=== PATIENT | female | born 1945 | race Caucasian/White ===

== ENCOUNTER 2017-07-09 14:31 | Outpatient (RCR) | payer MEDICARE, SELFPAY ==
[2017-07-09 16:34] LABS: International Normalized Ratio 2.9; Prothrombin Time (Protime)PT. 30.3 SECONDS (11.7-14.9)
== END 2017-07-09 15:00 | disposition home or self-care (01) ==
LOC: MTLAB 14:31
PROVIDERS: Family Provider Family Medicine; PCP Family Medicine; Visit Provider Internal Medicine Cardiovascular Disease
DX: I48.1 Persistent atrial fibrillation (principal); Z79.01 Long term (current) use of anticoagulants
CPT/HCPCS: 36415; 85610

== ENCOUNTER 2017-09-21 13:42 | Outpatient (RCR) | payer MEDICARE, SELFPAY ==
[2017-09-21 15:04] LABS: International Normalized Ratio 2.5; Prothrombin Time (Protime)PT. 26.9 SECONDS (11.7-14.9)
== END 2017-09-21 14:00 | disposition home or self-care (01) ==
LOC: MTLAB 13:42
PROVIDERS: Physician Assistant Medical; Family Provider Family Medicine; PCP Family Medicine; Visit Provider Internal Medicine Cardiovascular Disease
DX: I48.0 Paroxysmal atrial fibrillation (principal); Z79.01 Long term (current) use of anticoagulants; I50.9 Heart failure, unspecified; I48.91 Unspecified atrial fibrillation
CPT/HCPCS: 36415; 85610

== ENCOUNTER 2017-11-14 07:03 | Outpatient (RCR) | payer MEDICARE, SELFPAY ==
[2017-11-14 10:39] LABS: International Normalized Ratio 2.5; Prothrombin Time (Protime)PT. 26.9 SECONDS (11.7-14.9)
== END 2017-11-14 09:00 ==
LOC: MTLAB 07:03
PROVIDERS: Family Provider Family Medicine; PCP Family Medicine; Visit Provider Internal Medicine Cardiovascular Disease
DX: I48.91 Unspecified atrial fibrillation (principal); Z79.01 Long term (current) use of anticoagulants
CPT/HCPCS: 36415; 85610

== ENCOUNTER 2017-12-11 12:49 | Outpatient (RCR) | payer MEDICARE, SELFPAY ==
[2017-12-11 13:58] LABS: International Normalized Ratio 1.8; Prothrombin Time (Protime)PT. 20.8 SECONDS (11.7-14.9)
== END 2017-12-11 14:00 | disposition home or self-care (01) ==
LOC: MTLAB 12:49
PROVIDERS: Family Provider Family Medicine; PCP Family Medicine; Visit Provider Internal Medicine Cardiovascular Disease
DX: I48.91 Unspecified atrial fibrillation (principal); Z79.01 Long term (current) use of anticoagulants
CPT/HCPCS: 36415; 85610

== ENCOUNTER → 2018-01-08 09:49 | Outpatient (CLI) | payer MEDICARE, SELFPAY ==
[2018-01-08 12:14] LABS: Absolute Lymphocyte Count 1.81 X10^3/ul (0.83-4.51); Absolute Neutrophil Count 4.2 X10^3/uL (2.0-7.7); Basophil# 0.02 X10^3/uL; Basophil% 0.3 % (0-1); Eosinophil# 0.11 X10^3/uL; Eosinophils% 1.6 % (0-5); Hematocrit 44.6 % (37-47); Hemoglobin 14.5 g/dl (12.0-15.0); Lymphocyte # 1.81 X10^3/ul (4.0); Lymphocyte % 26.5 % (19-41); Mean Corp Hgb Conc 32.5 g/gl (32-36); Mean Corpuscular Hgb 28.4 pg (27.0-32.0); Mean Corpuscular Volume 87.3 fL (81-99); Mean Platelet Vol. 10.4 fl (6.2-12.0); Monocyte# 0.67 X10^3/uL; Monocyte% 9.8 % (0-10); Neutrophil # 4.21 X10^3/uL (2.7-7.7); Neutrophil % 61.7 % (47-70); Platelet Count 214 K/mm3 (150-450); RBC Distribution Width CV 14.9 % (11.6-14.6); RBC Distribution Width SD 47.8 fl (35.1-43.9); Red Blood Count 5.11 M/mm3 (4.2-5.4); White Blood Count 6.8 K/mm3 (4.4-11.0)
[2018-01-08 12:15] LABS: International Normalized Ratio 2.1; Prothrombin Time (Protime)PT. 23.3 SECONDS (11.7-14.9)
[2018-01-08 12:24] LABS: POSITIVE COUNT NO; POSITIVE DIFFERENTIAL NO; POSITIVE MORPHOLOGY NO
[2018-01-08 12:56] LABS: Anion Gap 10 (5-15); BUN 18 mg/dL (7-18); BUN/Creat Ratio 23.9 RATIO (10-20); Calcium,Total 8.6 mg/dL (8.5-10.1); Chloride 106 mmol/L (98-107); Cholesterol 288 mg/dL (200); Creatinine, Serum 0.75 mg/dL (0.55-1.02); EST Glomerular Filtration Rate 80 mL/min (>60); Est Glom Filt Rate - Afr Amer 97 mL/min (>60); Glucose 90 mg/dL (74-106); High Density Lipoprotein 50 mg/dL; Potassium 4.4 mmol/L (3.5-5.1); Sodium Level 141 mmol/L (136-145); Thyroid Stim Hormone (TSH) 2.82 uIU/mL (0.358-3.74); Triglycerides 115 mg/dL; Very Low Density Lipoprotein 23 mg/dL (5-40)
== END ==
PROVIDERS: Internal Medicine Cardiovascular Disease; Family Provider Family Medicine; PCP Family Medicine; Visit Provider Nurse Practitioner Adult Health
DX: I48.91 Unspecified atrial fibrillation (principal); D64.9 Anemia, unspecified; E78.00 Pure hypercholesterolemia, unspecified; Z13.1 Encounter for screening for diabetes mellitus; Z13.220 Encounter for screening for lipoid disorders; Z13.29 Encounter for screening for other suspected endocrine disorder; Z79.01 Long term (current) use of anticoagulants
CPT/HCPCS: 36415; 80048; 80061; 84443; 85025; 85610

== ENCOUNTER → 2018-01-31 07:49 | Outpatient (CLI) | payer MEDICARE, SELFPAY ==
--- NOTE | 2018-01-31 07:51 | BI_ITS ---
MAMMOGRAPHY - BILATERAL SCREENING REASON FOR EXAM: Female, 72 years old. Routine annual screening examination. PERTINENT HISTORY: NO FAM HX NO SX RT MOLE MARKED AT IMF TECHNIQUE: Digital bilateral breast milla (3D mammographic acquisition) in the CC and MLO projections. 2-D mediolateral oblique (MLO) and craniocaudad (CC) views of both breasts were obtained. CAD: Full Field Digital Mammography with Computer Added Detection was performed. COMPARISON: Aug 22 2013 8:22am FINDINGS: Breast Composition: There are scattered areas of fibroglandular density. There are no dominant masses or suspicious calcifications. No other significant abnormalities are identified. BI/SCREENING MAMM (CAD), BILAT IMPRESSION: Stable bilateral screening mammogram. Yearly follow-up mammogram recommended. (A) ASSESSMENT CATEGORY: BIRADS Category 2: Benign. A letter regarding these results will be sent to the patient by the facility within 30 days. Approximately 10% of breast cancers are not detected by mammography. A normal mammogram should not delay biopsy of a clinically suspicious abnormality. [id number] Electronically Signed: Tyesha Merida MD at 15:55 EDT Tel , Service support ,
== END ==
PROVIDERS: Family Provider Family Medicine; PCP Family Medicine; Referring Provider Nurse Practitioner Adult Health; Visit Provider Nurse Practitioner Adult Health
DX: Z12.31 Encounter for screening mammogram for malignant neoplasm of breast (principal)
CPT/HCPCS: 77063; 77067

== ENCOUNTER 2018-02-19 11:19 | Emergency (ER) | payer MEDICARE, SELFPAY ==
[2018-02-19 11:19] VITALS: BP 128/75; PULSE 70; RESP 18; TEMP 36.6; O2SAT 99; BMI 30.8
[2018-02-19] MEDS: Ketorolac 30 MG/ML Syringe IM (12:02)
--- NOTE | 2018-02-19 12:08 | RAD_ITS ---
STUDY: X-RAY - LUMBAR SPINE REASON FOR EXAM: Female, 72 years old. Right sided lower back pain. No known injury. TECHNIQUE: 3 view(s) of the lumbar spine were obtained. COMPARISON: None FINDINGS: There is generalized osteopenia. Normal lumbar lordosis. There is no substantial scoliosis. There is a normal alignment of the vertebrae. There are multiple concavities of the vertebral body endplates compatible with osteoporosis. There is an anterior wedge compression deformity of T12, age undetermined. There is intervertebral disc space narrowing with osteophyte formation most marked at L1-2 and L2-3. There is diffuse facet sclerosis. There is atherosclerotic calcification of the abdominal aorta without a demonstrated aneurysm. RAD/Lumbar Spine 2 or 3 Views IMPRESSION: Osteopenia with lumbar spondylosis as described. Findings compatible with osteoporosis. Anterior wedge compression deformity of T12, age undetermined. Electronically Signed: Perry Suggs MD at 12:31 EDT , Service support ,
--- NOTE | 2018-02-19 13:40 | ED.DCSUM_ITS ---
- ER Visit Summary Date of Service: 02/19/18 Chief Complaint: Back pain History of Present Illness: The patient is a 72 F presenting for evaluation secondary to back pain. Patient reports that over the course of the last week and 1/2-2 weeks she has been dealing with back pain. Patient reports that this may have started after she was riding on a bumpy lawnmower or after she lifted a dog. She reports that the pain is continuous and in her lower back. There is no radiation to legs. Is worse with movement and worse with going from a seated to a standing position but once she is up and walking around seems to feel okay. She denies any numbness or weakness or bowel or bladder incontinence. She den ies any presence of fevers night sweats or unintended weight loss. She denies any recent surgeries injections or history of IV drug abuse. Physical Examination: Vitals: Within normal limits General: Well-nourished well-developed no acute distress Head: Normocephalic atraumatic ENT: Moist mucous membranes Neck: Supple no JVD Cardiovascular: Heart regular rate and rhythm no murmurs Respiratory: Respirations nondistressed, lung sounds clear to auscultation bilaterally Abdominal: Soft, nontender, nondistended, normal bowel sounds, no evidence of abdominal masses or pulsatile mass Back: Normal to inspection, tenderness to palpation in the upper lumbar and lower thoracic in the midline, straight leg raise negative bilaterally Extremities: Nontender, nonedematous, 2+ radial and PT pulses bilaterally symmetric Skin: Normal color no rash Neuro: 5/5 strength hip flexion, knee flexion, knee extension, dorsiflexion, plantarflexion, EHL. Sensation intact over all dermatomes of the lower extremities bilaterally, 2+ patellar and Achilles reflexes bilaterally symmetric, negative clonus bilaterally Test Results: X-rays show evidence of a anterior wedge compression fracture of T12 of unknown chronicity Emergency Department Course and Treatment: Patient presented for evaluation secondary to back pain. Pain was initially treated in the emergency department with a dose of Toradol. Patient had some minimal improvement. Patient does show evidence of a compression fracture. Patient will be given a referral to Dr. grande, she will be sent home with a short course of tramadol, all questions were answered and patient was discharged. Disposition: Discharge Impression: 1. T12 compression fracture This note was generated with Revert dictation software. It may contain incorrect words, spelling, and punctuation that were not noted in review of the chart pr ior to signing ED Disposition - Plan for ED Patient: Disposition: Home or Assisted Living Chief Complaint: Back Diagnosis: Compression fracture Instructions: Back Fracture (Compression Fracture) Prescriptions: traMADol [Ultram] 50 mg PO Q4H PRN PRN 3 Days #18 tab PRN Reason: Pain Referrals: Keven West MD [STAFF PHYSICIAN] -
[2018-02-19 13:54] VITALS: PULSE 65; RESP 14; O2SAT 98
--- NOTE | 2018-02-19 13:57 | ED.RN ---
pt given d/c instructions. pt stated she had no addition question after instruction. grandson and daughter present at time of instruction. pt was able to sit at bedside with no assistance. she refused a wheel chair. instructed that she could take tylenol of breakthrough pain at home. jose de la torre rn [id number]
== END 2018-02-19 13:57 | disposition home or self-care (01) ==
PROVIDERS: Emergency Provider Emergency Medicine; Family Provider Family Medicine; PCP Family Medicine
DX: M48.54XA Collapsed vertebra, not elsewhere classified, thoracic region, initial encounter for fracture (principal); Z79.01 Long term (current) use of anticoagulants; Z79.82 Long term (current) use of aspirin; Z79.899 Other long term (current) drug therapy
CPT/HCPCS: 72100; 96372; 99282

== ENCOUNTER 2018-03-13 07:06 | Outpatient (RCR) | payer MEDICARE, SELFPAY ==
[2018-03-13 10:11] LABS: International Normalized Ratio 2.3; Prothrombin Time (Protime)PT. 25.8 SECONDS (11.7-14.9)
== END 2018-03-13 08:00 | disposition home or self-care (01) ==
LOC: MTLAB 07:06
PROVIDERS: Family Provider Family Medicine; PCP Family Medicine; Visit Provider Internal Medicine Cardiovascular Disease
DX: I48.91 Unspecified atrial fibrillation (principal); Z79.01 Long term (current) use of anticoagulants
CPT/HCPCS: 36415; 85610

== ENCOUNTER 2018-04-17 07:52 | Outpatient (RCR) | payer MEDICARE, SELFPAY ==
[2018-04-17 10:38] LABS: International Normalized Ratio 2.9; Prothrombin Time (Protime)PT. 30.4 SECONDS (11.7-14.9)
--- OUTSIDE RECORDS SUMMARY | 2018-07-19 08:16 | XMS RPT_ITS ---
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 disease) Hypertension Mother Cancer Father Heart disease Sister CAD (coronary artery disease) Son Hyperlipidemia Social History Smoking Status: Never smoker alcohol intake: current alcohol intake frequency: holidays/special occasions only substance use type: does not use caffeine: Yes Type: coffee Number of servings: 1 what type of physical activity do you participate in: none ROS Const Const: Negative for weakness, fatigue, fever(s) or headache(s) Eyes Eyes: Negative for blind spots, loss of peripheral vision or transient loss of vision ENT ENT: Negative for headache(s), dizziness, tinnitus or Nosebleed/epistaxis Cardio Chest Pain: No Palpitations: No Edema: None Muscle aches with walking: None Resp Respiratory: Negative for SOB with activity, SOB at rest, SOB orthopnea\SOB lying down or Cough GI GI: Negative nausea, vomiting, heartburn or vomiting blood/hematemesis : Negative for hematuria Musc Musc: Negative for muscle aches/ myalgia Neuro Neuro: Negative for weakness, headache(s), dizziness, near syncope, syncope, lightheadedness or orthostatic symptoms Prakash Hematologic/Lymphatic: Negative for easy bleeding Endo Endo: Negative for fatigue Cardiology Exam Const Appearance: cooperative, no acute distress and well developed Orientation: alert, awake and oriented x3 Head Head: normocephalic and atraumatic Mouth: moist mucous membranes Eyes General: appearance normal, both eyes and all related structures Conjunctivae: conjunctivae normal Pupils: PERRL EOM: EOM intact bilaterally Neck Neck: normal visual inspection, no lymphadenopathy and no JVD Carotids: Negative bruit Neck Mass: Negative Neck mass Chest Chest inspection: normal inspection of the chest and symmetric chest movement Auscultation: Bilateral: Clear to Auscultation Cardio Palpation: normal PMI Rate: regular rate Rhythm: irregularly irregular Heart sounds: S1 normal and S2 normal; negative rub, gallop or murmur GI GI: normal to inspection, soft, no hepatosplenomegaly and bowel sounds present; negative tender Neuro General: alert, awake, oriented x3, CN's II-XI intact bilaterally and moves all extremities Extremities Pulses: Normal: Right Posterior Tibial Pulse, Left Posterior Tibial Pulse, Right Radial Pulse, Left Radial Pulse Lower Extremity Edema: None: Bilateral Psych Psychological: normal affect Supplemental Info Echocardiogram in 2014 demonstrates an ejection fraction of 53%. Mild mitral and tricuspid insufficiency. Assessment AND Plan 1. Persistent atrial fibrillation I48.1 Plan - OTILIO Mosqueda Patient has not had any symptomatic recurrence. She will continue to be on a rate limiting medication in addition to her anticoagulant with a therapeutic INR goal of 2-3. She is overdue to have her INR checked. She is aware of the importance of this. 2. Dilated cardiomyopathy I42.0 Plan - OTILIO Mosqueda Patient does not have any symptoms of congestive heart failure. She will continue with current medications. We will continue to monitor by history, exam and echocardiograms as deemed appropriate. 3. Pure hypercholesterolemia E78.00; E78.0 Plan - OTILIO Mosqueda Patient is due to have her lipids checked. She will do this in the near future. Plan Detail Other Orders Orders: Additional Comments - OTILIO Mosqueda The above patient was discussed with Dr. Bryan, he agrees with plan of care. Thank you for allowing us to participate in patient's plan of care, if you have any questions please do not hesitate to call. This note was generated using a voice recognition system and there may be incorrect words, spelling or punctuation errors that were not noted when reviewing the office note prior to saving. 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) Coding Level of Care Code Off vis,est,level 3 Diagnoses Persistent atrial fibrillation I48.1 Atrial fibrillation type: persistent Dilated cardiomyopathy I42.0 Pure hypercholesterolemia E78.00; E78.0 Hyperlipidemia type: pure hypercholesterolemia Coding Level of Care Code Off vis,est,level 3 Diagnoses Persistent atrial fibrillation I48.1 Atrial fibrillation type: persistent Dilated cardiomyopathy I42.0 Pure hypercholesterolemia E78.00; E78.0 Hyperlipidemia type: pure hypercholesterolemia 09/21/17 1339 <Electronically signed by Evie Sandoval PA> Date Evie YAÑEZ 10/10/17 0821<Electronically signed by Adrián Bryan MD> Cosigner Signature: Date (if applicable) Adrián Bryan MD CC: Cristofer Yadav MD PROTHROMBIN TIME W/INR Collected: 09/21/2017 Status: F Source: [place] 1:46 PM REPOSITORY Order Comment: Comments: Standing Comments: Standing TYPE CODE TESTS RESULT OUT OF RANGE REFERENCE UNITS LAB L300.4150 11.7-14.9 SECONDS High PROTIME 26.9 LAB L300.4200 Normal INR 2.5 Performed By: #### L300.3900 #### [facility] [address] [place], [address] PROTHROMBIN TIME W/INR Collected: 07/09/2017 Status: F Source: KEENA 2:38 PM REPOSITORY TYPE CODE TESTS RESULT OUT OF RANGE REFERENCE UNITS LAB L300.4150 11.7-14.9 SECONDS High PROTIME 30.3 LAB L300.4200 Normal INR 2.9 Performed By: #### L300.3900 #### [facility] [address] [place], [address] ALLERGIES ALLERGIES DATE TYPE / CODE NAME / CODE REACTION SEVERITY SOURCE 02/19/2018 Drug clarithromycin/F Unknown Unknown [place] Allergy/[id number]( [id number](RXNORM [facility] SNOMED CT) ) Hospital Repository 02/19/2018 Drug levofloxacin/F00 Unknown Unknown [place] Allergy/582534179( 8817223(RXNORM) [facility] SNOMED CT) Hospital Repository 02/19/2018 Drug risedronate Unknown Unknown [place] Allergy/964024906( sodium/[id number] [facility] SNOMED CT) 1(RXNORM) Hospital Repository 02/19/2018 Drug rofecoxib/S53782 Unknown Unknown [place] [facility]822284094( [facility] 02/19/2018 Miscellaneous crab Food Allergy Unknown [place] [facility] ENCOUNTERS ENCOUNTERS ADMIT/DISCHARGE ACCOUNT ADMITTING ENCOUNTER LOCATION SOURCE NUMBER CLASS 05/09/2018 [id number] Ambulatory [place] 0 [facility] ing:LAB Repository 04/17/2018 [id number] Ambulatory [place] 8 [facility] ing:OPBD Repository 04/17/2018/ [id number] Ambulatory [place] 8 2 [facility] ing:LAB Repository 03/13/2018/ [id number] Ambulatory [place] 8 7 [facility] ing:MTLAB Repository 02/19/2018/ [id number] Emergency [place] 8 8 [facility] ing:ED Repository 01/31/2018 [id number] Ambulatory [place] 4 [facility] ing:OPBI Repository 01/08/2018 [id number] Ambulatory [place] 1 [facility] ing:MFPLAB Repository 12/11/2017/ [id number] Ambulatory [place] 8 5 [facility] ing:MTLAB Repository 11/14/2017/ [id number] Ambulatory [place] 8 2 [facility] ing:MTLAB Repository 09/21/2017/ [id number] Ambulatory [place] 8 5 [facility] ing:MTLAB Repository 09/21/2017/ [id number] Ambulatory BMS[facility]:B [place] 8 8 [facility] Repository 09/17/2017 [id number] Ambulatory BMS [place] 1 [facility] Repository 09/06/2017 [id number] Ambulatory B[facility]Building:B [place] 6 [facility] Repository 08/15/2017 [id number] Ambulatory B[facility]Building:B [place] 2 [facility] Repository 07/09/2017/ [id number] Ambulatory [place] 8 6 [facility] PAYERS PAYERS ENCOUNTER GUARANTOR PAYER SUBSCRIBER SOURCE 05/09/2018 AMANDA E Primary AMANDA E [place] [id number] OM[place] Insurance:HUMANA PARSONSDOB[place] PPOPolicy [id number] Hospital [address]Itf: (330) Number: Repository [phone] () [id number] Date:[id number] [address]CR: 05/09/2018 Secondary NOT GIVENUNK [place] Insurance:SELF PAY [facility] Number: Effective Repository Date:2018-04-29 04/17/2018 AMANDA E Primary AMANDA E [place] [id number] OM[place] Insurance:HUMANA PARSONSDOB: [place] PPOPolicy [id number] Hospital [address]Rog: (330) Number: Repository [phone] () [id number] Date:[id number] [address]HM: 04/17/2018 Secondary NOT GIVENUNK [place] Insurance:SELF PAY [facility] Number: Effective Repository Date:2018-04-11 04/17/2018 AMANDA E Primary AMANDA E [place] [id number] OM[place] Insurance:HUMANA PARSONSDOB: [place] PPOP[place]icy [id number] Hospital [address]Igk: (330) Number: Repository [phone] () [id number] Date:2015-28-05CC [address] [address]QG: 04/17/2018 Secondary NOT GIVENUNK [place] Insurance:SELF PAY [facility] Number: Effective Repository Date:2018-04-02 03/13/2018 AMANDA E Primary AMANDA E [place] [id number] [place] Insurance:HUMANA PARSONSDOB: [facility] [place] [facility] [id number] Hospital [address]Vqr: [phone]) Number: Repository [phone] () [id number] Date:3134-53-06GY [address] [address]XU: 03/13/2018 Secondary NOT GIVENUNK [place] Insurance:SELF PAY [facility] Number: Effective Repository Date:2018-01-02 02/19/2018 AMANDA E Primary AMANDA E [place] [id number] OM[place] Insurance:HUMANA PARSONSDOB: [facility] [place] PPOPolicy [id number] Hospital [address]Wfi: (330) Number: Repository [phone] () [id number] Date:3910-41-70KS [address] [address]GK: 02/19/2018 Secondary NOT GIVENUNK [place] Insurance:SELF PAY [facility] Number: Effective Repository Date:2018-02-19 01/31/2018 AMANDA E Primary AMANDA E [place] [id number] [place] Insurance:HUMANA PARSONSDOB: Community [facility], [place] PPOPolicy [id number] Hospital [address]Vzl: (330) Number: Repository [phone] () [id number] Date:6189-13-90QJ [address] [address]RN: 01/31/2018 Secondary NOT GIVENUNK [place] Insurance:SELF PAY [facility] Number: Effective Repository Date:2018-01-10 01/08/2018 AMANDA E Primary AMANDA E [place] [id number] OM[place] Insurance:HUMANA PARSONSDOB: [place] PPOP[place]icy [id number] Hospital [address]Rio: (330) Number: Repository [phone] () [id number] Date:2737-17-60[place] [address]WP: 01/08/2018 Secondary NOT GIVENUNK [place] Insurance:SELF PAY [facility] Number: Effective Repository Date:2018-01-08 12/11/2017 AMANDA E Primary AMANDA E [place] [id number] [place] Insurance:HUMANA PARSONSDOB: [place] PPOP[place]icy [id number] Hospital [address]Xvt: (330) Number: Repository [phone] () [id number] Date:1454-89-50VX[address]4601WP: 12/11/2017 Secondary NOT GIVENUNK [place] Insurance:SELF PAY [facility] Number: Effective Repository Date:2017-11-30 11/14/2017 AMANDA E Primary AMANDA E [place] [id number] OM[place] Insurance:HUMANA PARSONSDOB: [place] PPOP[place] [id number] Hospital [address]Rxs: (330) Number: Repository [phone] () [id number] Date:2809-41-70SB[address] [address]IW: 11/14/2017 Secondary NOT GIVENUNK [place] Insurance:SELF PAY [facility] Number: Effective Repository Date:2017-09-28 09/21/2017 AMANDA E Primary AMANDA E [place] [id number] [place] Insurance:HUMANA PARSONSDOB: [place] PPOP[place] [id number] Hospital [address]Gma: (330) Number: Repository [phone] () [id number] Date:7783-80-51KB [address] [place] [address]WJ: 09/21/2017 Secondary NOT GIVENUNK [place] Insurance:SELF PAY [facility] Number: Effective Repository Date:2017-07-30 09/21/2017 AMANDA E Primary AMANDA E [place] [id number] [place] Insurance:HUMANA PARSONSDOB: [place] PPOP[place]icy [id number] Hospital [address]Kdk: (330) Number: Repository [phone] () [id number] Date:5410-62-76JJ [address] [address]WU: 09/21/2017 Secondary NOT GIVENUNK [place] Insurance:SELF PAY [facility] Number: Effective Repository Date:2017-09-21 09/17/2017 Amanda E Primary Amanda E [place] [id number] [place] Insurance:HUMANA ParsonsDOB: [place] PPOP[place]icy [id number] Hospital [address]Jde: (330) Number: Repository [phone] () [id number] Date:9008-87-31BA [address] [address]QE: 09/17/2017 Secondary NOT GIVENUNK [place] Insurance:SELF PAY [facility] Number: Effective Repository Date:2017-09-17 09/06/2017 Amanda E Primary Amanda E [place] [id number] [place] Insurance:HUMANA ParsonsDOB: [place] PPOPolicy [id number] Hospital [address]Jmn: (330) Number: Repository [phone] () [id number] Date:3685-63-75AD [address] [address]MN: 09/06/2017 Secondary NOT GIVENUNK [place] Insurance:SELF PAY [facility] Number: Effective Repository Date:2017-09-06 08/15/2017 Amanda E Primary Amanda E [place] [id number] [place] Insurance:HUMANA ParsonsDOB: [place] PPOP[place] [id number] Hospital [address]Whk: (330) Number: Repository [phone] () [id number] Date:2121-94-52TA [address] [address]WU: 08/15/2017 Secondary NOT GIVENUNK [place] Insurance:SELF PAY [facility] Number: Effective Repository Date:2017-08-15 07/09/2017 Amanda E Primary Amanda E [place] [id number] [place] Insurance:HUMANA [place]onsDOB: [place] PPOPolicy [id number] Hospital [address]Dfy: (330) Number: Repository [phone] () [id number] Date:6377-28-71ZJ [address] [address]RB: 07/09/2017 Secondary NOT GIVENUNK [place] Insurance:SELF PAY [facility] Number: Effective Repository Date:2017-04-30
== END 2018-04-17 08:52 | disposition home or self-care (01) ==
LOC: LAB 07:52
PROVIDERS: Family Provider Family Medicine; PCP Family Medicine; Referring Provider Internal Medicine Cardiovascular Disease; Visit Provider Internal Medicine Cardiovascular Disease
DX: I48.91 Unspecified atrial fibrillation (principal); Z79.01 Long term (current) use of anticoagulants
CPT/HCPCS: 36415; 85610

== ENCOUNTER → 2018-04-17 08:16 | Outpatient (CLI) | payer MEDICARE, SELFPAY ==
--- NOTE | 2018-04-17 08:24 | BD_ITS ---
STUDY: DUAL ENERGY X-RAY ABSORPTIOMETRY / DXA REASON FOR EXAM: Female, 72 years old. The patient is postmenopausal. Loss of height. TECHNIQUE: Bone Mineral Density (BMD) measurements of lumbar spine and bilateral hips were obtained. COMPARISON: Comparison is made with prior study dated June 27, 2006. FINDINGS: Lumbar Spine (L1-L4): g/cm2 (0.818) / T-score (-3.2) / Z-score (-1.5) Findings are suggestive of osteoporosis with a high fracture risk. Increased thoracic kyphosis. Loss of height of mid dorsal vertebrae. Left Femur Total: g/cm2 (0.749) / T-score (-2.1) / Z-score (-0.5) Left Femoral Neck: g/cm2 (0.722) / T-score (-2.3) / Z-score (-0.5) Right Femur Total: g/cm2 (0.762) / T-score (-2.0) / Z-score (-0.4) Right Femoral Neck: g/cm2 (0.775) / T-score (-1.9) / Z-score (-0.1) The T-Scores on the most recent prior examination were: Lumbar Spine (L1-L4): There has been worsening of bone density since the previous examination. Left Femur Total: which represents a worsening of 18%. BD/Dexa Bone Density Study IMPRESSION: The patient is considered osteoporotic as outlined below according to World [employer] Organization (WHO) criteria with a high fracture risk. There has been worsening of bone density since the previous examination. Reference Information: The T-score is the number of standard deviations above or below the standard which is normal for young adults at their peak bone mineral density. The World Health Organization (WHO) interprets the T-scores as follows: Above -1 Normal bone density Between -1 and -2.5 Osteopenia Equal to / or below -2.5 Osteoporosis As a practical clinical guideline, osteopenia may be graded as follows: Mild -1 through -1.5 Moderate -1.6 through -2.0 Severe -2.1 through -2.4 The Z-score is the number of standard deviations above or below age-matched controls. A Z-score of less than -1.5 would be considered abnormal. References: 1. NIH Osteoporosis and Related Bone Diseases http://www.osteo.org 2. International Society for Clinical Densitometry http://www.iscd.org 3. National Osteoporosis Foundation http://www.nof.org Electronically Signed: Yosef Woodruff MD at 10:31 EST Tel [phone], Service support ,
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
== END ==
PROVIDERS: Family Provider Family Medicine; PCP Family Medicine; Visit Provider Family Medicine
DX: M81.0 Age-related osteoporosis without current pathological fracture (principal); I48.91 Unspecified atrial fibrillation; Z79.01 Long term (current) use of anticoagulants
CPT/HCPCS: 36415; 77080; 85610

== ENCOUNTER 2018-05-09 10:26 | Outpatient (RCR) | payer MEDICARE, SELFPAY ==
[2018-05-09 12:10] LABS: International Normalized Ratio 2.6; Prothrombin Time (Protime)PT. 27.8 SECONDS (11.7-14.9)
== END 2018-05-09 11:00 | disposition home or self-care (01) ==
LOC: LAB 10:26
PROVIDERS: Family Provider Family Medicine; PCP Family Medicine; Referring Provider Internal Medicine Cardiovascular Disease; Visit Provider Internal Medicine Cardiovascular Disease
DX: I48.91 Unspecified atrial fibrillation (principal); Z79.01 Long term (current) use of anticoagulants
CPT/HCPCS: 36415; 85610

== ENCOUNTER → 2018-07-17 07:42 | Outpatient (CLI) | payer MEDICARE, SELFPAY ==
[2018-06-21 11:25] VITALS: BMI 34.3
--- NOTE | 2018-07-17 07:44 | ECHOD_ITS ---
Version 2 Reason For Study: AFIB/FLUTTER Procedure This was a 2D Doppler, Color Flow transthoracic echocardiogram. Exam performed in department. Left Ventricle Normal LV size. Left ventricular systolic function is normal. The estimated ejection fraction is 55 %. Unable to assess diastolic dysfunction due to arrhythmia. No regional wall motion abnormalities noted. Right Ventricle Normal RV size. Normal systolic function. Atria The left atrium is moderately enlarged. The right atrium is mildly enlarged. Mitral Valve Bileaflet diffuse mitral valve thickening. Mild (1+) eccentric mitral valve insufficiency. Tricuspid Valve Normal tricuspid valve. Mild (1+) tricuspid valve insufficiency. Pulmonary artery systolic pressure is 27 mmHg. Aortic Valve Trisinus/trileaflet aortic valve. Mild focal aortic valve calcification. Mild (1+) eccentric aortic valve insufficiency. Pulmonic Valve Normal pulmonic valve. Great Vessels Normal aortic root. The pulmonary artery is normal size. Normal inferior vena cava. Pericardium/Pleural No pericardial effusion. MMode/2D Measurements & Calculations LVIDd: 4.9 cm IVSd: 0.92 cm Ao root diam: 3.1 cm LVIDs: 3.2 cm LVPWd: 0.94 cm RVDd: 3.5 cm FS: 35.2 % LAV(MOD-bp): 88.9 ml LA A4 area: 27.1 cm2 LA dimension(2D): 4.1 cm LAV(MOD-bp) Indexed: 49.2 ml/m2 LAV(MOD-sp2): 96.2 ml LAV(MOD-sp4): 83.6 ml RA A4 area: 22.2 cm2 Doppler Measurements & Calculations MV E max obdulio: 137.4 cm/sec Ao V2 max: 142.8 cm/sec AI max obdulio: 330.4 cm/sec Ao max P.2 mmHg AI max P.7 mmHg AI dec slope: 152.4 cm/sec2 AI P1/2t: 635.0 msec LV V1 max: 94.7 cm/sec PA V2 max: 81.1 cm/sec PI dec slope: 102.4 cm/sec2 LV V1 max P.6 mmHg TR max obdulio: 237.7 cm/sec TR max P.7 mmHg Interpretation Summary Normal LV size. Left ventricular systolic function is normal. The estimated ejection fraction is 55 %. Unable to assess diastolic dysfunction due to arrhythmia. Mild (1+) tricuspid valve insufficiency. Mild (1+) eccentric mitral valve insufficiency. Bileaflet diffuse mitral valve thickening. Ordering Physician: Adrián Bryan Referring Physician: Cristofer Yadav Performed By: Ama Luong, RDCS, RVT
== END ==
PROVIDERS: Family Provider Family Medicine; PCP Family Medicine; Referring Provider Internal Medicine Cardiovascular Disease; Visit Provider Internal Medicine Cardiovascular Disease
DX: I42.8 Other cardiomyopathies (principal); I48.91 Unspecified atrial fibrillation; I48.92 Unspecified atrial flutter
CPT/HCPCS: 93306

== ENCOUNTER 2018-08-15 07:03 | Outpatient (RCR) | payer MEDICARE, SELFPAY ==
[2018-06-21 11:25] VITALS: BMI 34.3
[2018-08-15 10:55] LABS: International Normalized Ratio 2.6; Prothrombin Time (Protime)PT. 27.9 SECONDS (11.7-14.9)
== END 2018-08-27 16:00 | disposition home or self-care (01) ==
LOC: LAB 07:03
PROVIDERS: Family Provider Family Medicine; PCP Family Medicine; Referring Provider Internal Medicine Cardiovascular Disease; Visit Provider Internal Medicine Cardiovascular Disease
DX: I48.91 Unspecified atrial fibrillation (principal); Z79.01 Long term (current) use of anticoagulants
CPT/HCPCS: 36415; 85610

== ENCOUNTER 2018-10-10 10:04 | Outpatient (RCR) | payer MEDICARE, SELFPAY ==
[2018-06-21 11:25] VITALS: BMI 34.3
[2018-10-10 10:41] LABS: International Normalized Ratio 2.7; Prothrombin Time (Protime)PT. 28.6 SECONDS (11.7-14.9)
== END 2018-10-27 12:00 | disposition home or self-care (01) ==
LOC: LAB 10:04
PROVIDERS: Family Provider Family Medicine; PCP Family Medicine; Referring Provider Internal Medicine Cardiovascular Disease; Visit Provider Internal Medicine Cardiovascular Disease
DX: I48.91 Unspecified atrial fibrillation (principal); Z79.01 Long term (current) use of anticoagulants
CPT/HCPCS: 36415; 85610

== ENCOUNTER 2018-12-12 10:01 | Outpatient (RCR) | payer MEDICARE, SELFPAY ==
[2018-06-21 11:25] VITALS: BMI 34.3
[2018-12-12 09:15] VITALS: BMI 28.9
[2018-12-12 11:49] LABS: International Normalized Ratio 2.6; Prothrombin Time (Protime)PT. 27.6 SECONDS (11.7-14.9)
== END 2018-12-12 11:00 | disposition home or self-care (01) ==
LOC: LAB 10:01
PROVIDERS: Physician Assistant Medical; Family Provider Family Medicine; PCP Family Medicine; Referring Provider Internal Medicine Cardiovascular Disease; Visit Provider Internal Medicine Cardiovascular Disease
DX: I48.91 Unspecified atrial fibrillation (principal); I43 Cardiomyopathy in diseases classified elsewhere; Z79.01 Long term (current) use of anticoagulants
CPT/HCPCS: 36415; 85610

== ENCOUNTER 2019-01-13 14:35 | Outpatient (RCR) | payer MEDICARE, SELFPAY ==
[2019-01-13 17:45] LABS: International Normalized Ratio 2.3; Prothrombin Time (Protime)PT. 25.4 SECONDS (11.7-14.9)
== END 2019-01-13 16:00 | disposition home or self-care (01) ==
LOC: LAB 14:35
PROVIDERS: Family Provider Family Medicine; PCP Family Medicine; Referring Provider Internal Medicine Cardiovascular Disease; Visit Provider Internal Medicine Cardiovascular Disease
DX: Z79.01 Long term (current) use of anticoagulants (principal); I43 Cardiomyopathy in diseases classified elsewhere
CPT/HCPCS: 36415; 85610

== ENCOUNTER → 2019-02-03 07:00 | Outpatient (CLI) | payer MEDICARE, SELFPAY ==
--- NOTE | 2019-02-03 07:02 | BI_ITS ---
MAMMOGRAPHY - BILATERAL SCREENING 3-D TOMOSYNTHESIS REASON FOR EXAM: Female, 73 years old. Screening PERTINENT HISTORY: No significant family history. BILATERAL DIGITAL MAMMOGRAM WITH TOMOSYNTHESIS: Mediolateraloblique and craniocaudal views demonstrate a dominant parenchymal mass lesions seen within the left breast adjacent to the posterior lateral chest wall and superior lateral quadrant left breast. This is seen only on MLO projection and cannot be seen on the craniocaudal view. For this reason, an exaggerated craniocaudal view of the left breast and, possibly cleavage views and a targeted left breast ultrasound of the superolateral aspect the left breast are recommended for additional evaluation. No cluster of microcalcifications or architectural distortion is seen. No evidence of skin thickening is identified. There has been a significant change since 01/31/2018 . Breast Density: The breast tissue is almost entirely fatty. CAD was used to assist in final assessment. IMPRESSION: A dominant, 1 cm masslike lesion is seen in the posterior aspect of the left breast probably in the superior lateral aspect of the left breast. Additional imaging including an extended craniocaudal view and cleavage view and a targeted left breast ultrasound are recommended for further evaluation. FINAL ASSESSMENT: FINAL ASSESSMENT: BI-RAD CATEGORY 0 INCOMPLETE: (NEEDS ADDITIONAL IMAGINING EVALUATION) Approximately 10% of breast cancers are not detected by mammography. A normal mammogram should not delay biopsy of a clinically suspicious abnormality. Electronically Signed: Gil Dia, at 13:21 EDT Tel , Service support , BI/SCREEN MAMM (CAD) W/GRISELDA ALFREDO
== END ==
PROVIDERS: Family Provider Family Medicine; PCP Family Medicine; Referring Provider Nurse Practitioner Adult Health; Visit Provider Nurse Practitioner Adult Health
DX: Z12.31 Encounter for screening mammogram for malignant neoplasm of breast (principal)
CPT/HCPCS: 77063; 77067

== ENCOUNTER → 2019-02-05 09:51 | Outpatient (CLI) | payer MEDICARE, SELFPAY ==
--- NOTE | 2019-02-05 09:54 | US_ITS ---
STUDY: ULTRASOUND BREAST - LEFT REASON FOR EXAM: Female, 73 years old. TECHNIQUE: Axial and longitudinal images of the LEFT breast were performed with a high resolution ultrasound transducer. COMPARISON: Recent mammogram obtained Attention to this 19 FINDINGS: LEFT Breast: There is mass lesion in the left axillary tail of the left breast which is taller than it is wide and relatively hypoechoic. This mass measures 1.1 cm in maximal AP dimension by 0.6 cm in maximal width. There is no posterior wall enhancement or shadowing. This lesion corresponds to the abnormality noted on the recent mammogram is most consistent with breast cancer. An ultrasound directed biopsy is strongly recommended for further evaluation. Posterior Enhancement: US/Breast Limited Unilateral IMPRESSION: A hypoechoic 1.1 x 0.6 cm mass lesion is noted in the left occipital lobe which represents carcinoma to prove otherwise. An ultrasound directed biopsy is recommended for additional evaluation. ASSESSMENT CATEGORY: BIRADS Category 4: Suspicious - Biopsy Should Be Considered. A letter regarding these results will be sent to the patient by the facility within 30 days. Electronically Signed: Gil South, at 14:09 EDT Tel , Service support ,
== END ==
PROVIDERS: Family Provider Family Medicine; PCP Family Medicine; Referring Provider Nurse Practitioner Adult Health; Visit Provider Nurse Practitioner Adult Health
DX: N63.32 Unspecified lump in axillary tail of the left breast (principal)
CPT/HCPCS: 76642

== ENCOUNTER → 2019-02-19 13:33 | Outpatient (CLI) | payer MEDICARE, SELFPAY ==
--- NOTE | 2019-02-19 | IMM_PTH ---
PATIENT: ASHELY CANTU LOC: [facility] U#:[id number] AGE/SX: 79/F ROOM: RE02/19/[address]: Dr. Graham Montano MD : 1945 BED: DIS: SPEC #: [id number] RECD: 02/20/19 10:39 STATUS: JEANETH REQ #: [id number] PATRICE: 02/19/19 00:[address]: Graham Montano DEPT: IMMUNOHISTOCHEMISTRY RECD BY: Leah Pool ENTERED: 02/20/19 10:40 SP TYPE: IMMUNO OTHR DR: Dr. Cristofer Yadav MD Tissues: Left breast, NOS Procedures: CALPONIN-1 (add) CK5-6 (add) CK8 (add) E-CAD (add) HER2 EMILY (add) KI-67 (add) P53 (add) ME (add) P40 (add) ER (initial) PHYSICIAN & INSTITUTION [place] [id number] SPECIMEN INFORMATION: Tissue Source: Left breast tissue Clinical Info: Left breast mass Specimen Number: [id number] CPT code: 57080, 43106 x6, 91280 x3 METHODOLOGY: Deparaffinized sections of prefer/formalin-fixed tissue or PAP/DQ stained slides are incubated with monoclonal/polyclonal antibodies/oligonucleotide probes. Localization is made via biotin free immunoperoxidase method. Appropriate controls are performed and reacted as expected. Results on target cell population are indicated in the following table: RESULTS: ANTIBODY / CLONE RESULT E-Cad (ECH-6) positive CK8 ([id number]) positive Calponin-1 (MD711J) negative CK5-6 (D5 & 1684) positive, focal P40 (BC28) negative (high background) P53 (DO-7) positive, focal Ki-67 (30-9) positive, moderate MORPHOMETRIC ANALYSIS ER (clone 6F11) 0% ME (clone 16/1E2) 0% Her-2Neu (clone CB11) 1+ The prognostic test for HER2 is performed on formalin-fixed paraffin embedded tissue. A 3+ (positive) staining pattern is defined as intense, homogeneous, complete, circumferential membranous staining in >10% of contiguous tumor cells. A similar weak (2+) staining pattern is interpreted as equivocal. YANCY follow-up testing is recommended for all equivocal cases. Positivity/negativity for ER/ME is reported if > or < 1% of the tumor cells are immuno- reactive, respectively. The ASCO/CAP criteria is used for scoring. Reference: Journal of Clinical Oncology, 2013; 31:7986-2062 & 2010; 16:1205-1197. Duration of fixation: 9.5 Hrs; Sample Adequate: Yes. These assays have not been validated on decalcified tissues. Results should be interpreted with caution given the likelihood of false negativity on decalcified specimens. These tests were developed and their performance characteristics determined by [facility]. They may not have been cleared or approved by the U.S. Food and Drug Administration. The FDA has determined that such clearance or approval is not necessary. The above immunohistochemical/dualISH markers are ordered and reviewed by the Pathologist. INTERPRETATION: Left breast, core biopsy: Invasive ductal carcinoma, nuclear grade 2-3. Negative for estrogen receptors (unfavorable prognostic indicator). Negative for progesterone receptors (unfavorable prognostic indicator). Negative for overexpression of MSA0ots. SJ:prasanth 02/20/19
--- NOTE | 2019-02-19 10:15 | BRBX_PTH ---
PATIENT: ASHELY CANTU LOC: [facility] U#:[id number] AGE/SX: 79/F ROOM: RE02/19/[address]: Dr. Graham Montano MD : 1945 BED: DIS: SPEC #: [id number] RECD: 02/19/19 11:32 STATUS: JEANETH ERIN #: [id number] PATRICE: 02/19/19 10:[address]: Graham Montano DEPT: SURGICAL PATHOLOGY RECD BY: Danie Mai ENTERED: 02/19/19 13:42 SP TYPE: BREAST BX OTHR DR: Dr. Cristofer Yadav MD Tissues: Left breast, NOS Procedures: Surgery Specimen Level IV HEADER OPERATION: Left breast core biopsy PRE-OP DIAGNOSIS: Left breast mass TISSUE SUBMITTED: Left breast tissue ISCHEMIC TIME: 1 minute FIXATION TIME: 9.5 hours MICROSCOPIC DIAGNOSIS Left breast mass, core biopsy: Invasive ductal carcinoma, nuclear grade 2-3 (0.6 cm in greatest length). See comment. MAI:prasanth 02/20/19 COMMENT Immunohistochemistry ([id number]) supports the above diagnosis. ER/TX/Rgt4afa studies are being performed on sections of tumor and the results from this study will be reported separately ([id number]). Preliminary results of the lesion that it is invasive carcinoma is reported to Dr. Montano's nurse on 02/20/19 at 9:20 a.m. MICROSCOPIC DESCRIPTION Slides are reviewed. GROSS DESCRIPTION Received in fixative is one container labeled with the patient's name and designated left breast. The specimen consists of multiple elongated fragments of barfield-yellow fibroadipose tissue that in aggregate measure 1.5 x 0.3 x 0.1 cm. The entire specimen is submitted in one cassette. / MAI:prasanth 02/19/19 TC:0 CPT: 15385
[2019-02-19 10:32] VITALS: BMI 28.9
== END ==
PROVIDERS: Family Provider Family Medicine; PCP Family Medicine; Visit Provider Surgery
DX: N63.20 Unspecified lump in the left breast, unspecified quadrant (principal)
CPT/HCPCS: 88305; 88341; 88342

== ENCOUNTER 2019-03-13 09:22 | Day surgery (SDC) | payer MEDICARE, SELFPAY ==
[2019-02-19 10:32] VITALS: BMI 28.9
--- NOTE | 2019-03-07 10:25 | RAD_ITS ---
STUDY: X-RAY CHEST REASON FOR EXAM: Female, 73 years old. Preoperative evaluation. Patient has breast cancer. TECHNIQUE: PA and lateral views of the chest. COMPARISON: Comparison is made with prior examination dated April 18, 2016. FINDINGS: Mild increased markings at the lung bases suggestive of mild scarring. There is no demonstrated pleural abnormality. There is mild cardiac enlargement. Normal mediastinum and martha. Normal visualized pulmonary arteries. There is atherosclerotic calcification of the aortic arch with tortuosity. There is demineralization of the osseous structures. Increased kyphosis. 50% loss of height of a mid dorsal vertebrae. Normal visualized ribs, clavicles, and shoulders. Moderate sized hiatal hernia. RAD/Chest PA and Lateral IMPRESSION: Mild cardiomegaly. Mild scarring at the lung bases. Hiatal hernia. Electronically Signed: Yosef Woodruff, at 12:50 EST , Service support ,
--- NOTE | 2019-03-07 10:26 | EKG12_ITS ---
Test Reason : PRE OP Blood Pressure : / mmHG Vent. Rate : 086 BPM Atrial Rate : 241 BPM P-R Int : 000 ms QRS Dur : 098 ms QT Int : 350 ms P-R-T Axes : 000 -51 080 degrees QTc Int : 418 ms Atrial fibrillation Left axis deviation Abnormal ECG Confirmed by DAVEY BARKER, CLAUDIA ([id number]), editor magazine SRINIVAS BARR ([id number]) on 03/11/2019 2:44:06 PM Referred By: Graham Montano Confirmed By:CLAUDIA MARISCAL MD
[2019-03-07 10:56] LABS: Hematocrit 45.9 % (37-47); Hemoglobin 14.4 g/dL (12.0-15.0); Mean Corp Hgb Conc 31.4 g/dL (32-36); Mean Corpuscular Volume 89.3 fL (81-99); Mean Platelet Vol. 10.7 fl (6.2-12.0); Platelet Count 223 K/mm3 (150-450); RBC Distribution Width CV 14.6 % (11.6-14.6); RBC Distribution Width SD 47.8 fl (35.1-43.9); Red Blood Count 5.14 M/mm3 (4.2-5.4); White Blood Count 8.3 K/mm3 (4.4-11.0)
[2019-03-07 11:22] LABS: ALB/GLOB Ratio 0.8 RATIO (0.9-2.4); AST(SGOT) 25 U/L (15-37); Alanine Aminotransfer ALT/SGPT 24 U/L (13-56); Albumin, Serum 3.4 g/dL (3.2-5.0); Alkaline Phosphatase 97 U/L (45-117); Anion Gap 6 (5-15); BUN 23 mg/dL (7-18); Calcium,Total 8.5 mg/dL (8.5-10.1); Chloride 106 mmol/L (98-107); Creatinine, Serum 0.92 mg/dL (0.55-1.02); EST Glomerular Filtration Rate 64 mL/min (>60); Est Glom Filt Rate - Afr Amer 77 mL/min (>60); Globulin 4.1 g/dL (2.2-4.2); Glucose 130 mg/dL (74-106); Potassium 4.1 mmol/L (3.5-5.1); Protein, Total 7.5 g/dL (6.4-8.2); Sodium Level 141 mmol/L (136-145)
--- NOTE | 2019-03-13 | AXNB_PTH ---
[id number] LOC: [facility] [place] U#:[id number] AGE/SX: 73/F ROOM: RE03/13/[address]: Dr. Graham Montano MD : 1945 BED: DIS: 03/13/2019 SPEC #: [id number] RECD: 03/13/19 13:09 STATUS: JEANETH RE #: [id number] PATRICE: 03/13/19 00:[address]: Graham Montano DEPT: SURGICAL PATHOLOGY RECD BY: Laeh Pool ENTERED: 03/13/19 14:01 SP TYPE: AX NODE BX OTHR DR: Dr. Cristofer Yadav MD Tissues: A - Axillary lymph node, NOS B - Axillary lymph node, NOS C - Left breast, NOS D - Axillary lymph node, NOS Procedures: Frozen Section (charge) Surgery Specimen Level IV Surgery Specimen Level V HEADER OPERATION: Ultrasound-guided wire localization, left breast lumpectomy PRE-OP DIAGNOSIS: Malignant neoplasm of upper outer quadrant of left breast C50.412; ER negative TISSUE SUBMITTED: A - [place] lymph node, left breast, sent for FS 1303, B - Additional sentinel lymph nodes, left breast FS at 1330, C - Left breast lumpectomy, wire - anterior, short suture - superior, long suture - lateral, FS at 1143, D - Additional sentinel lymph node #2, left breast, FS at 1355 FROZEN SECTION DIAGNOSIS A. [place] lymph node, left breast: No lymph node tissue identified. B. Additional sentinel lymph node, left breast: One lymph node, negative for metastatic carcinoma. D. Additional sentinel lymph node #2, left breast: One lymph node, negative for metastatic carcinoma. SJ:prasanth 03/13/19 MICROSCOPIC DIAGNOSIS A. Left axillary sentinel lymph node #1, biopsy: Fibrofatty tissue. No lymph node present. B. Additional left axillary sentinel lymph node, biopsy: One out of one lymph node, negative for carcinoma. C. Left breast, lumpectomy: Invasive ductal carcinoma. Ductal carcinoma in situ. See cancer checklist below. D. Additional sentinel lymph node #2, left breast: One out of one lymph node, negative for carcinoma. AM:prasanth 03/17/19 COMMENT C. INVASIVE BREAST CANCER SUMMARY: Specimen: Partial breast Procedure: Excision with wire guidance Specimen integrity: Single intact specimen. Specimen size: 6 x 5 x 2.5 cm Specimen laterality: Left breast Tumor size: 1.2 x 1 x 0.7 cm Tumor focality: Single focus of invasive carcinoma Macroscopic and Microscopic extent of tumor: Skin: Not present Nipple: Not present Skeletal muscle: Not present Histologic type of invasive carcinoma: Invasive ductal carcinoma Histologic Grade ([place] grade): Glandular/tubular differentiation score: 3 Nuclear pleomorphism score: 3 Mitotic count score: 2 Overall grade: Grade 3 (total score of 8) Margins: Uninvolved by invasive carcinoma. Closest (anterior) margin 0.5 cm Lymph-Vascular invasion: Not identified Dermal lymph-vascular invasion: Not applicable Ductal carcinoma in situ (DCIS): present Estimated size (extent) of DCIS: 2 x 1 x 1 mm Number of blocks with DCIS: 2 Number of blocks examined: 8 Architectural patterns: Solid Nuclear grade: grade 2/3 Necrosis: Not present Lobular carcinoma in situ (LCIS): Not present Lymph nodes: Number of sentinel lymph nodes examined: 2 Total number of lymph nodes examined (sentinel and nonsentinel): 2 No evidence of macrometastases, micrometastases or isolated tumor cells. See specimens A, B & D Microcalcifications: Present in non-neoplastic tissue Treatment effect: Unknown Additional pathologic findings: Focal intraductal hyperplasia without atypia and mild fibrocystic change. Ancillary studies: Previously performed on same tumor ([id number] / [id number]). ER: 0% MN: 0% Her2 malinda: 1+ (negative) PATHOLOGIC STAGE: pT1c N0 Mx The above summary is in compliance with [employer] Path[employer] (CAP) Cancer Protocols Checklist and [place] Joint Committee on Cancer (AJCC), Staging Manual, 8th Ed. Case has been reviewed in consultation with Dr. Hare who concurs with the above diagnosis. IDC:[email or web address] MICROSCOPIC DESCRIPTION Slides are reviewed. GROSS DESCRIPTION A - Received fresh for frozen section diagnosis labeled with the patient's name is a specimen designated sentinel lymph node, left breast. The specimen consists of a piece of adipose tissue measuring 4.5 x 3 x 1.5 cm. No lymph node tissue is identified. This information is conveyed to the surgeon intraoperatively. The entire specimen is submitted in three cassettes. The specimen will be processed after additional fixation. / : 03/13/19 B - Received fresh for frozen section diagnosis labeled with the patient's name is a specimen designated additional sentinel lymph node, left breast. The specimen consists of a piece of adipose tissue measuring 4 x 4 x 1 cm. One lymph node is identified. The entire specimen is submitted as follows: 1??frozen section, one lymph node, 2-4 - rest of the specimen. / : 03/14/19 C - Received fresh for intraoperative consultation labeled with the patient's name is a specimen designated left breast lumpectomy. The specimen consists of a piece of fibroadipose tissue with needle localization measuring 6 x 5 x 2.5 cm. The specimen is oriented as follows: wire - anterior, short suture - superior, long suture - lateral. The specimen is inked as follows: anterior - yellow, posterior - black, superior - blue, inferior - green, medial - red and lateral - orange. Serial section reveals a barfield nodule measuring 1.2 x 1 x 0.7 cm. This nodule is 0.5 cm away from the closest anterior margin. This information is conveyed to the surgeon intraoperatively. Sections of the rest of the specimen reveal tanyellow adipose cut surfaces mixed with barfield-white fibrous areas. The rest of the specimen sections also reveal a metallic clip. [employer] sections are submitted in eight cassettes as follows: 1??perpendicular medial and lateral margins, 2 - perpendicular superior, inferior and anterior and posterior margins, 3 & 4 - the entire tumor with closest anterior margin, 5-8 - [employer] sections adjacent to and away from the tumor. / : 03/14/19 D - Received fresh for frozen section diagnosis labeled with the patient's name is a specimen designated additional sentinel lymph node #2, left breast. The specimen consists of a piece of adipose tissue containing one nodule measuring 1.5 x 1 x 0.5 cm. The lymph node tissue is submitted entirely for frozen section diagnosis. / MAI:prasanth 03/13/19 TC:0 CPT: 31619, 64764 x2, 12656 x2, 80181 x3
--- NOTE | 2019-03-13 | IMM_PTH ---
PATIENT: ASHELY CANTU [place] [facility] [place][id number] AGE/SX: 73/F ROOM: RE03/13/[address]: Dr. Graham Montano MD : 1945 BED: DIS: 03/13/2019 SPEC #: [id number] RECD: 03/17/19 12:15 STATUS: SOURabia REQ #: [id number] PATRICE: 03/13/19 00:[address]: Graham Montano DEPT: IMMUNOHISTOCHEMISTRY RECD BY: Leah Pool ENTERED: 03/17/19 12:17 SP TYPE: IMMUNO OTHR DR: Dr. Cristofer Yadav MD Tissues: B - Axillary lymph node, NOS D - Axillary lymph node, NOS Procedures: Calponin-1(initial) CALPONIN-1 (add) CK7 (add) Pankeratin (initial) P40 (add) PHYSICIAN & INSTITUTION [place] [id number] SPECIMEN INFORMATION: Tissue Source: B - Additional sentinel lymph node, C - Left breast lumpectomy, D - Additional sentinel lymph node #2 Clinical Info: Malignant neoplasm UOQ left breast Specimen Number: [id number] B1, C4, C5 & D CPT code: 96237 x3, 77280 x5 METHODOLOGY: Deparaffinized sections of prefer/formalin-fixed tissue or PAP/DQ stained slides are incubated with monoclonal/polyclonal antibodies/oligonucleotide probes. Localization is made via biotin free immunoperoxidase method. Appropriate controls are performed and reacted as expected. Results on target cell population are indicated in the following table: RESULTS: ANTIBODY / CLONE RESULT Block B1 AE1-3 (AE1/AE3/PCK26) negative CK7 (OV-TL12/30) negative Block D AE1-3 (AE1/AE3/PCK26) negative CK7 (OV-TL12/30) negative Block C4 Calponin-1 (LF566K) positive P40 (BC28) positive Block C5 Calponin-1 (LV945M) positive P40 (BC28) positive These tests were developed and their performance characteristics determined by [facility]. They may not have been cleared or approved by the U.S. Food and Drug Administration. The FDA has determined that such clearance or approval is not necessary. The above immunohistochemical/dualISH markers are ordered and reviewed by the Pathologist. INTERPRETATION: B. Additional sentinel lymph node, left breast, biopsy: One out of one lymph node negative for carcinoma. C. Left breast, lumpectomy: Invasive ductal carcinoma. Focal ductal carcinoma in situ. D. Additional sentinel lymph node #2, left breast, biopsy: One out of one lymph node negative for carcinoma. AM:prasanth 03/17/19
[2019-03-13 09:46] LABS: Prothrombin Time Fingerstick 17.6 SEC (11.9-14.4)
[2019-03-13 09:53] VITALS: BP 117/81; PULSE 92; RESP 14; TEMP 37.3; O2SAT 96; BMI 31.3
--- NOTE | 2019-03-13 10:00 | NM_ITS ---
PROCEDURE: NUCLEAR MEDICINE Injection Darrow Node - LEFT breast(s). REASON FOR EXAM: Female, 73 years old. Left breast cancer. TECHNIQUE: Darrow node localization using radionuclide methods of the LEFT breast(s) was performed following subcutaneous administration of 1.1 mCi of of sulfur colloid Tc-99m. FINDINGS: 1.1 mCi of technetium labeled sulfur colloid was injected in 4 equal parts in the left lower outer quadrant of the left breast. NM/Lymph Node Injection Only IMPRESSION: Subcutaneous injection of 1.1 mCi of technetium labeled sulfur colloid for sentinel node imaging. Electronically Signed: Yosef Woodruff, at 11:15 EST , Service support ,
[2019-03-13] MEDS: Lactated Ringers 1,000 ML 100 ML IV (11:08)
--- NOTE | 2019-03-13 11:48 | HP.PCM_ITS ---
Problem List (1) Breast cancer in female Status: Acute Qualifiers: Breast location: upper outer quadrant of breast Estrogen receptor status: negative Laterality: left Qualified Code(s): C50.412 - Malignant neoplasm of upper-outer quadrant of left female breast; Z17.1 - Estrogen receptor negative status [ER-] History and Physical Date of Admission: 03/13/19 Intake Intake Visit Reasons: breast path Chief Complaint: left breast biopsy Sec Reporting Consultant Required: No Is patient in pain?: No Allergies amoxicillin [From Augmentin] Allergy (Intermediate, Verified 02/21/19 15:59) lip swelling clavulanic acid [From Augmentin] Allergy (Intermediate, Verified 02/21/19 15:59) lip swelling clarithromycin [From Biaxin] Allergy (Verified 02/21/19 15:59) Unknown levofloxacin [From Levaquin] Allergy (Verified 02/21/19 15:59) Unknown risedronate sodium [From Actonel] Allergy (Verified 02/21/19 15:59) Unknown rofecoxib [From Vioxx] Allergy (Verified 02/21/19 15:59) Unknown Okqguvq-Pru-Zwp Reductase Inhibitor Adverse Reaction (Verified 02/21/19 15:59) myalgia crab Allergy (Uncoded 02/21/19 15:59) Food Allergy Medications Omeprazole [Prilosec] 20 mg PO DAILY 02/25/13 [History Confirmed 02/21/19] Multivitamin [Multiple Vitamins] 1 tab PO DAILY 03/01/17 [History Confirmed 02/21/19] Sertraline HCl [Zoloft] 50 mg PO DAILY 03/01/17 [History Confirmed 02/21/19] Warfarin [Coumadin] 2 tab PO MOWE 03/01/17 [History Confirmed 02/21/19] calcium carbonate 500 mg calcium (1,250 mg) chewable tablet 500 mg PO DAILY tab 06/21/18 [History Confirmed 02/21/19] carvedilol 25 mg tablet 25 mg PO BID #180 tab 09/09/18 [Rx Confirmed 02/21/19] warfarin 4 mg tablet 4 mg PO .COMPLEX #180 tab 11/26/18 [Rx Confirmed 02/21/19] diltiazem ER 120 mg capsule,extended release 12 hr 120 mg PO DAILY #90 cap 12/12/18 [Rx Confirmed 02/21/19] Subjective Details: 73-year-old female returns today to discuss her ultrasound-guided needle core biopsy outer mid left breast that I performed for her on February 19, 2019. Final pathology is consistent with invasive ductal carcinoma. Nuclear grade 2- 3. Estrogen receptor 0%. Progesterone receptor 0%. HER-2/malinda 1+. Intake Vital Signs 02/17/19 Body Mass Index (BMI) 28.9 02/17/19 Height 5 ft 2 in 02/17/19 Weight: 172 lb 6 oz 02/17/19 Body Mass Index (BMI) 31.5 02/17/19 Blood Pressure 132/73 H 02/17/19 Blood Pressure Location Rt brachial 02/17/19 Blood Pressure Position Sitting 02/17/19 Respiratory Rate 20 H 02/17/19 Pulse Rate 81 02/17/19 Pulse Ox 99 Intake Visit Reasons: L Breast Birads 4 Chief Complaint: abn mammo left breast Sec Reporting Consultant Required: No Is patient in pain?: No Allergies amoxicillin [From Augmentin] Allergy (Intermediate, Verified 02/17/19 13:49) lip swelling clavulanic acid [From Augmentin] Allergy (Intermediate, Verified 02/17/19 13:49) lip swelling clarithromycin [From Biaxin] Allergy (Verified 12/12/18 09:15) Unknown levofloxacin [From Levaquin] Allergy (Verified 12/12/18 09:15) Unknown risedronate sodium [From Actonel] Allergy (Verified 12/12/18 09:15) Unknown rofecoxib [From Vioxx] Allergy (Verified 12/12/18 09:15) Unknown Ebrmvsn-Lai-Tjn Reductase Inhibitor Adverse Reaction (Verified 12/12/18 09:15) myalgia crab Allergy (Uncoded 06/21/18 11:25) Food Allergy Medications Omeprazole [Prilosec] 20 mg PO DAILY 02/25/13 [History Confirmed 02/17/19] Multivitamin [Multiple Vitamins] 1 tab PO DAILY 03/01/17 [History Confirmed 02/17/19] Sertraline HCl [Zoloft] 50 mg PO DAILY 03/01/17 [History Confirmed 02/17/19] Warfarin [Coumadin] 2 tab PO MOWE 03/01/17 [History Confirmed 02/17/19] calcium carbonate 500 mg calcium (1,250 mg) chewable tablet 500 mg PO DAILY tab 06/21/18 [History Confirmed 02/17/19] carvedilol 25 mg tablet 25 mg PO BID #180 tab 09/09/18 [Rx Confirmed 02/17/19] warfarin 4 mg tablet 4 mg PO .COMPLEX #180 tab 11/26/18 [Rx Confirmed 02/17/19] diltiazem ER 120 mg capsule,extended release 12 hr 120 mg PO DAILY #90 cap 12/12/18 [Rx Confirmed 02/17/19] Is last menstrual period known: No Post menopausal: Yes Patient : No PFSH Medical History (Updated 02/17/19 @ 14:13 by Graham Montano MD) Abnormal mammogram of left breast (Acute) Cardiomyopathy in diseases classified elsewhere (Resolved) Chronic atrial fibrillation (Chronic) Hyperlipidemia (Chronic) Abnormal mammogram of left breast (Acute ~01/2019) GERD (gastroesophageal reflux disease) (Acute) Gastric ulcer (Acute) Chronic back pain (Chronic) Dilated cardiomyopathy (Inactive) Palpitations (Inactive) Surgical History (Updated 02/17/19 @ 13:47 by Marysol Medina) History of colonoscopy (Acute ~01/2018) History of exploratory laparotomy (Resolved) Family History Brother CAD (coronary artery disease) Brother CAD (coronary artery disease) Hypertension Mother Cancer Father Heart disease Sister CAD (coronary artery disease) Son Hyperlipidemia Social History (Updated 02/17/19 @ 14:17 by Graham Montano MD) Smoking Status: Never smoker alcohol intake: current alcohol intake frequency: holidays/special occasions only substance use type: does not use caffeine: Yes Type: coffee Number of servings: 1 what type of physical activity do you participate in: none HPI HPI HPI: ASHELY CANTU, is a 73 F who presents to the office today for surgical consultation regarding an abnormal left mammogram and ultrasound. The patient is referred by her primary care physician Dr. Cristofer Yadav and Lindy George CNP and a written compromise surgical consult and recommendations will be returned to him 73-year-old female. A0. First child was born when she was 19. She does not recall when menarche was. Menopause was between age 45 and 50. She has not any previous breast biopsies. Family history is negative for breast cancer. She has not been on any estrogen replacement therapy. She does have atrial fibrillation. Cardioversion per Dr. Adrián Bryan has been tried twice according the patient without success. The patient is on chronic warfarin therapy. She has not had any change in self breast exam. On February 03, 2019 at the [facility] she had screening mammography. A dominant 1 cm masslike lesion on the posterior aspect of the left breast upper outer area BI-RADS Category 0. On February 05, 2019 ultrasound was obtained demonstrating a 1.1 x 0.6 cm mass left axillary tail taller than wider. Category 4 suspicious. ded Screening [facility] Imaging Services [address] [place] [address] SCREEN MAMM (CAD) W/GRISELDA BILAT MR#: [id number] Name: ASHELY CANTU [facility] #:[id number] : 1945F 73 From: Gil Dia DO PCP:Cristofer Yadav MD Status:[facility] CLI Study:SCREEN MAMM (CAD) W/GRISELDA BILAT Date of Exam:02/03/19 Exam#[id number] Ordering Dr: Lindy George ADDENDUM by Yosef Woodruff MD on 02/17/19 at 1127 ADDENDUM This is an addendum report for BIRADS category. BIRADS Category 0. Electronically Signed: Yosef Woodruff, at 11:27 EDT , Service support , 02/17/19 1127 Date cc: CARMEN George; Cristofer Yadav MD ~* Signed ADDENDUM by Gil Dia DO on 02/05/19 at 0890 ADDENDUM An extended craniocaudal view was performed of the left breast showing a 1.3 cm masslike lesion in the lateral aspect of the left breast. This mass lesion is in the superior lateral quadrant of the left breast and was seen on both the MLO view and the extended craniocaudal view but could not be seen on the craniocaudal projection. This mass lesion is highly suspicious for breast cancer, and additional imaging including a targeted left breast ultrasound and possibly a ultrasound directed left breast biopsy are recommended for further evaluation. IMPRESSION: A 1.3 cm masslike lesion is seen in the superior lateral aspect of the left breast most consistent with carcinoma. A follow-up targeted left breast ultrasound and possibly a ultrasound directed left breast biopsy, are recommended for further evaluation. FINAL ASSESSMENT: BI-RAD CATEGORY IV (SUSPICIOUS ABNORMALITY - BIOPSY RECOMMENDED). Electronically Signed: Gil Dia, at 8:52 EDT Tel , Service support , 02/05/19 0852 Date cc: CARMEN George; Cristofer Yadav MD ~* Signed ADDENDUM by Yosef Woodruff MD on 02/17/19 at 1127 BI/SCREEN MAMM (CAD) W/GRISELDA BILAT 02/17/19 1134 Date cc: CARMEN George; Cristofer Yadav MD ~* Signed ADDENDUM by Gil Dia DO on 02/05/19 at 0852 BI/SCREEN MAMM (CAD) W/GRISELDA BILAT 02/05/19 0859 Date cc: CARMEN George; Cristofer Yadav MD ~* Signed MAMMOGRAPHY - BILATERAL SCREENING 3-D TOMOSYNTHESIS REASON FOR EXAM: Female, 73 years old. Screening PERTINENT HISTORY: No significant family history. BILATERAL DIGITAL MAMMOGRAM WITH TOMOSYNTHESIS: Mediolateraloblique and craniocaudal views demonstrate a dominant parenchymal mass lesions seen within the left breast adjacent to the posterior lateral chest wall and superior lateral quadrant left breast. This is seen only on MLO projection and cannot be seen on the craniocaudal view. For this reason, an exaggerated craniocaudal view of the left breast and, possibly cleavage views and a targeted left breast ultrasound of the superolateral aspect the left breast are recommended for additional evaluation. No cluster of microcalcifications or architectural distortion is seen. No evidence of skin thickening is identified. There has been a significant change since 01/31/2018 . Breast Density: The breast tissue is almost entirely fatty. CAD was used to assist in final assessment. IMPRESSION: A dominant, 1 cm masslike lesion is seen in the posterior aspect of the left breast probably in the superior lateral aspect of the left breast. Additional imaging including an extended craniocaudal view and cleavage view and a targeted left breast ultrasound are recommended for further evaluation. FINAL ASSESSMENT: FINAL ASSESSMENT: BI-RAD CATEGORY 0 INCOMPLETE: (NEEDS ADDITIONAL IMAGINING EVALUATION) Approximately 10% of breast cancers are not detected by mammography. A normal mammogram should not delay biopsy of a clinically suspicious abnormality. Electronically Signed: Gil Dia, at 13:21 EDT Tel , Service support , BI/SCREEN MAMM (CAD) W/GRISELDA BILAT CC: CARMEN George; Cristofer Yadav MD ~ Library Customer Service Clerk: Signed [facility] Imaging Services [address] [place] [address] Breast Limited Unilateral MR#: [id number] Name: ASHELY CANTU ERe #:[id number] : 1946F [id number] From: Gil Dia DO PCP:Cristofer Yadav MD Status:REG CLI Study:Breast Limited Unilateral Date of Exam:02/05/19 Exam#[id number] Ordering Dr: Lindy George STUDY: ULTRASOUND BREAST - LEFT REASON FOR EXAM: Female, 73 years old. TECHNIQUE: Axial and longitudinal images of the LEFT breast were performed with a high resolution ultrasound transducer. COMPARISON: Recent mammogram obtained Attention to this 19 FINDINGS: LEFT Breast: There is mass lesion in the left axillary tail of the left breast which is taller than it is wide and relatively hypoechoic. This mass measures 1.1 cm in maximal AP dimension by 0.6 cm in maximal width. There is no posterior wall enhancement or shadowing. This lesion corresponds to the abnormality noted on the recent mammogram is most consistent with breast cancer. An ultrasound directed biopsy is strongly recommended for further evaluation. Posterior Enhancement: US/Breast Limited Unilateral IMPRESSION: A hypoechoic 1.1 x 0.6 cm mass lesion is noted in the left occipital lobe which represents carcinoma to prove otherwise. An ultrasound directed biopsy is recommended for additional evaluation. ASSESSMENT CATEGORY: BIRADS Category 4: Suspicious - Biopsy Should Be Considered. A letter regarding these results will be sent to the patient by the facility within 30 days. Electronically Signed: Gil Dia, at 14:09 EDT Tel , Service support , CC: CARMEN George; Cristofer Yadav MD ~ [facility] Cardiovascular Services [facility] [place] [address] Echo Complete 07/17/18 0853 MR#: [id number] Name:ASHELY CANTU Mary #:[id number] : 1945 72From:Adrián Bryan MD Attending Dr: Randi BARKER,[place]: REG CLI Ordering Dr: Adrián Bryan MDDate: 07/17/18 [facility]: Version 2 Reason For Study: AFIB/FLUTTER Procedure This was a 2D Doppler, Color Flow transthoracic echocardiogram. Exam performed in department. Left Ventricle Normal LV size. Left ventricular systolic function is normal. The estimated ejection fraction is 55 %. Unable to assess diastolic dysfunction due to arrhythmia. No regional wall motion abnormalities noted. Right Ventricle Normal RV size. Normal systolic function. Atria The left atrium is moderately enlarged. The right atrium is mildly enlarged. Mitral Valve Bileaflet diffuse mitral valve thickening. Mild (1+) eccentric mitral valve insufficiency. Tricuspid Valve Normal tricuspid valve. Mild (1+) tricuspid valve insufficiency. Pulmonary artery systolic pressure is 27 mmHg. Aortic Valve Trisinus/trileaflet aortic valve. Mild focal aortic valve calcification. Mild (1+) eccentric aortic valve insufficiency. Pulmonic Valve Normal pulmonic valve. Great Vessels Normal aortic root. The pulmonary artery is normal size. Normal inferior vena cava. Pericardium/Pleural No pericardial effusion. MMode/2D Measurements & Calculations LVIDd: 4.9 cm IVSd: 0.92 cm Ao root diam: 3.1 cm LVIDs: 3.2 cm LVPWd: 0.94 cm RVDd: 3.5 cm FS: 35.2 % LAV(MOD-bp): 88.9 ml LA A4 area: 27.1 cm2 LA dimension(2D): 4.1 cm LAV(MOD-bp) Indexed: 49.2 ml/m2 LAV(MOD-sp2): 96.2 ml LAV(MOD-sp4): 83.6 ml _ RA A4 area: 22.2 cm2 Doppler Measurements & Calculations MV E max obdulio: 137.4 cm/sec Ao V2 max: 142.8 cm/sec AI max obdulio: 330.4 cm/sec Ao max P.2 mmHg AI max P.7 mmHg AI dec slope: 152.4 cm/sec2 AI P1/2t: 635.0 msec _ LV V1 max: 94.7 cm/sec PA V2 max: 81.1 cm/sec PI dec slope: 102.4 cm/sec2 LV V1 max P.6 mmHg _ TR max obdulio: 237.7 cm/sec TR max P.7 mmHg Interpretation Summary Normal LV size. Left ventricular systolic function is normal. The estimated ejection fraction is 55 %. Unable to assess diastolic dysfunction due to arrhythmia. Mild (1+) tricuspid valve insufficiency. Mild (1+) eccentric mitral valve insufficiency. Bileaflet diffuse mitral valve thickening. Ordering Physician: Adrián Bryan Referring Physician: Cristofer Yadav Performed By: Ama Luong RDCS, RVT 07/17/18 170 Date Adrián Bryan MD CC: Adrián Bryan MD; Cristofer Yadav MD ~ Date Dictated:07/17/18 0853 Date Transcribed: 07/17/181703 Library Customer Service Clerk: Signed Library Customer Service Clerk: HPI HPI HPI: ASHELY CANTU, is a 73 F who presents to the office today for ROS General General: Yes fatigue; no weight change, appetite, colon cancer, breast cancer or weakness HEENT HEENT: No difficulty swallowing, eye injury, eye surgery, swollen glands or hoarseness Endo Endocrine: No thyroid disease, diabetes mellitus, thyroid cancer, Hair loss, heat intolerance or cold intolerance Breast Breast: Yes abnormal mammogram and abnormal US; no left breast lump, right breast lump, nipple discharge, breast pain or breast enlargement Cardio Cardiovascular: Yes atrial fibrillation; no murmur, pacemaker, heart disease, high blood pressure, heart attack, heart stent, palpitations, shortness of breat with exertion or chest pain Resp Respiratory: No shortness of breath, No sleep apnea, Yes cough, No COPD, No asthma, No emphysema, No wheezing Gastro Gastrointestinal: No abdominal pain, No nausea or vomiting, No diarrhea, No constipation, No blood in stool, Yes acid reflux, No hemorrhoids, Yes ulcers, No gallbladder problem, No black,tarry stools Prakash Hematologic: Yes blood thinners, No blood disorders, No bleeding, No anemia, No blood clots Neuro Neurologic: No weakness Exam Const General: cooperative, comfortable, no acute distress Nutritional Appearance: average body habitus Orientation: alert, awake, oriented x3 HENMT Head: normal to inspection Eyes General: appearance normal, both eyes and all related structures Chest Breast Palpation: No nipple discharge Other: Marked thoracic kyphosis Right breast: No focal mass. No nipple discharge. No axillary or clavicular adenopathy Left breast: No focal mass. No nipple discharge. No axillary or clavicular adenopathy. I am not able to detect a left axillary mass Resp Other: Clear on the right, slight scattered rales on the left Cardio Heart Sounds: no murmurs Other: Irregular with ectopic beats GI Palpation: soft, no hepatosplenomegaly Auscultation: normal bowel sounds Neuro Cognition: normal cognition Extrem Other: 2+ nonpitting bilateral lower extremity swelling Psych Affect: normal affect Assessment & Plan Problems 1. Abnormal mammogram of left breast R92.8 Plan Abnormal mammogram and ultrasound left breast upper outer quadrant axillary tail highly suspicious for malignancy. The patient is on chronic Coumadin therapy. I recommended the patient ultrasound-guided needle core biopsy of this area. She is aware of the technique, benefits, risks and alternatives. We will try to expedite her biopsy. We will have her hold her Coumadin today tomorrow and Sunday and perform the biopsy on Sunday. I would otherwise anticipate that she likely would be a candidate for breast conservation surgery if appropriate. I would want to obtain a chest x-ray preoperatively. I very much appreciate the kind opportunity of assisting with her surgical care CC: Dr. Cristofer Yadav and Dr. Adrián Bryan and Lindy George, [facility] Graham Montano M.D., F.A.C.S. Coding Level of Care Code 88641 Diagnoses Abnormal mammogram of left breast R92.8 02/17/19 1417<Electronically signed by Graham Montano MD> Date Graham Montano MD Cosigner Signature:Date (if applicable) CC: CARMEN George; Adrián Bryan MD; Cristofer Yadav MD ~ Objective Details: Outer mid left breast puncture site is very clean dry with essentially no ecchymosis. Assessment & Plan Problems 1. Breast cancer in female C50.919 Plan 73-year-old female with invasive ductal carcinoma outer mid left breast. I believe that she would be a good candidate for breast conservation surgery. We have provided verbal descriptive information as well as written descriptive information regarding this procedure. The notes that they witnessed a TV program suggesting the possibility of radiation treatment with scattered to the heart and people with heart disease. We will have the patient seen in consultation by Dr.Steve Collins pre-procedure to address these concerns. The patient is on chronic Coumadin for atrial fibrillation. We will have her hold that medication 4 days preprocedure. I am anticipating an ultrasound-guided wire localization intraoperatively outer mid left breast with left breast lumpectomy and left axillary nuclear tracer and blue dye sentinel lymph node biopsy with conversion to axillary lymph node dissection if indicated. She is aware of the technique, benefits, risks, alternatives. She is aware that additional consultation with medical oncology and radiation oncology will then be pursued. She is aware that I will be out of town at a national meeting and we will schedule her as soon as possible upon my return. I very much appreciate the kind opportunity of assisting with her surgical care. CC: Dr. Cristofer Yadav and Dr. Harsh Montano M.D., F.A.C.S. Orders Referrals: Oncology C50.919 Coding Level of Care Code Off vis,est,level 3 Diagnoses Breast cancer in female C50.919 Time Spent (min) 30 02/21/19 4884 <Electronically signed by Graham ayala MD> Date _ Graham Montano MD I have re-examined the patient. There are no clinical changes since date of exam.
--- NOTE | 2019-03-13 12:00 | BI_ITS ---
SURGICAL BREAST SPECIMEN RADIOGRAPH CLINICAL: Document presence of mass in biopsy specimen. FINDINGS: Specimen shows presence of mass. Electronically Signed: Yosef Woodruff, at 14:23 EST , Service support , BI/Breast Biopsy Specimen
[2019-03-13] MEDS: Isosulfan Blue 1% 5 ML Vial (12:23)
[2019-03-13] MEDS: Bupivacaine Mpf 0.5% 30 ML VIAL (14:10)
--- NOTE | 2019-03-13 14:13 | PCM.DC.BS ---
Discharge Diet: No Restrictions Discharge Activity: May Not Drive - for 2-3 days or while taking narcotic pain meds. May shower in (days): 1 Lifting Restrictions: 10 pounds for 1 week. Call your doctor if your incision/area has: Continuous Slow Oozing, Sudden Increased Bleeding Call your doctor if you observe: Fever of 101 or Higher Suture Line Care: Avoid Pulling/Pushing, Avoid Pinching/Bending Remove Dressing in (days):: 1 - Remove bulky dressing tomorrow. May leave any opsite dressing for 3-4 days[address] Keep dressing in place until your follow-up appointment. Additional Dressing/Incision Instructions:: Remove bulky dressing tomorrow. May leave any opsite dressing for 3-4 days. Keep dressing in place until your follow-up appointment. Allergies/Adverse Reactions: Allergies amoxicillin [From Augmentin] Allergy (Intermediate, Verified 03/13/19 09:52) lip swelling clavulanic acid [From Augmentin] Allergy (Intermediate, Verified 03/13/19 09:52) lip swelling clarithromycin [From Biaxin] Allergy (Verified 03/13/19 09:52) Unknown levofloxacin [From Levaquin] Allergy (Verified 03/13/19 09:52) Unknown risedronate sodium [From Actonel] Allergy (Verified 03/13/19 09:52) Unknown rofecoxib [From Vioxx] Allergy (Verified 03/13/19 09:52) Unknown Hhomaab-Bss-Yav Reductase Inhibitor Adverse Reaction (Verified 03/13/19 09:52) myalgia crab Allergy (Uncoded 03/13/19 09:52) Food Allergy Medications to take at Discharge Omeprazole [Prilosec] 20 mg PO DAILY 02/25/13 Multivitamin [Multiple Vitamins] 1 tab PO DAILY 03/01/17 Sertraline HCl [Zoloft] 50 mg PO DAILY 03/01/17 Warfarin [Coumadin] 2 tab PO MOTUWE 03/01/17 calcium carbonate 500 mg calcium (1,250 mg) chewable tablet 500 mg PO DAILY tab 06/21/18 warfarin 4 mg tablet 4 mg PO .COMPLEX #180 tab 11/26/18 diltiazem ER 120 mg capsule,extended release 12 hr 120 mg PO DAILY #90 cap 12/12/18 Carvedilol [Coreg (Beta Suzanne)] 25 mg PO BID 03/06/19 Hydrocodone Bitart/Apap 5-325 [Stanton 5MG-325MG] 1 tab PO Q6H PRN PRN 2 Days #6 tab 03/13/19 The following prescriptions were given: Hydrocodone Bitart/Apap 5-325 [Stanton 5MG-325MG] 1 tab PO Q6H PRN PRN 2 Days #6 tab PRN Reason: Pain Transmission Status: Received by [id number] Primary Care Physician: Cristofer Yadav MD [Primary Care Provider] - Please Follow Up With: Graham Montano MD When: Appt one week please. [phone]
--- NOTE | 2019-03-13 14:14 | PCM.OPRPT ---
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 73-year-old female was taken the operating placed on the table underwent general anesthesia. The left upper extremity was placed at right angles of the table secured with soft roll and an arm beaulieu. Then left breast was prepped with alcohol. 2 cc of isosulfan blue dye was injected retroareolar area massage for 3 minutes. The patient earlier in the day had received nuclear tracer injected per radiology protocol. The left breast and axilla were sterilely prepped and draped. Ultrasound was used to identify the primary lesion outer mid left breast. Under ultrasound guidance a Kopan's needle was advanced to depth and then the wire was displaced. Subsequently a slightly oblique transverse incision was made in the left axilla. Sharp and blunt dissection was instituted down through the subtenons tissue. Small lymphatic tracking was identified. It was technically challenging as it did not appear to track to any specific lymph node. 2 small packets of fibrofatty tissue were submitted to pathology with no lymph nodes identified. Utilizing the direction of the tracking and the neoprobe a lymph node was identified. It was dissected free hemoclips were used for hemostasis were indicated as was electrocautery. The lymph node was hot. There was no evidence of residual significant disease although I could palpate an additional lymph node. Because of its proximity to the first lymph node I did dissect that one free and submitted that also as a second sentinel node. Gauze was placed in the left axilla while attention was drawn to the outer mid left breast. A curvilinear incision was created sharp dissection carried down in the substance tissue circumferential dissection was performed with electrocautery hemostasis was obtained with the same. The specimen was removed the wire exited anteriorly a short suture was placed superiorly long suture laterally. 4 small hemoclips were placed at the margins of the tumor resection. That area noted to be intact the axilla was inspected noted to be hemostatic. To further assure because of the axillary dissection I did use powdered fibular at both the lumpectomy site in the axillary site. Hemostasis was felt to be intact. The wounds were closed with a deep layer of interrupted 3-0 Vicryl and then a running septic or 4-0 Monocryl subdermal stitch. The jose manuel-incisional area is anesthetized with 30 cc of 0.5% Marcaine. Steri-Strips Telfa OpSite bulky dry dressing and tape dressing were applied. Sponge and instrument and needle counts were reported to the surgeon to be correct. Blood loss was minimal. She tolerated the procedure well was taken to the recovery area in satisfactory condition without apparent complication. Specimen mammograms obtained demonstrating the specimen to be in good position with previous marking clip. Pathology confirmed clear surgical margins. There was a total of 2 sentinel lymph nodes submitted both negative for metastatic disease on frozen section. Specimens lumpectomy site and sentinel lymph nodes x2. Drains none. Blood loss minimal. Graham Montano M.D., F.A.C.S. Type of Anesthesia:: General, Local Anesthesiologist: Fahad Macedo
[2019-03-13 14:34] VITALS: BP 103/63; BP 117/81; PULSE 90; RESP 16; TEMP 36.6; O2SAT 92
[2019-03-13 14:45] VITALS: BP 117/81; BP 98/74; PULSE 67; RESP 16; O2SAT 93
[2019-03-13 15:00] VITALS: BP 102/73; BP 117/81; PULSE 66; RESP 16; O2SAT 94
[2019-03-13 15:15] VITALS: BP 106/66; BP 117/81; PULSE 66; RESP 16; TEMP 36.3; O2SAT 95
[2019-03-13 16:18] VITALS: BP 117/81; BP 94/60; PULSE 16; RESP 92; TEMP 36.3; O2SAT 79
== END 2019-03-13 16:22 | disposition home or self-care (01) ==
LOC: SDC 09:22 → AC 09:24
PROVIDERS: Family Provider Family Medicine; PCP Family Medicine; Referring Provider Surgery; Visit Provider Surgery
PROC: (CPT 19301; principal; 2019-03-13 11:45)
DX: C50.412 Malignant neoplasm of upper-outer quadrant of left female breast (principal); Z17.1 Estrogen receptor negative status [ER-]; I48.20 Chronic atrial fibrillation, unspecified; I10 Essential (primary) hypertension; E78.00 Pure hypercholesterolemia, unspecified; K21.9 Gastro-esophageal reflux disease without esophagitis; F32.9 Major depressive disorder, single episode, unspecified; Z78.0 Asymptomatic menopausal state; Z79.01 Long term (current) use of anticoagulants; Z79.899 Other long term (current) drug therapy; Z88.0 Allergy status to penicillin; Z88.1 Allergy status to other antibiotic agents; Z88.8 Allergy status to other drugs, medicaments and biological substances
CPT/HCPCS: 19301; 38525; 36415; 36416; 38792; 71046; 76098; 80053; 85027; 85610; 88305; 88307; 88331; 88341; 88342; 93005; A9541; J7120; A4216; J2405; Q9968

== ENCOUNTER 2019-04-02 09:51 | Day surgery (SDC) | payer MEDICARE, SELFPAY ==
[2019-03-24 13:55] VITALS: BMI 30.9
[2019-03-26 10:57] VITALS: BMI 30.9
--- NOTE | 2019-03-26 11:17 | HP_ITS ---
ADDENDUM by Kalyani Blue PA-C on 03/26/19 at 1118 Addendum entered and electronically signed by Kalyani Blue PA-C 03/26/19 11:18: Intake Chief Complaint: recheck left breast / discuss right port Allergies amoxicillin [From Augmentin] Allergy (Intermediate, Verified 03/25/19 15:34) lip swelling clavulanic acid [From Augmentin] Allergy (Intermediate, Verified 03/25/19 15:34) lip swelling clarithromycin [From Biaxin] Allergy (Verified 03/25/19 15:34) Unknown levofloxacin [From Levaquin] Allergy (Verified 03/25/19 15:34) Unknown risedronate sodium [From Actonel] Allergy (Verified 03/25/19 15:34) Unknown rofecoxib [From Vioxx] Allergy (Verified 03/25/19 15:34) Unknown Vnbpedv-Myw-Lfc Reductase Inhibitor Adverse Reaction (Verified 03/25/19 15:34) myalgia crab Allergy (Uncoded 03/24/19 13:54) Food Allergy Medications Omeprazole [Prilosec] 20 mg PO DAILY 02/25/13 [History Confirmed 03/25/19] Multivitamin [Multiple Vitamins] 1 tab PO DAILY 03/01/17 [History Confirmed 03/25/19] Sertraline HCl [Zoloft] 50 mg PO DAILY 03/01/17 [History Confirmed 03/25/19] Warfarin [Coumadin] 2 tab PO MOTUWE 03/01/17 [History Confirmed 03/25/19] calcium carbonate 500 mg calcium (1,250 mg) chewable tablet 500 mg PO DAILY tab 06/21/18 [History Confirmed 03/25/19] warfarin 4 mg tablet 4 mg PO .COMPLEX #180 tab 11/26/18 [Rx Confirmed 03/25/19] diltiazem ER 120 mg capsule,extended release 12 hr 120 mg PO DAILY #90 cap 12/12/18 [Rx Confirmed 03/25/19] Carvedilol [Coreg (Beta Suzanne)] 25 mg PO BID 03/06/19 [History Confirmed 03/25/19] Assessment & Plan Problems 1. Malignant neoplasm of upper-outer quadrant of left breast in female, estrogen receptor negative C50.412 Plan - ЕКАТЕРИНА Quiñones Dr. will plan to perform a right possible left sided port-a-cath placement under MAC. Procedure details, risks and benefits have been explained to the patient. Patient has had the opportunity to ask and have questions answered. Patient verbally understands and agrees with the plan. Patient to hold her Coumadin 4 days prior to the procedure. 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 Is patient in pain?: No Allergies amoxicillin [From Augmentin] Allergy (Intermediate, Verified 03/25/19 15:34) lip swelling clavulanic acid [From Augmentin] Allergy (Intermediate, Verified 03/25/19 15:34) lip swelling clarithromycin [From Biaxin] Allergy (Verified 03/25/19 15:34) Unknown levofloxacin [From Levaquin] Allergy (Verified 03/25/19 15:34) Unknown risedronate sodium [From Actonel] Allergy (Verified 03/25/19 15:34) Unknown rofecoxib [From Vioxx] Allergy (Verified 03/25/19 15:34) Unknown Vqtymtn-Dng-Fow Reductase Inhibitor Adverse Reaction (Verified 03/25/19 15:34) myalgia crab Allergy (Uncoded 03/24/19 13:54) Food Allergy Medications Omeprazole [Prilosec] 20 mg PO DAILY 02/25/13 [History Confirmed 03/25/19] Multivitamin [Multiple Vitamins] 1 tab PO DAILY 03/01/17 [History Confirmed 03/25/19] Sertraline HCl [Zoloft] 50 mg PO DAILY 03/01/17 [History Confirmed 03/25/19] Warfarin [Coumadin] 2 tab PO MOTUWE 03/01/17 [History Confirmed 03/25/19] calcium carbonate 500 mg calcium (1,250 mg) chewable tablet 500 mg PO DAILY tab 06/21/18 [History Confirmed 03/25/19] warfarin 4 mg tablet 4 mg PO .COMPLEX #180 tab 11/26/18 [Rx Confirmed 03/25/19] diltiazem ER 120 mg capsule,extended release 12 hr 120 mg PO DAILY #90 cap 12/12/18 [Rx Confirmed 03/25/19] Carvedilol [Coreg (Beta Suzanne)] 25 mg PO BID 03/06/19 [History Confirmed 03/25/19] Is last menstrual period known: No Post menopausal: Yes Patient : No PFSH Medical History Breast cancer in female (Acute) Abnormal mammogram of left breast (Acute) Cardiomyopathy in diseases classified elsewhere (Resolved) Chronic atrial fibrillation (Chronic) Hyperlipidemia (Chronic) Abnormal mammogram of left breast (Acute ~01/2019) GERD (gastroesophageal reflux disease) (Acute) Gastric ulcer (Acute) Chronic back pain (Chronic) Dilated cardiomyopathy (Inactive) Palpitations (Inactive) Surgical History History of colonoscopy (Acute ~01/2018) History of left breast biopsy (Acute ~01/2019) Status post left breast lumpectomy (Acute) History of exploratory laparotomy (Resolved) Family History Brother CAD (coronary artery disease) Brother CAD (coronary artery disease) Hypertension Mother Cancer Father Heart disease Sister CAD (coronary artery disease) Son Hyperlipidemia Social History (Updated 03/26/19 @ 11:17 by Kalyani Blue PA-C) Smoking Status: Never smoker alcohol intake: current alcohol intake frequency: holidays/special occasions only substance use type: does not use caffeine: Yes Type: coffee Number of servings: 1 what type of physical activity do you participate in: none HPI HPI HPI: ASHELY CANTU is a 73 F who presents to the office today for HPI HPI Surgical H&P: Yes HPI: ASHELY CANTU is a 73 F who presents to the office today for follow-up of lumpectomy site and port placement. Dr. Montano performed a left breast lumpectomy with left axillary sentinel lymph node biopsy. 2 sentinel lymph nodes are negative. The primary tumor measures 1.2 x 1 x 0.7 cm invasive ductal carcinoma. Glandular tubular differentiation 3. Grade 3. Margins uninvolved with the anterior margin 0.5 cm. Lymphovascular invasion not identified. 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 Estrogen receptor 0%. Progesterone receptor 0%. HER- 2/malinda 1+ negative. pT1c N0 Mx. Anatomic stage IA; Prognostic IB. She denies pain or discomfort at the incision sites. She notes excellent range of motion. Patient presents today for consultation for a port placement. Patient is scheduled to start chemotherapy on 04/07. Patient denies previous port placement, fractured clavicle or central line placement. Patient denies previous complications with anesthesia. ROS General General: Yes fatigue; no weight change, appetite, colon cancer, breast cancer or weakness HEENT HEENT: No difficulty swallowing, eye injury, eye surgery, swollen glands or hoarseness Endo Endocrine: No thyroid disease, diabetes mellitus, thyroid cancer, Hair loss, heat intolerance or cold intolerance Breast Breast: Yes abnormal mammogram and abnormal US; no left breast lump, right breast lump, nipple discharge, breast pain or breast enlargement Cardio Cardiovascular: Yes atrial fibrillation; no murmur, pacemaker, heart disease, high blood pressure, heart attack, heart stent, palpitations, shortness of breat with exertion or chest pain Resp Respiratory: No shortness of breath, No sleep apnea, Yes cough, No COPD, No asthma, No emphysema, No wheezing Gastro Gastrointestinal: No abdominal pain, No nausea or vomiting, No diarrhea, No constipation, No blood in stool, Yes acid reflux, No hemorrhoids, Yes ulcers, No gallbladder problem, No black,tarry stools Prakash Hematologic: Yes blood thinners, No blood disorders, No bleeding, No anemia, No blood clots Neuro Neurologic: No weakness Exam Const General: cooperative, healthy appearing, comfortable, no acute distress [facility] Head: normal to inspection Eyes General: appearance normal, both eyes and all related structures Neck Neck: normal visual inspection Neck mass: No Chest Breast Palpation: No nipple discharge Other: Left breast- incisions c/d/i. She has two areas where sutures were spitting. These were trimmed. No erythema or infection noted. Resp Effort & Inspection: normal respiratory effort Auscultation: clear to auscultation bilaterally Cardio Rate: regular rate Rhythm: regular rhythm Heart Sounds: no murmurs GI Inspection: normal to inspection Palpation: soft Auscultation: normal bowel sounds Skin General: no rashes or lesions noted Neuro General: no focal motor deficits, CN's II-XI intact bilaterally Extrem General: normal to inspection Psych Appearance: grossly normal Affect: normal affect Assessment & Plan Problems 1. Malignant neoplasm of upper-outer quadrant of left breast in female, estrogen receptor negative C50.[address] Montano will plan to perform a right possible left sided port-a-cath placement under MAC. Procedure details, risks and benefits have been explained to the patient. Patient has had the opportunity to ask and have questions answered. Patient verbally understands and agrees with the plan. Coding Level of Care Code Off vis,est,level 3 Diagnoses Malignant neoplasm of upper-outer quadrant of left breast in female, estrogen receptor negative C50.412 ??Breast location: upper outer quadrant of breast ??Estrogen receptor status: negative ??Laterality: left Comment Modifier if separate procedure still in global period? 03/26/19 1117 <Electronically signed by Kalyani guidry PA-C> Date _ Kalyani Blue PA-C
[2019-04-02 10:17] VITALS: BP 105/64; PULSE 96; RESP 15; TEMP 36.4; O2SAT 97; BMI 31.8
[2019-04-02] MEDS: Lactated Ringers 1,000 ML 100 ML IV (10:26)
--- NOTE | 2019-04-02 12:08 | HP.PCM_ITS ---
Problem List (1) Breast cancer in female Status: Acute Qualifiers: Breast location: upper outer quadrant of breast Estrogen receptor status: negative Laterality: left Qualified Code(s): C50.412 - Malignant neoplasm of upper-outer quadrant of left female breast; Z17.1 - Estrogen receptor negative status [ER-] History and Physical Date of Admission: 04/02/19 [facility] Medical Records Department [address] [place] [address] History and Physical 03/26/19 1117 MR#: [id number] Acct: [id number] Name: ASHELY CANTU Rep #:[id number] : 1945 73 From: Kalyani Blue PA-C PCP: Leif BARKER,Cristofer Status:PRE [facility] Location: [facility] ADDENDUM by Kalyani Blue PA-C on 03/26/19 at 1118 Addendum entered and electronically signed by Kalyani Blue PA-C 03/26/19 11:18: Intake Chief Complaint: recheck left breast / discuss right port Allergies amoxicillin [From Augmentin] Allergy (Intermediate, Verified 03/25/19 15:34) lip swelling clavulanic acid [From Augmentin] Allergy (Intermediate, Verified 03/25/19 15:34) lip swelling clarithromycin [From Biaxin] Allergy (Verified 03/25/19 15:34) Unknown levofloxacin [From Levaquin] Allergy (Verified 03/25/19 15:34) Unknown risedronate sodium [From Actonel] Allergy (Verified 03/25/19 15:34) Unknown rofecoxib [From Vioxx] Allergy (Verified 03/25/19 15:34) Unknown Vlhnubx-Jau-Pgk Reductase Inhibitor Adverse Reaction (Verified 03/25/19 15:34) myalgia crab Allergy (Uncoded 03/24/19 13:54) Food Allergy Medications Omeprazole [Prilosec] 20 mg PO DAILY 02/25/13 [History Confirmed 03/25/19] Multivitamin [Multiple Vitamins] 1 tab PO DAILY 03/01/17 [History Confirmed 03/25/19] Sertraline HCl [Zoloft] 50 mg PO DAILY 03/01/17 [History Confirmed 03/25/19] Warfarin [Coumadin] 2 tab PO MOTUWE 03/01/17 [History Confirmed 03/25/19] calcium carbonate 500 mg calcium (1,250 mg) chewable tablet 500 mg PO DAILY tab 06/21/18 [History Confirmed 03/25/19] warfarin 4 mg tablet 4 mg PO .COMPLEX #180 tab 11/26/18 [Rx Confirmed 03/25/19] diltiazem ER 120 mg capsule,extended release 12 hr 120 mg PO DAILY #90 cap 12/12/18 [Rx Confirmed 03/25/19] Carvedilol [Coreg (Beta Suzanne)] 25 mg PO BID 03/06/19 [History Confirmed 03/25/19] Assessment & Plan Problems 1. Malignant neoplasm of upper-outer quadrant of left breast in female, estrogen receptor negative C50.412 Plan - ЕКАТЕРИНА Quiñones Dr. will plan to perform a right possible left sided port-a-cath placement under MAC. Procedure details, risks and benefits have been explained to the patient. Patient has had the opportunity to ask and have questions answered. Patient verbally understands and agrees with the plan. Patient to hold her Coumadin 4 days prior to the procedure. 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 Is patient in pain?: No Allergies amoxicillin [From Augmentin] Allergy (Intermediate, Verified 03/25/19 15:34) lip swelling clavulanic acid [From Augmentin] Allergy (Intermediate, Verified 03/25/19 15:34) lip swelling clarithromycin [From Biaxin] Allergy (Verified 03/25/19 15:34) Unknown levofloxacin [From Levaquin] Allergy (Verified 03/25/19 15:34) Unknown risedronate sodium [From Actonel] Allergy (Verified 03/25/19 15:34) Unknown rofecoxib [From Vioxx] Allergy (Verified 03/25/19 15:34) Unknown Ulmvlec-Bdn-Cgx Reductase Inhibitor Adverse Reaction (Verified 03/25/19 15:34) myalgia crab Allergy (Uncoded 03/24/19 13:54) Food Allergy Medications Omeprazole [Prilosec] 20 mg PO DAILY 02/25/13 [History Confirmed 03/25/19] Multivitamin [Multiple Vitamins] 1 tab PO DAILY 03/01/17 [History Confirmed 03/25/19] Sertraline HCl [Zoloft] 50 mg PO DAILY 03/01/17 [History Confirmed 03/25/19] Warfarin [Coumadin] 2 tab PO MOTUWE 03/01/17 [History Confirmed 03/25/19] calcium carbonate 500 mg calcium (1,250 mg) chewable tablet 500 mg PO DAILY tab 06/21/18 [History Confirmed 03/25/19] warfarin 4 mg tablet 4 mg PO .COMPLEX #180 tab 11/26/18 [Rx Confirmed 03/25/19] diltiazem ER 120 mg capsule,extended release 12 hr 120 mg PO DAILY #90 cap 12/12/18 [Rx Confirmed 03/25/19] Carvedilol [Coreg (Beta Suzanne)] 25 mg PO BID 03/06/19 [History Confirmed 03/25/19] Is last menstrual period known: No Post menopausal: Yes Patient : No PFSH Medical History Breast cancer in female (Acute) Abnormal mammogram of left breast (Acute) Cardiomyopathy in diseases classified elsewhere (Resolved) Chronic atrial fibrillation (Chronic) Hyperlipidemia (Chronic) Abnormal mammogram of left breast (Acute ~01/2019) GERD (gastroesophageal reflux disease) (Acute) Gastric ulcer (Acute) Chronic back pain (Chronic) Dilated cardiomyopathy (Inactive) Palpitations (Inactive) Surgical History History of colonoscopy (Acute ~01/2018) History of left breast biopsy (Acute ~01/2019) Status post left breast lumpectomy (Acute) History of exploratory laparotomy (Resolved) Family History Brother CAD (coronary artery disease) Brother CAD (coronary artery disease) Hypertension Mother Cancer Father Heart disease Sister CAD (coronary artery disease) Son Hyperlipidemia Social History (Updated 03/26/19 @ 11:17 by Kalyani Blue PA-C) Smoking Status: Never smoker alcohol intake: current alcohol intake frequency: holidays/special occasions only substance use type: does not use caffeine: Yes Type: coffee Number of servings: 1 what type of physical activity do you participate in: none HPI HPI HPI: ASHELY CANTU, is a 73 F who presents to the office today for HPI HPI Surgical H&P: Yes HPI: ASHELY CANTU, is a 73 F who presents to the office today for follow-up of lumpectomy site and port placement. Dr. Montano performed a left breast lumpectomy with left axillary sentinel lymph node biopsy. 2 sentinel lymph nodes are negative. The primary tumor measures 1.2 x 1 x 0.7 cm invasive ductal carc inoma. Glandular tubular differentiation 3. Grade 3. Margins uninvolved with the anterior margin 0.5 cm. Lymphovascular invasion not identified. 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 Estrogen receptor 0%. Progesterone receptor 0%. HER-2/malinda 1+ negative. pT1c N0 Mx. Anatomic stage IA; Prognostic IB. She denies pain or discomfort at the incision sites. She notes excellent range of motion. Patient presents today for consultation for a port placement. Patient is scheduled to start chemotherapy on 04/07. Patient denies previous port placement, fractured clavicle or central line placement. Patient denies previous complications with anesthesia. ROS General General: Yes fatigue; no weight change, appetite, colon cancer, breast cancer or weakness HEENT HEENT: No difficulty swallowing, eye injury, eye surgery, swollen glands or hoarseness Endo Endocrine: No thyroid disease, diabetes mellitus, thyroid cancer, Hair loss, heat intolerance or cold intolerance Breast Breast: Yes abnormal mammogram and abnormal US; no left breast lump, right breast lump, nipple discharge, breast pain or breast enlargement Cardio Cardiovascular: Yes atrial fibrillation; no murmur, pacemaker, heart disease, high blood pressure, heart attack, heart stent, palpitations, shortness of breat with exertion or chest pain Resp Respiratory: No shortness of breath, No sleep apnea, Yes cough, No COPD, No asthma, No emphysema, No wheezing Gastro Gastrointestinal: No abdominal pain, No nausea or vomiting, No diarrhea, No constipation, No blood in stool, Yes acid reflux, No hemorrhoids, Yes ulcers, No gallbladder problem, No black,tarry stools Prakash Hematologic: Yes blood thinners, No blood disorders, No bleeding, No anemia, No blood clots Neuro Neurologic: No weakness Exam Const General: cooperative, healthy appearing, comfortable, no acute distress HENMT Head: normal to inspection Eyes General: appearance normal, both eyes and all related structures Neck Neck: normal visual inspection Neck mass: No Chest Breast Palpation: No nipple discharge Other: Left breast- incisions c/d/i. She has two areas where sutures were spitting. These were trimmed. No erythema or infection noted. Resp Effort & Inspection: normal respiratory effort Auscultation: clear to auscultation bilaterally Cardio Rate: regular rate Rhythm: regular rhythm Heart Sounds: no murmurs GI Inspection: normal to inspection Palpation: soft Auscultation: normal bowel sounds Skin General: no rashes or lesions noted Neuro General: no focal motor deficits, CN's II-XI intact bilaterally Extrem General: normal to inspection Psych Appearance: grossly normal Affect: normal affect Assessment & Plan Problems 1. Malignant neoplasm of upper-outer quadrant of left breast in female, estrogen receptor negative C50.[address] Montano will plan to perform a right possible left sided port-a-cath placement under MAC. Procedure details, risks and benefits have been explained to the patient. Patient has had the opportunity to ask and have questions answered. Patient verbally understands and agrees with the plan. Coding Level of Care Code Off vis,est,level 3 Diagnoses Malignant neoplasm of upper-outer quadrant of left breast in female, estrogen receptor negative C50.412 ??Breast location: upper outer quadrant of breast ??Estrogen receptor status: negative ??Laterality: left Comment Modifier if separate procedure still in global period? 03/26/19 1117 <Electronically signed by Kalyani guidry PA-C> Date _ Kalyani Blue PA-C 03/26/19 1557 <Electronically signed by Kalyani guidry PA-C> Date: Time: __ Kalyani Blue PA-C CC: Kalyani Blue PA-C; Cristofer Yadav MD ~ Date Dictated: 03/26/19 111 Date Transcribed: 03/26/19 1228 Automobile Body Customizer: NR Signed I have re-examined the patient. There are no clinical changes since date of exam.
--- NOTE | 2019-04-02 12:11 | DCINST_ITS ---
Discharge Diet: No Restrictions - Pain medication may cause nausea. You should typically eat light foods as you take your pain medication. Discharge Activity: Return to Normal Activity, May Shower - Leave the bandage on for 2-3 days. When you remove the bandage, leave the steri-strips intact until they fall off. Additional Activity Instructions:: May not drive, work with heavy equipment, or sign legal documents for [address] if you are no longer taking narcotic pain medications. You may drive when you are no longer taking pain medications. Additional Dressing/Incision Instructions:: Leave the bandage on for 2-3 days. When you remove the bandage, leave the steri-strips intact until they fall off. Allergies/Adverse Reactions: Allergies amoxicillin [From Augmentin] Allergy (Intermediate, Verified 04/02/19 10:15) lip swelling clavulanic acid [From Augmentin] Allergy (Intermediate, Verified 04/02/19 10:15) lip swelling clarithromycin [From Biaxin] Allergy (Verified 04/02/19 10:15) Unknown levofloxacin [From Levaquin] Allergy (Verified 04/02/19 10:15) Unknown risedronate sodium [From Actonel] Allergy (Verified 04/02/19 10:15) Unknown rofecoxib [From Vioxx] Allergy (Verified 04/02/19 10:15) Unknown Ykxjune-Slz-Cyp Reductase Inhibitor Adverse Reaction (Verified 04/02/19 10:15) myalgia crab Allergy (Uncoded 04/02/19 10:15) Food Allergy Medications to take at Discharge Omeprazole [Prilosec] 20 mg PO DAILY 02/25/13 Multivitamin [Multiple Vitamins] 1 tab PO DAILY 03/01/17 Sertraline HCl [Zoloft] 50 mg PO DAILY 03/01/17 Warfarin [Coumadin] 2 tab PO MOTUWE 03/01/17 calcium carbonate 500 mg calcium (1,250 mg) chewable tablet 500 mg PO DAILY tab 06/21/18 warfarin 4 mg tablet 4 mg PO .COMPLEX #180 tab 11/26/18 diltiazem ER 120 mg capsule,extended release 12 hr 120 mg PO DAILY #90 cap 11/28 09/15 Carvedilol [Coreg (Beta Suzanne)] 25 mg PO BID 03/06/19 Orders to be completed after discharge: Basic Metabolic Profile (BMP) Time Frame: 04/02/19, Facility: [facility], Location: Laboratory CBC-Complete Blood Cnt No Diff Time Frame: 04/02/19, Facility: [facility], Location: Laboratory Primary Care Physician: Cristofer Yadav MD [Primary Care Provider] - Test Results: Test results from this visit will be discussed in further detail at your follow- up appointment, if applicable. Please Follow Up With: Graham Montano MD - [phone] When: Please contact the office for any concerns
[2019-04-02] MEDS: Bupivacaine Mpf 0.5% 30 ML VIAL (13:14)
--- NOTE | 2019-04-02 13:29 | PCM.OPRPT ---
Problem List (1) Breast cancer in female Status: Acute Qualifiers: Breast location: upper outer quadrant of breast Estrogen receptor status: negative Laterality: left Qualified Code(s): C50.412 - Malignant neoplasm of upper-outer quadrant of left female breast; Z17.1 - Estrogen receptor negative status [ER-] Report of Operation Date of Procedure: 04/02/19 Pre-Operative Diagnosis: Left upper outer quadrant breast cancer Post-Operative Diagnosis: Same Surgery/Procedure Performed:: Right internal jugular 6 [place] PowerPort placement Description of Surgical Findings:: Timeout and informed consent was obtained. 73-year-old female was taken to the operating room placed on the table Ancef 2 g given intravenously the right neck and chest were sterilely prepped and draped under ultrasound guidance 1% lidocaine mixed 50-50 with 0.5% Marcaine was used as local anesthetic. A total of 20 cc was used. Local was instilled then under ultrasound guidance micropuncture needle inserted in the right internal jugular vein followed by Seldinger wire advancement. Local was instilled down upon the chest wall midclavicular line second intercostal space transverse incision was created electrocautery to be used to make a subcutaneous pocket. Tubing was tunneled from the chest to the neck. Micropuncture sheath dilator placed over the wire that a 035 J-wire was placed then the sheath dilator was inserted fluoroscopy demonstrated good position dilator wire removed the catheter was made to the sheath the sheath was split the cath was positioned at the SVC atrial junction it was amputated at length connected the port secured with port attachment device. The probe was placed in the pocket secured there with 2-0 silk. Subdermal tissues approximated up to 3-0 Vicryl. Steri-Strips Telfa OpSite dressings applied. The port was accessed and aspirated easily was flushed with saline and 2 cc of heparinized saline. Sponge and instrument and needle counts reported the surgeon be correct. Blood loss minimal. Specimens none. Drains none. Blood loss minimal. Graham Montano M.D., F.A.C.S. Type of Anesthesia:: Local MAC Anesthesiologist: Jorge Delgado
[2019-04-02 13:30] VITALS: BP 105/64; BP 99/54; PULSE 88; RESP 16; TEMP 36.6; O2SAT 97
[2019-04-02 13:35] VITALS: BP 102/61; BP 105/64; PULSE 80; RESP 16; O2SAT 97
--- NOTE | 2019-04-02 13:37 | RAD_ITS ---
STUDY: X-RAY CHEST REASON FOR EXAM: Female, 73 years old. Vascular port placement. TECHNIQUE: Single AP portable view of the chest. COMPARISON: Comparison is made with prior examination dated March 07, 2019. FINDINGS: A right-sided Port-A-Cath has been placed. The tip is at the junction of the superior vena cava and right atrium. Surgical clips are seen in the left axillary region. Mild degree of vascular congestion. Stable blunting of the left costophrenic angle. There is mild cardiac enlargement. Normal mediastinum and martha. Normal visualized pulmonary arteries. There is atherosclerotic calcification of the aortic arch with tortuosity. There are degenerative changes of the visualized thoracic spine. Normal visualized ribs, clavicles, and shoulders. Hiatal hernia. RAD/CXR for Line Placement IMPRESSION: The tip of the right aayush catheter is at the junction of the superior vena cava and right atrium. Mild degree of vascular congestion. Electronically Signed: Yosef Woodruff, at 14:00 EST , Service support ,
[2019-04-02 13:40] VITALS: BP 104/60; BP 105/64; PULSE 78; RESP 16; O2SAT 98
[2019-04-02 13:45] VITALS: BP 104/63; BP 105/64; PULSE 88; RESP 16; TEMP 36.3; O2SAT 99
[2019-04-02 14:42] VITALS: BP 105/64; BP 106/70; PULSE 70; RESP 18; TEMP 36.7; O2SAT 93
[2019-04-02 16:07] LABS: Prothrombin Time Fingerstick 16.2 SEC (11.9-14.4)
== END 2019-04-02 14:54 | disposition home or self-care (01) ==
LOC: SDC 09:54 → AC 10:20
PROVIDERS: Family Provider Family Medicine; PCP Family Medicine; Referring Provider Surgery; Visit Provider Surgery
PROC: (CPT 36561; principal; 2019-04-02 11:45)
DX: Z45.2 Encounter for adjustment and management of vascular access device (principal); C50.412 Malignant neoplasm of upper-outer quadrant of left female breast; Z17.1 Estrogen receptor negative status [ER-]; I48.20 Chronic atrial fibrillation, unspecified; I10 Essential (primary) hypertension; E78.5 Hyperlipidemia, unspecified; K21.9 Gastro-esophageal reflux disease without esophagitis; M54.9 Dorsalgia, unspecified; G89.29 Other chronic pain; F32.9 Major depressive disorder, single episode, unspecified; Z78.0 Asymptomatic menopausal state; Z79.01 Long term (current) use of anticoagulants; Z79.899 Other long term (current) drug therapy; Z88.8 Allergy status to other drugs, medicaments and biological substances; Z88.1 Allergy status to other antibiotic agents; Z88.0 Allergy status to penicillin; Z87.11 Personal history of peptic ulcer disease
CPT/HCPCS: 00532; 36561; 76937; 36416; 71045; 77001; 85610; J7120

== ENCOUNTER 2019-07-18 13:41 | Outpatient (RCR) | payer MEDICARE, SELFPAY ==
[2019-06-23 10:24] VITALS: BMI 31.2
[2019-06-30 08:37] VITALS: BMI 29.2
[2019-07-01 12:27] LABS: Prothrombin Time (Protime)PT. 39.3 SECONDS (11.7-14.9)
[2019-07-08 12:21] LABS: Prothrombin Time (Protime)PT. 40.7 SECONDS (11.7-14.9)
[2019-07-08 12:39] LABS: International Normalized Ratio 4.2
[2019-07-11 15:38] LABS: International Normalized Ratio 2.1; Prothrombin Time (Protime)PT. 23.2 SECONDS (11.7-14.9)
[2019-07-18 16:56] LABS: International Normalized Ratio 3.4; Prothrombin Time (Protime)PT. 34.2 SECONDS (11.7-14.9)
== END 2019-07-18 18:00 | disposition home or self-care (01) ==
LOC: MTLAB 13:41
PROVIDERS: Physician Assistant Medical; Family Provider Family Medicine; PCP Family Medicine; Referring Provider Internal Medicine Cardiovascular Disease; Visit Provider Internal Medicine Cardiovascular Disease
DX: Z79.01 Long term (current) use of anticoagulants (principal); I43 Cardiomyopathy in diseases classified elsewhere
CPT/HCPCS: 36415; 77387; 77412; 85610

== ENCOUNTER 2019-08-19 11:47 | Outpatient (RCR) | payer MEDICARE, SELFPAY ==
[2019-06-30 08:37] VITALS: BMI 29.2
[2019-07-23 13:30] VITALS: BMI 28.7
[2019-07-31 15:12] LABS: International Normalized Ratio 3.4; Prothrombin Time (Protime)PT. 34.9 SECONDS (11.7-14.9)
[2019-08-19 14:50] LABS: International Normalized Ratio 2.2; Prothrombin Time (Protime)PT. 24.3 SECONDS (11.7-14.9)
== END 2019-08-28 18:00 | disposition home or self-care (01) ==
LOC: MTLAB 11:47
PROVIDERS: Family Provider Family Medicine; PCP Family Medicine; Referring Provider Internal Medicine Cardiovascular Disease; Visit Provider Internal Medicine Cardiovascular Disease
DX: Z51.0 Encounter for antineoplastic radiation therapy (principal); C50.412 Malignant neoplasm of upper-outer quadrant of left female breast; Z79.01 Long term (current) use of anticoagulants; I43 Cardiomyopathy in diseases classified elsewhere
CPT/HCPCS: 36415; 77336; 77412; 77417; 85610

== ENCOUNTER 2019-09-19 10:16 | Outpatient (RCR) | payer MEDICARE, SELFPAY ==
[2019-06-30 08:37] VITALS: BMI 29.2
[2019-07-23 13:30] VITALS: BMI 28.7
[2019-09-19 12:35] LABS: International Normalized Ratio 2.2; Prothrombin Time (Protime)PT. 24.1 SECONDS (11.7-14.9)
== END 2019-09-19 18:00 | disposition home or self-care (01) ==
LOC: MTLAB 10:16
PROVIDERS: Family Provider Family Medicine; PCP Family Medicine; Referring Provider Internal Medicine Cardiovascular Disease; Visit Provider Internal Medicine Cardiovascular Disease
DX: Z79.01 Long term (current) use of anticoagulants (principal); I43 Cardiomyopathy in diseases classified elsewhere
CPT/HCPCS: 36415; 85610

== ENCOUNTER → 2019-10-14 16:13 | Outpatient (CLI) | payer MEDICARE, SELFPAY ==
[2019-06-30 08:37] VITALS: BMI 29.2
[2019-07-23 13:30] VITALS: BMI 28.7
--- NOTE | 2019-10-14 16:24 | RAD_ITS ---
STUDY: X-RAY - LUMBAR SPINE REASON FOR EXAM: Female, 73 years old. Chronic back pain TECHNIQUE: 3 view(s) of the lumbar spine were obtained. COMPARISON: 02/19/2018 FINDINGS: There is a stable chronic compression deformity of the T12 vertebral body. There is no evidence of fracture or dislocation in the lumbar spine. The vertebral body heights are well-maintained. There are stable degenerative changes. RAD/Lumbar Spine 2 or 3 Views IMPRESSION: Stable chronic compression deformity of T12. No fracture or dislocation in the lumbar spine. Stable degenerative change. Electronically Signed: Wolfgang Hidalgo, at 17:02 EDT Tel , Service support ,
== END ==
PROVIDERS: PCP Family Medicine; Referring Provider Anesthesiology Pain Medicine; Visit Provider Anesthesiology Pain Medicine
DX: M54.9 Dorsalgia, unspecified (principal)
CPT/HCPCS: 72100

== ENCOUNTER 2019-11-07 10:09 | Emergency (ER) | payer MEDICARE, SELFPAY ==
[2019-06-30 08:37] VITALS: BMI 29.2
[2019-07-23 13:30] VITALS: BMI 28.7
[2019-11-07 10:13] VITALS: BP 137/86; PULSE 77; RESP 22; TEMP 36.4; O2SAT 99; BMI 26.5
--- NOTE | 2019-11-07 11:14 | ED.VIS.GEN ---
History of Present Illness Chief Complaint: Back Narrative: Patient is a 73-year-old female with a past medical history of atrial fibrillation on Coumadin who presents to the emergency department for right-sided lower back pain. This is a acute on chronic exacerbation for her. She denies any trauma or falls to make this worse. She did follow-up with her pain management doctor this past week. She did get some injections 4 days ago. This did not give her any relief. She was also prescribed tramadol which has not been helping. She rates the pain as severe. It does not go down her legs. She denies any saddle anesthesia. No loss of bowel/bladder control. No fevers or chills. She does have a history of compression fracture of T12. This was managed medically without any surgery. No abdominal pain associated with this. No chest pain or shortness of breath. Any movements make the pain worse. Past Medical History - Allergies and Home Meds Allergies/Adverse Reactions: Allergies rofecoxib [From Vioxx] Allergy (Severe, Verified 11/07/19 10:18) Nausea/Vom/Diarrhea amoxicillin [From Augmentin] Allergy (Intermediate, Verified 11/07/19 10:18) lip swelling clavulanic acid [From Augmentin] Allergy (Intermediate, Verified 11/07/19 10:18) lip swelling clarithromycin [From Biaxin] Adverse Reaction (Severe, Verified 11/07/19 10:18) Nausea/Vom/Diarrhea levofloxacin [From Levaquin] Adverse Reaction (Severe, Verified 11/07/19 10:18) Nausea/Vom/Diarrhea risedronate sodium [From Actonel] Adverse Reaction (Severe, Verified 11/07/19 10:18) Nausea/Vom/Diarrhea Zcggjmg-Kmh-Oki Reductase Inhibitor Adverse Reaction (Severe, Verified 11/07/19 10:18) myalgia crab Adverse Reaction (Severe, Uncoded 11/07/19 10:18) Food Allergy rash Primary Care Physician: [facility] [Outside] - As soon as possible Cristofer Yadav MD [Primary Care Provider] - 2 Days Prior records reviewed: Yes - Atrial fibrillation, breast cancer in remission, hyperlipidemia Smoking Status: Never smoker Drugs: None Review of Systems All systems negative except as indicated General: Denies: Chills, Fever, Sweats Eyes: Denies: Visual changes - bilaterally, Diplopia ENT: Denies: Rhinorrhea, Sore throat Cardiovascular: Denies: Chest pain, Palpitations Respiratory: Denies: Dyspnea, Cough, Dyspnea on exertion Gastrointestinal: Denies: Abdominal pain, Nausea, Vomiting, Diarrhea, Melena, Hematochezia Genitourinary: Denies: Dysuria, Hematuria, Frequency Musculoskeletal: Reports: Back pain. Denies: Extremity Pain Skin: Denies: Rash, Wounds Neurological: Denies: Headache, Weakness, Numbness Physical Exam Vital Signs/Narrative: Vital Signs Temp Pulse Resp BP Pulse Ox 11/07/19 10:13 97.5 F L 77 22 H 137/86 H 99 Inital Vital Signs reviewed: Yes General: Well nourished, Well developed, Acute Distress - Patient hanging onto bed rails. Seems to be in pain. Head: Normocephalic, Atraumatic Eyes: Perrl, EOMI ENT: Moist mucous membranes, No rhinorrhea Neck: Supple, Nontender Cardiovascular: Regular rate, Regular rhythm, No murmurs Respiratory: No distress, CTA bilaterally, Chest nontender Abdomen: Soft, Nontender, Nondistended, Normal bowel sounds Back: - - Normal back inspection. No midline tenderness or step-off sign. Mild tenderness to the right-sided paraspinal musculature. Extremities: Nontender, No edema, - - 5 out of 5 muscle strength in lower extremities. Neurovascularly intact. Good of straight leg test bilaterally. Skin: Normal color, No rash Neurological: Alert, Oriented x3, Cranial nerves II-XII grossly intact, Normal Strength, Normal Sensation Psychological: Normal affect, Normal Mood Diagnostic/Tx/Re-eval - Medical Decision Making Patient presents to the emerge department for acute on chronic exacerbation of her lower back pain. She does appear to be in severe pain on physical exam. Will give an IM dose of morphine. She states that she has not checked her INR in over a month and she is on Coumadin for atrial fibrillation. We will check this now. Patient's INR is elevated at 3.9. Did do CT scan of the abdomen pelvis to evaluate for any retroperitoneal hematoma. This did not show any evidence of hematoma. There was a small incidental finding of a nodule in the right lower lung. Also a hiatal hernia. CT scans of the thoracic and lumbar spine showed degenerative disc changes with disc bulging. There was foraminal narrowing. Previously known about T12 fracture was again appreciated. Patient was refusing to get out of bed due to pain. At that time I did try to bring into the hospital for further evaluation and management. Hospitalist came down to evaluate her but she is refusing any rehab services and outpatient. She changed her mind and did not want to come into the hospital at this time. She was able to get up with the assist of nursing. After she was up she was able to ambulate without too much difficulty. Did make a referral for [facility] for follow-up with a neurosurgeon. She otherwise is to follow-up with her PCP. She is not to take her Coumadin given the evaded INR until she talks to her PCP in the morning. We will write a prescription for [place] in the meantime. She understands and is agreeable this plan. Will discharge home in stable condition. ED Disposition - Plan for ED Patient: Disposition: Home or Assisted Living Diagnosis: Back pain, Degenerative disc disease, Disc herniation Instructions: Back Fracture (Compression Fracture), ED DDD Degenerative Disk Disease, ED Disk Intervertebral Herniated Prescriptions: Hydrocodone/Acetaminophen [[place]port 5-325 Tablet] 1 ea PO Q6H PRN PRN 3 Days #10 tab PRN Reason: Pain Or Fever Transmission Status: Received by [id number] Referrals: [facility] [Outside] - As soon as possible Cristofer Yadav MD [Primary Care Provider] - 2 Days
[2019-11-07] MEDS: Morphine 4 MG/ML Syringe IM (11:22)
[2019-11-07 11:24] VITALS: BP 127/80; PULSE 80; RESP 18; O2SAT 98
[2019-11-07 11:45] LABS: Basophil# 0.03 X10^3/uL; Basophil% 0.3 % (0-1); Eosinophil# 0.04 X10^3/uL; Eosinophils% 0.4 % (0-5); Hemoglobin 13.8 g/dL (12.0-15.0); Lymphocyte % 17.3 % (19-41); Mean Corp Hgb Conc 32.1 g/dL (32-36); Mean Corpuscular Hgb 26.8 pg (27.0-32.0); Mean Corpuscular Volume 83.5 fL (81-99); Mean Platelet Vol. 10.2 fl (6.2-12.0); Monocyte# 1.04 X10^3/uL; Monocyte% 10.6 % (0-10); NRBC Flagged by Analyzer 0 % (0-5); Neutrophil # 6.98 X10^3/uL (2.7-7.7); Neutrophil % 70.8 % (47-70); POSITIVE COUNT YES; Platelet Count 186 K/mm3 (150-450); RBC Distribution Width CV 17.5 % (11.6-14.6); RBC Distribution Width SD 52.4 fl (35.1-43.9); Red Blood Count 5.15 M/mm3 (4.2-5.4); White Blood Count 9.9 K/mm3 (4.4-11.0)
[2019-11-07 12:10] LABS: Prothrombin Time (Protime)PT. 37.7 SECONDS (11.7-14.9)
--- NOTE | 2019-11-07 12:10 | CT_ITS ---
STUDY: CT THORACIC SPINE WITHOUT CONTRAST REASON FOR EXAM: Female, 73 years old. EVAL FOR RETROPERITONEAL HEMATOMA/ON COUMADIN/E LEV INR. Hx of t-12 compression fx/rt side abd pain RADIATION DOSAGE (If Supplied By Facility): CTDIvol = ( 19.04 ) mGy, DLP = ( 591.04 ) mGycm TECHNIQUE: The patient was scanned in a multi detector CT scanner. High resolution imaging was performed. Images were obtained from T1 to T12 vertebral level. Sagittal and coronal images were reconstructed. Individualized dose optimization techniques were used for this CT. COMPARISON: None. FINDINGS: Atherosclerotic calcification of the aortic arch and descending thoracic aorta. Coronary artery calcification. A right-sided portacatheter is seen. Moderate sized hiatal hernia. There is an increased kyphosis of the thoracic spine. There is no substantial scoliosis. Demineralization of the thoracic vertebrae. Compression fracture of the T12 vertebrae with a 10% loss of height. There is also evidence of loss of height of the L1 vertebrae. There is multilevel degenerative disc disease with loss of the disc space heights. No evidence of paraspinal hematoma. CT/Spine Thoracic without Contras IMPRESSION: Increased kyphotic deformity and demineralization of the thoracic vertebrae with loss of height of the T12 and L1 vertebrae. No evidence of paraspinal hematoma. Electronically Signed: Yosef Woodruff, at 13:51 EDT , Service support ,
--- NOTE | 2019-11-07 12:10 | CT_ITS ---
STUDY: CT ABDOMEN AND PELVIS WITH CONTRAST REASON FOR EXAM: Female, 73 years old. EVAL FOR RETROPERITONEAL HEMATOMA/ON COUMADIN/ELEV INR. Hx of t-12 compression fx/rt side abd pain RADIATION DOSAGE (If Supplied By Facility): CTDIvol = ( 19.84 ) mGy, DLP = ( 1005.42 ) mGycm TECHNIQUE: Transaxial images were obtained from the dome of the diaphragm to the symphysis pubis without oral contrast. IV 100mL Isovue-300 was administered. Sagittal and coronal images were reconstructed. Individualized dose optimization techniques were used for this CT. COMPARISON: None. FINDINGS: Small nodular densities are seen at the right lung base. Increased linear markings at the lung bases suggestive of scarring. Coronary artery calcification. Normal liver. Mildly distended gallbladder lumen. Normal spleen. Normal pancreas. Normal bilateral adrenal glands. Normal right kidney. Normal left kidney. There is a moderate hiatal hernia. Normal small intestine. There are multiple colonic diverticula consistent with diverticulosis. Moderate amount of fecal material is seen in the colon. The appendix is visualized and appears normal. There is diffuse atherosclerotic calcification of the abdominal aorta, without a demonstrated aneurysm. Normal inferior vena cava. Normal retroperitoneum. No evidence of retroperitoneal hematoma. Normal urinary bladder. Normal abdominal wall. Loss of height of the T11 and T12 vertebral bodies. Minimal loss of height of the superior endplate of the L4 vertebral body. CT/Abdomen/Pelvis WITH Contrast IMPRESSION: No evidence of retroperitoneal hematoma. Loss of height of the T11, T12 and superior endplate of the L4 vertebrae. Moderate-sized hiatal hernia. Small nodules in the right lower lobe. Electronically Signed: Yosef Woodruff, at 13:55 EDT , Service support ,
--- NOTE | 2019-11-07 12:10 | CT_ITS ---
STUDY: CT LUMBAR SPINE WITHOUT CONTRAST REASON FOR EXAM: Female, 73 years old. EVAL FOR RETROPERITONEAL HEMATOMA/ON COUMADIN/ELEV INR. Hx of t-12 compression fx/rt side abd pain RADIATION DOSAGE (If Supplied By Facility): CTDIvol = ( 23.33 ) mGy, DLP = ( 701.27 ) mGycm TECHNIQUE: The patient was scanned in a multi detector CT scanner. High resolution transaxial imaging was performed. Images were obtained from T12 to S1 vertebral level. Sagittal and coronal images were reconstructed. Individualized dose optimization techniques were used for this CT. COMPARISON: None FINDINGS: Normal lumbar lordosis. There is no substantial scoliosis. The mineralization of the lumbar vertebrae. Approximately 50% loss of height of the T12 vertebrae. L1-2: Normal endplates. Normal disc height and morphology. Normal bilateral facet joints. Normal central canal and bilateral lateral recesses. Normal bilateral intervertebral neural foramina. L2-3: Mild degree of anterior spondylosis and disc space narrowing. Mild degree of diffuse posterior disc bulge. Mild bilateral neural foraminal stenosis. L3-4: Normal endplates. Normal disc height and morphology. Normal bilateral facet joints. Normal central canal and bilateral lateral recesses. Normal bilateral intervertebral neural foramina. L4-5: Schmorl''s node of the superior endplate of the L4 vertebrae on the left side. Facet joint hypertrophy. Mild degree of diffuse posterior disc bulge. Mild to moderate degree of bilateral neural foraminal stenosis. L5-S1: Diffuse mild degree of disc bulge with a mild degree of bilateral neural foraminal stenosis. Calcification of the abdominal aorta. CT/Spine Lumbar without Contrast IMPRESSION: Multilevel degenerative changes, as described above. Loss of height of the superior endplate of the T12 vertebrae. Electronically Signed: Yosef Woodruff, at 13:58 EDT , Service support ,
[2019-11-07 12:11] LABS: Anion Gap 9 (5-15); BUN 18 mg/dL (7-18); BUN/Creat Ratio 26.9 RATIO (10-20); Calcium,Total 9.1 mg/dL (8.5-10.1); Chloride 108 mmol/L (98-107); Creatinine, Serum 0.67 mg/dL (0.55-1.02); EST Glomerular Filtration Rate 92 mL/min (>60); Est Glom Filt Rate - Afr Amer 111 mL/min (>60); Estimated Creatinine Clearance 43.27 ml/min; Glucose 83 mg/dL (74-106); Potassium 3.6 mmol/L (3.5-5.1); Sodium Level 140 mmol/L (136-145)
[2019-11-07 12:59] LABS: International Normalized Ratio 3.9
[2019-11-07 13:05] LABS: Differential Indicated SCAN CRITERIA MET
[2019-11-07] MEDS: Morphine 4 MG/ML Syringe IV (13:07)
[2019-11-07 13:08] VITALS: BP 120/98; PULSE 78; RESP 18; O2SAT 96
[2019-11-07 13:13] LABS: Platelet Estimate ADEQUATE (ADEQ)
[2019-11-07] MEDS: HYDROmorphone 0.5 MG/0.5 ML SYRINGE IV (14:34)
[2019-11-07 14:40] VITALS: BP 107/69; PULSE 80; RESP 18; TEMP 36.7; O2SAT 98
[2019-11-07 16:38] VITALS: BP 107/69; PULSE 80; RESP 18; O2SAT 98
[2019-11-07] MEDS: Ondansetron ODT 4 MG Tablet PO (16:59)
== END 2019-11-07 16:59 | disposition home or self-care (01) ==
LOC: ED 11:44 → MS3 16:17
PROVIDERS: Emergency Provider Emergency Medicine; PCP Family Medicine
DX: M51.35 Other intervertebral disc degeneration, thoracolumbar region (principal); M48.061 Spinal stenosis, lumbar region without neurogenic claudication; G89.29 Other chronic pain; I48.91 Unspecified atrial fibrillation; Z79.01 Long term (current) use of anticoagulants; Z79.899 Other long term (current) drug therapy
CPT/HCPCS: 36415; 72128; 72131; 74177; 80048; 85025; 85610; 96372; 96374; 96376; 99285; Q9967; A4216

== ENCOUNTER 2019-11-11 12:35 | Outpatient (RCR) | payer MEDICARE, SELFPAY ==
[2019-06-30 08:37] VITALS: BMI 29.2
[2019-07-23 13:30] VITALS: BMI 28.7
[2019-11-11 13:14] LABS: International Normalized Ratio 1.4; Prothrombin Time (Protime)PT. 16.3 SECONDS (11.7-14.9)
== END 2019-11-11 18:00 | disposition home or self-care (01) ==
LOC: LAB 12:35
PROVIDERS: Family Provider Family Medicine; PCP Family Medicine; Referring Provider Internal Medicine Cardiovascular Disease; Visit Provider Internal Medicine Cardiovascular Disease
DX: Z79.01 Long term (current) use of anticoagulants (principal); I43 Cardiomyopathy in diseases classified elsewhere
CPT/HCPCS: 36415; 85610

== ENCOUNTER → 2019-11-14 13:59 | Outpatient (CLI) | payer MEDICARE, SELFPAY ==
[2019-06-30 08:37] VITALS: BMI 29.2
[2019-11-07 10:13] VITALS: BMI 26.5
[2019-11-14 15:08] LABS: EST Glomerular Filtration Rate 58 mL/min (>60); Est Glom Filt Rate - Afr Amer 70 mL/min (>60)
== END ==
PROVIDERS: PCP Family Medicine; Referring Provider Orthopaedic Surgery Orthopaedic Surgery of the Spine; Visit Provider Orthopaedic Surgery Orthopaedic Surgery of the Spine
DX: M48.061 Spinal stenosis, lumbar region without neurogenic claudication (principal)
CPT/HCPCS: 36415; 82565

== ENCOUNTER → 2019-11-28 11:34 | Outpatient (CLI) | payer MEDICARE, SELFPAY ==
[2019-06-30 08:37] VITALS: BMI 29.2
[2019-11-07 10:13] VITALS: BMI 26.5
--- NOTE | 2019-11-28 11:41 | MRI_ITS ---
STUDY: MRI THORACIC SPINE WITH AND WITHOUT CONTRAST REASON FOR EXAM: Female, 74 years old. STENOSIS, COMPRESSION FX, TECHNIQUE: DOTAREM 13CC IV/PORT was administered for the contrast portion of the examination. COMPARISON: November 07 2019 FINDINGS: Examination is mildly technically limited. Post contrast T1 axial images are not fat suppressed limiting detection of contrast enhancement. Sagittal images are fat suppressed and up with diagnostic. Diagnostic information is available. There is exaggeration of thoracic kyphosis. Marrow is diffusely abnormal with fatty infiltration, possibly postchemotherapy/post radiation change. There are multiple compression fractures. There is a chronic T8 compression fracture with mild anterior wedging deformity. There is a subacute T9 fracture with mixed heterogeneous marrow and a partially visible fracture cleft. There is a subacute linear cleft fracture of the inferior endplate of T10 with minimal abnormal marrow. There is a subacute fracture of T11 with minimal abnormal marrow. There is a chronic T12 fracture with normal marrow. There is a new L1 compression fracture with diffuse marrow replacement, refer to lumbar spine report. T9, T10 and T11 vertebral enhance postcontrast and moderately intense and heterogeneous fashion. There are chronic T8 and T12 fractures do not enhance and are in the healing phase. There is questionable extraosseous enhancing soft tissue in the prevertebral soft tissue space extending from T8 to L1. However, this cannot be reliably evaluated due to limitations of axial images. Spinal canal is patent at all levels. Spinal cord is normal. There is no epidural neoplastic disease. MRI/Spine Thoracic W/WO Contrast IMPRESSION: 1. Subacute T9, T10 and T11 fractures with abnormal marrow, possibly metastatic. Recommend short-term follow-up for further evaluation. 2. Questionable prevertebral neoplastic soft tissue. 3. Patent canal, clear epidural space. Electronically Signed: Ankur Flynn, at 14:08 EDT Tel , Service support ,
--- NOTE | 2019-11-28 11:42 | MRI_ITS ---
STUDY: MRI LUMBAR SPINE WITH AND WITHOUT CONTRAST REASON FOR EXAM: Female, 74 years old. MID LOWER BACK PAIN, H/O BREAST CA, TX NOW, NO INJURY TECHNIQUE: Standardized fat and water weighted pulse sequences were obtained in the sagittal and axial planes. 13 cc Dotarem IV/PORT was administered for the contrast portion of the examination. COMPARISON: November [address] FINDINGS: There is an acute compression fracture of L1 which was not present 3 weeks ago. There is approximately 50% loss of height ventrally and 25% loss of height dorsally without dorsal cortical retropulsion or canal compression. L1 marrow is diffusely replaced and enhancing representing most probably metastatic lesion replacement, less likely marrow reaction. There is an internal horizontal cleft representing fracture. There is no extraosseous soft tissue mass component. There is chronic T12 compression fracture with approximately 25-50% loss of height. There are early subacute compression fractures of T10 and T11 with approximately 25% loss of height. Lumbar spine is aligned. There is exaggeration of thoracolumbar kyphosis due to multilevel anterior wedging deformities of the fractured compressed vertebral bodies. Paraspinous soft tissues are intact. SI joints are normal. Conus medullaris terminates at L1 with normal cauda equina. Thecal sac is widely patent. Epidural space is clear without neoplastic invasion. MRI/Spine Lumbar W/WO Contrast IMPRESSION: 1. Acute L1 compression fracture, new since 3 weeks ago, probably pathologic due to metastasis. Recommend short-term follow-up imaging with CT and MR for improved diagnostic accuracy evaluation. 2. Early subacute T10 and T11 and chronic T12 compression fractures. 3. Patent thecal sac, no neural compression. 4. No epidural neoplastic disease. Electronically Signed: Ankur Flynn, at 13:54 EDT Tel , Service support ,
[2019-11-28] MEDS: 0.9% Saline Lock 10 ML Syringe IV (13:25)
== END ==
PROVIDERS: PCP Family Medicine; Referring Provider Orthopaedic Surgery Orthopaedic Surgery of the Spine; Visit Provider Orthopaedic Surgery Orthopaedic Surgery of the Spine
DX: M48.061 Spinal stenosis, lumbar region without neurogenic claudication (principal); M43.9 Deforming dorsopathy, unspecified
CPT/HCPCS: 72157; 72158; A9575; A4216

== ENCOUNTER → 2019-12-15 | Outpatient (CLI) | payer MEDICARE, SELFPAY ==
[2019-06-30 08:37] VITALS: BMI 29.2
[2019-12-10 14:48] VITALS: BMI 25.6
--- NOTE | 2019-12-15 08:43 | NM_ITS ---
CLINICAL: 74-year-old female with reported history of carcinoma of the breast. WHOLE BODY 99m Tc MDP RADIONUCLIDE BONE SCINTIGRAPHY COMPARISON: MRI of the thoracic and lumbar spine reports 11/28/2019 FINDINGS: Following the intravenous administration of 26.0 mCi of 99m Tc MDP, whole body bone images reveal: 1. Intense diffuse increased radiopharmaceutical concentration is defined in the ninth-12th thoracic and first lumbar vertebra. 2. Focal increased tracer concentration is observed in the acromioclavicular and sternoclavicular compartments of both shoulders, glenohumeral compartment of the right shoulder, the right knee, fourth-fifth lumbar vertebra. 3. The remaining skeletal structures are scintigraphically unremarkable with normal-appearing renal images and urinary bladder activity identified. NM/Bone Scan Whole Body IMPRESSION: 1. The increase in radiopharmaceutical concentration observed in the lower thoracic and first lumbar vertebra is most consistent with trauma-compression apparent pathologic fracture with complicating metastasis. 2. Degenerative arthritis is otherwise expressed in the bilateral shoulders, right knee, fourth and fifth lumbar vertebra. Electronically Signed: Carlos Alberto Wills DO at 22:38 EDT Tel , Service support ,
[2019-12-16 09:32] LABS: CA 27.29 6.4 U/mL (0.0-38.6)
== END | disposition home or self-care (01) ==
PROVIDERS: PCP Family Medicine; Referring Provider Nurse Practitioner Family; Visit Provider Nurse Practitioner Family
DX: C50.919 Malignant neoplasm of unspecified site of unspecified female breast (principal); M84.40XA Pathological fracture, unspecified site, initial encounter for fracture; Z85.3 Personal history of malignant neoplasm of breast
CPT/HCPCS: 36415; 78306; 86300

== ENCOUNTER → 2019-12-17 14:43 | Outpatient (CLI) | payer MEDICARE, SELFPAY ==
[2019-06-30 08:37] VITALS: BMI 29.2
[2019-12-10 14:48] VITALS: BMI 25.6
--- NOTE | 2019-12-17 14:46 | CT_ITS ---
STUDY: CT CHEST WITH CONTRAST REASON FOR EXAM: Female, 74 years old. LUNG NODULE, HISTORY OF BREAST CANCER/CHEMO/RADIATION AND LUMPECTOMY RADIATION DOSAGE (If Supplied By Facility): CTDIvol = ( 14.38 ) mGy, DLP = ( 280.95 ) mGycm TECHNIQUE: Transaxial imaging was performed following intravenous administration of IV 100mL Isovue-300. Multiplanar coronal and sagittal images were reformatted. Individualized dose optimization techniques were used for this CT. COMPARISON: Including CT thoracic spine November 07, 2019 FINDINGS: There is port on the right extending to the right atrium. There are bilateral nodular consolidation including the measuring 1.5 cm in the right upper lobe and 1.1 cm and the left upper lobe. There is interstitial accentuation of the lungs. There is no demonstrated pleural abnormality. There are calcifications of the coronary arteries. Normal mediastinum. Normal hilar regions. Normal enhanced pulmonary arteries. There is atherosclerotic calcification of the aortic arch with tortuosity and elongation of the aortic arch and descending thoracic aorta. There is postoperative change in the left axillary region. There is 6.0 cm mass and/or complex collection of the left breast. There is demineralization of the thoracic spine. There is an increased kyphosis of the thoracic spine. There are multiple compression fractures in the mid and lower thoracic spine including the regions of sclerosis. There is large hiatal hernia. There is hepatomegaly. CT/Chest WITH Contrast IMPRESSION: Stable bilateral pulmonary nodular masses and consolidation. Left breast mass and postoperative change. Hiatal hernia. Compression fractures of the spine. Electronically Signed: Luis He MD at 16:27 EDT , Service support ,
[2019-12-17] MEDS: 0.9% Saline Lock 10 ML Syringe IV (15:24)
== END ==
PROVIDERS: PCP Family Medicine; Referring Provider Nurse Practitioner Family; Visit Provider Nurse Practitioner Family
DX: R91.8 Other nonspecific abnormal finding of lung field (principal); Z85.3 Personal history of malignant neoplasm of breast
CPT/HCPCS: 71260; Q9967; A4216

== ENCOUNTER 2019-12-29 13:46 | Outpatient (RCR) | payer MEDICARE, SELFPAY ==
[2019-06-30 08:37] VITALS: BMI 29.2
[2019-12-08 15:47] LABS: Absolute Lymphocyte Count 1.33 X10^3/uL (0.83-4.51); Absolute Neutrophil Count 6.1 X10^3/uL (2.0-7.7); Basophil# 0.04 X10^3/uL; Basophil% 0.5 % (0-1); Eosinophil# 0.11 X10^3/uL; Eosinophils% 1.3 % (0-5); Hematocrit 45.4 % (37-47); Hemoglobin 14.1 g/dL (12.0-15.0); Lymphocyte # 1.33 X10^3/ul (4.0); Mean Corp Hgb Conc 31.1 g/dL (32-36); Mean Corpuscular Hgb 27.3 pg (27.0-32.0); Mean Corpuscular Volume 87.8 fL (81-99); Mean Platelet Vol. 10.1 fl (6.2-12.0); Monocyte# 0.76 X10^3/uL; Monocyte% 9.1 % (0-10); NRBC Flagged by Analyzer 0 % (0-5); Neutrophil # 6.05 X10^3/uL (2.7-7.7); Neutrophil % 72.7 % (47-70); Platelet Count 272 K/mm3 (150-450); RBC Distribution Width CV 16.6 % (11.6-14.6); RBC Distribution Width SD 53.8 fl (35.1-43.9); Red Blood Count 5.17 M/mm3 (4.2-5.4); White Blood Count 8.3 K/mm3 (4.4-11.0)
[2019-12-08 16:06] LABS: International Normalized Ratio 3.1; Prothrombin Time (Protime)PT. 31.7 SECONDS (11.7-14.9)
[2019-12-08 16:15] LABS: ALB/GLOB Ratio 0.9 RATIO (0.9-2.4); AST(SGOT) 28 U/L (15-37); Alanine Aminotransfer ALT/SGPT 28 U/L (13-56); Albumin, Serum 3.3 g/dL (3.2-5.0); Alkaline Phosphatase 153 U/L (45-117); Anion Gap 5 (5-15); BUN 14 mg/dL (7-18); BUN/Creat Ratio 15.3 RATIO (10-20); Calcium,Total 9.2 mg/dL (8.5-10.1); Chloride 104 mmol/L (98-107); Creatinine, Serum 0.92 mg/dL (0.55-1.02); EST Glomerular Filtration Rate 64 mL/min (>60); Est Glom Filt Rate - Afr Amer 77 mL/min (>60); Globulin 3.7 g/dL (2.2-4.2); Glucose 130 mg/dL (74-106); Potassium 4.6 mmol/L (3.5-5.1); Sodium Level 140 mmol/L (136-145)
[2019-12-22 12:37] LABS: Prothrombin Time (Protime)PT. 36.4 SECONDS (11.7-14.9)
[2019-12-22 12:55] LABS: International Normalized Ratio 3.7
[2019-12-29 15:03] LABS: Prothrombin Time (Protime)PT. 41.2 SECONDS (11.7-14.9)
[2019-12-29 15:06] LABS: International Normalized Ratio 4.3
== END 2019-12-29 18:00 | disposition home or self-care (01) ==
LOC: LAB 13:46
PROVIDERS: Nurse Practitioner Family; Family Provider Family Medicine; PCP Family Medicine; Referring Provider Internal Medicine Cardiovascular Disease; Visit Provider Internal Medicine Cardiovascular Disease
DX: Z79.01 Long term (current) use of anticoagulants (principal); I43 Cardiomyopathy in diseases classified elsewhere
CPT/HCPCS: 36415; 80053; 85025; 85610

== ENCOUNTER 2020-01-12 11:04 | Outpatient (RCR) | payer MEDICARE, SELFPAY ==
[2019-06-30 08:37] VITALS: BMI 29.2
[2019-12-29 14:02] VITALS: BMI 24.8
[2020-01-06 13:46] LABS: Absolute Lymphocyte Count 1.59 X10^3/uL (0.83-4.51); Absolute Neutrophil Count 4.4 X10^3/uL (2.0-7.7); Basophil# 0.03 X10^3/uL; Basophil% 0.4 % (0-1); Eosinophil# 0.11 X10^3/uL; Eosinophils% 1.6 % (0-5); Hematocrit 43.7 % (37-47); Hemoglobin 14.2 g/dL (12.0-15.0); Lymphocyte # 1.59 X10^3/ul (4.0); Lymphocyte % 22.9 % (19-41); Mean Corp Hgb Conc 32.5 g/dL (32-36); Mean Corpuscular Hgb 28.2 pg (27.0-32.0); Mean Corpuscular Volume 86.7 fL (81-99); Mean Platelet Vol. 10.6 fl (6.2-12.0); Monocyte# 0.76 X10^3/uL; NRBC Flagged by Analyzer 0 % (0-5); Neutrophil # 4.42 X10^3/uL (2.7-7.7); Neutrophil % 63.8 % (47-70); Platelet Count 283 K/mm3 (150-450); RBC Distribution Width CV 16.2 % (11.6-14.6); RBC Distribution Width SD 51.3 fl (35.1-43.9); Red Blood Count 5.04 M/mm3 (4.2-5.4); White Blood Count 6.9 K/mm3 (4.4-11.0)
[2020-01-06 14:01] LABS: Prothrombin Time (Protime)PT. 36.9 SECONDS (11.7-14.9)
[2020-01-06 14:06] LABS: International Normalized Ratio 3.8
[2020-01-06 14:14] LABS: BUN 18 mg/dL (7-18); Creatinine, Serum 0.77 mg/dL (0.55-1.02); Glucose 99 mg/dL (74-106)
[2020-01-06 14:15] LABS: ALB/GLOB Ratio 0.9 RATIO (0.9-2.4); AST(SGOT) 27 U/L (15-37); Alanine Aminotransfer ALT/SGPT 26 U/L (13-56); Albumin, Serum 3.4 g/dL (3.2-5.0); Alkaline Phosphatase 129 U/L (45-117); Anion Gap 4 (5-15); BUN/Creat Ratio 23.3 RATIO (10-20); Calcium,Total 9.2 mg/dL (8.5-10.1); Chloride 105 mmol/L (98-107); EST Glomerular Filtration Rate 78 mL/min (>60); Est Glom Filt Rate - Afr Amer 94 mL/min (>60); Globulin 3.6 g/dL (2.2-4.2); LDH 159 U/L (84-246); Potassium 3.9 mmol/L (3.5-5.1); Sodium Level 140 mmol/L (136-145)
[2020-01-06 15:10] LABS: Amphetamine Urine VISTA NEGATIVE (<1000 ng/mL); Barbiturate Urine VISTA NEGATIVE (< 200 ng/mL); Benzodiazepine Urine VISTA NEGATIVE (< 200 ng/mL); Cocaine Urine VISTA NEGATIVE (< 300 ng/mL); Ecstacy Urine VISTA NEGATIVE (< 500 ng/mL); Methadone Urine VISTA NEGATIVE (< 300 ng/mL); PCP Urine VISTA NEGATIVE (< 25 ng/mL); THC Urine VISTA NEGATIVE (< 50 ng/mL); Vista UDS pH Range 6
[2020-01-12 12:44] LABS: International Normalized Ratio 2.3; Prothrombin Time (Protime)PT. 24.7 SECONDS (11.7-14.9)
== END 2020-01-12 18:00 | disposition home or self-care (01) ==
LOC: LAB 11:04
PROVIDERS: Anesthesiology Pain Medicine; Internal Medicine Medical Oncology; Family Provider Family Medicine; PCP Family Medicine; Referring Provider Internal Medicine Cardiovascular Disease; Visit Provider Internal Medicine Cardiovascular Disease
DX: I48.11 Longstanding persistent atrial fibrillation (principal); Z79.01 Long term (current) use of anticoagulants; F11.20 Opioid dependence, uncomplicated
CPT/HCPCS: 36415; 80053; 80307; 83615; 85025; 85610

== ENCOUNTER 2020-02-09 08:46 | Outpatient (RCR) | payer MEDICARE, SELFPAY ==
[2019-06-30 08:37] VITALS: BMI 29.2
[2020-01-12 11:36] VITALS: BMI 24.9
[2020-02-03 13:54] LABS: International Normalized Ratio 1.5; Prothrombin Time (Protime)PT. 17.3 SECONDS (11.7-14.9)
[2020-02-09 09:51] LABS: International Normalized Ratio 1.3
== END 2020-02-09 18:00 | disposition home or self-care (01) ==
LOC: LAB 08:46
PROVIDERS: Family Provider Family Medicine; PCP Family Medicine; Referring Provider Internal Medicine Cardiovascular Disease; Visit Provider Internal Medicine Cardiovascular Disease
DX: I48.11 Longstanding persistent atrial fibrillation (principal); Z79.01 Long term (current) use of anticoagulants
CPT/HCPCS: 36415; 85610

== ENCOUNTER 2020-02-13 12:52 | Day surgery (SDC) | payer MEDICARE, SELFPAY ==
[2019-06-30 08:37] VITALS: BMI 29.2
[2020-01-12 11:36] VITALS: BMI 24.9
[2020-02-13] VITALS (8 sets, daily range): BP systolic 91–131; BP diastolic 64–81; PULSE 61–108; RESP 14–18; TEMP 36.4–37.2; O2SAT 92–98; BMI 24.8
--- NOTE | 2020-02-13 | BON_PTH ---
PATIENT: ASHELY CANTU LOC: [facility] – [place] U#:[id number] AGE/SX: 74/F ROOM: RE02/13/[address]: Dr. Keven West MD : 1945 BED: DIS: 02/13/2020 SPEC #: [id number] RECD: 02/13/20 16:20 STATUS: JEANETH REQ #: [id number] PATRICE: 02/13/20 00:[address]: Keven West DEPT: SURGICAL PATHOLOGY RECD BY: Mitchell Belle ENTERED: 02/16/20 08:02 SP TYPE: Bone OTHR DR: MD Dr. Harsh Kiran DO Tissues: Vertebra, NOS Procedures: Surgery Specimen Level IV HEADER OPERATION: Kyphoplasty L1, bone marrow biopsy PRE-OP DIAGNOSIS: Compression fracture L1 TISSUE SUBMITTED: L1 vertebral body MICROSCOPIC DIAGNOSIS L1 vertebral body, kyphoplasty: Fragments of blood clots with hematopoietic marrow showing trilineage hematopoiesis. Negative for carcinoma or plasma cell dyscrasia. See comment. MAI:prasanth 02/18/20 COMMENT Immunohistochemistry ([id number]) supports the above diagnosis. Rare plasma cells are noted, polytypic in nature. Case has been reviewed in consultation with Dr. Lackey who concurs with the above diagnosis. IDC:AM MICROSCOPIC DESCRIPTION Slides are reviewed. GROSS DESCRIPTION Received in fixative is one container labeled with the patient's name and designated L1 vertebral body. The specimen consists of multiple fragments of blood clot that in aggregate measure 2.5 x 1.5 x 0.1 cm. No bony tissue is identified. The entire specimen is submitted in one cassette. / MAI:prasanth 02/16/20 TC:5 CPT: 53403
--- NOTE | 2020-02-13 | IMM_PTH ---
PATIENT: ASHELY CANTU LOC: [facility] – [place] U#:[id number] AGE/SX: 74/F ROOM: RE02/13/[address]: Dr. Keven West MD : 1945 BED: DIS: 02/13/2020 SPEC #: [id number] RECD: 02/17/20 13:43 STATUS: SOURabia REQ #: [id number] PATRICE: 02/13/20 00:[address]: Keven West DEPT: IMMUNOHISTOCHEMISTRY RECD BY: Leah Pool ENTERED: 02/17/20 13:44 SP TYPE: IMMUNO OTHR DR: Dr. Cristofer Yadav MD Tissues: Vertebra, NOS Procedures: CD138 (add) CK8 (add) KAPPA (add) LAMBDA (add) Pankeratin (initial) PHYSICIAN & INSTITUTION [place] [id number] SPECIMEN INFORMATION: Tissue Source: L1 vertebral body Clinical Info: Compression fracture L1 Specimen Number: [id number] CPT code: 79989, 49343 x4 METHODOLOGY: Deparaffinized sections of prefer/formalin-fixed tissue or PAP/DQ stained slides are incubated with monoclonal/polyclonal antibodies/oligonucleotide probes. Localization is made via biotin free immunoperoxidase method. Appropriate controls are performed and reacted as expected. Results on target cell population are indicated in the following table: RESULTS: ANTIBODY / CLONE RESULT AE1-3 (AE1/AE3/PCK26) negative CK8 ([id number]) negative CD138 (B-A38) positive, rare cells [place] (polyclonal) positive, rare cells Lambda (polyclonal) positive, rare cells These tests were developed and their performance characteristics determined by [facility]. They may not have been cleared or approved by the U.S. Food and Drug Administration. The FDA has determined that such clearance or approval is not necessary. The above immunohistochemical/dualISH markers are ordered and reviewed by the Pathologist. INTERPRETATION: L1 vertebral body, kyphoplasty: Negative for metastatic carcinoma and plasma cell dyscrasia. See comment. MAI:prasanth 02/18/20 Comment: Rare plasma cells are noted, polytypic in nature.
[2020-02-13] MEDS: Lactated Ringers 1,000 ML 100 ML IV (13:31)
[2020-02-13] MEDS: Vancomycin IV 1,000 MG/200 ML BAG 200 MG IV (13:33)
--- NOTE | 2020-02-13 15:25 | RAD_ITS ---
STUDY: X-RAY - LUMBAR SPINE REASON FOR EXAM: Female, 74 years old. KYPHOPLASTY OF L1 TECHNIQUE: 15 view(s) of the lumbar spine were obtained. COMPARISON: None FINDINGS: Bilateral periventricular kyphoplasty needles are noted. There is more medial position of the right needle.. There is diffuse demineralization with multi-level endplate spondylosis. There is multi-level degenerative disc disease with multi-level disc space narrowing. The bone cement is well placed within the vertebral body of L1. RAD/Lumbar Spine 2 or 3 Views IMPRESSION: Successful kyphoplasty at L1. Electronically Signed: Tyesha Merida, at 4:39 EDT Tel , Service support ,
[2020-02-13 15:36] LABS: Prothrombin Time Fingerstick 13.8 SEC (11.9-14.4)
[2020-02-13] MEDS: Bupivacaine Mpf 0.5% 30 ML VIAL (16:00)
== END 2020-02-13 18:05 | disposition home or self-care (01) ==
LOC: SDC 12:53 → AC 12:53
PROVIDERS: Anesthesiology; PCP Family Medicine; Referring Provider Anesthesiology Pain Medicine; Visit Provider Anesthesiology Pain Medicine
PROC: (CPT 22514; principal; 2020-02-13 15:05)
DX: M48.56XA Collapsed vertebra, not elsewhere classified, lumbar region, initial encounter for fracture (principal); G89.29 Other chronic pain; I48.91 Unspecified atrial fibrillation; I11.9 Hypertensive heart disease without heart failure; K21.9 Gastro-esophageal reflux disease without esophagitis; F32.9 Major depressive disorder, single episode, unspecified; Z79.891 Long term (current) use of opiate analgesic; Z79.01 Long term (current) use of anticoagulants; Z79.899 Other long term (current) drug therapy; Z20.828 Contact with and (suspected) exposure to other viral communicable diseases
CPT/HCPCS: 01922; 22514; 36416; 72100; 76000; 85610; 87635; 88305; 88311; 88341; 88342; C9803; J7120; J2405; U0003

== ENCOUNTER → 2020-02-25 11:21 | Outpatient (CLI) | payer MEDICARE, SELFPAY ==
[2019-06-30 08:37] VITALS: BMI 29.2
[2020-02-13 13:18] VITALS: BMI 24.8
--- NOTE | 2020-02-25 11:25 | RAD_ITS ---
HISTORY: [facility] up posterior chest wall on left side, patient states she has not been feeling well for 2 months ADDITIONAL HISTORY: None provided. COMPARISON: 03/07/2019 EXAMINATION/TECHNIQUE: XR Chest 2 Views Number of images including paperwork: 2 FINDINGS: LUNGS AND PLEURA: No dense consolidation. No sizable pleural effusion or pneumothorax. Bilateral lung nodules appear more prominent compared with previous. CARDIAC SILHOUETTE: Stable. MEDIASTINUM AND MONTY: Large hiatal hernia again seen. Aortic calcification and tortuosity. UPPER ABDOMEN: Unremarkable. SKELETON AND SOFT TISSUES: Mineralization appears decreased. Increasing compression deformities (most notable at approximately T10 T7 and T6). Increasing kyphosis of the thoracic spine. Radiopaque cement now noted within L1. Degenerative changes. OTHER DEVICES AND HARDWARE: Right chest port noted with tip near the cavoatrial junction.. RAD/Chest PA and Lateral IMPRESSION: 1. No definite acute cardiac pulmonary abnormality. 2. Apparent increase in bilateral lung nodules. 3. Additional findings above. at 2241 Reported and signed by: Lucy Lundy MD Electronically Signed: Lucy Lundy MD at 22:41 EDT Tel , Service support ,
[2020-02-25 15:21] LABS: Absolute Lymphocyte Count 1.87 X10^3/uL (0.83-4.51); Absolute Neutrophil Count 6.4 X10^3/uL (2.0-7.7); Basophil# 0.03 X10^3/uL; Basophil% 0.3 % (0-1); Eosinophil# 0.07 X10^3/uL; Eosinophils% 0.8 % (0-5); Hematocrit 45.7 % (37-47); Hemoglobin 14.9 g/dL (12.0-15.0); Lymphocyte # 1.87 X10^3/ul (4.0); Lymphocyte % 20.4 % (19-41); Mean Corp Hgb Conc 32.6 g/dL (32-36); Mean Corpuscular Hgb 29.6 pg (27.0-32.0); Mean Corpuscular Volume 90.7 fL (81-99); Mean Platelet Vol. 10.8 fl (6.2-12.0); Monocyte# 0.78 X10^3/uL; Monocyte% 8.5 % (0-10); NRBC Flagged by Analyzer 0 % (0-5); Neutrophil # 6.38 X10^3/uL (2.7-7.7); Neutrophil % 69.8 % (47-70); Platelet Count 273 K/mm3 (150-450); RBC Distribution Width CV 14.7 % (11.6-14.6); RBC Distribution Width SD 49.2 fl (35.1-43.9); Red Blood Count 5.04 M/mm3 (4.2-5.4); White Blood Count 9.2 K/mm3 (4.4-11.0)
[2020-02-25 15:39] LABS: International Normalized Ratio 1.3; Prothrombin Time (Protime)PT. 15.8 SECONDS (11.7-14.9)
[2020-02-25 15:47] LABS: AST(SGOT) 25 U/L (15-37); Alanine Aminotransfer ALT/SGPT 21 U/L (13-56); Albumin, Serum 3.8 g/dL (3.2-5.0); Alkaline Phosphatase 106 U/L (45-117); Anion Gap 8 (5-15); BUN 14 mg/dL (7-18); BUN/Creat Ratio 13.9 RATIO (10-20); Calcium,Total 9.2 mg/dL (8.5-10.1); Chloride 102 mmol/L (98-107); Creatinine, Serum 1.01 mg/dL (0.55-1.02); EST Glomerular Filtration Rate 57 mL/min (>60); Est Glom Filt Rate - Afr Amer 69 mL/min (>60); Globulin 3.9 g/dL (2.2-4.2); Glucose 104 mg/dL (74-106); Magnesium 1.9 mg/dL (1.6-2.6); Potassium 3.8 mmol/L (3.5-5.1); Protein, Total 7.7 g/dL (6.4-8.2); Sodium Level 138 mmol/L (136-145)
[2020-02-25 15:51] LABS: Procalcitonin < 0.01 ng/mL (0.00-0.09)
== END ==
PROVIDERS: PCP Family Medicine; Referring Provider Family Medicine; Visit Provider Family Medicine
DX: I48.91 Unspecified atrial fibrillation (principal); I42.8 Other cardiomyopathies; R09.89 Other specified symptoms and signs involving the circulatory and respiratory systems
CPT/HCPCS: 36415; 71046; 80053; 83735; 83880; 84145; 85025; 85610

== ENCOUNTER → 2020-03-08 08:58 | Outpatient (CLI) | payer MEDICARE, SELFPAY ==
[2019-06-30 08:37] VITALS: BMI 29.2
[2019-07-23 13:30] VITALS: BMI 28.7
[2020-02-13 13:18] VITALS: BMI 24.8
--- NOTE | 2020-03-08 09:00 | BI_ITS ---
MAMMOGRAPHY - BILATERAL DIAGNOSTIC REASON FOR EXAM: Female, 74 years old. Prior left lumpectomy with chemotherapy and radiation therapy. PERTINENT HISTORY: Personal history of breast cancer. TECHNIQUE: Digital bilateral breast milla (3D mammographic acquisition) in the CC and MLO projections. 2-D mediolateral oblique (MLO) and craniocaudad (CC) views of both breasts were obtained. CAD: Full Field Digital Mammography with Computer Added Detection was performed. COMPARISON: Comparison is made with prior study dated 02/03/2019 and 03/13/2019. FINDINGS: Breast Composition: There are scattered areas of fibroglandular density. Since prior study, the patient underwent a lumpectomy of the nodule in the deep upper lateral aspect of the left breast. There now is evidence of a 4.9 cm x 2.5 cm soft tissue density at the operative site. This may represent either a resolving hematoma or seroma. Correlation with ultrasound is recommended. No other significant abnormalities are identified. BI/DIAG MAMM W/CAD, BILAT IMPRESSION: 4.9 cm x 2.5 sinus soft tissue density in the axillary region of the left breast at the operative site. Correlation with ultrasound is recommended. ASSESSMENT CATEGORY: BIRADS Category 0: Incomplete. Need additional imaging evaluation. A letter regarding these results will be sent to the patient by the facility within 30 days. Approximately 10% of breast cancers are not detected by mammography. A normal mammogram should not delay biopsy of a clinically suspicious abnormality. Electronically Signed: Yosef Woodruff, at 10:24 EST , Service support ,
--- NOTE | 2020-03-08 09:49 | US_ITS ---
STUDY: ULTRASOUND BREAST - LEFT REASON FOR EXAM: Female, 74 years old. Abnormal screening mammogram. TECHNIQUE: Axial and longitudinal images of the LEFT breast were performed with a high resolution ultrasound transducer. # OF IMAGES: 25 COMPARISON: Comparison is made with prior mammogram done earlier today. FINDINGS: LEFT Breast: The mammographic abnormality corresponds to a 5.2 cm x 4.7 cm x 1.7 cm fluid collection. This most likely represents a postoperative seroma. US/Breast Limited Unilateral IMPRESSION: The mammographic abnormality corresponds to a 5.2 cm x 4.7 cm x 1.7 cm fluid collection. ASSESSMENT CATEGORY: BIRADS Category 2: Benign. A letter regarding these results will be sent to the patient by the facility within 30 days. Electronically Signed: Yosef Woodruff, at 12:16 EST , Service support ,
--- NOTE | 2020-03-08 12:44 | CT_ITS ---
STUDY: CT CHEST WITH CONTRAST REASON FOR EXAM: Female, 74 years old. LUNG NODULE F/U, HTN, HX-BREAST CA WITH LUMPECTOMY, RAD TX AND CHEMO RADIATION DOSAGE (If Supplied By Facility): CTDIvol = ( 10.09 ) mGy, DLP = ( 216.34 ) mGycm TECHNIQUE: Transaxial imaging was performed following intravenous administration of IV 100mL Isovue-300. Multiplanar coronal and sagittal images were reformatted. Individualized dose optimization techniques were used for this CT. COMPARISON: Comparison is made with prior study dated 12/17/2019. FINDINGS: A right-sided portacatheter is seen with the tip in the superior vena cava. Persistent 2.3 cm x 4.7 cm rounded fluid collection in the axillary region of the left breast. There is a 9.2 mm nodule in the left upper lobe abutting the left major fissure. New 4 mm noncalcified nodule in the peripheral lateral aspect of the right upper lobe as seen on axial image #32. 6.7 mm noncalcified nodule in the peripheral aspect of the superior segment of the left lower lobe as seen on axial image #42. 1 cm nodule in the posterior-lateral aspect of the left lower lobe as seen on axial image #58. These are new as compared to prior study. There is no demonstrated pleural abnormality. There are calcifications of the coronary arteries. Normal mediastinum. Normal hilar regions. Normal enhanced pulmonary arteries. Normal aorta arch and descending thoracic aorta. There are multi-level degenerative changes of the thoracic spine. Increased kyphosis. Osteopenia with multiple compression fractures. Prior vertebroplasty of the T12 vertebrae. Moderate sized hiatal hernia. CT/Chest WITH Contrast IMPRESSION: Increase in number of pulmonary nodules as described superimposed on chronic interstitial scarring. Electronically Signed: Yosef Woodruff, at 14:35 EST , Service support ,
[2020-03-08] MEDS: 0.9% Saline Lock 10 ML Syringe IV (14:20)
== END ==
PROVIDERS: PCP Family Medicine; Referring Provider Student in an Organized Health Care Education/Training Program; Visit Provider Student in an Organized Health Care Education/Training Program
DX: R92.8 Other abnormal and inconclusive findings on diagnostic imaging of breast (principal); R91.8 Other nonspecific abnormal finding of lung field; C50.912 Malignant neoplasm of unspecified site of left female breast
CPT/HCPCS: 71260; 76642; 77062; 77066; Q9967; A4216; G0279

== ENCOUNTER → 2020-03-08 13:00 | Outpatient (CLI) | payer MEDICARE, SELFPAY ==
[2019-06-30 08:37] VITALS: BMI 29.2
[2020-02-13 13:18] VITALS: BMI 24.8
== END ==
PROVIDERS: PCP Family Medicine; Visit Provider Internal Medicine Medical Oncology
DX: Z45.2 Encounter for adjustment and management of vascular access device (principal)

== ENCOUNTER → 2020-03-18 07:59 | Outpatient (CLI) | payer MEDICARE, SELFPAY ==
[2019-06-30 08:37] VITALS: BMI 29.2
[2020-03-10 15:15] VITALS: BMI 24.7
[2020-03-18] VITALS (9 sets, daily range): BP systolic 73–134; BP diastolic 27–73; PULSE 68–86; RESP 16–23; TEMP 36.8; O2SAT 97–100; BMI 24.7
--- NOTE | 2020-03-18 | IMM_PTH ---
PATIENT: ASHELY CANTU LOC: CT U#:[id number] AGE/SX: 79/F ROOM: RE03/18/[address]: Dr. Corky Hartman MD : 1945 BED: DIS: SPEC #: [id number] RECD: 03/22/20 08:50 STATUS: JEANETH REQ #: [id number] PATRICE: 03/18/20 00:[address]: Corky Hartman DEPT: IMMUNOHISTOCHEMISTRY RECD BY: Leah Pool ENTERED: 03/22/20 08:51 SP TYPE: IMMUNO OTHR DR: Dr. Cristofer Yadav MD Tissues: Left lower lobe of lung, NOS Procedures: Mammoglobin (initial) CK7 (add) CK8 (add) P53 (add) TTF1 (add) GATA3 (add) PHYSICIAN & INSTITUTION [place] [id number] SPECIMEN INFORMATION: Tissue Source: Left lower lung mass, CT-guided biopsy Clinical Info: Lung nodules Specimen Number: [id number] CPT code: 62521, 41296 x5 METHODOLOGY: Deparaffinized sections of prefer/formalin-fixed tissue or PAP/DQ stained slides are incubated with monoclonal/polyclonal antibodies/oligonucleotide probes. Localization is made via biotin free immunoperoxidase method. Appropriate controls are performed and reacted as expected. Results on target cell population are indicated in the following table: RESULTS: ANTIBODY / CLONE RESULT Mammaglobin (31A5) negative GATA3 (L50-823) negative TTF-1 (8G7G3/1) negative P53 (DO-7) negative CK7 (OV-TL12/30) positive, focal CK8 (79oihgY88) positive, focal These tests were developed and their performance characteristics determined by [facility]. They may not have been cleared or approved by the U.S. Food and Drug Administration. The FDA has determined that such clearance or approval is not necessary. The above immunohistochemical/dualISH markers are ordered and reviewed by the Pathologist. INTERPRETATION: Left lower lung mass, CT-guided biopsy: No evidence of malignancy. AM:prasanth 03/22/20
--- NOTE | 2020-03-18 | ASPIGT_PTH ---
PATIENT: ASHELY CANTU LOC: CT U#:[id number] AGE/SX: 79/F ROOM: RE03/18/[address]: Dr. Corky Hartman MD : 1945 BED: DIS: SPEC #: [id number] RECD: 03/18/20 10:09 STATUS: JEANETH REFrank #: [id number] PATRICE: 03/18/20 00:[address]: Corky Hartman DEPT: SURGICAL PATHOLOGY RECD BY: Neeta Bullock ENTERED: 03/18/20 10:11 SP TYPE: ASP RAD OTHR DR: Dr. Cristofer Yadav MD Tissues: Lung, NOS Procedures: FNA Specimen Adequacy Special Stain Group II Surgery Specimen Level IV Imprint (control) HEADER OPERATION: CT-guided left lung biopsy PRE-OP DIAGNOSIS: Lung nodules TISSUE SUBMITTED: Left lower lung mass 20-gauge core x4 MICROSCOPIC DIAGNOSIS Left lower lung, CT guided core biopsy: Degenerating proteinaceous debris and benign histiocytes with reactive change. Negative for acid fast bacilli and fungal organisms. No evidence of malignancy. COMMENT The specimen is evaluated at the time of biopsy by Dr. Lackey. Immediate Evaluation = Rare atypical epithelioid cells present. Immunohistochemistry ([id number]) supports the diagnosis. AFB and GMS stains with matched controls are negative for microorganisms. MICROSCOPIC DESCRIPTION Slides are reviewed. GROSS DESCRIPTION Received in fixative is one container labeled with the patient's name and designated left lung. The specimen consists of multiple minute fragments of light barfield soft tissue that in aggregate measure 1 x <0.1 x <0.1 cm. The specimen is totally submitted in one cassette. Two touch imprints are prepared at the time of core biopsy. / AM:prasanth 03/18/20 TC: CPT: 21019, 73178
--- NOTE | 2020-03-18 08:08 | CT_ITS ---
PROCEDURE: CT GUIDED CORE NEEDLE BIOPSY OF A left lower lobe LUNG LESION INDICATION: Female, 74 years old. LEFT LUNG BIOPSY PHYSICIAN: Dr. HUMBERTO BARKER CONSENT: Written informed consent was obtained having explained the risks, benefits and alternatives in detail with the patient who accepted the risks and agreed to proceed. Laboratory review and clinical assessment was performed. CONSCIOUS SEDATION PROTOCOL: The Drugs used were: 1 mg Versed, IV., and 25 mcg Fentanyl, IV. The sedation time was: 19 minutes. Conscious sedation was started 9:10 AM and 7 at 01/27/1980 The conscious sedation protocol was independently monitored. RADIATION DOSAGE (If Supplied By Facility): CT. DIvol = ( 13.5 ) mGy, DLP = ( 219.66 ) mGycm Individualized dose optimization techniques were used for this CT. TECHNIQUE: The patient was placed in the prone position. A noncontrast CT was performed to localize the lesion in the peripheral aspect of the left lower lobe . The skin surface was prepped and draped in a sterile fashion. 1% lidocaine was used for local anesthesia. Using CT guidance, a 20-gauge coaxial biopsy device was advanced to the periphery of the lesion. A total of 4 core specimens were obtained. The specimens were placed in a formalin solution. A post procedure CT demonstrated no adverse sequelae or pneumothorax. The patient tolerated the procedure well without adverse event. A BIOSENTRY tract sealing device was placed following the biopsy. A negative biopsy does not exclude malignancy. Further imaging or clinical followup based on patient condition and degree of clinical suspicion for malignancy. Suggest rebiopsy, if biopsy results do not match with clinical scenario. CT/Biopsy/Inj or Needle Placement IMPRESSION: 1. CT directed core needle biopsy of the peripheral left lower lobe nodular density using CT image guidance with image documentation as described. Pathology results are pending. 2. Conscious Sedation protocol utilized with independent monitoring. Electronically Signed: Yosef Woodruff, at 10:08 EST , Service support ,
[2020-03-18 08:13] LABS: Absolute Lymphocyte Count 1.67 X10^3/uL (0.83-4.51); Basophil# 0.02 X10^3/uL; Basophil% 0.2 % (0-1); Eosinophil# 0.01 X10^3/uL; Eosinophils% 0.1 % (0-5); Hematocrit 42.6 % (37-47); Hemoglobin 13.6 g/dL (12.0-15.0); Lymphocyte # 1.67 X10^3/ul (4.0); Lymphocyte % 15.6 % (19-41); Mean Corp Hgb Conc 31.9 g/dL (32-36); Mean Corpuscular Hgb 29.6 pg (27.0-32.0); Mean Corpuscular Volume 92.6 fL (81-99); Mean Platelet Vol. 9.7 fl (6.2-12.0); Monocyte# 0.95 X10^3/uL; Monocyte% 8.9 % (0-10); NRBC Flagged by Analyzer 0 % (0-5); Neutrophil % 74.6 % (47-70); Platelet Count 188 K/mm3 (150-450); RBC Distribution Width SD 50.9 fl (35.1-43.9); White Blood Count 10.7 K/mm3 (4.4-11.0)
[2020-03-18 08:25] LABS: Prothrombin Time (Protime)PT. 12.4 SECONDS (11.7-14.9)
[2020-03-18 08:26] LABS: Partial Thromboplast Time 26.3 Seconds (24.1-36.2)
[2020-03-18] MEDS: Midazolam 2 MG/2 ML Syringe IV (09:10)
[2020-03-18] MEDS: fentaNYL 100 MCG/2 ML Ampul IV (09:10)
--- NOTE | 2020-03-18 09:15 | RAD_ITS ---
STUDY: X-RAY CHEST REASON FOR EXAM: Female, 74 years old. IMMEDIATE POST LT LUNG BX. INSPR/EXPR VWS. R/O PNEUMOTHORAX TECHNIQUE: AP inspiration and expiration views. COMPARISON: Comparison is made with prior study dated 02/25/2020. FINDINGS: EKG electrodes are seen. A right-sided portacatheter is in the superior vena cava. Immediate post left lung biopsy radiograph. No evidence of pneumothorax. RAD/Chest Insp/Exp 2 View IMPRESSION: No evidence of pneumothorax on the immediate post left lung biopsy radiograph. Electronically Signed: Yosef Woodruff, at 12:59 EST , Service support ,
--- NOTE | 2020-03-18 11:15 | RAD_ITS ---
STUDY: X-RAY CHEST REASON FOR EXAM: Female, 74 years old. 2 hour post lung biopsy TECHNIQUE: AP inspiration and expiration views. COMPARISON: Comparison is made with prior study done earlier today. FINDINGS: Two-hour post left lung biopsy radiograph. No evidence of pneumothorax. RAD/Chest Insp/Exp 2 View IMPRESSION: No evidence of left-sided pneumothorax on the two-hour delayed post left lung biopsy radiograph. Electronically Signed: Yosef Woodruff, at 12:55 EST , Service support ,
== END ==
PROVIDERS: PCP Family Medicine; Referring Provider Internal Medicine Medical Oncology; Visit Provider Internal Medicine Medical Oncology
DX: Z01.818 Encounter for other preprocedural examination (principal); R91.8 Other nonspecific abnormal finding of lung field; C50.919 Malignant neoplasm of unspecified site of unspecified female breast
CPT/HCPCS: 32405; 36415; 71046; 77012; 85025; 85610; 85730; 88172; 88305; 88313; 88341; 88342; 99155; 99156; J7040; A4216; C2613

== ENCOUNTER 2020-03-29 14:59 | Outpatient (RCR) | payer MEDICARE, SELFPAY ==
[2019-06-30 08:37] VITALS: BMI 29.2
[2020-02-13 13:18] VITALS: BMI 24.8
[2020-03-18 08:28] VITALS: BMI 24.7
[2020-03-29 16:45] LABS: International Normalized Ratio 1.4; Prothrombin Time (Protime)PT. 16.4 SECONDS (11.7-14.9)
== END 2020-03-29 18:00 | disposition home or self-care (01) ==
LOC: LAB 14:59
PROVIDERS: Family Provider Family Medicine; PCP Family Medicine; Referring Provider Internal Medicine Cardiovascular Disease; Visit Provider Internal Medicine Cardiovascular Disease
DX: I48.11 Longstanding persistent atrial fibrillation (principal); Z79.01 Long term (current) use of anticoagulants
CPT/HCPCS: 36415; 85610

== ENCOUNTER 2020-04-22 10:12 | Outpatient (RCR) | payer MEDICARE, SELFPAY ==
[2019-06-30 08:37] VITALS: BMI 29.2
[2020-03-18 08:28] VITALS: BMI 24.7
[2020-04-14 16:38] LABS: International Normalized Ratio 1.5; Prothrombin Time (Protime)PT. 17.4 SECONDS (11.7-14.9)
[2020-04-22 11:18] LABS: International Normalized Ratio 1.7; Prothrombin Time (Protime)PT. 19.3 SECONDS (11.7-14.9)
== END 2020-04-22 18:00 | disposition home or self-care (01) ==
LOC: LAB 10:12
PROVIDERS: Family Provider Family Medicine; PCP Family Medicine; Referring Provider Internal Medicine Cardiovascular Disease; Visit Provider Internal Medicine Cardiovascular Disease
DX: I48.11 Longstanding persistent atrial fibrillation (principal); Z79.01 Long term (current) use of anticoagulants
CPT/HCPCS: 36415; 85610

== ENCOUNTER 2020-05-19 09:17 | Outpatient (RCR) | payer MEDICARE, SELFPAY ==
[2019-06-30 08:37] VITALS: BMI 29.2
[2020-03-18 08:28] VITALS: BMI 24.7
[2020-05-19 10:32] LABS: International Normalized Ratio 1.6; Prothrombin Time (Protime)PT. 18.2 SECONDS (11.7-14.9)
== END 2020-05-19 18:00 ==
LOC: LAB 09:17
PROVIDERS: Family Provider Family Medicine; PCP Family Medicine; Referring Provider Internal Medicine Cardiovascular Disease; Visit Provider Internal Medicine Cardiovascular Disease
DX: I48.11 Longstanding persistent atrial fibrillation (principal); Z79.01 Long term (current) use of anticoagulants
CPT/HCPCS: 36415; 85610

== ENCOUNTER 2020-06-09 13:19 | Outpatient (RCR) | payer MEDICARE, SELFPAY ==
[2019-06-30 08:37] VITALS: BMI 29.2
[2020-03-18 08:28] VITALS: BMI 24.7
[2020-06-09 14:05] LABS: International Normalized Ratio 1.7; Prothrombin Time (Protime)PT. 19.4 SECONDS (11.7-14.9)
== END 2020-06-09 18:00 | disposition home or self-care (01) ==
LOC: LAB 13:19
PROVIDERS: Family Provider Family Medicine; PCP Family Medicine; Referring Provider Internal Medicine Cardiovascular Disease; Visit Provider Internal Medicine Cardiovascular Disease
DX: I48.11 Longstanding persistent atrial fibrillation (principal); Z79.01 Long term (current) use of anticoagulants
CPT/HCPCS: 36415; 85610

== ENCOUNTER 2020-07-22 12:35 | Outpatient (RCR) | payer MEDICARE, SELFPAY ==
[2019-06-30 08:37] VITALS: BMI 29.2
[2020-03-18 08:28] VITALS: BMI 24.7
[2020-07-13 10:59] VITALS: BMI 24.4
[2020-07-15 15:13] VITALS: BMI 24.7
[2020-07-22 13:47] LABS: International Normalized Ratio 3.7; Prothrombin Time (Protime)PT. 35.7 SECONDS (11.7-14.9)
== END 2020-07-22 18:00 | disposition home or self-care (01) ==
LOC: LAB 12:35
PROVIDERS: Family Provider Family Medicine; PCP Family Medicine; Referring Provider Internal Medicine Cardiovascular Disease; Visit Provider Internal Medicine Cardiovascular Disease
DX: I48.11 Longstanding persistent atrial fibrillation (principal); Z79.01 Long term (current) use of anticoagulants
CPT/HCPCS: 36415; 85610

== ENCOUNTER → 2020-07-22 13:51 | Outpatient (CLI) | payer MEDICARE, SELFPAY ==
[2020-07-13 10:59] VITALS: BMI 24.4
[2020-07-15 15:13] VITALS: BMI 24.7
--- NOTE | 2020-07-22 13:52 | ECHOD_ITS ---
Reason For Study: ATRIAL FIB-FLUTTER Procedure This was a 2D Doppler, Color Flow transthoracic echocardiogram. Strain analysis was not performed due to cardiac arrhythmia. Exam performed in department. Left Ventricle Normal LV size. Left ventricular systolic function is normal. The estimated ejection fraction is 55 %. Unable to assess diastolic dysfunction due to arrhythmia. No regional wall motion abnormalities noted. Right Ventricle Normal RV size. Normal systolic function. Atria The left atrium is moderately enlarged. Normal right atrium. Mitral Valve Normal mitral valve. Tricuspid Valve Normal tricuspid valve. Mild (1+) tricuspid valve insufficiency. Pulmonary artery systolic pressure is 35 mmHg. Aortic Valve Trisinus/trileaflet aortic valve. Mild (1+) eccentric aortic valve insufficiency. Pulmonic Valve Normal pulmonic valve. Great Vessels Normal aortic root. The pulmonary artery is normal size. Normal inferior vena cava. Pericardium/Pleural No pericardial effusion. MMode/2D Measurements & Calculations LVIDd: 4.5 cm IVSd: 0.86 cm Ao root diam: 3.1 cm LVIDs: 3.2 cm LVPWd: 0.86 cm RVDd: 3.2 cm FS: 28.6 % LAV(MOD-bp): 80.5 ml LVAd ap4: 18.5 cm2 SV(MOD-sp4): 28.6 ml LAV(MOD-bp) Indexed: 50.7 ml/m2 EDV(MOD-sp4): 47.9 ml LAV(MOD-sp2): 75.4 ml EDV(sp4-el): 49.5 ml LAV(MOD-sp4): 82.5 ml LVAs ap4: 10.9 cm2 ESV(MOD-sp4): 19.3 ml ESV(sp4-el): 19.6 ml EF(MOD-sp4): 59.8 % EF(sp4-el): 60.3 % SV(sp4-el): 29.9 ml LA A4 area: 27.1 cm2 LA dimension(2D): 4.0 cm RA A4 area: 20.6 cm2 Doppler Measurements & Calculations MV E max obdulio: 135.4 cm/sec Ao V2 max: 151.3 cm/sec AI max obdulio: 352.7 cm/sec Ao max P.2 mmHg AI max P.8 mmHg AI dec slope: 176.1 cm/sec2 AI P1/2t: 586.6 msec LV V1 max: 76.3 cm/sec PA V2 max: 85.1 cm/sec TR max obdulio: 284.0 cm/sec LV V1 max P.3 mmHg TR max P.3 mmHg Interpretation Summary Normal LV size. Left ventricular systolic function is normal. The estimated ejection fraction is 55 %. The left atrium is moderately enlarged. Unable to assess diastolic dysfunction due to arrhythmia. Pulmonary artery systolic pressure is 35 mmHg. Mild (1+) eccentric aortic valve insufficiency. Ordering Physician: Adrián Bryan Referring Physician: LYNN CONTRERAS Performed By: Moira Bowie RDCS
== END ==
PROVIDERS: PCP Family Medicine; Referring Provider Internal Medicine Cardiovascular Disease; Visit Provider Internal Medicine Cardiovascular Disease
DX: I48.11 Longstanding persistent atrial fibrillation (principal); I48.92 Unspecified atrial flutter; Z79.01 Long term (current) use of anticoagulants
CPT/HCPCS: 36415; 85610; 93306

== ENCOUNTER 2020-08-13 08:16 | Outpatient (RCR) | payer MEDICARE, SELFPAY ==
[2020-07-13 10:59] VITALS: BMI 24.4
[2020-07-15 15:13] VITALS: BMI 24.7
[2020-08-13 10:19] LABS: International Normalized Ratio 2.5; Prothrombin Time (Protime)PT. 26.4 SECONDS (11.7-14.9)
== END 2020-08-13 18:00 | disposition home or self-care (01) ==
LOC: LAB 08:16
PROVIDERS: Family Provider Family Medicine; PCP Family Medicine; Referring Provider Internal Medicine Cardiovascular Disease; Visit Provider Internal Medicine Cardiovascular Disease
DX: I48.11 Longstanding persistent atrial fibrillation (principal); Z79.01 Long term (current) use of anticoagulants
CPT/HCPCS: 36415; 85610

== ENCOUNTER 2020-09-16 08:37 | Outpatient (RCR) | payer MEDICARE, SELFPAY ==
[2020-07-13 10:59] VITALS: BMI 24.4
[2020-07-15 15:13] VITALS: BMI 24.7
[2020-09-16 12:21] LABS: International Normalized Ratio 3.1
== END 2020-09-27 23:59 ==
LOC: BIMLAB 08:37
PROVIDERS: Family Provider Family Medicine; PCP Family Medicine; Referring Provider Internal Medicine Cardiovascular Disease; Visit Provider Internal Medicine Cardiovascular Disease
DX: I48.11 Longstanding persistent atrial fibrillation (principal); Z79.01 Long term (current) use of anticoagulants
CPT/HCPCS: 36415; 85610

== ENCOUNTER 2020-10-18 10:15 | Outpatient (RCR) | payer MEDICARE, SELFPAY ==
[2020-07-13 10:59] VITALS: BMI 24.4
[2020-09-22 11:54] VITALS: BMI 25.2
[2020-10-18 12:39] LABS: International Normalized Ratio 2.9; Prothrombin Time (Protime)PT. 29.5 SECONDS (11.7-14.9)
== END 2020-10-27 23:59 ==
LOC: BIMLAB 10:15
PROVIDERS: PCP Family Medicine; Visit Provider Internal Medicine Cardiovascular Disease
DX: Z79.01 Long term (current) use of anticoagulants (principal)
CPT/HCPCS: 36415; 85610

== ENCOUNTER 2021-01-06 13:51 | Outpatient (RCR) | payer MEDICARE, SELFPAY ==
[2020-07-13 10:59] VITALS: BMI 24.4
[2020-09-22 11:54] VITALS: BMI 25.2
[2021-01-06 14:32] LABS: International Normalized Ratio 3.2; Prothrombin Time (Protime)PT. 31.7 SECONDS (11.7-14.9)
== END 2021-01-06 18:00 | disposition home or self-care (01) ==
LOC: LAB 13:51
PROVIDERS: PCP Family Medicine; Referring Provider Internal Medicine Cardiovascular Disease; Visit Provider Internal Medicine Cardiovascular Disease
DX: I48.11 Longstanding persistent atrial fibrillation (principal); Z79.01 Long term (current) use of anticoagulants
CPT/HCPCS: 36415; 85610

== ENCOUNTER 2021-02-03 14:44 | Outpatient (RCR) | payer MEDICARE, SELFPAY ==
[2020-07-13 10:59] VITALS: BMI 24.4
[2021-01-27 22:01] VITALS: BMI 25.2
[2021-02-03 16:50] LABS: International Normalized Ratio 2.2; Prothrombin Time (Protime)PT. 23.6 SECONDS (11.7-14.9)
== END 2021-02-27 23:59 ==
LOC: BIMLAB 14:44
PROVIDERS: PCP Family Medicine; Referring Provider Internal Medicine Cardiovascular Disease; Visit Provider Internal Medicine Cardiovascular Disease
DX: I48.11 Longstanding persistent atrial fibrillation (principal); Z79.01 Long term (current) use of anticoagulants
CPT/HCPCS: 36415; 85610

== ENCOUNTER → 2021-03-14 14:10 | Outpatient (CLI) | payer MEDICARE, SELFPAY ==
[2020-07-13 10:59] VITALS: BMI 24.4
[2020-09-22 11:54] VITALS: BMI 25.2
--- NOTE | 2021-03-14 14:14 | CT_ITS ---
STUDY: CT CHEST WITHOUT CONTRAST REASON FOR EXAM: Female, 75 years old. LUNG NODULES RADIATION DOSAGE (If Supplied By Facility): CTDIvol = ( 7.31 ) mGy, DLP = ( 224.53 ) mGycm TECHNIQUE: Transaxial imaging was performed without the administration of intravenous contrast material. Multiplanar coronal and sagittal images were reformatted. Individualized dose optimization techniques were used for this CT. COMPARISON: March 08, 2020 CT scan chest FINDINGS: The patient is kyphotic. This causes an elongated appearance of the lungs on the transverse view. There is increased AP diameter of the chest. This is also seen on the prior study. There is persistent mass within the right upper lobe posteriorly measuring 2.0 x 1.2 x 1.7 cm. When compared to the prior study this same mass measured 1.2 x 1.6 x 1.7 cm. Within the superior aspect of the right lower lobe there is a stable nodule measuring 9.4 x 6.3 mm. Within the right middle lobe there are stable nodules suggestive possible inflammatory change with peribronchial thickening. There is a nodule just under the right minor fissure measuring 7.6 mm also stable when compared to prior study. There is minimal lower lobe atelectasis. There is no demonstrated pleural abnormality. Mild cardiac enlargement particularly the left atrium. Coronary calcifications. There is a right-sided portacatheter tip is in the atriocaval junction. There is a large hiatal hernia. At least half of the stomach is within the chest. This measures 11.2 x 7 cm. It is fluid distended on today''s study. On prior study was decompressed measuring 8.2 x 4.5 cm. Is visualized bilateral bronchiectasis calcification of the trachea and bronchial structures. Normal unenhanced pulmonary arteries. There is atherosclerotic calcification of the aortic arch with tortuosity and elongation of the aortic arch and descending thoracic aorta. There is severe kyphosis secondary to multilevel wedging loss of height of the vertebral bodies. There is been kyphoplasty at L1. There is at least 50% loss of height at the level of T12, T11, T9, T8 and T7. This is very similar to the prior study. There is bony osteopenia. There is no demonstrated abnormality of the visualized upper abdomen. CT/Chest without Contrast IMPRESSION: Slightly enlarged right upper lobe mass allowing for differences in technique. Now measuring 2.0 x 1.2 x 1.7 cm when it measured 1.2 x 1.6 x 1.7 cm on prior study. Stable right middle lobe probable post inflammatory nodules in the setting of bronchiectasis probable mucous plugging. Bronchiectasis kyphosis is increased AP diameter of the chest. Advanced kyphosis associated with multilevel loss of height of the thoracic vertebral bodies. Large hiatal hernia fluid distended. Recommend aspiration precautions. Port-A-Cath. Mild cardiomegaly coronary artery disease. Electronically Signed: Brenna Conrad MD at 4:24 EST Tel , Service support ,
== END ==
PROVIDERS: PCP Family Medicine; Referring Provider Internal Medicine Medical Oncology; Visit Provider Internal Medicine Medical Oncology
DX: R91.8 Other nonspecific abnormal finding of lung field (principal); Z85.3 Personal history of malignant neoplasm of breast
CPT/HCPCS: 71250

== ENCOUNTER → 2021-03-17 15:25 | Outpatient (CLI) | payer MEDICARE, SELFPAY ==
[2020-07-13 10:59] VITALS: BMI 24.4
[2020-09-22 11:54] VITALS: BMI 25.2
--- NOTE | 2021-03-17 15:28 | BI_ITS ---
MAMMOGRAPHY - BILATERAL SCREENING REASON FOR EXAM: Female, 75 years old. Routine annual screening examination. PERTINENT HISTORY: Personal history of breast cancer. Prior left lumpectomy with chemotherapy and radiation therapy. TECHNIQUE: Digital bilateral breast griselda (3D mammographic acquisition) in the CC and MLO projections. 2-D mediolateral oblique (MLO) and craniocaudad (CC) views of both breasts were obtained. CAD: Full Field Digital Mammography with Computer Added Detection was performed. COMPARISON: Comparison is made with prior study dated 03/08/2020 in the lumbar 2018. FINDINGS: Breast Composition: There are scattered areas of fibroglandular density. There are no dominant masses or suspicious calcifications. The patient is status post lumpectomy in the axillary region of the left breast. The previously seen soft tissue density at the operative site has resolved. No new mass lesion or clustered microcalcifications present. No other significant abnormalities are identified. BI/SCRN MAMM (CAD)W/GRISELDA BILAT IMPRESSION: Status post lumpectomy and axillary region of the left breast with resorption of the previously seen postoperative soft tissue density. Yearly follow-up mammogram recommended. (A) ASSESSMENT CATEGORY: BIRADS Category 2: Benign. A letter regarding these results will be sent to the patient by the facility within 30 days. Approximately 10% of breast cancers are not detected by mammography. A normal mammogram should not delay biopsy of a clinically suspicious abnormality. [id number] Electronically Signed: Yosef Woodruff MD at 8:23 EST , Service support ,
== END ==
PROVIDERS: PCP Family Medicine; Referring Provider Student in an Organized Health Care Education/Training Program; Visit Provider Family Medicine
DX: Z12.31 Encounter for screening mammogram for malignant neoplasm of breast (principal); Z85.3 Personal history of malignant neoplasm of breast
CPT/HCPCS: 77063; 77067

== ENCOUNTER → 2021-04-14 15:54 | Outpatient (CLI) | payer MEDICARE, SELFPAY ==
[2020-07-13 10:59] VITALS: BMI 24.4
--- NOTE | 2021-04-14 16:00 | BD_ITS ---
STUDY: DUAL ENERGY X-RAY ABSORPTIOMETRY / DXA REASON FOR EXAM: Female, 75 years old. [id number]. The patient is postmenopausal. TECHNIQUE: Bone Mineral Density (BMD) measurements of lumbar spine and bilateral hips were obtained. COMPARISON: Comparison is made with prior study dated 04/17/2018. FINDINGS: Lumbar Spine (L1-L4): g/cm2 (0.732) / T-score (-3.2) / Z-score (-0.6) Findings are suggestive of osteoporosis with a high fracture risk. Left Femur Total: g/cm2 (0.597) / T-score (-2.8) / Z-score (-1.0) Left Femoral Neck: g/cm2 (0.569) / T-score (-2.5) / Z-score (-0.4) Right Femur Total: g/cm2 (0.642) / T-score (-2.5) / Z-score (-0.7) Right Femoral Neck: g/cm2 (0.582) / T-score (-2.4) / Z-score (-0.3) The T-Scores on the most recent prior examination were: Lumbar Spine (L1-L4): There has been improvement of bone density since the previous examination. Left Femur Total: which represents a worsening of 13.6%. Right Femur Total: which represents a worsening of 8.6%. BD/Dexa Bone Density Study IMPRESSION: The patient is considered osteoporotic as outlined below according to World [employer] Organization (WHO) criteria with a high fracture risk. There has been worsening of bone density since the previous examination. Reference Information: The T-score is the number of standard deviations above or below the standard which is normal for young adults at their peak bone mineral density. The World Health Organization (WHO) interprets the T-scores as follows: Above -1 Normal bone density Between -1 and -2.5 Osteopenia Equal to / or below -2.5 Osteoporosis As a practical clinical guideline, osteopenia may be graded as follows: Mild -1 through -1.5 Moderate -1.6 through -2.0 Severe -2.1 through -2.4 The Z-score is the number of standard deviations above or below age-matched controls. A Z-score of less than -1.5 would be considered abnormal. References: 1. NIH Osteoporosis and Related Bone Diseases www osteo.org 2. International Society for Clinical Densitometry www iscd.org 3. National Osteoporosis Foundation www nof.org Electronically Signed: Yosef Woodruff MD at 8:16 EST , Service support ,
== END ==
PROVIDERS: PCP Family Medicine; Visit Provider Family Medicine
DX: N95.9 Unspecified menopausal and perimenopausal disorder (principal)
CPT/HCPCS: 77080

== ENCOUNTER 2021-06-21 16:51 | Outpatient (CLI) | payer MEDICARE, SELFPAY ==
[2020-07-13 10:59] VITALS: BMI 24.4
[2021-06-21 17:51] LABS: Absolute Neutrophil Count 4.5 X10^3/uL (2.0-7.7); Basophil# 0.05 X10^3/uL; Basophil% 0.6 % (0-1); Eosinophil# 0.36 X10^3/uL; Eosinophils% 4.4 % (0-5); Hematocrit 40.2 % (37-47); Hemoglobin 13.3 g/dL (12.0-15.0); Lymphocyte % 28.2 % (19-41); Mean Corp Hgb Conc 33.1 g/dL (32-36); Mean Corpuscular Hgb 28.6 pg (27.0-32.0); Mean Corpuscular Volume 86.5 fL (81-99); Mean Platelet Vol. 10.1 fl (6.2-12.0); Monocyte# 0.89 X10^3/uL; Monocyte% 10.9 % (0-10); NRBC Flagged by Analyzer 0 % (0-5); Neutrophil # 4.53 X10^3/uL (2.7-7.7); Neutrophil % 55.5 % (47-70); Platelet Count 211 K/mm3 (150-450); RBC Distribution Width CV 15.5 % (11.6-14.6); RBC Distribution Width SD 49.3 fl (35.1-43.9); Red Blood Count 4.65 M/mm3 (4.2-5.4); White Blood Count 8.2 K/mm3 (4.4-11.0)
[2021-06-21 18:41] LABS: Vitamin D,25 Hydroxy 41.7 ng/mL
[2021-06-21 18:48] LABS: ALB/GLOB Ratio 0.9 RATIO (0.9-2.4); AST(SGOT) 29 U/L (15-37); Alanine Aminotransfer ALT/SGPT 22 U/L (13-56); Albumin, Serum 3.6 g/dL (3.2-5.0); Alkaline Phosphatase 93 U/L (45-117); Anion Gap 4 (5-15); BUN 26 mg/dL (7-18); BUN/Creat Ratio 27.9 RATIO (10-20); Calcium,Total 9.2 mg/dL (8.5-10.1); Chloride 105 mmol/L (98-107); Creatinine, Serum 0.93 mg/dL (0.55-1.02); EST Glomerular Filtration Rate 62 mL/min (>60); Est Glom Filt Rate - Afr Amer 75 mL/min (>60); Globulin 3.8 g/dL (2.2-4.2); Glucose 84 mg/dL (74-106); Protein, Total 7.4 g/dL (6.4-8.2); Sodium Level 138 mmol/L (136-145)
== END 2021-06-21 23:59 | disposition home or self-care (01) ==
LOC: MFPLAB 16:56
PROVIDERS: PCP Family Medicine; Referring Provider Family Medicine; Visit Provider Family Medicine
DX: E03.9 Hypothyroidism, unspecified (principal); M81.0 Age-related osteoporosis without current pathological fracture
CPT/HCPCS: 36415; 80053; 82306; 83735; 84443; 85025

== ENCOUNTER 2021-07-08 09:17 | Outpatient (CLI) | payer MEDICARE, SELFPAY ==
[2020-07-13 10:59] VITALS: BMI 24.4
--- NOTE | 2021-07-08 09:27 | BI_ITS ---
MAMMOGRAPHY - UNILATERAL DIAGNOSTIC: LEFT BREAST REASON FOR EXAM: Female, 75 years old. Left axillary palpable lump. PERTINENT HISTORY: Personal history of breast cancer. Prior left lumpectomy. TECHNIQUE: Digital unilateral breast milla (3D mammographic acquisition) in the CC and MLO projections. 2-D mediolateral oblique (MLO) and craniocaudad (CC) views of both breasts were obtained. CAD: Full Field Digital Mammography with Computer Added Detection was performed. COMPARISON: Comparison is made with prior study dated 03/17/2021 and 03/08/2020. FINDINGS: Breast Composition: There are scattered areas of fibroglandular density. There are no dominant masses or suspicious calcifications. The patient is status post lumpectomy in the left axillary region. This corresponds to the palpable abnormality. Correlation with ultrasound is recommended. No other significant abnormalities are identified. There has been no significant change since the prior study. BI/DIAG MAMM W/CAD, UNILAT IMPRESSION: Stable unilateral diagnostic mammogram. With the patient''s history of a palpable lump in the left axilla, correlation with ultrasound is recommended. ASSESSMENT CATEGORY: BIRADS Category 0: Incomplete. Need additional imaging evaluation. A letter regarding these results will be sent to the patient by the facility within 30 days. Approximately 10% of breast cancers are not detected by mammography. A normal mammogram should not delay biopsy of a clinically suspicious abnormality. Electronically Signed: Yosef Woodruff MD at 10:42 EST ,
--- NOTE | 2021-07-08 09:59 | US_ITS ---
STUDY: ULTRASOUND BREAST - LEFT REASON FOR EXAM: Female, 75 years old. Palpable lump in the left axillary region. TECHNIQUE: Axial and longitudinal images of the LEFT breast were performed with a high resolution ultrasound transducer. # OF IMAGES: 20 COMPARISON: Comparison is made with prior mammogram done earlier today. FINDINGS: LEFT Breast: The palpable abnormality corresponds to a 6 mm x 6 mm x 4 mm hypoechoic solid nodule. A tissue clip marker is seen in keeping with prior biopsy. Surgical clips are seen at that site. US/Breast Limited Unilateral IMPRESSION: The papilloma mouthy corresponds to the surgical site. A tissue clip marker is seen within the nodule. ASSESSMENT CATEGORY: BIRADS Category 2: Benign. A letter regarding these results will be sent to the patient by the facility within 30 days. Electronically Signed: Yosef Woodruff MD at 13:48 EST ,
== END 2021-07-08 23:59 | disposition home or self-care (01) ==
PROVIDERS: PCP Family Medicine; Referring Provider Nurse Practitioner Family; Visit Provider Nurse Practitioner Family
DX: C50.412 Malignant neoplasm of upper-outer quadrant of left female breast (principal); I48.11 Longstanding persistent atrial fibrillation; Z17.1 Estrogen receptor negative status [ER-]; Z79.01 Long term (current) use of anticoagulants
CPT/HCPCS: 36415; 76642; 77061; 77065; 85610; G0279

== ENCOUNTER 2021-07-08 09:18 | Outpatient (RCR) | payer MEDICARE, SELFPAY ==
[2020-07-13 10:59] VITALS: BMI 24.4
[2021-02-28 00:06] VITALS: BMI 25.2
[2021-07-08 12:23] LABS: International Normalized Ratio 2.6; Prothrombin Time (Protime)PT. 27.2 SECONDS (11.7-14.9)
== END 2021-07-28 23:59 | disposition home or self-care (01) ==
LOC: BIMLAB 09:18
PROVIDERS: PCP Family Medicine; Referring Provider Internal Medicine Cardiovascular Disease; Visit Provider Internal Medicine Cardiovascular Disease
DX: I48.11 Longstanding persistent atrial fibrillation (principal); Z79.01 Long term (current) use of anticoagulants
CPT/HCPCS: 36415; 85610

== ENCOUNTER 2021-07-19 07:33 | Outpatient (CLI) | payer MEDICARE, SELFPAY ==
[2020-07-13 10:59] VITALS: BMI 24.4
--- NOTE | 2021-07-19 15:30 | BRBX_PTH ---
PATIENT: ASHELY CANTU LOC: [facility] U#:[id number] AGE/SX: 75/F ROOM: RE07/19/[address]: Dr. Graham Montano MD : 1945 BED: DIS: 07/19/2021 SPEC #: [id number] RECD: 07/20/21 07:07 STATUS: JEANETH KHAN #: [id number] PATRICE: 07/19/21 15:[address]: Graham Montano DEPT: SURGICAL PATHOLOGY RECD BY: Kourtney Urena ENTERED: 07/20/21 09:55 SP TYPE: BREAST BX NOAH DR: Dr. Cristofer Yadav MD Tissues: Left breast, NOS Procedures: Surgery Specimen Level IV HEADER OPERATION: Left breast biopsy excisional PRE-OP DIAGNOSIS: Left breast nodule TISSUE SUBMITTED: Left breast tissue MICROSCOPIC DIAGNOSIS Left breast nodule, excisional biopsy: A benign cystic fibrous nodule. Negative for atypia or malignancy. See comment. MAI:prasanth 07/21/2021 COMMENT The nodule is filled with fibrinous material. Breast tissue is not present in the specimen. Correlation with clinical findings and appropriate follow up are necessary. Please make reference to previous specimens ([id number]) left breast, core biopsy with diagnosis of ?invasive ductal carcinoma? and ([id number]) left breast, lumpectomy with diagnosis of ?invasive ductal carcinoma and ductal carcinoma in situ.? MICROSCOPIC DESCRIPTION Slides are reviewed. GROSS DESCRIPTION Received in fixative is one container labeled with the patient's name and designated left breast. The specimen consists of a piece of barfield-yellow fibroadipose tissue measuring 1.5 x 1.5 x 1.2 cm. The specimen is not oriented. The specimen is inked, bisected and reveal a cyst filled with barfield-brown material measuring 0.7 cm in diameter. The entire specimen is submitted in one cassette. / MAI:prasanth 07/20/2021 TC:5 [facility]: [id number]
== END 2021-07-19 23:59 | disposition home or self-care (01) ==
LOC: LABSPEC 07-20 07:38
PROVIDERS: PCP Family Medicine; Visit Provider Surgery
DX: N60.02 Solitary cyst of left breast (principal)
CPT/HCPCS: 88305

== ENCOUNTER → 2021-09-08 | Outpatient (CLI) | payer MEDICARE, SELFPAY ==
[2020-07-13 10:59] VITALS: BMI 24.4
--- NOTE | 2021-09-08 15:51 | CT_ITS ---
STUDY: CT CHEST WITH CONTRAST REASON FOR EXAM: Female, 75 years old. LUNG NODULES RADIATION DOSAGE (If Supplied By Facility): CTDIvol = ( 13.19 ) mGy, DLP = ( 317.9 ) mGycm TECHNIQUE: Transaxial imaging was performed following intravenous administration of IV 100mL Isovue-300. Individualized dose optimization techniques were used for this CT. COMPARISON: None. FINDINGS: The lungs are normal. There is no demonstrated pleural abnormality. There is a large hiatal hernia. Normal heart and pericardium. Normal mediastinum. Normal hilar regions. Normal enhanced pulmonary arteries. Normal aorta arch and descending thoracic aorta. Normal osseous structures. There is no demonstrated abnormality of the visualized upper abdomen. CT/Chest WITH Contrast IMPRESSION: Normal enhanced CT Chest examination. Electronically Signed: Ezio Garcia MD at 7:24 EDT ,
[2021-09-08 16:15] LABS: CREATININE FINGERSTICK < 0.9 mg/dL (0.55-1.02); EGFR FINGERSTICK > 60.0000 mL/min (>60)
== END | disposition home or self-care (01) ==
LOC: CT 15:50
PROVIDERS: PCP Family Medicine; Visit Provider Internal Medicine Medical Oncology
DX: R91.8 Other nonspecific abnormal finding of lung field (principal)
CPT/HCPCS: 71260; Q9967

== ENCOUNTER → 2021-09-16 | Outpatient (CLI) | payer MEDICARE, SELFPAY ==
[2020-07-13 10:59] VITALS: BMI 24.4
== END | disposition home or self-care (01) ==
LOC: LABSPEC 12:02
PROVIDERS: PCP Family Medicine; Visit Provider Internal Medicine Medical Oncology
DX: D64.9 Anemia, unspecified (principal)
CPT/HCPCS: 82274

== ENCOUNTER 2021-09-20 13:10 | Outpatient (RCR) | payer MEDICARE, SELFPAY ==
[2020-07-13 10:59] VITALS: BMI 24.4
[2021-07-29 00:05] VITALS: BMI 25.2
[2021-09-20 15:32] LABS: International Normalized Ratio 3.1; Prothrombin Time (Protime)PT. 31.7 SECONDS (11.7-14.9)
== END 2021-09-27 23:59 ==
LOC: BIMLAB 13:10
PROVIDERS: PCP Family Medicine; Referring Provider Internal Medicine Cardiovascular Disease; Visit Provider Internal Medicine Cardiovascular Disease
DX: I48.11 Longstanding persistent atrial fibrillation (principal); Z79.01 Long term (current) use of anticoagulants
CPT/HCPCS: 36415; 85610

== ENCOUNTER 2021-12-08 15:42 | Outpatient (RCR) | payer MEDICARE, SELFPAY ==
[2020-07-13 10:59] VITALS: BMI 24.4
[2021-09-28 00:08] VITALS: BMI 25.2
[2021-12-08 16:56] LABS: International Normalized Ratio 2.3; Prothrombin Time (Protime)PT. 25.4 SECONDS (11.7-14.9)
== END 2021-12-08 18:00 | disposition home or self-care (01) ==
LOC: LAB 15:42
PROVIDERS: PCP Family Medicine; Referring Provider Internal Medicine Cardiovascular Disease; Visit Provider Internal Medicine Cardiovascular Disease
DX: Z79.01 Long term (current) use of anticoagulants
CPT/HCPCS: 36415; 85610

== ENCOUNTER 2022-02-17 08:21 | Outpatient (RCR) | payer MEDICARE, SELFPAY ==
[2020-07-13 10:59] VITALS: BMI 24.4
[2021-12-28 23:26] VITALS: BMI 25.2
[2022-02-17 12:43] LABS: International Normalized Ratio 1.8; Prothrombin Time (Protime)PT. 20.9 SECONDS (11.7-14.9)
== END 2022-02-27 23:59 ==
LOC: BIMLAB 08:21
PROVIDERS: PCP Family Medicine; Referring Provider Internal Medicine Cardiovascular Disease; Visit Provider Internal Medicine Cardiovascular Disease
DX: Z79.01 Long term (current) use of anticoagulants (principal)
CPT/HCPCS: 36415; 85610

== ENCOUNTER → 2022-03-20 | Outpatient (CLI) | payer MEDICARE, SELFPAY ==
[2020-07-13 10:59] VITALS: BMI 24.4
--- NOTE | 2022-03-20 14:56 | BI_ITS ---
MAMMOGRAPHY - BILATERAL SCREENING REASON FOR EXAM: Female, 76 years old. Routine annual screening examination. PERTINENT HISTORY: Personal history of breast cancer. Left breast lumpectomy in 2019. TECHNIQUE: Digital bilateral breast griselda (3D mammographic acquisition) in the CC and MLO projections. 2-D mediolateral oblique (MLO) and craniocaudad (CC) views of both breasts were obtained. CAD: Full Field Digital Mammography with Computer Added Detection was performed. COMPARISON: Left breast diagnostic mammogram and diagnostic ultrasound from 07/08/2021. Bilateral diagnostic screening mammograms from 03/17/2021, 03/08/2020. FINDINGS: Breast Composition: The breasts are heterogeneously dense, which may obscure small masses. There are no dominant masses or suspicious calcifications. Partially visualized surgical clips in the left axilla from prior lumpectomy. No other significant abnormalities are identified. There has been no significant change since the prior study. BI/SCRN MAMM (CAD)W/GRISELDA BILAT IMPRESSION: Stable bilateral screening mammogram. Yearly follow-up mammogram recommended. (A) ASSESSMENT CATEGORY: BIRADS Category 2: Benign. A letter regarding these results will be sent to the patient by the facility within 30 days. Approximately 10% of breast cancers are not detected by mammography. A normal mammogram should not delay biopsy of a clinically suspicious abnormality. Electronically Signed: Luis Lacy, at 16:11 EST ,
== END | disposition home or self-care (01) ==
LOC: OPBI 14:55
PROVIDERS: PCP Family Medicine; Visit Provider Student in an Organized Health Care Education/Training Program
DX: Z12.31 Encounter for screening mammogram for malignant neoplasm of breast (principal); Z85.3 Personal history of malignant neoplasm of breast
CPT/HCPCS: 77063; 77067

== ENCOUNTER → 2022-10-20 | Outpatient (CLI) | payer MEDICARE, SELFPAY ==
[2020-07-13 10:59] VITALS: BMI 24.4
--- NOTE | 2022-10-20 13:44 | ECHOD_ITS ---
Reason For Study: Encounter for Chemo Procedure This was a 2D Doppler, Color Flow transthoracic echocardiogram. Technically difficult study due to patients body habitus. Unable to perform strain analysis due to arrhythmia. Exam performed in department. Left Ventricle Normal LV size. Left ventricular systolic function is lower limits of normal. The left ventricular ejection fraction is 50 %. No regional wall motion abnormalities noted. Right Ventricle Normal RV size. Normal systolic function. Atria The left atrium is moderately enlarged. The right atrium is mildly enlarged. Mitral Valve Normal mitral valve. There is mild mitral annular calcification. Mild (1+) eccentric mitral valve insufficiency. Tricuspid Valve Normal tricuspid valve. Mild (1+) tricuspid valve insufficiency. Pulmonary artery systolic pressure is 46 mmHg. Aortic Valve Trisinus/trileaflet aortic valve. Mild focal aortic valve calcification. Mild (1+) aortic valve insufficiency. Pulmonic Valve Normal pulmonic valve. Mild (1+) pulmonic valve insufficiency. Great Vessels Normal aortic root. The pulmonary artery is normal size. Normal inferior vena cava. Pericardium/Pleural No pericardial effusion. MMode/2D Measurements & Calculations LVIDd: 4.5 cm IVSd: 0.84 cm Ao root diam: 3.5 cm LVIDs: 2.7 cm LVPWd: 0.66 cm LA dimension: 4.2 cm RVDd: 4.5 cm FS: 39.1 % LAV(MOD-bp): 118.9 ml LA A4 area: 33.0 cm2 RA A4 area: 24.2 cm2 LAV(MOD-bp) Indexed: 70.5 ml/m2 LAV(MOD-sp2): 127.9 ml LAV(MOD-sp4): 114.3 ml Doppler Measurements & Calculations MV E max odbulio: 131.2 cm/sec MV V2 max: 121.9 cm/sec Ao V2 max: 160.2 cm/sec MV max P.0 mmHg Ao max P.3 mmHg MV V2 mean: 54.7 cm/sec Ao V2 mean: 115.9 cm/sec MV mean P.7 mmHg Ao mean P.0 mmHg MV V2 VTI: 23.8 cm Ao V2 VTI: 37.5 cm AV (velocity ratio): 0.69 AI max obdulio: 334.6 cm/sec LV V1 max: 114.7 cm/sec PA V2 max: 82.6 cm/sec AI max P.1 mmHg LV V1 max P.4 mmHg PA V2 mean: 61.4 cm/sec LV V1 mean P.2 mmHg AI dec slope: 153.1 cm/sec2 LV V1 mean: 83.8 cm/sec AI P1/2t: 640.1 msec LV V1 VTI: 25.9 cm TR max obdulio: 318.6 cm/sec PI dec slope: 118.4 cm/sec2 TR max P.6 mmHg ECHO/Echo Complete Interpretation Summary Left ventricular systolic function is lower limits of normal. Normal LV size. The left ventricular ejection fraction is 50 %. The left atrium is moderately enlarged. Mild (1+) eccentric mitral valve insufficiency. Ordering Physician: Evie Sandoval Referring Physician: Evie Sandoval Performed By: Brodwolf, Dio, RCS
== END | disposition home or self-care (01) ==
LOC: CVS 13:40
PROVIDERS: PCP Family Medicine; Referring Provider Physician Assistant Medical; Visit Provider Physician Assistant Medical
DX: Z51.11 Encounter for antineoplastic chemotherapy (principal); I43 Cardiomyopathy in diseases classified elsewhere; I48.11 Longstanding persistent atrial fibrillation; E78.00 Pure hypercholesterolemia, unspecified
CPT/HCPCS: 93306

== ENCOUNTER → 2023-03-23 | Outpatient (CLI) | payer MEDICARE, SELFPAY ==
[2020-07-13 10:59] VITALS: BMI 24.4
--- NOTE | 2023-03-23 14:07 | BI_ITS ---
MAMMOGRAPHY - BILATERAL SCREENING REASON FOR EXAM: Female, 77 years old. Routine annual screening examination. PERTINENT HISTORY: Personal history of breast cancer. Prior left lumpectomy with chemotherapy and radiation therapy. TECHNIQUE: Digital bilateral breast griselda (3D mammographic acquisition) in the CC and MLO projections. 2-D mediolateral oblique (MLO) and craniocaudad (CC) views of both breasts were obtained. CAD: Full Field Digital Mammography with Computer Added Detection was performed. COMPARISON: Comparison is made with prior study day number 2021 and July 08, 2021. FINDINGS: Breast Composition: There are scattered areas of fibroglandular density. There are no dominant masses or suspicious calcifications. The patient is status post lumpectomy in the retroareolar region of the left breast with resultant postoperative scarring and nipple inversion. Stable bilateral secretory calcifications. No other significant abnormalities are identified. There has been no significant change since the prior study. BI/SCRN MAMM (CAD)W/GRISELDA BILAT IMPRESSION: Stable bilateral screening mammogram. Yearly follow-up mammogram recommended. (A) ASSESSMENT CATEGORY: BIRADS Category 2: Benign. A letter regarding these results will be sent to the patient by the facility within 30 days. Approximately 10% of breast cancers are not detected by mammography. A normal mammogram should not delay biopsy of a clinically suspicious abnormality. [id number] Electronically Signed: Yosef Woodruff MD at 10:21 EST ,
== END | disposition home or self-care (01) ==
LOC: OPBI 14:05
PROVIDERS: PCP Family Medicine; Referring Provider Student in an Organized Health Care Education/Training Program; Visit Provider Student in an Organized Health Care Education/Training Program
DX: Z12.31 Encounter for screening mammogram for malignant neoplasm of breast (principal)
CPT/HCPCS: 77063; 77067

== ENCOUNTER 2023-05-11 09:29 | Outpatient (CLI) | payer MEDICARE, SELFPAY ==
[2020-07-13 10:59] VITALS: BMI 24.4
--- OUTSIDE RECORDS SUMMARY | 2023-05-11 09:56 | XMS RPT_ITS | CCD ---
Author Name Unknown Address [address] [place] [address] Organization [facility] Care Team Providers Care Pollution Control Chemist Name Role Phone Osmin RN, Evie Ayala Unavailable Vaughn Garsia Unavailable Unavailable Osmin RN, Evie Ayala Unavailable ЕКАТЕРИНА Sandoval, Evie Fisher Unavailable [facility] Nurse Unavailable Unavailable Gem Yadav Unavailable Osmin RN, Evie Ayala Unavailable Gem Yadav Unavailable Gem Yadav Unavailable Osmin RN, Evie Ayala Unavailable Osmin RN, Evie Ayala Unavailable Osmin RN, Evie Ayala Unavailable Allergies Allergy Classification Reported Allergen(s) Allergy Type Date of Onset Reaction(s) Facility (12 sources) clarithromycin drug allergy 1 Intolerance, diarrhea [facility] Work Phone: [phone] (12 sources) levoFLOXacin drug allergy 1 Intolerance, headache [facility] Work Phone: [phone] (12 sources) risedronate drug allergy 1 Rash [facility] Work Phone: [phone] (12 sources) rofecoxib drug allergy 1 Intolerance, headache [facility] Work Phone: [phone] (12 sources) CRAB drug allergy 1 hives [facility] Work Phone: [phone] Medications Completed/Discontinued Medications Medication Drug Class(es) Dates Sig (Normalized) Sig (Original) amiodarone hydrochloride 200 mg oral tablet (20 sources) Antiarrhythmic Start: 02-26-2013 End: 03-25-2013 take 1 tablet by mouth once daily AMIODARONE HCL 200 MG TABS One tablet by mouth daily AMIODARONE HCL [id number] Evie Sandoval PA-C Problems Active Problems Problem Classification Problem Date Documented Da te Episodic/Chronic Cardiac dysrhythmias (20 sources) Persistent atrial fibrillation; Translations: [Atrial fibrillation] Onset: 10-06-2010 08-09-2015 Chronic Congestive heart failure; nonhypertensive (12 sources) Congestive heart failure; Translations: [Heart failure, unspecified] Onset: 10-06-2010 10-06-2010 Chronic Other nutritional; endocrine; and metabolic disorders (20 sources) Body mass index (BMI) 31.0-31.9, adult; Translations: [Body mass index (BMI) 30.0-30.9, adult] Onset: 05-08-2013 Resolved: 02-16-2015 09-28-2014 Chronic Other nutritional; endocrine; and metabolic disorders (14 sources) Body mass index (BMI) 30.0-30.9, adult; Translations: [Body mass index (BMI) 30.0-30.9, adult] Onset: 05-08-2013 Resolved: 02-16-2015 05-12-2014 Chronic Patricia-; endo-; and myocarditis; cardiomyopathy (12 sources) Dilated cardiomyopathy; Translations: [Dilated cardiomyopathy] Onset: 10-06-2010 10-06-2010 Chronic Past or Other Problems Problem Classification Problem Date Documented Da te Episodic/Chronic Cardiac dysrhythmias (12 sources) Palpitations; Translations: [Palpitations] Onset: 10-06-2010 10-06-2010 Episodic Deficiency and other anemia (12 sources) Anemia; Translations: [Anemia, unspecified] Onset: 02-16-2015 02-16-2015 Episodic Malaise and fatigue (12 sources) Malaise and fatigue; Translations: [Personal history of other specified conditions] Onset: 09-28-2014 09-28-2014 Episodic Other aftercare (12 sources) 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; Translations: [senior care (current) use of anticoagulants] Onset: 02-16-2015 02-16-2015 Episodic Other lower respiratory disease (12 sources) Dyspnea; Translations: [Dyspnea, unspecified] Onset: 10-06-2010 10-06-2010 Episodic Other nutritional; endocrine; and metabolic disorders (20 sources) Body mass index (BMI) 29.0-29.9, adult; Translations: [Body mass index (BMI) 29.0-29.9, adult] Onset: 05-08-2013 08-19-2015 Episodic Residual codes; unclassified (5 sources) FH: Raised blood lipids; Translations: [Family history of other endocrine, nutritional and metabolic diseases] 11-11-2014 Episodic Unclassified (19 sources) FH: Hypertension; Translations: [FH: Raised blood lipids] 11-11-2014 Episodic Results Test Name Value Interpretation Reference Range Facil ity Vital Signs Date Time Vital Sign Value Performing Clinician Geoff kenny 02-20-2017 09:11-0400 BMI (Body Mass Index) 29.72 kg/m2 [facility] Work Phone: 02-20-2017 09:11-0400 BP Diastolic 50 mm[Hg] [facility] Work Phone: 02-20-2017 09:11-0400 BP Systolic 100 mm[Hg] [facility] Work Phone: 02-20-2017 09:11-0400 Height 166.37 cm [facility] Work Phone: 02-20-2017 09:11-0400 Pulse (Heart Rate) 76 /min [facility] Work Phone: 02-20-2017 09:11-0400 Respiratory Rate 20 /min [facility] Work Phone: 02-20-2017 09:11-0400 Weight 82.28 kg [facility] Work Phone: 08-07-2016 12:57-0400 BMI (Body Mass Index) 29.3 kg/m2 Evie Sandoval PA-C [facility] Work Phone: 08-07-2016 12:57-0400 Body weight 81.1 kg Evie Solorio RN [facility] Work Phone: 08-07-2016 12:57-0400 BP Diastolic 76 mm[Hg] Evie Sandoval PA-C [facility] Work Phone: 08-07-2016 12:57-0400 BP Systolic 110 mm[Hg] Evie Sandoval PA-C [facility] Work Phone: 08-07-2016 12:57-0400 Height 166.37 cm Evie Sandoval PA-C [facility] Work Phone: 08-07-2016 12:57-0400 Pulse (Heart Rate) 78 /min Evie Sandoval PA-C [facility] Work Phone: 08-07-2016 12:57-0400 Respiratory Rate 18 /min Evie Sandoval PA-C [facility] Work Phone: 08-07-2016 12:57-0400 Weight 81.1 kg Evie Sandoval PA-C [facility] Work Phone: 02-08-2016 14:20-0400 Heart rate 73 /min [facility] Work Phone: 02-08-2016 13:46-0400 BSA (Body Surface Area) 1.89 m2 Evie Sandoval PA-C [facility] Work Phone: 03-05-2013 10:55-0500 Heart rate 425 ms Evie Solorio RN [facility] Work Phone: Procedures Date Procedure Procedure Detail Performing Clinician Start: 08-07-2016 End: 10-02-2016 *CBC with Differential Evie anderson PA-C Work Phone: Start: 08-07-2016 End: 08-07-2016 STRICKLER ATTENDANT Evie Sandoval PA-C Work Phone: Start: 08-07-2016 End: 08-07-2016 Follow Up Appt 6 months Evie paulino PA-C Work Phone: Start: 08-07-2016 End: 08-07-2016 Documentation of current medications Evie Solorio RN Start: 08-07-2016 End: 10-02-2016 *CBC with Differential Evie anderson PA-C Work Phone: Start: 08-07-2016 End: 08-07-2016 STRICKLER ATTENDANT Evie Sandoval PA-C Work Phone: Start: 08-07-2016 End: 08-07-2016 Follow Up Appt 6 months Evie paulino PA-C Work Phone: Start: 02-08-2016 End: 02-08-2016 Ecg routine ecg w/least 12 lds w/i&r Adrián Bryan MD Start: 02-08-2016 End: 02-08-2016 Follow Up Appt 6 months Phillip Zamora Start: 02-08-2016 End: 02-08-2016 MM Adrián Bryan MD Start: 02-08-2016 End: 02-08-2016 Electrocardiogram, complete Adrián Jacobs i, MD Start: 02-08-2016 End: 02-08-2016 Follow Up Appt 6 months Phillip Zamora Start: 02-08-2016 End: 02-08-2016 MMPhillip Bryan MD Start: 08-19-2015 End: 08-19-2015 STRICKLER ATTENDANT Evie Sandoval PA-C Work Phone: Start: 08-19-2015 End: 08-19-2015 Follow Up Appt 6 months Evie paulino PA-C Work Phone: Start: 08-19-2015 End: 08-19-2015 [place] Sandoval PA-C Work Phone: Start: 08-19-2015 End: 08-19-2015 Follow Up Appt 6 months Evie paulino PA-C Work Phone: Start: 02-19-2015 End: 02-20-2015 Documentation of current medications Adrián Bryan MD Start: 02-19-2015 End: 02-19-2015 Follow Up Appt 6 months Phillip Zamora Start: 02-19-2015 End: 02-19-2015 DIONY Bryan MD Start: 02-19-2015 End: 02-19-2015 Dietary management education, guidance, and counseling Evie Solorio RN Start: 02-19-2015 End: 02-20-2015 Documentation of current medications Adrián Bryan MD Start: 02-19-2015 End: 02-19-2015 Follow Up Appt 6 months Phillip Zamora Start: 02-19-2015 End: 02-19-2015 DIONY Bryan MD Start: 01-15-2015 End: 01-21-2015 Hemoglobin and Hematocrit panel - Blood Evie Sandoval PA-C Work Phone: Start: 01-15-2015 End: 01-21-2015 Hematocrit (HCT) Evie Sandoval PA-C Work Phone: Start: 01-15-2015 End: 01-21-2015 Hemoglobin and Hematocrit panel - Blood Evie Sandoval PA-C Work Phone: Start: 11-11-2014 End: 11-11-2014 STRICKLER ATTENDANT Evie Sandoval PA-C Work Phone: Start: 11-11-2014 End: 11-12-2014 Documentation of current medications Evie Sandoval PA-C Work Phone: Start: 11-11-2014 End: 11-11-2014 Follow Up Appt 3 months Evie paulino PA-C Work Phone: Start: 11-11-2014 End: 11-11-2014 STRICKLER ATTENDANT Evie Sandoval PA-C Work Phone: Start: 11-11-2014 End: 11-12-2014 Documentation of current medications Evie Sandoval PA-C Work Phone: Start: 11-11-2014 End: 11-11-2014 Follow Up Appt 3 months Evie paulino PA-C Work Phone: Start: 09-28-2014 End: 09-28-2014 *BMP Evie Sandoval PA-C Work Phone: Start: 09-28-2014 End: 09-30-2014 *CBC with Differential Evie anderson PA-C Work Phone: Start: 09-28-2014 End: 09-29-2014 Documentation of current medications Evie Sandoval PA-C Work Phone: Start: 09-28-2014 End: 10-09-2014 Ecg routine ecg w/least 12 lds w/i&r Evie Sandoval PA-C Work Phone: Start: 09-28-2014 End: 10-09-2014 Echocardiography Evie Sandoval PA-C Work Phone: Start: 09-28-2014 End: 11-03-2014 Follow Up Appt Other Evie ayala PA-C Work Phone: Start: 09-28-2014 End: 09-28-2014 Thyrotropin [Units/volume] in Serum or Plasma Evie Sandoval PA-C Work Phone: Start: 09-28-2014 End: 09-28-2014 *BMP Evie Sandoval PA-C Work Phone: Start: 09-28-2014 End: 09-30-2014 *CBC with Differential Evie anderson PA-C Work Phone: Start: 09-28-2014 End: 09-29-2014 Documentation of current medications Evie Sandoval PA-C Work Phone: Start: 09-28-2014 End: 10-09-2014 Echocardiography Evie Sandoval PA-C Work Phone: Start: 09-28-2014 End: 10-09-2014 Electrocardiogram, complete Evie Cerda PA-C Work Phone: Start: 09-28-2014 End: 11-03-2014 Follow Up Appt Other Evie ayala PA-C Work Phone: Start: 09-28-2014 End: 09-28-2014 Thyroid stimulating hormone (TSH) Evie Sandoval PA-C Work Phone: Start: 05-12-2014 End: 05-12-2014 Follow Up Appt 6 months Phillip Zamora Start: 05-12-2014 End: 05-12-2014 DIONY Bryan MD Start: 05-12-2014 End: 05-12-2014 Follow Up Appt 6 months Phillip Zamora Start: 05-12-2014 End: 05-12-2014 DIONY Bryan MD Start: 11-03-2013 End: 11-03-2013 STRICKLER ATTENDANT Evie Sandoval PA-C Work Phone: Start: 11-03-2013 End: 11-03-2013 Follow Up Appt 6 months Evie paulino PA-C Work Phone: Start: 11-03-2013 End: 11-03-2013 [place] Sandoval PA-C Work Phone: Start: 11-03-2013 End: 11-03-2013 Follow Up Appt 6 months Evie paulino PA-C Work Phone: Start: 05-08-2013 End: 10-22-2013 Follow Up Appt 6 months Phillip Zamora Start: 05-08-2013 End: 05-09-2013 INR in Platelet poor plasma by Coagulation assay Adrián Bryan MD Start: 05-08-2013 End: 10-22-2013 MMPhillip Bryan MD Start: 05-08-2013 End: 05-09-2013 Coagulation factor induced.INR assay in platelet poor plasma Adrián Bryan MD Start: 05-08-2013 End: 10-22-2013 Follow Up Appt 6 months Phillip Zamora Start: 05-08-2013 End: 10-22-2013 DIONY Bryan MD Start: 03-25-2013 End: 03-25-2013 [place] Sandoval PA-C Work Phone: Start: 03-25-2013 End: 03-25-2013 Follow Up Appt 6 weeks Evie anderson PA-C Work Phone: Start: 03-25-2013 End: 03-25-2013 [place] Sandoval PA-C Work Phone: Start: 03-25-2013 End: 03-25-2013 Follow Up Appt 6 weeks Evie anderson PA-C Work Phone: Start: 03-05-2013 End: 03-13-2013 Ecg routine ecg w/least 12 lds w/i&r Adrián Bryan MD Start: 03-05-2013 End: 03-13-2013 Electrocardiogram, complete Adrián Jacobs i, MD Start: 02-25-2013 End: 03-13-2013 Electrocardiogram Adrián Bryan MD Start: 02-25-2013 End: 03-13-2013 Electrocardiogram Adrián Bryan MD Start: 02-20-2013 End: 02-26-2013 *LUCAS Bryan MD Start: 02-20-2013 End: 03-13-2013 Cardioversion Adrián Bryan MD Start: 02-20-2013 End: 02-20-2013 Follow Up Appt 1 month Adrián Bryan MD Start: 02-20-2013 End: 02-26-2013 INR in Platelet poor plasma by Coagulation assay Adrián Bryan MD Start: 02-20-2013 End: 02-20-2013 MMM Adrián Bryan MD Start: 02-20-2013 End: 02-26-2013 *LUCAS Bryan MD Start: 02-20-2013 End: 03-13-2013 Cardioversion Adrián Bryan MD Start: 02-20-2013 End: 02-26-2013 Coagulation factor induced.INR assay in platelet poor plasma Adrián Bryan MD Start: 02-20-2013 End: 02-20-2013 Follow Up Appt 1 month Adrián Bryan MD Start: 02-20-2013 End: 02-20-2013 MMM Adrián Bryan MD Start: 01-30-2013 End: 03-25-2013 24 hour holter monitor Evie anderson PA-C Work Phone: Start: 01-30-2013 End: 01-30-2013 STRICKLER ATTENDANT Evie Sandoval PA-C Work Phone: Start: 01-30-2013 End: 01-30-2013 eRx Transmitted during this visit (Medicare only) Evie Sandoval PA-C Work Phone: Start: 01-30-2013 End: 01-30-2013 Follow up Appt 3 weeks Evie anderson PA-C Work Phone: Start: 01-30-2013 End: 03-25-2013 24 hour holter monitor Evie anderson PA-C Work Phone: Start: 01-30-2013 End: 01-30-2013 STRICKLER ATTENDANT Evie Sandoval PA-C Work Phone: Start: 01-30-2013 End: 01-30-2013 eRx Transmitted during this visit (Medicare only) Evie Sandoval PA-C Work Phone: Start: 01-30-2013 End: 01-30-2013 Follow up Appt 3 weeks Evie anderson PA-C Work Phone: Start: 12-19-2012 End: 12-19-2012 Ecg routine ecg w/least 12 lds w/i&r Evie Sandoval PA-C Work Phone: Start: 12-19-2012 End: 12-19-2012 Follow Up Appt 6 weeks Evie anderson PA-C Work Phone: Start: 12-19-2012 End: 12-23-2012 INR in Platelet poor plasma by Coagulation assay Evie Sandoval PA-C Work Phone: Start: 12-19-2012 End: 12-19-2012 MMM Evie Sandoval PA-C Work Phone: Start: 12-19-2012 End: 12-25-2012 Thyrotropin [Units/volume] in Serum or Plasma Evie Sandoval PA-C Work Phone: Start: 12-19-2012 End: 12-23-2012 Coagulation factor induced.INR assay in platelet poor plasma Evie Sandoval PA-C Work Phone: Start: 12-19-2012 End: 12-19-2012 Electrocardiogram, complete Evie Cerda PA-C Work Phone: Start: 12-19-2012 End: 12-19-2012 Follow Up Appt 6 weeks Evie anderson PA-C Work Phone: Start: 12-19-2012 End: 12-19-2012 MMM Evie Sandoval PA-C Work Phone: Start: 12-19-2012 End: 12-25-2012 Thyroid stimulating hormone (TSH) Evie Sandoval PA-C Work Phone: Start: 06-19-2012 End: 06-24-2012 Echocardiography Adrián Bryan MD Start: 06-19-2012 End: 06-19-2012 Follow Up Appt 6 months Phillip Zamora Start: 06-19-2012 End: 06-19-2012 MM Adrián Bryan MD Start: 06-19-2012 End: 06-24-2012 Nuclear stress test -exercise Adrián Reyes MD Start: 06-19-2012 End: 06-24-2012 Echocardiography Adrián Bryan MD Start: 06-19-2012 End: 06-19-2012 Follow Up Appt 6 months Phillip Zamora Start: 06-19-2012 End: 06-19-2012 MM Adrián Bryan MD Start: 06-19-2012 End: 06-24-2012 Nuclear stress test -exercise Adrián Reyes MD Start: 12-13-2011 End: 12-13-2011 Ecg routine ecg w/least 12 lds w/i&r Adrián Bryan MD Start: 12-13-2011 End: 12-13-2011 Follow Up Appt 6 months Phillip Zamora Start: 12-13-2011 End: 12-13-2011 Electrocardiogram, complete Adrián Jacobs i, MD Start: 12-13-2011 End: 12-13-2011 Follow Up Appt 6 months Phillip Zamora Start: 06-14-2011 End: 06-14-2011 Follow Up Appt 6 months Phillip Zamora Start: 06-14-2011 End: 06-14-2011 Follow Up Appt 6 months Phillip Zamora Plan of Treatment Date Care Activity Detail Author Start: 08-23-2017 End: 08-23-2017 Appointment Appointment [facility] Work Phone: Start: 02-20-2017 End: 02-20-2017 Follow Up Appt 6 months Follow Up Appt 6 months [facility] Work Phone: Start: 02-20-2017 End: 02-20-2017 MMM MMM [facility] Work Phone: Start: 02-20-2017 End: 02-20-2017 Appointment Appointment [facility] Work Phone: Start: 02-20-2017 End: 02-20-2017 Follow Up Appt 6 months Follow Up Appt 6 months [facility] Work Phone: Start: 02-20-2017 End: 02-20-2017 MMM MMM [facility] Work Phone: Start: 02-02-2017 End: 02-02-2017 Appointment Appointment [facility] Work Phone: Start: 08-07-2016 End: 10-02-2016 *CBC with Differential *CBC with Differential [facility] Work Phone: Start: 08-07-2016 End: 08-07-2016 STRICKLER ATTENDANT STRICKLER ATTENDANT [facility] Work Phone: Start: 08-07-2016 End: 08-07-2016 Follow Up Appt 6 months Follow Up Appt 6 months [facility] Work Phone: Start: 08-07-2016 End: 10-02-2016 *CBC with Differential *CBC with Differential [facility] Work Phone: Start: 08-07-2016 End: 08-07-2016 STRICKLER ATTENDANT STRICKLER ATTENDANT [facility] Work Phone: Start: 08-07-2016 End: 08-07-2016 Follow Up Appt 6 months Follow Up Appt 6 months [facility] Work Phone: Start: 02-08-2016 End: 02-08-2016 Ecg routine ecg w/least 12 lds w/i&r EKG (In office) [facility] Work Phone: Start: 02-08-2016 End: 02-08-2016 Follow Up Appt 6 months Follow Up Appt 6 months [facility] Work Phone: Start: 02-08-2016 End: 02-08-2016 MMM MMM [facility] Work Phone: Start: 02-08-2016 End: 02-08-2016 Electrocardiogram, complete EKG (In office) [facility] Work Phone: Start: 02-08-2016 End: 02-08-2016 Follow Up Appt 6 months Follow Up Appt 6 months [facility] Work Phone: Start: 02-08-2016 End: 02-08-2016 MMM MMM [facility] Work Phone: Start: 08-19-2015 End: 08-19-2015 STRICKLER ATTENDANT STRICKLER ATTENDANT [facility] Work Phone: Start: 08-19-2015 End: 08-19-2015 Follow Up Appt 6 months Follow Up Appt 6 months [facility] Work Phone: Start: 08-19-2015 End: 08-19-2015 STRICKLER ATTENDANT STRICKLER ATTENDANT [facility] Work Phone: Start: 08-19-2015 End: 08-19-2015 Follow Up Appt 6 months Follow Up Appt 6 months [facility] Work Phone: Start: 02-19-2015 End: 02-19-2015 Follow Up Appt 6 months Follow Up Appt 6 months [facility] Work Phone: Start: 02-19-2015 End: 02-19-2015 MMM MMM [facility] Work Phone: Start: 02-19-2015 End: 02-19-2015 Follow Up Appt 6 months Follow Up Appt 6 months [facility] Work Phone: Start: 02-19-2015 End: 02-19-2015 MMM MMM [facility] Work Phone: Start: 01-15-2015 End: 01-21-2015 Hematocrit (HCT) *HH Hemoglobin & Hematocrit [facility] Work Phone: Start: 01-15-2015 End: 01-21-2015 Hematocrit (HCT) *HH Hemoglobin & Hematocrit [facility] Work Phone: Start: 01-15-2015 End: 01-21-2015 Hematocrit Volume Fraction (Bld) *HH Hemoglobin & Hematocrit [facility] Work Phone: Start: 11-11-2014 End: 11-11-2014 STRICKLER ATTENDANT STRICKLER ATTENDANT [facility] Work Phone: Start: 11-11-2014 End: 11-11-2014 Follow Up Appt 3 months Follow Up Appt 3 months [facility] Work Phone: Start: 11-11-2014 End: 11-11-2014 STRICKLER ATTENDANT STRICKLER ATTENDANT [facility] Work Phone: Start: 11-11-2014 End: 11-11-2014 Follow Up Appt 3 months Follow Up Appt 3 months [facility] Work Phone: Start: 09-28-2014 End: 09-28-2014 *BMP *BMP [facility] Work Phone: Start: 09-28-2014 End: 09-30-2014 *CBC with Differential *CBC with Differential [facility] Work Phone: Start: 09-28-2014 End: 10-09-2014 Ecg routine ecg w/least 12 lds w/i&r EKG (In office) [facility] Work Phone: Start: 09-28-2014 End: 09-28-2014 Echocardiography Echocardiogram (complete) [facility] Work Phone: Start: 09-28-2014 End: 11-03-2014 Follow Up Appt Other Follow Up Appt Other [facility] Work Phone: Start: 09-28-2014 End: 09-28-2014 Thyroid stimulating hormone (TSH) *TSH [facility] Work Phone: Start: 09-28-2014 End: 09-28-2014 *BMP *BMP [facility] Work Phone: Start: 09-28-2014 End: 09-30-2014 *CBC with Differential *CBC with Differential [facility] Work Phone: Start: 09-28-2014 End: 09-28-2014 Echocardiography Echocardiogram (complete) [facility] Work Phone: Start: 09-28-2014 End: 10-09-2014 Electrocardiogram, complete EKG (In office) [facility] Work Phone: Start: 09-28-2014 End: 11-03-2014 Follow Up Appt Other Follow Up Appt Other [facility] Work Phone: Start: 09-28-2014 End: 09-28-2014 Thyroid stimulating hormone (TSH) *TSH [facility] Work Phone: Start: 05-12-2014 End: 05-12-2014 Follow Up Appt 6 months Follow Up Appt 6 months [facility] Work Phone: Start: 05-12-2014 End: 05-12-2014 MMM MMM [facility] Work Phone: Start: 05-12-2014 End: 05-12-2014 Follow Up Appt 6 months Follow Up Appt 6 months [facility] Work Phone: Start: 05-12-2014 End: 05-12-2014 MMM MMM [facility] Work Phone: Start: 11-03-2013 End: 11-03-2013 STRICKLER ATTENDANT STRICKLER ATTENDANT [facility] Work Phone: Start: 11-03-2013 End: 11-03-2013 Follow Up Appt 6 months Follow Up Appt 6 months [facility] Work Phone: Start: 11-03-2013 End: 11-03-2013 STRICKLER ATTENDANT STRICKLER ATTENDANT [facility] Work Phone: Start: 11-03-2013 End: 11-03-2013 Follow Up Appt 6 months Follow Up Appt 6 months [facility] Work Phone: Start: 05-08-2013 End: 10-22-2013 Follow Up Appt 6 months Follow Up Appt 6 months [facility] Work Phone: Start: 05-08-2013 End: 05-09-2013 INR Coag RelTime (PPP) *PT/INR - Standing Order [facility] Work Phone: Start: 05-08-2013 End: 10-22-2013 MMM MMM [facility] Work Phone: Start: 05-08-2013 End: 05-09-2013 Coagulation factor induced.INR assay in platelet poor plasma *PT/INR - Standing Order [facility] Work Phone: Start: 05-08-2013 End: 10-22-2013 Follow Up Appt 6 months Follow Up Appt 6 months [facility] Work Phone: Start: 05-08-2013 End: 10-22-2013 MMM MMM [facility] Work Phone: Start: 03-25-2013 End: 03-25-2013 STRICKLER ATTENDANT STRICKLER ATTENDANT [facility] Work Phone: Start: 03-25-2013 End: 03-25-2013 Follow Up Appt 6 weeks Follow Up Appt 6 weeks [facility] Work Phone: Start: 03-25-2013 End: 03-25-2013 STRICKLER ATTENDANT STRICKLER ATTENDANT [facility] Work Phone: Start: 03-25-2013 End: 03-25-2013 Follow Up Appt 6 weeks Follow Up Appt 6 weeks [facility] Work Phone: Start: 03-05-2013 End: 03-13-2013 Ecg routine ecg w/least 12 lds w/i&r EKG (In office) [facility] Work Phone: Start: 03-05-2013 End: 03-13-2013 Electrocardiogram, complete EKG (In office) [facility] Work Phone: Start: 02-25-2013 End: 03-13-2013 *EKG (Done in Hospital) *EKG (Done in Hospital) [facility] Work Phone: Start: 02-25-2013 End: 03-13-2013 *EKG (Done in Hospital) *EKG (Done in Hospital) [facility] Work Phone: Start: 02-20-2013 End: 02-26-2013 *BMP *BMP [facility] Work Phone: Start: 02-20-2013 End: 02-21-2013 Cardioversion Cardioversion [facility] Work Phone: Start: 02-20-2013 End: 02-20-2013 Follow Up Appt 1 month Follow Up Appt 1 month [facility] Work Phone: Start: 02-20-2013 End: 02-26-2013 INR Coag RelTime (PPP) *PT/INR [facility] Work Phone: Start: 02-20-2013 End: 02-20-2013 MMM MMM [facility] Work Phone: Start: 02-20-2013 End: 02-26-2013 *BMP *BMP [facility] Work Phone: Start: 02-20-2013 End: 02-21-2013 Cardioversion Cardioversion [facility] Work Phone: Start: 02-20-2013 End: 02-26-2013 Coagulation factor induced.INR assay in platelet poor plasma *PT/INR [facility] Work Phone: Start: 02-20-2013 End: 02-20-2013 Follow Up Appt 1 month Follow Up Appt 1 month [facility] Work Phone: Start: 02-20-2013 End: 02-20-2013 MMM MMM [facility] Work Phone: Start: 01-30-2013 End: 01-30-2013 24 hour holter monitor 24 hour holter monitor [facility] Work Phone: Start: 01-30-2013 End: 01-30-2013 STRICKLER ATTENDANT STRICKLER ATTENDANT [facility] Work Phone: Start: 01-30-2013 End: 01-30-2013 Follow up Appt 3 weeks Follow up Appt 3 weeks [facility] Work Phone: Start: 01-30-2013 End: 01-30-2013 24 hour holter monitor 24 hour holter monitor [facility] Work Phone: Start: 01-30-2013 End: 01-30-2013 STRICKLER ATTENDANT STRICKLER ATTENDANT [facility] Work Phone: Start: 01-30-2013 End: 01-30-2013 Follow up Appt 3 weeks Follow up Appt 3 weeks [facility] Work Phone: Start: 12-19-2012 End: 12-19-2012 Ecg routine ecg w/least 12 lds w/i&r EKG (In office) [facility] Work Phone: Start: 12-19-2012 End: 12-19-2012 Follow Up Appt 6 weeks Follow Up Appt 6 weeks [facility] Group Work Phone: Start: 12-19-2012 End: 12-23-2012 INR Coag RelTime (PPP) *PT/INR - Standing Order [facility] Work Phone: Start: 12-19-2012 End: 12-19-2012 MMM MMM [facility] Work Phone: Start: 12-19-2012 End: 12-25-2012 Thyroid stimulating hormone (TSH) *TSH [facility] Work Phone: Start: 12-19-2012 End: 12-23-2012 Coagulation factor induced.INR assay in platelet poor plasma *PT/INR - Standing Order [facility] Work Phone: Start: 12-19-2012 End: 12-19-2012 Electrocardiogram, complete EKG (In office) [facility] Work Phone: Start: 12-19-2012 End: 12-19-2012 Follow Up Appt 6 weeks Follow Up Appt 6 weeks [facility] Phone: Start: 12-19-2012 End: 12-19-2012 MMM MMM [facility] Work Phone: Start: 12-19-2012 End: 12-25-2012 Thyroid stimulating hormone (TSH) *TSH [facility] Work Phone: Start: 06-19-2012 End: 06-19-2012 Echocardiography Echocardiogram (complete) [facility] Phone: Start: 06-19-2012 End: 06-19-2012 Follow Up Appt 6 months Follow Up Appt 6 months [facility] Phone: Start: 06-19-2012 End: 06-19-2012 MMM MMM [facility] Work Phone: Start: 06-19-2012 End: 06-19-2012 Nuclear stress test -exercise Nuclear stress test -exercise [facility] Work Phone: Start: 06-19-2012 End: 06-19-2012 Echocardiography Echocardiogram (complete) [facility] Work Phone: Start: 06-19-2012 End: 06-19-2012 Follow Up Appt 6 months Follow Up Appt 6 months [facility] Work Phone: Start: 06-19-2012 End: 06-19-2012 MMM MMM [facility] Work Phone: Start: 06-19-2012 End: 06-19-2012 Nuclear stress test -exercise Nuclear stress test -exercise [facility] Phone: Start: 12-13-2011 End: 12-13-2011 Ecg routine ecg w/least 12 lds w/i&r EKG (In office) [facility] Phone: Start: 12-13-2011 End: 12-13-2011 Follow Up Appt 6 months Follow Up Appt 6 months [facility] Phone: Start: 12-13-2011 End: 12-13-2011 Electrocardiogram, complete EKG (In office) [facility] Phone: Start: 12-13-2011 End: 12-13-2011 Follow Up Appt 6 months Follow Up Appt 6 months [facility] Phone: Start: 06-14-2011 End: 06-14-2011 Follow Up Appt 6 months Follow Up Appt 6 months [facility] Phone: Start: 06-14-2011 End: 06-14-2011 Follow Up Appt 6 months Follow Up Appt 6 months [facility] Phone: Additional Source Comments FOR RECORDS PERTAINING TO PATIENTS WHO ARE OR HAVE BEEN ENROLLED IN A CHEMICAL DEPENDENCY/SUBSTANCEABUSE PROGRAM, SOME INFORMATION MAY BE OMITTED. This clinical summary was aggregated from multiple sources. Caution should be exercised in using it in the provision of clinical care. This summary normalizes information from multiple sources, and as a consequence, information in this document may materially change the coding, format and clinical context of patient data. In addition, data may be omitted in some cases. CLINICAL DECISIONS SHOULD BE BASED ON THE PRIMARY CLINICAL RECORDS. [employer] provides no warranty or guarantee of the accuracy or completeness of information in this document.
[2023-05-11 10:00] LABS: International Normalized Ratio 2.4; Prothrombin Time (Protime)PT. 26.6 SECONDS (11.7-14.9)
== END 2023-05-11 09:30 | disposition home or self-care (01) ==
LOC: MEDOUTP 09:30
PROVIDERS: PCP Family Medicine; Referring Provider Internal Medicine Cardiovascular Disease; Visit Provider Internal Medicine Cardiovascular Disease
DX: I48.11 Longstanding persistent atrial fibrillation (principal); Z79.01 Long term (current) use of anticoagulants
CPT/HCPCS: 36591; 85610; A4216

== ENCOUNTER → 2023-09-03 | Outpatient (CLI) | payer MEDICARE, SELFPAY ==
[2020-07-13 10:59] VITALS: BMI 24.4
--- NOTE | 2023-09-03 10:55 | RAD_ITS ---
STUDY: X-RAY - LUMBAR SPINE REASON FOR EXAM: Female, 77 years old. Other intervertebral disc degeneration, lumbosacral region TECHNIQUE: 2 view(s) of the lumbar spine were obtained. COMPARISON: None FINDINGS: Normal lumbar lordosis. Diffusely demineralized bony structures. Mild levoscoliosis. Chronic L1 compression deformity previously treated with kyphoplasty material. Moderate chronic compression deformities with volume loss at T11 and T12 and L4. Mild disc space narrowing and endplate spurring is present throughout the lumbar spine. Exaggerated kyphosis in the lower thoracic spine due to compression deformities. No visualized aggressive process. No visualized acute fracture. There is atherosclerotic calcification of the abdominal aorta without a demonstrated aneurysm. RAD/Lumbar Spine 2 or 3 Views IMPRESSION: Degenerative changes of the spine, as detailed above. Electronically Signed: Melvin Edwards MD at 13:44 EDT ,
== END | disposition home or self-care (01) ==
LOC: RAD 10:51
PROVIDERS: PCP Family Medicine; Referring Provider Anesthesiology Pain Medicine; Visit Provider Anesthesiology Pain Medicine
DX: M51.27 Other intervertebral disc displacement, lumbosacral region (principal); M51.37 Other intervertebral disc degeneration, lumbosacral region
CPT/HCPCS: 72100

== ENCOUNTER 2023-09-27 14:02 | Outpatient (RCR) | payer MEDICARE, SELFPAY ==
[2020-07-13 10:59] VITALS: BMI 24.4
--- NOTE | 2023-09-27 14:06 | RAD_ITS ---
INDICATION: LL posterior rales and cough for two weeks w/ sputum EXAMINATION/TECHNIQUE: X-RAY - XR Chest 2 Views COMPARISON: March 18, 2020, lumbar spine dated September 03, [address] of the chest dated September 08, 2021 FINDINGS: LINES/DEVICES: There is a right-sided central venous catheter in place terminating within the expected region of the vena cava. LUNGS: There is a retrocardiac round opacity. No pneumothorax. MEDIASTINUM AND CARDIOVASCULAR STRUCTURES: There is cardiomegaly. Central airways and mediastinal contour are unremarkable. BONES AND SOFT TISSUES: The bones are diffusely demineralized. There are multilevel compression deformities of the thoracic spine. There is a stable L1 anterior compression deformity with evidence of a prior kyphoplasty or vertebral opacity. RAD/Chest PA and Lateral IMPRESSION: Retrocardiac round opacity likely reflect a hiatal hernia however cannot exclude an underlying mass, recommend MRI for further characterization. Cardiomegaly. Electronically Signed: Benita Sanchez MD at 9:22 EDT ,
[2023-09-27 15:46] LABS: International Normalized Ratio 3.8; Prothrombin Time (Protime)PT. 37.4 SECONDS (11.7-14.9)
[2023-09-27 16:20] LABS: ALB/GLOB Ratio 0.8 RATIO (0.9-2.4); AST(SGOT) 27 U/L (15-37); Alanine Aminotransfer ALT/SGPT 23 U/L (13-56); Albumin, Serum 3.2 g/dL (3.2-5.0); Alkaline Phosphatase 107 U/L (45-117); Anion Gap 4 (5-15); BUN 19 mg/dL (7-18); BUN/Creat Ratio 27.3 RATIO (10-20); CRP 7.82 mg/L (0.0-3.0); Calcium,Total 8.7 mg/dL (8.5-10.1); Chloride 107 mmol/L (98-107); EST Glomerular Filtration Rate 87 mL/min (>60); Est Glom Filt Rate - Afr Amer 105 mL/min (>60); Glucose 86 mg/dL (74-106); Potassium 3.9 mmol/L (3.5-5.1); Protein, Total 7.2 g/dL (6.4-8.2); Sodium Level 140 mmol/L (136-145); T4 Free Direct 1.26 ng/dL (0.76-1.46); Thyroid Stim Hormone (TSH) 2.67 uIU/mL (0.358-3.74)
[2023-09-27 16:24] LABS: Vitamin D,25 Hydroxy 60.8 ng/mL
== END 2023-09-27 18:00 | disposition home or self-care (01) ==
LOC: MTLAB 14:02
PROVIDERS: PCP Family Medicine; Referring Provider Physician Assistant Medical; Visit Provider Physician Assistant Medical
DX: I48.11 Longstanding persistent atrial fibrillation (principal); Z79.01 Long term (current) use of anticoagulants; R05.9 Cough, unspecified; M81.0 Age-related osteoporosis without current pathological fracture; E03.9 Hypothyroidism, unspecified
CPT/HCPCS: 36415; 71046; 80053; 82306; 84439; 84443; 85610; 86140

== ENCOUNTER → 2023-10-26 | Outpatient (CLI) | payer MEDICARE, SELFPAY ==
[2020-07-13 10:59] VITALS: BMI 24.4
--- NOTE | 2023-10-26 14:19 | CT_ITS ---
STUDY: CT Chest W/ Contrast Injection 10/27/2023 4:18 PM REASON FOR EXAM: Female, 77 years old. mediastinal mass - seen on CXR Individualized dose optimization techniques were used for this CT. TECHNIQUE: Transaxial imaging was performed with 100 cc of Isovue 300 contrast material. COMPARISON: 09.08.21 FINDINGS: There are degenerative changes of the shoulders. There is no pneumothorax. There is no demonstrated pleural abnormality. There are calcifications of the coronary arteries. Normal mediastinum. Normal hilar regions. Normal pulmonary arteries. There is atherosclerotic calcification of the aortic arch with tortuosity and elongation of the aortic arch and descending thoracic aorta. There are multi-level degenerative changes of the thoracic spine. Multiple stable compression deformity is in the thoracic spine. There is a large hiatal hernia composed mostly of the fundus of the stomach. Increased AP diameter chest suggesting COPD. CT/Chest WITH Contrast IMPRESSION: No demonstrated pulmonary embolism or arterial dissection. Large hiatal hernia. This is enlarged in size since the prior CT scan. Electronically Signed: Devante Laura MD at 16:22 EDT ,
[2023-10-26 14:43] LABS: CREATININE FINGERSTICK < 1.0 mg/dL (0.55-1.02); EGFR FINGERSTICK > 60.0000 mL/min (>60)
[2023-10-26] MEDS: 0.9% Saline Lock 10 ML Syringe IV (14:50)
== END | disposition home or self-care (01) ==
LOC: CT 14:18
PROVIDERS: PCP Family Medicine; Referring Provider Family Medicine; Visit Provider Family Medicine
DX: Z01.812 Encounter for preprocedural laboratory examination (principal); J98.59 Other diseases of mediastinum, not elsewhere classified
CPT/HCPCS: 71260; Q9967; A4216

== ENCOUNTER 2023-12-20 14:38 | Inpatient (IN) | payer MEDICARE, SELFPAY ==
[2023-12-20] VITALS (11 sets, daily range): BP systolic 96–142; BP diastolic 67–83; PULSE 71–102; RESP 18–25; TEMP 36.2–37.7; O2SAT 92–97; BMI 24.4; BMI 25.3; BMI 28.3
--- NOTE | 2023-12-20 15:34 | RAD_ITS ---
STUDY: X-RAY CHEST REASON FOR EXAM: Female, 78 years old. Shortness of Breath TECHNIQUE: Single AP portable view of the chest. COMPARISON: Comparison is made with prior study September 27, 2023. FINDINGS: A right-sided portacatheter is seen with the tip in the superior vena cava. Surgical clips are seen in the left axilla. Vessel congestion and CHF. Superimposed atelectasis and/or early infiltrates at the left lung base on chronic scarring. Normal size heart. Normal mediastinum and martha. Normal visualized pulmonary arteries. There is atherosclerotic calcification of the aortic arch with tortuosity. There are diffuse degenerative changes of the visualized thoracic spine. Prior vertebral plasty of the T12 vertebrae. Normal visualized ribs, clavicles, and shoulders. There is no demonstrated abnormality of the visualized soft tissue structures of the upper abdomen. RAD/Chest 1 View (Portable) IMPRESSION: Findings suggestive of CHF with superimposed atelectasis and/or infiltrate at the left lung base on chronic scarring. Electronically Signed: Yosef Woodruff MD at 15:50 EDT ,
[2023-12-20 15:46] LABS: Absolute Lymphocyte Count 0.35 X10^3/uL (0.83-4.51); Absolute Neutrophil Count 3.4 X10^3/uL (2.0-7.7); Basophil# 0.02 X10^3/uL; Basophil% 0.4 % (0-1); Eosinophil# 0.04 X10^3/uL; Eosinophils% 0.9 % (0-5); Hematocrit 37.6 % (37-47); Lymphocyte # 0.35 X10^3/ul (0.83-4.51); Lymphocyte % 7.5 % (19-41); Mean Corp Hgb Conc 31.9 g/dL (32-36); Mean Corpuscular Hgb 27.7 pg (27.0-32.0); Mean Corpuscular Volume 86.8 fL (81-99); Mean Platelet Vol. 10.3 fl (6.2-12.0); Monocyte# 0.78 X10^3/uL; Monocyte% 16.8 % (0-10); NRBC Flagged by Analyzer 0 % (0-5); Neutrophil # 3.43 X10^3/uL (2.7-7.7); POSITIVE DIFFERENTIAL YES; Platelet Count 138 K/mm3 (150-450); RBC Distribution Width CV 15.4 % (11.6-14.6); RBC Distribution Width SD 48.9 fl (35.1-43.9); Red Blood Count 4.33 M/mm3 (4.2-5.4); White Blood Count 4.6 K/mm3 (4.4-11.0)
[2023-12-20 16:08] LABS: Anion Gap 9 (5-15); BUN 15 mg/dL (7-18); BUN/Creat Ratio 17.5 RATIO (10-20); Calcium,Total 8.7 mg/dL (8.5-10.1); Chloride 101 mmol/L (98-107); Creatinine, Serum 0.86 mg/dL (0.55-1.02); EST Glomerular Filtration Rate 68 mL/min (>60); Est Glom Filt Rate - Afr Amer 82 mL/min (>60); Estimated Creatinine Clearance 46.96 ml/min; Glucose 109 mg/dL (74-106); Potassium 3.8 mmol/L (3.5-5.1); Sodium Level 137 mmol/L (136-145); Troponin-I HS 13 pg/mL (3.0-54.0)
--- NOTE | 2023-12-20 16:19 | EDS_ITS ---
HPI History of Present Illness Chief Complaint: Shortness of Breath Informant: patient Onset/Context/Timing Onset: Days (4) Context: gradual Timing: Continuous Quality: Positive for Dyspnea on exertion Worsened by: Exertion Relieved by: Nothing Associated Symptoms cough, post nasal drip, subjective and chills; Negative for ear pain, fever, sore throat, clear sputum, white sputum, yellow sputum or green sputum Narrative Narrative: Patient presents with shortness of breath that has been getting worse over the last 4 days. Patient states it was gradual getting worse. Patient states that she was diagnosed with COVID today. Patient was then referred to the emergency department from the urgent care. Patient states her breathing is worse with exertion. Patient is nothing seems to help with it. Patient admits to a cough. Patient states her cough is worse when she lays down at night. Patient denies any sputum production. Patient admits to some subjective chills but denies any fevers. Patient denies any sore throat or ear pain. Patient denies any chest pain. PE Risk Factors: Positive for Cancer; Negative for OCP + Smoking + > 35, Prior DVT or PE, Recent immobilization, Recent surgery or Recent travel [facility] Medical History Acute conjunctivitis, left eye Acute maxillary sinusitis, unspecified Broken rib Left breast mass Thyroid disorder Compression fracture of thoracic spine, non-traumatic Lung nodules Pathologic fracture Hiatal hernia Vertebral fracture Disc herniation Degenerative disc disease Back pain Longstanding persistent atrial fibrillation Hypokalemia due to excessive gastrointestinal loss of potassium Sleep disturbance Diarrhea Fatigue Chemotherapy management, encounter for Encounter for education Breast cancer in female Abnormal mammogram of left breast Chronic back pain Gastric ulcer GERD (gastroesophageal reflux disease) Abnormal mammogram of left breast (01/2019) Hyperlipidemia Palpitations Dilated cardiomyopathy [facility] (current) use of anticoagulants Home Medications ?Medication ?Instructions ?Recorded ?Last Taken ?Type multivitamin 1 tab PO DAILY supplement 03/01/17 02/19/18 History 1 TAB sertraline 50 mg tablet 50 mg PO DAILY depression 03/01/17 02/19/18 History 50 MG calcium carbonate (Calci-Chew) 1,200 mg PO DAILY 06/21/18 Unknown History esomeprazole magnesium 20 mg 20 mg PO DAILY 03/10/20 Unknown History capsule,delayed release tramadol 50 mg tablet 50 mg PO BID PRN Pain 02/21/21 Unknown History alendronate 70 mg tablet 70 mg PO QWEEK 06/27/21 Unknown History levothyroxine 50 mcg tablet 50 mcg PO DAILY 07/19/21 Unknown History warfarin 1 mg tablet 1 mg PO .COMPLEX as directed for 03/29/22 Unknown Rx heart #180 tabs tobramycin 0.3 % eye drops 1 drp ophthalmic (eye) Q2H #5 mL 11/06/22 Unknown Rx warfarin 4 mg tablet 4 mg PO .COMPLEX afib #180 tabs 04/19/23 Unknown Rx carvedilol 25 mg tablet 25 mg PO BID for blood pressure 12/10/23 Unknown Rx #180 TABLETS Allergy/AdvReac Type Severity Reaction Status Date / Time crab Allergy Severe Rash Verified 12/20/23 14:39 rofecoxib (From Vioxx) Allergy Severe Nausea/Vom/ Verified 12/20/23 14:39 Diarrhea amoxicillin (From Augmentin) Allergy Intermediate lip Verified 12/20/23 14:39 swelling clavulanic acid (From Allergy Intermediate lip Verified 12/20/23 14:39 Augmentin) swelling clarithromycin (From Biaxin) AdvReac Severe Nausea/Vom/ Verified 12/20/23 14:39 Diarrhea levofloxacin (From Levaquin) AdvReac Severe Nausea/Vom/ Verified 12/20/23 14:39 Diarrhea risedronate sodium (From AdvReac Severe Nausea/Vom/ Verified 12/20/23 14:39 Actonel) Diarrhea Thbgcpq-NZP-DyM Reductase AdvReac Severe myalgia Verified 12/20/23 14:39 Inhibitor (Owozrdy-Jfo-Aco Reductase Inhibitor) Family History Brother CAD (coronary artery disease) Brother CAD (coronary artery disease) Hypertension Mother Cancer Father Heart disease Sister CAD (coronary artery disease) Son Hyperlipidemia Surgical History History of kyphoplasty (02/13/20) port placement Status post left breast lumpectomy History of left breast biopsy (01/2019) History of colonoscopy (01/2018) History of exploratory laparotomy Social History Smoking Status: Never smoker alcohol intake: current alcohol intake frequency: holidays/special occasions only substance use type: does not use caffeine: Yes Type: coffee Number of servings: 1 what type of physical activity do you participate in: none ROS ROS ED Constitutional Constitutional ED: Denies chills or fever(s) Eyes Eyes: Denies blurry vision or change in vision ENT ENT ED: Denies rhinorrhea or sore throat Cardiovascular Cardiovascular: Denies chest pain or palpitations Respiratory/Chest Respiratory/Chest: Reports cough and dyspnea Gastrointestinal Gastrointestinal: Denies nausea or vomiting Genitourinary Genitourinary ED: Denies dysuria or hematuria Musculoskeletal Musculoskeletal: Reports back pain; Denies neck pain Integumentary Denies abscess or rash Neurologic Neurologic: Reports headache(s); Denies weakness Allergic/Immunologic Allergic/Immunologic ED: Denies mouth swelling or urticaria EXAM Physical Exam Const Vital Signs: 12/20/23 14:39 12/20/23 14:41 12/20/23 16:32 Temperature 97.2 F L 97.2 F L Temperature Source Temporal Temporal Pulse Rate 94 94 Respiratory Rate 18 18 Respiratory Effort Respiratory Depth Respiratory Pattern Blood Pressure 104/83 H 104/83 H Blood Pressure Mean 90 90 Pulse Ox 93 93 93 Oxygen Delivery Method Room Air Room Air Room Air 12/20/23 16:32 12/20/23 16:32 12/20/23 16:32 Temperature 99.8 F H Temperature Source Temporal Pulse Rate 88 Respiratory Rate 20 H 20 H Respiratory Effort Normal Respiratory Depth Normal Respiratory Pattern Normal Blood Pressure 96/69 Blood Pressure Mean 78 Pulse Ox 93 93 Oxygen Delivery Method Room Air Room Air 12/20/23 17:00 12/20/23 18:03 12/20/23 18:55 Temperature 99.5 F H 97.2 F L 97.3 F L Temperature Source Oral Oral Oral Pulse Rate 87 87 Respiratory Rate 22 H 23 H Respiratory Effort Respiratory Depth Respiratory Pattern Blood Pressure 109/67 115/75 Blood Pressure Mean 81 88 Pulse Ox 92 93 Oxygen Delivery Method Room Air Positive well nourished and well developed General Appearance ED: well developed and NAD HEENT Reports moist mucous membranes Neck supple and no JVD Resp normal respiratory effort Auscultation: rales bilateral base Cardio regular rate Rhythm: abnormal rhythm irregularly irregular GI non-tender and non-distended Palpation: soft Neuro oriented x3, CN's II-XII intact bilaterally and no sensory deficits noted Sensorium / Orientation: alert Motor Exam: strength 5/5 throughout Psych mental status grossly normal MDM MDM MDM Narrative Medical decision making narrative: Differential diagnosis includes congestive heart failure, pneumonia, bronchitis, cardiac dysrhythmia, cardiac ischemia, electrolyte abnormality, and pulmonary embolism. EKG will be obtained to assess for cardiac dysrhythmia and cardiac ischemia. Chest x-ray will be obtained to assess for pneumonia and pneumothorax. CBC will be obtained to assess for leukocytosis or anemia. Basic metabolic profile will be obtained to assess for electrolyte abnormality and renal function. High-sensitivity troponin will be obtained to assess for cardiac ischemia. D-dimer will be obtained to assess for pulmonary embolism. BNP will be obtained to assess for congestive heart failure. Lab Data Attestation: I reviewed the patient's lab results. Lab results narrative: CBC was reviewed and showed mild thrombocytopenia of 138. The remainder was within normal limits. Basic metabolic profile was reviewed and was within normal limits. High-sensitivity troponin was reviewed and was normal at 13. D- dimer was reviewed and was 0.60 which is normal for the patient's age. BNP was reviewed and was elevated at 400.2. This was increased from previous result. Labs: Laboratory Results - last 24 hr 12/20/23 12/20/23 15:28 17:18 WBC 4.6 RBC 4.33 Hgb 12.0 Hct 37.6 MCV 86.8 MCH 27.7 MCHC 31.9 L RDW Std Deviation 48.9 H RDW Coeff of Florin 15.4 H Plt Count 138 L MPV 10.3 Immature Gran % (Auto) 0.400 Neut % (Auto) 74.0 H Lymph % (Auto) 7.5 L [place] % (Auto) 16.8 H Eos % (Auto) 0.9 Baso % (Auto) 0.4 Absolute Neuts (auto) 3.4 Absolute Lymphs (auto) 0.35 L Nucleated RBC % 0 Differential Comment SEE COMMENT Platelet Estimate SLT DEC RBC Morphology NORM C+C Anisocytosis RARE D-Dimer Quant (PE/DVT) 0.60 H* Sodium 137 Potassium 3.8 Chloride 101 Carbon Dioxide 27.0 Anion Gap 9 BUN 15 Creatinine 0.86 Estim Creat Clear Calc 46.96 Est GFR (MDRD) Af Amer 82 Est GFR (MDRD) Non-Af 68 BUN/Creatinine Ratio 17.5 Glucose 109 H Calcium 8.7 Troponin I High Sens 13 B-Natriuretic Peptide 400.2 H Radiography Chest X-Ray - ED: 1 View, Read by ED Physician, Read by Radiologist and CHF Diagnostic Testing: Clinical Impression(s) from Imaging Studies Chest X-Ray 12/20/23 15:34 IMPRESSION: Findings suggestive of CHF with superimposed atelectasis and/or infiltrate at the left lung base on chronic scarring. Electronically Signed: Yosef Woodruff MD at 15:50 EDT , Portable 1 view chest x-ray was obtained. On my independent interpretation, lung hall show congestive heart failure with atelectasis and/or infiltrate in the left lung base. There is normal cardiac silhouette. Bony thorax is normal. Radiologist also interpreted the x-ray and agrees. Treatment and Re-Evaluation :: Patient was ambulated in the emergency department. Patient's pulse oximeter dropped to 88% while ambulating. Patient was given a dose of Lasix here. Patient was advised of the need for admission to the hospital. Patient is agreeable with this. Case was discussed with hospitalist. She will admit the patient to her service. Patient understood and was agreeable with the plan. All questions were answered. Discharge Plan Triage Chief Complaint: Shortness of Breath ED Provider: Cristofer Molina Dx/Rx/DC Orders Clinical Impression: Congestive heart failure, COVID-19, Hypoxia Prescriptions: No Action calcium carbonate [Calci-Chew] 500 mg calcium (1,250 mg) tablet,chewable 1,200 mg PO DAILY tramadol 50 mg tablet 50 mg PO BID PRN (Reason: Pain) alendronate 70 mg tablet 70 mg PO QWEEK levothyroxine 50 mcg tablet 50 mcg PO DAILY tobramycin 0.3 % drops 1 drp ophthalmic (eye) Q2H Qty: 5 0RF Rx Instructions: to affected eye(s) while awake for 5 days multivitamin 1 EACH tablet 1 tab PO DAILY sertraline 50 MG tablet 50 mg PO DAILY Patient Comments: esomeprazole magnesium 20 MG capsule 20 mg PO DAILY warfarin 1 mg tablet 1 mg PO .COMPLEX Qty: 180 3RF Protocol: Dose Management Condition: Sunday Dose/Route: 8 mg Instruction: 2 x 4 mg tablets Condition: Sunday Dose/Route: 8 mg Instruction: 2 x 4 mg tablets Condition: Sunday Dose/Route: 8 mg Instruction: 2 x 4 mg tablets Condition: Sunday Dose/Route: 8 mg Instruction: 2 x 4 mg tablets Condition: Dose/Route: 4 mg Instruction: 1 x 4 mg tablet Condition: Sunday Dose/Route: 4 mg Instruction: 1 x 4 mg tablet Condition: Sunday Dose/Route: 4 mg Instruction: 1 x 4 mg tablet Protocol Text: Adjustment Start Date: Sunday10/12/23 INR Value: 2.7 INR Date: 10/12/23 Recheck Date: 11/09/23 Rx Instructions: Take two tablets (2mg) with two of the 4 mg tablets on , , and to = 10 mg (take 8mg all other days); or as directed warfarin 4 mg tablet 4 mg PO .COMPLEX Qty: 180 3RF Protocol: Dose Management Condition: Sunday Dose/Route: 8 mg Instruction: 2 x 4 mg tablets Condition: Sunday Dose/Route: 8 mg Instruction: 2 x 4 mg tablets Condition: Sunday Dose/Route: 8 mg Instruction: 2 x 4 mg tablets Condition: Sunday Dose/Route: 8 mg Instruction: 2 x 4 mg tablets Condition: Dose/Route: 4 mg Instruction: 1 x 4 mg tablet Condition: Sunday Dose/Route: 4 mg Instruction: 1 x 4 mg tablet Condition: Sunday Dose/Route: 4 mg Instruction: 1 x 4 mg tablet Protocol Text: Adjustment Start Date: Sunday10/12/23 INR Value: 2.7 INR Date: 10/12/23 Recheck Date: 11/09/23 Rx Instructions: 4 mg PO 2 tablets (8mg) every evening except on , , and take with two of the 1 mg tablets to = 10 mg; or as directed carvedilol 25 mg tablet 25 mg PO BID Qty: 180 3RF Primary Care Provider: Cristofer Yadav Referrals: Cristofer Yadav MD [Primary Care Provider] - Print Language: Ukrainian Disposition Disposition: [facility]
[2023-12-20 16:27] LABS: Differential Indicated SCAN CRITERIA MET
[2023-12-20 16:29] LABS: Anisocytosis RARE; Platelet Estimate SLT DEC (ADEQ); Red Cell Morphology NORM C+C NORMAL (NORM C&C)
--- NOTE | 2023-12-20 16:37 | EKG12_ITS ---
Test Reason : SOB Blood Pressure : / mmHG Vent. Rate : 088 BPM Atrial Rate : 000 BPM P-R Int : 000 ms QRS Dur : 094 ms QT Int : 374 ms P-R-T Axes : 000 -41 070 degrees QTc Int : 452 ms Atrial fibrillation Left axis deviation Minimal voltage criteria for LVH, may be normal variant ( Egan product ) Abnormal ECG Confirmed by PRIYA BARKER, SURESH ([id number]), editor school photograph EDGAR PAGAN ([id number]) on 12/21/2023 6:33:28 AM Referred By: Confirmed By:WESTLEY POWERS MD
[2023-12-20 17:21] LABS: BNP,B-Type NATRIURETIC PEPTIDE 400.2 pg/mL (0-100)
--- NOTE | 2023-12-20 19:35 | PCM.HP.STD ---
HPI - General General Date of Admission: 12/20/23 Date of Service: 12/20/23 Chief Complaint: Shortness of breath HPI Narrative ASHELY CANTU, is a 78 F who presented to the emergency department [facility] 12/20/2023 with a chief complaint of shortness of breath. She went to urgent care earlier today and was diagnosed with COVID-19 infection was sent to the emergency department. Patient reports that she has had increased shortness of breath and cough along with associated chills, decreased appetite, generalized weakness and fatigue over about the last 3 to 4 days and is progressively weakening. She states her cough is dry without any production. She denies any increased swelling in her legs or orthopnea. She has a history of paroxysmal atrial fibrillation is chronically anticoagulated with Coumadin. 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 Vital signs on presentation showed a temperature of 97.2, heart rate was 94%, respiratory rate was 18, blood pressure was 104/83 and a pulse ox was 93% on room air. She was ambulated and pulse ox dropped to 88% on room air. CBC is overall unremarkable except for thrombocytopenia with a platelet count of 138,000 which is new. Her chemistry panel was unremarkable. Troponin is 13 and BNP was 400.2. EKG is A-fib with RVR, normal intervals and no ST-T wave changes concerning for acute ischemia. Chest x-ray shows stable right sided catheter with surgical clips in the left axilla and vascular congestion consistent with CHF. She was given a dose of Lasix and request for admission was made based on the a exertional hypoxia. [facility] Medical History Acute conjunctivitis, left eye Acute maxillary sinusitis, unspecified Broken rib Left breast mass Thyroid disorder Compression fracture of thoracic spine, non-traumatic Lung nodules Pathologic fracture Hiatal hernia Vertebral fracture Disc herniation Degenerative disc disease Back pain Longstanding persistent atrial fibrillation Hypokalemia due to excessive gastrointestinal loss of potassium Sleep disturbance Diarrhea Fatigue Chemotherapy management, encounter for Encounter for education Breast cancer in female Abnormal mammogram of left breast Chronic back pain Gastric ulcer GERD (gastroesophageal reflux disease) Abnormal mammogram of left breast (01/2019) Hyperlipidemia Palpitations Dilated cardiomyopathy half-way (current) use of anticoagulants Home Medications ?Medication ?Instructions ?Recorded ?Last Taken ?Type multivitamin 1 tab PO DAILY supplement 03/01/17 02/19/18 History 1 TAB sertraline 50 mg tablet 50 mg PO DAILY depression 03/01/17 02/19/18 History 50 MG esomeprazole magnesium 20 mg 20 mg PO DAILY 03/10/20 Unknown History capsule,delayed release alendronate 70 mg tablet 70 mg PO TH 06/27/21 Unknown History levothyroxine 50 mcg tablet 50 mcg PO DAILY 07/19/21 Unknown History carvedilol 25 mg tablet 25 mg PO BID for blood pressure 12/10/23 Unknown Rx #180 TABLETS calcium carbonate (Calcium 600) 1,200 mg PO DAILY 12/20/23 Unknown History warfarin 4 mg tablet 4 mg PO TH 12/20/23 Unknown History warfarin 4 mg tablet 8 mg PO SUMOTUWEFRSA afib 12/20/23 12/19/23 History Allergy/AdvReac Type Severity Reaction Status Date / Time crab Allergy Severe Rash Verified 12/20/23 14:39 rofecoxib (From Vioxx) Allergy Severe Nausea/Vom/ Verified 12/20/23 14:39 Diarrhea amoxicillin (From Augmentin) Allergy Intermediate lip Verified 12/20/23 14:39 swelling clavulanic acid (From Allergy Intermediate lip Verified 12/20/23 14:39 Augmentin) swelling clarithromycin (From Biaxin) AdvReac Severe Nausea/Vom/ Verified 12/20/23 14:39 Diarrhea levofloxacin (From Levaquin) AdvReac Severe Nausea/Vom/ Verified 12/20/23 14:39 Diarrhea risedronate sodium (From AdvReac Severe Nausea/Vom/ Verified 12/20/23 14:39 Actonel) Diarrhea Ejjsvsa-[id number]-KvA Reductase AdvReac Severe myalgia Verified 12/20/23 14:39 Inhibitor (Rmehqot-Ztt-Zgh Reductase Inhibitor) Family History Brother CAD (coronary artery disease) Brother CAD (coronary artery disease) Hypertension Mother Cancer Father Heart disease Sister CAD (coronary artery disease) Son Hyperlipidemia Surgical History History of kyphoplasty (02/13/20) port placement Status post left breast lumpectomy History of left breast biopsy (01/2019) History of colonoscopy (01/2018) History of exploratory laparotomy Social History Smoking Status: Never smoker alcohol intake: current alcohol intake frequency: holidays/special occasions only substance use type: does not use caffeine: Yes Type: coffee Number of servings: 1 what type of physical activity do you participate in: none ROS Constitutional Constitutional: Reports chills, fatigue, malaise, weakness and other Details: Decreased appetite ; Denies anorexia, change in weight, fever(s) or night sweats Eyes Eyes: Denies blurry vision, change in eye color, change in vision, discharge from eye(s), double vision, erythema, eye pain, loss of vision or other ENT HEENT: Reports headache(s), nasal congestion, post nasal drip and sinus pressure; Denies abnormal hearing, dysphagia, ear pain, epistaxis, hearing loss, nasal discharge, sore throat or other Cardiovascular Cardiovascular: Reports edema; Denies chest pain, claudication, dyspnea on exertion, lightheadedness, orthopnea, palpitations, paroxysmal nocturnal dyspnea, rapid heart rate, syncope or other Respiratory/Chest Respiratory/Chest: Reports cough, dyspnea, shortness of breath at rest and shortness of breath with exertion; Denies excessive phlegm production, hemoptysis, productive cough, wheezing or other Gastrointestinal Gastrointestinal: Denies abdominal pain, coffee ground emesis, constipation, diarrhea, dyspepsia, hematemesis, hematochezia, loose stools, melena, nausea, vomiting or other Genitourinary Genitourinary: Denies burning urination, difficulty urinating, dysuria, hematuria, nocturia, urinary frequency, urinary hesitancy, urinary incontinence, urinary urgency or other Musculoskeletal Musculoskeletal: Denies arthralgias, back pain, joint pain, joint stiffness, joint swelling, myalgias, neck pain or other Neurologic Neurologic: Reports headache(s); Denies abnormal gait, abnormal speech, confusion, disequilibrium, dizziness, focal weakness, numbness, paresthesias, seizure-like activity, seizures, syncope, tingling, tremor(s) or other Psychiatric Psychiatric: Denies anxiety, depression, homicidal ideation, suicidal ideation or other Endocrine Endocrinology: Denies change in body appearance, cold intolerance, excessive sweating, heat intolerance, polydipsia, polyuria or other Hematologic/Lymphatic Hematologic/Lymphatic: Denies anemia, easy bleeding, easy bruising, lymphadenopathy or other Allergic/Immunologic Allergic/Immunologic: Denies rhinitis, hives, eczemia, asthma or other Vital Signs Vital Signs Vital Signs: 12/20/23 14:39 12/20/23 14:41 12/20/23 16:32 Temperature 97.2 F L 97.2 F L Temperature Source Temporal Temporal Pulse Rate 94 94 Respiratory Rate 18 18 Respiratory Effort Respiratory Depth Respiratory Pattern Blood Pressure 104/83 H 104/83 H Blood Pressure Mean 90 90 Pulse Ox 93 93 93 Oxygen Delivery Method Room Air Room Air Room Air 12/20/23 16:32 12/20/23 16:32 12/20/23 16:32 Temperature 99.8 F H Temperature Source Temporal Pulse Rate 88 Respiratory Rate 20 H 20 H Respiratory Effort Normal Respiratory Depth Normal Respiratory Pattern Normal Blood Pressure 96/69 Blood Pressure Mean 78 Pulse Ox 93 93 Oxygen Delivery Method Room Air Room Air 12/20/23 17:00 12/20/23 18:03 12/20/23 18:55 Temperature 99.5 F H 97.2 F L 97.3 F L Temperature Source Oral Oral Oral Pulse Rate 87 87 Respiratory Rate 22 H 23 H Respiratory Effort Respiratory Depth Respiratory Pattern Blood Pressure 109/67 115/75 Blood Pressure Mean 81 88 Pulse Ox 92 93 Oxygen Delivery Method Room Air Weight Weight: 62.8 kg Body Mass Index (BMI) 25.3 Physical Exam Const alert, oriented x3, no apparent distress, average body habitus and well nourished Constitutional Narrative: Older, white female, sitting up in bed, currently appears comfortable but does appear ill however does not appear toxic General Appearance: cooperative HEENT normocephalic, head/scalp atraumatic, hearing grossly normal bilaterally and moist oral mucous membranes HEENT Narrative: Mallampati 2, no thrush, maxillary tenderness noted with nasally sounding voice Eyes PERRL, EOMs intact bilaterally and conjunctivae normal Eyes Narrative: No scleral icterus Neck no lymphadenopathy and supple Resp normal respiratory effort, no retractions, no use of accessory muscles and No clear to auscultation bilaterally Resp Narrative: Crackles at bases bilaterally Auscultation: crackles; Negative for rhonchi or wheezes Cardio regular rate, S1 normal heart sound, S2 normal heart sound, no murmurs, no rub, no gallops and no clicks Cardio Narrative: Irregular irregular rhythm GI normal to inspection, nondistended, normoactive bowel sounds, soft to palpation and non-tender Extremity Extremity Narrative: Bilateral lower extremity edema noted, nonpitting, no cyanosis or clubbing Neuro oriented x3, moves all extremities and no focal motor deficits Neuro Narrative: Generalized weakness noted but no focal deficits Speech: speech normal Psych Psych Narrative: Affect is slightly flat due to feeling ill but patient interacts appropriately and answers questions appropriately Results Lab / Micro Data 12/20/23 15:28 12/20/23 15:28 Labs: Laboratory Results - last 24 hr 12/20/23 15:28: WBC 4.6, RBC 4.33, Hgb 12.0, Hct 37.6, MCV 86.8, MCH 27.7, MCHC 31.9 L, RDW Std Deviation 48.9 H, RDW Coeff of Florin 15.4 H, Plt Count 138 L, MPV 10.3, Immature Gran % (Auto) 0.400, Neut % (Auto) 74.0 H, Lymph % (Auto) 7.5 L, [place] % (Auto) 16.8 H, Eos % (Auto) 0.9, Baso % (Auto) 0.4, Absolute Neuts (auto) 3.4, Absolute Lymphs (auto) 0.35 L, Nucleated RBC % 0, Differential Comment SEE COMMENT, Platelet Estimate SLT DEC, RBC Morphology NORM C+C, Anisocytosis RARE, Sodium 137, Potassium 3.8, Chloride 101, Carbon Dioxide 27.0, Anion Gap 9, BUN 15, Creatinine 0.86, Estim Creat Clear Calc 46.96, Est GFR (MDRD) Af Amer 82, Est GFR (MDRD) Non-Af 68, BUN/Creatinine Ratio 17.5, Glucose 109 H, Calcium 8.7, Troponin I High Sens 13, B-Natriuretic Peptide 400.2 H 12/20/23 17:18: D-Dimer Quant (PE/DVT) 0.60 H* Imaging Radiology Impression Chest X-Ray 12/20/23 15:34 IMPRESSION: Findings suggestive of CHF with superimposed atelectasis and/or infiltrate at the left lung base on chronic scarring. Electronically Signed: Yosef Woodruff MD at 15:50 EDT , Assessment & Plan Assessment/Plan (1) COVID-19: (2) Acute on chronic HFrEF (heart failure with reduced ejection fraction): (3) Shortness of breath: (4) Hypoxia: (5) Thrombocytopenia: PLAN: Plan Shortness of breath with exertional hypoxia secondary to acute COVID-19 infection and acute on chronic HFrEF -Check echocardiogram -Done just a year ago with an EF of 50% and appeared to be recovering -Lasix 40 mg IV push twice daily -Patient did get a dose in the emergency department and will give another dose through the evening with her subsequent dose being due at 10 AM -Accurate I's and O's -Daily weights -Shashi bandages if needed -Fluid restricted to 1750 daily -Sodium restricted diet -Decadron 6 mg p.o. daily--> day 1 of 10 -Antitussives as needed -As needed aerosols -Incentive spirometry and Acapella -Will need an ambulatory pulse ox at discharge Thrombocytopenia -Acute but mild -Like related to COVID-19 infection and volume overload -Repeat lab in a.m. Paroxysmal atrial fibrillation -Continue home carvedilol -Continue home Coumadin -Check daily INR GERD/large hiatal hernia -Continue home PPI therapy Hypothyroidism -Continue home levothyroxine -Check TSH in a.m. Tachycardia mediated cardiomyopathy -EF has improved to 50% on her last echocardiogram -Also was treated with cardiotoxic therapy for history of breast cancer and received radiation -Echocardiogram as above -Continue cardiac therapy History of breast cancer -Underwent Taxotere and Cytoxan therapy with adjuvant radiation therapy -Remains in remission at this time -Continue outpatient follow-up Osteoporosis -Restart alendronate at discharge DVT prophylaxis -Continue home warfarin CODE STATUS -Full code as verified at the time of admission Charges/Coding Visit Charges Inpatient E&M: 01136 Init Hosp L2
[2023-12-20 20:11] LABS: International Normalized Ratio 2.2; Prothrombin Time (Protime)PT. 24.3 SECONDS (11.7-14.9)
[2023-12-20] MEDS: Furosemide 40 MG/4 ML Vial IV (20:11)
[2023-12-20] MEDS: Sodium Chloride 0.65% 1 SPRAY SPRAY.BTL 2 SPRAY NASAL (22:43)
[2023-12-20] MEDS: dexAMETHasone 4 MG Tablet 6 MG PO (22:43)
[2023-12-20] MEDS: Carvedilol 25 MG Tablet PO (22:43)
[2023-12-20] MEDS: Benzonatate 100 MG Capsule PO (22:46)
[2023-12-20] MEDS: Acetaminophen 325 MG Tablet 650 MG PO (22:47)
[2023-12-21] VITALS (12 sets, daily range): BP systolic 88–115; BP diastolic 56–69; PULSE 72–85; RESP 18; TEMP 35.7–36.6; O2SAT 91–98; BMI 28.3
--- NOTE | 2023-12-21 05:55 | ECHOD_ITS ---
Reason For Study: CHF Procedure This was a 2D Doppler, Color Flow transthoracic echocardiogram. The exam was abbreviated due to the COVID 19 protocol. Exam performed portable in patient room. Left Ventricle Normal size and thickness. The left ventricular ejection fraction is 65 %. Unable to assess diastolic function based on available data. Right Ventricle Normal right ventricle. Atria There is severe biatrial dilatation. Mitral Valve Moderate mitral annular calcification. Mild (1+) mitral valve insufficiency. Tricuspid Valve Moderate (2+) tricuspid valve insufficiency. Normal pulmonary artery pressure. Aortic Valve Mild aortic valve stenosis with mild regurgitation. Pulmonic Valve The pulmonic valve is not well visualized. Great Vessels Normal sized aortic root. Pericardium/Pleural No pericardial effusion. MMode/2D Measurements & Calculations LVIDd: 4.9 cm IVSd: 0.70 cm LAV(MOD-bp): 117.4 ml LVIDs: 3.4 cm LVPWd: 0.89 cm LAV(MOD-bp) Indexed: 70.2 ml/m2 FS: 30.1 % LAV(MOD-sp2): 105.3 ml LAV(MOD-sp4): 125.4 ml SV(MOD-sp4): 36.1 ml SV(sp4-el): 37.6 ml LVAd ap4: 23.0 cm2 LVLd ap4: 6.6 cm EDV(MOD-sp4): 66.8 ml EDV(sp4-el): 68.2 ml LVAs ap4: 14.5 cm2 LVLs ap4: 5.8 cm ESV(MOD-sp4): 30.8 ml ESV(sp4-el): 30.6 ml EF(MOD-sp4): 54.0 % EF(sp4-el): 55.1 % LA A4 area: 35.1 cm2 RA A4 area: 22.2 cm2 Doppler Measurements & Calculations Ao V2 max: 200.4 cm/sec LV V1 max: 143.5 cm/sec Ao max P.1 mmHg LV V1 max P.3 mmHg Ao V2 mean: 140.0 cm/sec LV V1 mean P.2 mmHg Ao mean P.9 mmHg LV V1 mean: 108.9 cm/sec Ao V2 VTI: 36.6 cm LV V1 VTI: 27.8 cm AV (velocity ratio): 0.76 ECHO/Echo Complete Interpretation Summary The left ventricular ejection fraction is 65 %. There is severe biatrial dilatation. Moderate mitral annular calcification. Mild (1+) mitral valve insufficiency. Moderate (2+) tricuspid valve insufficiency. Mild aortic valve stenosis with mild regurgitation Ordering Physician: Priscilla Azul Referring Physician: LYNN CONTRERAS Performed By: Anne-Marie Szymanski RCS
[2023-12-21] MEDS: Levothyroxine 50 MCG Tablet PO (05:57)
--- NOTE | 2023-12-21 07:15 | PCM.PN.HOSP ---
Reason for Visit Reason for Visit: Diagnoses Thrombocytopenia, unspecified (12/20/23) Acute on chronic systolic (congestive) heart failure (12/20/23) Shortness of breath (12/20/23) Hypoxemia (12/20/23) COVID-19 (12/20/23) Subjective Subjective Patient with no acute events overnight per self and per nursing reports but does continue to require mild supplemental oxygenation and BP on the lower end following IV Lasix 40 mg x 2 dosing per ED physician and upon admission per hospitalist. Patient notes still dyspnea, worse with exertion but she is able to move up and around in the room but feels weak and fatigued. Patient denies fevers, chills, nausea, emesis, abdominal pain, chest pain. Objective Data Objective Data Vital Signs: Vital Signs Temp Pulse Resp BP Pulse Ox O2 Del Method O2 Flow Rate 96.3 F L 85 18 101/56 L 98 Nasal Cannula 2 12/21/23 03:15 12/21/23 03:15 12/21/23 03:15 12/21/23 03:15 12/21/23 03:15 12/21/23 03:15 12/21/23 03:15 Oxygen Flow Rate (L/min) 2 Oxygen Delivery Method Nasal Cannula Weight: 150 lb 2.157 oz Body Mass Index (BMI) 28.3 Intake & Output: Intake and Output for Last 24 Hours 12/19/23 12/20/23 12/21/23 23:59 23:59 23:59 Intake Total 50 / 50 Balance 50 / 50 Lab / Micro Data 12/21/23 06:30 12/21/23 06:30 Labs: Laboratory Results - last 24 hr 12/20/23 15:28: WBC 4.6, RBC 4.33, Hgb 12.0, Hct 37.6, MCV 86.8, MCH 27.7, MCHC 31.9 L, RDW Std Deviation 48.9 H, RDW Coeff of Florin 15.4 H, Plt Count 138 L, MPV 10.3, Immature Gran % (Auto) 0.400, Neut % (Auto) 74.0 H, Lymph % (Auto) 7.5 L, [place] % (Auto) 16.8 H, Eos % (Auto) 0.9, Baso % (Auto) 0.4, Absolute Neuts (auto) 3.4, Absolute Lymphs (auto) 0.35 L, Nucleated RBC % 0, Differential Comment SEE COMMENT, Platelet Estimate SLT DEC, RBC Morphology NORM C+C, Anisocytosis RARE, Sodium 137, Potassium 3.8, Chloride 101, Carbon Dioxide 27.0, Anion Gap 9, BUN 15, Creatinine 0.86, Estim Creat Clear Calc 46.96, Est GFR (MDRD) Af Amer 82, Est GFR (MDRD) Non-Af 68, BUN/Creatinine Ratio 17.5, Glucose 109 H, Calcium 8.7, Troponin I High Sens 13, B-Natriuretic Peptide 400.2 H 12/20/23 17:18: D-Dimer Quant (PE/DVT) 0.60 H* 12/20/23 19:28: PT 24.3 H, INR 2.2 Radiography Diagnostic Testing: Radiology Impression Chest X-Ray 12/20/23 15:34 IMPRESSION: Findings suggestive of CHF with superimposed atelectasis and/or infiltrate at the left lung base on chronic scarring. Electronically Signed: Yosef Woodruff MD at 15:50 EDT , Physical Exam Narrative Physical Examination: General: Awake, alert, oriented x 3 and cooperative, up in the room, ambulating, appears fatigued with mild tachypnea but in no severe distress. Skin: Normal color, normal turgor, no icterus, no cyanosis except occasional staged ecchymoses, venous stasis disease HEENT: AT/NC, EOMI, PERRLA, mildly dry MM. Lungs: Diffusely diminished, greater bases, mildly increased respiratory rate, mild bilateral rales at the bases, no rhonchi or wheezing, no distress. Heart: Irregular, rate currently improved; no gallop, rub audible. Abdomen: Soft, NTTP, ND, normal BS. Extremities: No cyanosis, no clubbing, mild not markedly pitting ankle edema. Neurological: Patient awake, alert, oriented as noted, cognitive function intact; pupils equally reactive to light and accommodation, cranial nerves grossly normal, moving all 4 extremities, no focal deficits, strength moderately to severely globally decreased Psychiatric: Affect appears fatigued, feels as though her respiratory status has improved since initial ED presentation, no acute evidence of depressive or anxiety feelings. Assessment & Plan Assessment/Plan (1) COVID-19: (2) Acute on chronic HFrEF (heart failure with reduced ejection fraction): PLAN: Plan The patient is a 78 y/o F w/ PMHx: HFrEF, HTN, HLD, PAF on coumadin, Hypothyroidism, History of L Breast invasive ductal carcinoma, Chronic Fe deficiency anemia who presents to the [facility] ED on 12/20/23 with history of progressively worsening dyspnea over the last 3 to 4 days with cough without marked productive sputum, chills, decreased appetite, fatigue, myalgias with no marked increased edema and unclear if any weight gain but given worsened status prompted ED evaluation to be cautious. #1. Acute Hypoxia, multifactorial secondary to Acute HFrEF Exacerbation and concurrent Acute Viral Syndrome, COVID-19 complicated by #2: Admitted to PCU, ED labs included BNP 400.2, troponin 13, positive COVID PCR, maintained on COVID precautions w/ from records symptom onset most likely 12/16/23, will maintain on oxygen with wean as tolerated to room air, PRN albuterol, HOB, IS parameters, COVID inflammatory panel obtained with D-dimer 0.60 normal for age adjustment, ferritin 53, LDH 195, CRP 35.4, procalcitonin 0.07, given hypoxia and timeline appropriate presentation will continue decadron x 10 doses in addition to following discussion with patient plan to initiate IV remdesivir. Patient administered IV Lasix 40 mg IV x 2, once in the ED and once following admission per hospitalist physician. Will discontinue IV Lasix scheduled twice daily at this time given hypotension and may pulsed dose as BP improves. Initial cardiac enzyme unremarkable. Will monitor I/Os, maintain on intake restriction, continue medical therapy. Magnesium 2.1. TSH 0.301 w/ pending FT4, repeat ECHO requested. PT/OT/CM consulted for discharge planning. #2. PAF w/ RVR, likely secondary to #1: We will continue patient home Coreg regimen as BP allows, improved rate following admission, continue Coumadin with INR trending, 2.2 upon admission, 12/21/23 INR 1.8, continue to trend, ECHO requested, magnesium 2.1, TSH 0.301 with pending FT4. #3. Acute thrombocytopenia, mild: Likely secondary to COVID illness, admission platelet 138, repeat normalized 12/21/23 platelet 155, continue to trend CBC. #4. Chronic Fe Deficiency anemia: Admission hemoglobin 12, MCV 86.8, baseline hemoglobin 12-13 primarily since 2021, 12/21/23 repeat hemoglobin 12.3, stable, continue ongoing outpatient evaluation with hematology and iron supplementation per their direction. #5. Abnormal thyroid function with hypothyroidism: Admission TSH 0.301, free T4 requested although checked in the acute setting of COVID illness, will continue levothyroxine regimen in the interim. #6. Hypertension: Will continue patient home Coreg as BP allows, initially BP appropriate however following IV Lasix dosing x 2 now low normal range. #7. Hyperlipidemia: Not on statin therapy per current list with noted myalgia side effect. #8. History of L Breast invasive ductal carcinoma: Reports Taxotere and Cytoxan therapy as well as adjuvant radiation therapy and lumpectomy, currently in remission, encourage continued outpatient follow-up with oncology Dr. Hartman (last visit noted 06/06/23) as previously arranged. #9. Cardiomyopathy, tachycardia mediated: Most recent previous echocardiogram with EF 50%, noted history of treatment as noted above with cardiotoxic therapy for breast cancer as well as radiation, repeat echo ordered per admitting physician and pending. #10. GERD with hard L hernia: We will continue patient on PPI. #11. DVT prophylaxis: Continue home coumadin w/ INR 2.2 upon admission, 12/21/23 INR 1.8, continue to trend. #12. CODE STATUS: Full Code. Charges/Coding Visit Charges Inpatient E&M: 12806 Subs Hosp L3
[2023-12-21 07:22] LABS: Absolute Lymphocyte Count 0.65 X10^3/uL (0.83-4.51); Absolute Neutrophil Count 1.8 X10^3/uL (2.0-7.7); Hematocrit 39.2 % (37-47); Hemoglobin 12.3 g/dL (12.0-15.0); Lymphocyte # 0.65 X10^3/ul (0.83-4.51); Lymphocyte % 24.6 % (19-41); Mean Corp Hgb Conc 31.4 g/dL (32-36); Mean Corpuscular Hgb 27.3 pg (27.0-32.0); Mean Corpuscular Volume 87.1 fL (81-99); Monocyte# 0.18 X10^3/uL; Monocyte% 6.8 % (0-10); NRBC Flagged by Analyzer 0 % (0-5); Neutrophil % 68.2 % (47-70); Platelet Count 155 K/mm3 (150-450); RBC Distribution Width CV 15.4 % (11.6-14.6); RBC Distribution Width SD 48.9 fl (35.1-43.9); White Blood Count 2.6 K/mm3 (4.4-11.0)
[2023-12-21 07:54] LABS: Erythrocyte Sedimentation Rate 30 mm/hr (0-30)
[2023-12-21 08:23] LABS: Ferritin 53 ng/mL (8-252); LDH 195 U/L (84-246)
[2023-12-21 08:30] LABS: Procalcitonin 0.07 ng/mL (0.00-0.09)
[2023-12-21 08:46] LABS: ALB/GLOB Ratio 0.8 RATIO (0.9-2.4); AST(SGOT) 32 U/L (15-37); Alanine Aminotransfer ALT/SGPT 19 U/L (13-56); Albumin, Serum 3.2 g/dL (3.2-5.0); Alkaline Phosphatase 68 U/L (45-117); Anion Gap 11 (5-15); BUN 21 mg/dL (7-18); BUN/Creat Ratio 21.8 RATIO (10-20); Calcium,Total 8.3 mg/dL (8.5-10.1); Chloride 101 mmol/L (98-107); Creatinine, Serum 0.96 mg/dL (0.55-1.02); EST Glomerular Filtration Rate 59 mL/min (>60); Est Glom Filt Rate - Afr Amer 72 mL/min (>60); Estimated Creatinine Clearance 42.64 ml/min; Globulin 3.9 g/dL (2.2-4.2); Glucose 107 mg/dL (74-106); Magnesium 2.1 mg/dL (1.6-2.6); Phosphorus 5.3 mg/dL (2.5-4.9); Potassium 3.7 mmol/L (3.5-5.1); Protein, Total 7.1 g/dL (6.4-8.2); Sodium Level 136 mmol/L (136-145); Thyroid Stim Hormone (TSH) 0.301 uIU/mL (0.358-3.740)
[2023-12-21 09:10] LABS: International Normalized Ratio 1.8; Prothrombin Time (Protime)PT. 20.5 SECONDS (11.7-14.9)
[2023-12-21] MEDS: dexAMETHasone 4 MG Tablet 6 MG PO (09:21)
[2023-12-21] MEDS: Sertraline 50 MG Tablet PO (09:22)
[2023-12-21] MEDS: Multivitamins,Therapeutic Tablet 1 TABLET PO (09:22)
[2023-12-21] MEDS: Calcium Carbonate 500 MG Tablet 1000 MG PO (09:22)
[2023-12-21] MEDS: Pantoprazole Sodium 20 MG Tablet PO (09:22)
[2023-12-21] MEDS: 0.9% Saline Lock 10 ML Syringe IV ×2 (09:42→16:41)
[2023-12-21] MEDS: Remdesivir 200 MG in 0.9% Normal Saline (250mL Bag) 210 ML 250 MG IV (09:42)
--- NOTE | 2023-12-21 11:00 | CASEMGMT ---
TRUDY CM Face to Face with patient for initial transition planning/care coordination assessment. RN CM introduced self and role at [facility]. Patient lying in bed, alert and oriented. Patient willing to participate in assessment and is able to answer all questions appropriately. Care providers, pharmacy, and demographics verified. Strata: 2 PCP: [facility] Specialists: Jenna, pain; Randi, door builder; Preferred Pharmacy: [facility] [place] Insurance: [employer] MCR Prescription Benefit: yes Living Will/HPOA: none LNOK: Living Arrangements: Patient lives with in a single story home with 2 steps. Patient is independent at home. Transportation: DIL, granddaughter DME/HHC: Patient denies DME in the home. No previous HHC or SNF. Will monitor for home oxygen, prefers [facility] after reviewing agencies with patient. Patient wishes to discharge home, denies need for home health at this time. Patient states she has no further needs or concerns at this time. CM to follow for discharge planning needs that may arise. Disposition Plan: Patient to discharge home with family support and follow-up plans in place. Will monitor for home oxygen Pamela TENORIO, RN, CM
[2023-12-21 14:28] LABS: T4 Free Direct 1.41 ng/dL (0.76-1.46)
[2023-12-21] MEDS: Benzonatate 100 MG Capsule PO (18:04)
[2023-12-21] MEDS: Carvedilol 25 MG Tablet PO (23:09)
[2023-12-22 04:09] VITALS: BMI 28.4
[2023-12-22 06:00] VITALS: BP 110/58; PULSE 86; RESP 18; TEMP 36.5; O2SAT 97
[2023-12-22] MEDS: Levothyroxine 50 MCG Tablet PO (06:59)
--- NOTE | 2023-12-22 06:59 | PN.HOSP_ITS ---
Reason for Visit Reason for Visit: Diagnoses Thrombocytopenia, unspecified (12/20/23) Acute on chronic systolic (congestive) heart failure (12/20/23) Shortness of breath (12/20/23) Hypoxemia (12/20/23) COVID-19 (12/20/23) Objective Data Objective Data Vital Signs: Vital Signs Temp Pulse Resp BP Pulse Ox O2 Del Method O2 Flow Rate 97.6 F L 80 18 115/69 95 Nasal Cannula 2 12/21/23 23:00 12/21/23 23:00 12/21/23 23:00 12/21/23 23:00 12/21/23 23:00 12/21/23 23:00 12/21/23 23:00 Oxygen Flow Rate (L/min) 2 Oxygen Delivery Method Nasal Cannula Weight: 150 lb 5.684 oz Body Mass Index (BMI) 28.4 Intake & Output: Intake and Output for Last 24 Hours 12/20/23 12/21/23 12/22/23 23:59 23:59 23:59 Intake Total 50 / 50 1210 / 1210 Balance 50 / 50 1210 / 1210 Lab / Micro Data 12/21/23 06:30 12/21/23 06:30 Labs: Laboratory Results - last 24 hr 12/21/23 06:30: WBC 2.6 L, RBC 4.50, Hgb 12.3, Hct 39.2, MCV 87.1, MCH 27.3, M CHC 31.4 L, RDW Std Deviation 48.9 H, RDW Coeff of Florin 15.4 H, Plt Count 155, MPV 11.0, Immature Gran % (Auto) 0.400, Neut % (Auto) 68.2, Lymph % (Auto) 24.6, Dillon % (Auto) 6.8, Eos % (Auto) 0.0, Baso % (Auto) 0.0, Absolute Neuts (auto) 1.8 L, Absolute Lymphs (auto) 0.65 L, Nucleated RBC % 0, ESR 30, PT 20.5 H, INR 1.8, Sodium 136, Potassium 3.7, Chloride 101, Carbon Dioxide 24.0, Anion Gap 11, BUN 21 H, Creatinine 0.96, Estim Creat Clear Calc 42.64, Est GFR (MDRD) Af Amer 72, Est GFR (MDRD) Non-Af 59 L, BUN/Creatinine Ratio 21.8 H, Glucose 107 H, C alcium 8.3 L, Phosphorus 5.3 H, Magnesium 2.1, Ferritin 53, Total Bilirubin 0.40, AST 32, ALT 19, Alkaline Phosphatase 68, Lactate Dehydrogenase 195, C- React Prot Ext Range 35.40 H, Total Protein 7.1, Albumin 3.2, Globulin 3.9, A lbumin/Globulin Ratio 0.8 L, Procalcitonin 0.07, TSH 0.301 L, Free T4 1.41 Physical Exam Narrative Physical Examination: General: Awake, alert, oriented x 3 and cooperative, up in the room, ambulating, appears fatigued with mild tachypnea but in no severe distress. Skin: Normal color, normal turgor, no icterus, no cyanosis except occasional staged ecchymoses, venous stasis disease HEENT: AT/NC, EOMI, PERRLA, mildly dry MM. Lungs: Diffusely diminished, greater bases, mildly increased respiratory rate, mild bilateral rales at the bases, no rhonchi or wheezing, no distress. Heart: Irregular, rate currently improved; no gallop, rub audible. Abdomen: Soft, NTTP, ND, normal BS. Extremities: No cyanosis, no clubbing, mild not markedly pitting ankle edema. Neurological: Patient awake, alert, oriented as noted, cognitive function intact; pupils equally reactive to light and accommodation, cranial nerves grossly normal, moving all 4 extremities, no focal deficits, strength moderately to severely globally decreased Psychiatric: Affect appears fatigued, feels as though her respiratory status has improved since initial ED presentation, no acute evidence of depressive or anxiety feelings. Assessment & Plan Assessment/Plan (1) COVID-19: (2) Acute on chronic HFrEF (heart failure with reduced ejection fraction): PLAN: Plan The patient is a 78 y/o F w/ PMHx: HFrEF, HTN, HLD, PAF on coumadin, Hypothyroidism, History of L Breast invasive ductal carcinoma, Chronic Fe deficiency anemia who presents to the [facility] ED on 12/20/23 with history of progressively worsening dyspnea over the last 3 to 4 days with cough without marked productive sputum, chills, decreased appetite, fatigue, myalgias with no marked increased edema and unclear if any weight gain but given worsened status prompted ED evaluation to be cautious. #1. Acute Hypoxia, multifactorial secondary to Acute HFrEF Exacerbation and concurrent Acute Viral Syndrome, COVID-19 complicated by #2: Admitted to PCU, ED labs included BNP 400.2, troponin 13, positive COVID PCR, maintained on COVID precautions w/ from records symptom onset most likely 12/16/23, will maintain on oxygen with wean as tolerated to room air, PRN albuterol, HOB, IS parameters, COVID inflammatory panel obtained with D-dimer 0.60 normal for age adjustment, ferritin 53, LDH 195, CRP 35.4, procalcitonin 0.07, given hypoxia and timeline appropriate presentation will continue decadron x 10 doses in addition to following discussion with patient plan to initiate IV remdesivir. Patient administered IV Lasix 40 mg IV x 2, once in the ED and once following admission per hospitalist physician. Will discontinue IV Lasix scheduled twice daily at this time given hypotension and may pulsed dose as BP improves. Initial cardiac enzyme unremarkable. Will monitor I/Os, maintain on intake restriction, continue medical therapy. Magnesium 2.1. TSH 0.301 w/ pending FT4, repeat ECHO requested. PT/OT/CM consulted for discharge planning. #2. PAF w/ RVR, likely secondary to #1: We will continue patient home Coreg regimen as BP allows, improved rate following admission, continue Coumadin with INR trending, 2.2 upon admission, 12/21/23 INR 1.8, continue to trend, ECHO requested, magnesium 2.1, TSH 0.301 with pending FT4. #3. Acute thrombocytopenia, mild: Likely secondary to COVID illness, admission platelet 138, repeat normalized 12/21/23 platelet 155, continue to trend CBC. #4. Chronic Fe Deficiency anemia: Admission hemoglobin 12, MCV 86.8, baseline hemoglobin 12-13 primarily since 2021, 12/21/23 repeat hemoglobin 12.3, stable, continue ongoing outpatient evaluation with hematology and iron supplementation per their direction. #5. Abnormal thyroid function with hypothyroidism: Admission TSH 0.301, free T4 requested although checked in the acute setting of COVID illness, will continue levothyroxine regimen in the interim. #6. Hypertension: Will continue patient home Coreg as BP allows, initially BP appropriate however following IV Lasix dosing x 2 now low normal range. #7. Hyperlipidemia: Not on statin therapy per current list with noted myalgia side effect. #8. History of L Breast invasive ductal carcinoma: Reports Taxotere and Cytoxan therapy as well as adjuvant radiation therapy and lumpectomy, currently in remission, encourage continued outpatient follow-up with oncology Dr. Hartman (last visit noted 06/06/23) as previously arranged. #9. Cardiomyopathy, tachycardia mediated: Most recent previous echocardiogram with EF 50%, noted history of treatment as noted above with cardiotoxic therapy for breast cancer as well as radiation, repeat echo ordered per admitting physician and pending. #10. GERD with hard L hernia: We will continue patient on PPI. #11. DVT prophylaxis: Continue home coumadin w/ INR 2.2 upon admission, 12/21/23 INR 1.8, continue to trend. #12. CODE STATUS: Full Code.
[2023-12-22 07:04] LABS: Absolute Lymphocyte Count 1.46 X10^3/uL (0.83-4.51); Absolute Neutrophil Count 2.7 X10^3/uL (2.0-7.7); Hematocrit 40.5 % (37-47); Hemoglobin 12.9 g/dL (12.0-15.0); Lymphocyte # 1.46 X10^3/ul (0.83-4.51); Lymphocyte % 28.9 % (19-41); Mean Corp Hgb Conc 31.9 g/dL (32-36); Mean Corpuscular Hgb 27.5 pg (27.0-32.0); Mean Corpuscular Volume 86.4 fL (81-99); Mean Platelet Vol. 10.9 fl (6.2-12.0); Monocyte# 0.87 X10^3/uL; Monocyte% 17.2 % (0-10); NRBC Flagged by Analyzer 0 % (0-5); Neutrophil # 2.72 X10^3/uL (2.7-7.7); Neutrophil % 53.7 % (47-70); Platelet Count 167 K/mm3 (150-450); RBC Distribution Width CV 15.5 % (11.6-14.6); RBC Distribution Width SD 48.6 fl (35.1-43.9); Red Blood Count 4.69 M/mm3 (4.2-5.4); White Blood Count 5.1 K/mm3 (4.4-11.0)
[2023-12-22 07:16] LABS: Prothrombin Time (Protime)PT. 22.2 SECONDS (11.7-14.9)
[2023-12-22 09:08] VITALS: O2SAT 97
[2023-12-22 09:11] VITALS: BP 95/64; PULSE 57; RESP 17; TEMP 36.6; O2SAT 95
[2023-12-22] MEDS: Pantoprazole Sodium 20 MG Tablet PO (09:13)
[2023-12-22] MEDS: Benzonatate 100 MG Capsule PO (09:13)
[2023-12-22] MEDS: Sertraline 50 MG Tablet PO (09:14)
[2023-12-22] MEDS: dexAMETHasone 4 MG Tablet 6 MG PO (09:14)
[2023-12-22] MEDS: Multivitamins,Therapeutic Tablet 1 TABLET PO (09:14)
[2023-12-22] MEDS: Calcium Carbonate 500 MG Tablet 1000 MG PO (09:14)
[2023-12-22] MEDS: Acetaminophen 325 MG Tablet 650 MG PO (09:15)
[2023-12-22 10:21] LABS: ALB/GLOB Ratio 0.8 RATIO (0.9-2.4); AST(SGOT) 31 U/L (15-37); Alanine Aminotransfer ALT/SGPT 21 U/L (13-56); Alkaline Phosphatase 60 U/L (45-117); Anion Gap 6 (5-15); BUN 25 mg/dL (7-18); BUN/Creat Ratio 27.9 RATIO (10-20); Calcium,Total 8.5 mg/dL (8.5-10.1); Chloride 106 mmol/L (98-107); EST Glomerular Filtration Rate 65 mL/min (>60); Est Glom Filt Rate - Afr Amer 78 mL/min (>60); Estimated Creatinine Clearance 45.51 ml/min; Globulin 3.7 g/dL (2.2-4.2); Glucose 94 mg/dL (74-106); Potassium 4.2 mmol/L (3.5-5.1); Protein, Total 6.7 g/dL (6.4-8.2); Sodium Level 141 mmol/L (136-145)
[2023-12-22] MEDS: Remdesivir 100 MG in 0.9% Normal Saline (250mL Bag) 230 ML 250 MG IV (10:29)
[2023-12-22 10:35] VITALS: O2SAT 94; O2SAT 97
--- NOTE | 2023-12-22 11:07 | CASEMGMT ---
Social Work As per admitting RN, pt does not have LW/POA, declined additional information. MITALI Ruiz
--- NOTE | 2023-12-22 11:53 | DS.PCM_ITS ---
Providers Date of Admission: 12/20/23 Date of Discharge: 12/22/23 Primary Care Physician: Dr. Lynn Yadav MD Reason For Visit: SOB SECONDARY TO ACUTE COVID 19 INFECTION AND HF Diagnosis Discharge Diagnosis (1) COVID-19: Status: Acute Code(s): U07.1 - COVID-19 (2) Acute on chronic HFrEF (heart failure with reduced ejection fraction): Status: Chronic Code(s): I50.23 - Acute on chronic systolic (congestive) heart failure Plan: DISCHARGE DIAGNOSES: #1. Acute Hypoxia, multifactorial secondary to Acute HFrEF Exacerbation and concurrent Acute Viral Syndrome, COVID-19 complicated by #2 #2. PAF w/ RVR, likely secondary to #1 #3. Acute thrombocytopenia, mild, Likely secondary to COVID illness #4. Chronic Fe Deficiency anemia #5. Abnormal thyroid function with hypothyroidism, subclinical #6. Hypertension #7. Hyperlipidemia #8. History of L Breast invasive ductal carcinoma, in remission #9. Cardiomyopathy, tachycardia mediated #10. GERD with hard L hernia #11. CODE STATUS: Full Code. Plan The patient is a 78 y/o F w/ PMHx: HFrEF, HTN, HLD, PAF on coumadin, Hypothyroidism, History of L Breast invasive ductal carcinoma, Chronic Fe deficiency anemia who presented to the [facility] ED on 12/20/23 with history of progressively worsening dyspnea over the last 3 to 4 days with cough without marked productive sputum, chills, decreased appetite, fatigue, myalgias with no marked increased edema and unclear if any weight gain but given worsened status prompted ED evaluation to be cautious. Admitted to PCU, ED labs included BNP 400.2, troponin 13, positive COVID PCR, maintained on COVID precautions w/ from records symptom onset most likely 12/16/23, will maintain on oxygen with wean as tolerated to room air, PRN albuterol, HOB, IS parameters, COVID inflammatory panel obtained with D-dimer 0.60 normal for age adjustment, ferritin 53, LDH 195, CRP 35.4, procalcitonin 0.07, given hypoxia and timeline appropriate presentation continued decadron x 10 doses planned in addition to IV remdesivir with loading dose and 1 additional dose administered prior to discharge. Patient administered IV Lasix 40 mg IV x 2, once in the ED and once following admission per hospitalist physician with low normal BP range following thus d/c on further regimen and temporary hold parameters on her coreg. Initial cardiac enzyme unremarkable. Maintained on intake restriction, Magnesium 2.1. TSH 0.301 w/ normal FT4 thus subclinical, ECHO w/ LVEF 65%, severe biatrial dilatation, mild MVI, moderate TBI, mild AV stenosis with mild regurgitation. PT/OT/CM consulted for discharge planning with no recommended home discharge therapy needs. Oxygenation assessment/ambulatory trial obtained and these results were reviewed and this patient qualified for the home equipment and portability with patient noted to be mobile in the home and the community. CM/SW following and assisted with setting up 2L NC with activity to maintain appropriate oxygenation > 88% but patient was stable on room air at rest of note. Patient discharged to home with continued oral Decadron to complete a 10-day course, recommended continued Coumadin with INR trending and blood pressure parameter hold on Coreg until clinically improved with preference to avoid any IV fluid boluses given initial presentation with overload status in the setting of COVID concurrently. Encouraged early follow-up with her primary care physician as well as follow-up with cardiology. DAY OF DISCHARGE PROGRESS NOTE: Subjective: Patient without acute event overnight per self and nursing report. Patient notes feeling improved, ambulating the room with no therapy needs. Patient transitioned off of nasal cannula at rest and tolerating room air well. Ambulatory trial performed and patient was noted to need only 2 L nasal cannula when ambulatory and active. Patient denies fever, chills, nausea, emesis, abdominal pain, chest pain or dyspnea. Patient agreeable to discharge to home with oxygen supplementation set up for home health. Patient will be discharged with follow-up with primary care physician within 3-5 days in addition to follow-up with cardiology. Objective: T97.7, heart rate 86, BP 110/58, respiratory rate 18, 97% on room air while at rest. Physical Examination: General: Awake, alert, oriented x 3 and cooperative, up in the room, seated upright in the PCU bed, improved appearance, no distress. Skin: Normal color, normal turgor, no icterus, no cyanosis except occasional staged ecchymoses, venous stasis disease HEENT: AT/NC, EOMI, PERRLA, MMM. Lungs: Diffusely diminished, greater bases, improved effort, normalized respiratory rate, no overt rales, no rhonchi or wheezing, no distress. Heart: Irregular, rate currently improved; no gallop, rub audible. Abdomen: Soft, NTTP, ND, normal BS. Extremities: No cyanosis, no clubbing, minimal ankle not pitting edema. Neurological: Patient awake, alert, oriented as noted, cognitive function intact; pupils equally reactive to light and accommodation, cranial nerves grossly normal, moving all 4 extremities, no focal deficits, strength improved, mildly to moderately globally creased Psychiatric: Affect appears less fatigued, more interactive and smiling, no acute evidence of depressive or anxiety feelings. Assessment and Plan: Please see hospital summary above. Medications at Discharge Home Medications multivitamin 1 tab PO DAILY supplement 03/01/17 sertraline 50 mg tablet 50 mg PO DAILY depression 03/01/17 esomeprazole magnesium 20 mg capsule,delayed release 20 mg PO DAILY 03/10/20 alendronate 70 mg tablet 70 mg PO TH 06/27/21 levothyroxine 50 mcg tablet 50 mcg PO DAILY 07/19/21 carvedilol 25 mg tablet 25 mg PO BID for blood pressure #180 TABLETS 12/10/23 calcium carbonate (Calcium 600) 1,200 mg PO DAILY 12/20/23 warfarin 4 mg tablet 4 mg PO TH 12/20/23 warfarin 4 mg tablet 8 mg PO SUMOTUWEFRSA afib 12/20/23 dexamethasone 4 mg tablet 6 mg (1.5 x 4 mg) PO DAILY 8 days #12 tabs 12/22/23 Weight / BMI Weight Weight: 150 lb 5.684 oz Body Mass Index (BMI) 28.4 ABG / Lab / Microbiology Data 12/22/23 06:30 12/22/23 06:30 Laboratory: Laboratory Results - last 24 hr 12/21/23 06:30: Free T4 1.41 12/22/23 06:30: WBC 5.1, RBC 4.69, Hgb 12.9, Hct 40.5, MCV 86.4, MCH 27.5, MCHC 31.9 L, RDW Std Deviation 48.6 H, RDW Coeff of Florin 15.5 H, Plt Count 167, MPV 10.9, Immature Gran % (Auto) 0.200, Neut % (Auto) 53.7, Lymph % (Auto) 28.9, M deep % (Auto) 17.2 H, Eos % (Auto) 0.0, Baso % (Auto) 0.0, Absolute Neuts (auto) 2.7, Absolute Lymphs (auto) 1.46, Nucleated RBC % 0, PT 22.2 H, INR 2.0, Sodium 141, Potassium 4.2, Chloride 106, Carbon Dioxide 29.0, Anion Gap 6, BUN 25 H, Creatinine 0.90, Estim Creat Clear Calc 45.51, Est GFR (MDRD) Af Amer 78, Est GFR (MDRD) Non-Af 65, BUN/Creatinine Ratio 27.9 H, Glucose 94, Calcium 8.5, Total Bilirubin 0.20, AST 31, ALT 21, Alkaline Phosphatase 60, Total Protein 6.7, Albumin 3.0 L, Globulin 3.7, Albumin/Globulin Ratio 0.8 L Radiography Diagnostic Testing: Radiology Impression Echocardiogram 12/21/23 05:55 Interpretation Summary The left ventricular ejection fraction is 65 %. There is severe biatrial dilatation. Moderate mitral annular calcification. Mild (1+) mitral valve insufficiency. Moderate (2+) tricuspid valve insufficiency. Mild aortic valve stenosis with mild regurgitation Ordering Physician: Priscilla Azul Referring Physician: LYNN YADAV Performed By: Anne-Marie Szymanski RCS D/C Instructions Discharge Diet: Low fat / Low cholesterol May resume sexual activity in: 10-14 days Weight Bearing Status: Weight bearing as tolerated Call your doctor if you observe: Fever of 101 or Higher, Shortness of breath, Dizziness, Swelling in the ankles, Chest pain, Increased palpitations (irregular heartbeat), Calf discomfort and Uncontrolled pain Meaningful Use Info Meaningful Use Meaningful Use Diagnoses (Choose all that apply): CHF CHF DELFINA/ARB ordered at discharge?: No Reason DELFINA/ARB not ordered?: Hypotension Documented LVEF (%): 65 Ischemic Stroke Statin Dosing Therapy Reference: STATIN DOSE THERAPY REFERENCE: * Patients > 75 years receive moderate or high dose statin therapy. * Patients 75 years or YOUNGER should receive HIGH intensity statin dose unless contraindicated. You will be required to document reason for non-treatment if statin daily dose does not meet guidelines. HIGH DOSE STATIN THERAPY DAILY Atorvastatin > than or = to 40 mg Rosuvastatin > than or = to 20 mg Amlodipine + Atorvastatin > than or = to 2.5/40 mg Ezetimibe + Simvastatin 10/80 mg Simvastatin 80mg Discharge Plan Admission Admit Date/Time: 12/20/23 19:27 Primary Reason for Your Visit: Acute Hypoxia, HF Exacerbation, COVID Viral Illness, PAF RVR Attending Provider: Susannah Philippe Primary Care Provider: Lynn Yadav Consulting Providers: Priscilla Azul Instructions Additional Instructions / Restrictions: ADDITIONAL DISCHARGE INSTRUCTIONS/FOLLOW-UP CARE: Acute Hypoxia, multifactorial secondary to Acute HFrEF Exacerbation and concurrent Acute Viral Syndrome, COVID-19: --ED evaluation with COVID PCR, troponin 13, BNP 400.2, follow-up COVID admission panel included D-dimer 0.60 normal for age adjustment, ferritin 53, LDH 195, CRP 35.4, procalcitonin 0.07. --Given concern initially for alse volume overload as noted patient administered IV lasix x 2 doses following which it was discontinued with low normal range blood pressures. --Patient treated with decadron regimen for plan of 10 days course in additional to initiation of IV remdesivir regimen with loading and one additional dose prior to discharge. --Please maintain COVID precautions with initial symptoms per admission symptoms reported likely 12/16/23, thus continue until 12/26/23 unless otherwise advised per your primary care physician. --Chest x-ray with concern for volume overload with superimposed atelectasis and possible scarring chronically at the left lung base. --EKG with atrial fibrillation with initially RVR with improvement following. --ECHO w/ LVEF 65%, severe biatrial dilatation, mild MVI, moderate TBI, mild AV stenosis with mild regurgitation. --TSH 0.301 however FT4 1.41 thus subclinical with follow with recommended repeat assessment outpatient once acute illness and presentation resolved with primary care physician. --Upon discharge your oxygenation remains appropriate on room air at rest however when you are ambulating to achieve appropriate oxygenation you require 2 L nasal cannula, please continue the supplementation with activity until weaned off per your primary care physician at follow-up. --Following lasix as noted your blood pressure was low normal range. Rather than given fluid, we held off on additional lasix and held your coreg. Please monitor your blood pressure and if systolic remains > 110 may resume this medication. We have encouraged also follow-up with Dr. Frances outpatient in the next 4-6 weeks. --Continue coumadin with routine outpatient INR trending as previously arranged. Discharge Orders/Prescriptions Prescriptions: New dexamethasone 4 mg Tablet 6 mg PO DAILY 8 Days Qty: 12 0RF Continued alendronate 70 mg tablet 70 mg PO TH levothyroxine 50 mcg tablet 50 mcg PO DAILY multivitamin 1 EACH tablet 1 tab PO DAILY sertraline 50 MG tablet 50 mg PO DAILY Patient Comments: esomeprazole magnesium 20 MG capsule 20 mg PO DAILY calcium carbonate [Calcium 600] 600 mg calcium (1,500 mg) tablet 1,200 mg PO DAILY warfarin 4 mg tablet 4 mg PO TH Rx Instructions: TAKE 2 TABS ONCE DAILY ON SUN, SUN, , SUN, SUN, SAT. TAKE 1 TAB ONCE DAILY ON . warfarin 4 mg tablet 8 mg PO LILI Protocol: Dose Management Condition: Sunday Dose/Route: 8 mg Instruction: 2 x 4 mg tablets Condition: Sunday Dose/Route: 8 mg Instruction: 2 x 4 mg tablets Condition: Sunday Dose/Route: 8 mg Instruction: 2 x 4 mg tablets Condition: Sunday Dose/Route: 8 mg Instruction: 2 x 4 mg tablets Condition: Dose/Route: 4 mg Instruction: 1 x 4 mg tablet Condition: Sunday Dose/Route: 4 mg Instruction: 1 x 4 mg tablet Condition: Sunday Dose/Route: 4 mg Instruction: 1 x 4 mg tablet Protocol Text: Adjustment Start Date: Sunday10/12/23 INR Value: 2.7 INR Date: 10/12/23 Recheck Date: 11/09/23 Rx Instructions: TAKE 2 TABS ONCE DAILY ON SUN, SUN, , SUN, SUN, SAT. TAKE 1 TAB ONCE DAILY ON . Held carvedilol 25 mg tablet 25 mg PO BID Qty: 180 3RF Hold Instructions: Resume on 12/23/23. May resume coreg as long as systolic blood pressure > 100. Hold for HR < 60. Referrals / Follow Up: Lynn Yadav MD [Primary Care Provider] - (Follow-up within 3-5 days to review admission.) Daniel Frances MD [Med Staff - Active Staff] - (Please follow-up with Cardiology for re-evaluation within 4-6 weeks.) Disposition Disposition (needs filled in before D/C Order can be placed): Home Health Service Charges/Coding Visit Charges Inpatient E&M: 00863 Disch Hosp >30min
[2023-12-22 12:18] VITALS: BP 100/68; PULSE 74; RESP 17; TEMP 36.6; O2SAT 95
== END 2023-12-22 13:59 | disposition home or self-care (01) | DRG 177 ==
LOC: ED 19:38 → PCU 19:55
PROVIDERS: Admitting Provider Internal Medicine; Emergency Provider Emergency Medicine; PCP Family Medicine; Visit Provider Family Medicine
DX: U07.1 COVID-19 (principal); I50.23 Acute on chronic systolic (congestive) heart failure; I42.0 Dilated cardiomyopathy; D69.59 Other secondary thrombocytopenia; I11.0 Hypertensive heart disease with heart failure; D50.9 Iron deficiency anemia, unspecified; E03.8 Other specified hypothyroidism; I48.0 Paroxysmal atrial fibrillation; E78.5 Hyperlipidemia, unspecified; K21.9 Gastro-esophageal reflux disease without esophagitis; K44.9 Diaphragmatic hernia without obstruction or gangrene; Z79.01 Long term (current) use of anticoagulants; Z79.83 Long term (current) use of bisphosphonates; Z79.890 Hormone replacement therapy; Z79.899 Other long term (current) drug therapy; Z85.3 Personal history of malignant neoplasm of breast; Z92.21 Personal history of antineoplastic chemotherapy; Z92.3 Personal history of irradiation
CPT/HCPCS: 36415; 71045; 80048; 80053; 82728; 83615; 83735; 83880; 84100; 84145; 84439; 84443; 84484; 85025; 85379; 85610; 85652; 86140; 93005; 93306; 94668; 99284; J7050; A4216; J0248; J1940

== ENCOUNTER → 2023-12-28 | Outpatient (CLI) | payer MEDICARE, SELFPAY ==
[2023-12-20 14:01] VITALS: BMI 24.4
--- NOTE | 2023-12-28 12:50 | RAD_ITS ---
STUDY: X-RAY CHEST REASON FOR EXAM: Female, 78 years old. Recent diagnosis of pneumonia. TECHNIQUE: PA and lateral views of the chest. COMPARISON: Comparison is made with prior study dated December 20, 2023. FINDINGS: A right-sided Port-A-Cath is seen with the tip at the junction of the superior vena cava and right atrium. Mild increased markings at the lung bases suggestive of basilar scarring. No focal pneumonia is seen. There is no demonstrated pleural abnormality. Normal size heart. Normal mediastinum and martha. Normal visualized pulmonary arteries. Normal visualized aortic arch and descending thoracic aorta. There is demineralization of the osseous structures. Increased kyphosis. Loss of height of multiple dorsal vertebrae. Prior vertebroplasty of the T12 vertebrae. Normal visualized ribs, clavicles, and shoulders. Large hiatal hernia. RAD/Chest PA and Lateral IMPRESSION: Findings suggestive scarring at the lung bases. No focal infiltrate is seen. Increased kyphosis with osteopenia of the thoracic vertebrae and loss of height of the femoral dorsal vertebrae. Electronically Signed: Yosef Woodruff MD at 13:26 EDT ,
== END | disposition home or self-care (01) ==
LOC: MTRAD 12:42
PROVIDERS: PCP Family Medicine; Referring Provider Family Medicine; Visit Provider Family Medicine
DX: J18.9 Pneumonia, unspecified organism (principal)
CPT/HCPCS: 71046

== ENCOUNTER 2024-01-14 10:31 | Outpatient (RCR) | payer MEDICARE, SELFPAY ==
[2020-07-13 10:59] VITALS: BMI 24.4
[2023-12-20 14:01] VITALS: BMI 24.4
[2024-01-14 12:47] LABS: International Normalized Ratio 1.4
== END 2024-01-28 23:59 ==
LOC: BIMLAB 10:31
PROVIDERS: PCP Family Medicine; Referring Provider Physician Assistant Medical; Visit Provider Physician Assistant Medical
DX: Z79.01 Long term (current) use of anticoagulants (principal); I48.11 Longstanding persistent atrial fibrillation
CPT/HCPCS: 36415; 85610

== ENCOUNTER → 2024-01-22 | Outpatient (CLI) | payer MEDICARE, SELFPAY ==
[2023-12-20 14:01] VITALS: BMI 24.4
--- NOTE | 2024-01-22 13:30 | RAD_ITS ---
EXAM: XR CHEST, 2 VIEWS CLINICAL INDICATION: cough TECHNIQUE: Frontal and lateral views of the chest. COMPARISON: 12/28/2023 FINDINGS: LUNGS AND PLEURAL SPACES: Unremarkable. No consolidation or edema. No pneumothorax. No effusion. HEART: Unremarkable. Cardiac silhouette not enlarged. MEDIASTINUM: There is enlargement of the cardiac lucency about a large hiatal hernia. BONES/JOINTS: There are multiple compression deformities of the thoracic spine with accentuated kyphosis is stable. SOFT TISSUES: Unremarkable. TUBES, LINES AND DEVICES: Right-sided Port-A-Cath in stable position. RAD/Chest PA and Lateral IMPRESSION: Large hiatal hernia. There has been no change from the reference exam. Electronically Signed: Michele Lew MD at 18:04 EDT ,
== END | disposition home or self-care (01) ==
LOC: MTRAD 13:30
PROVIDERS: PCP Family Medicine; Referring Provider Family Medicine; Visit Provider Family Medicine
DX: R05.9 Cough, unspecified (principal)
CPT/HCPCS: 71046

== ENCOUNTER 2024-01-30 11:24 | Emergency (ER) | payer MEDICARE, SELFPAY ==
[2023-12-20 14:01] VITALS: BMI 24.4
[2024-01-30 11:25] VITALS: BP 89/52
[2024-01-30 11:26] VITALS: BP 81/49; PULSE 74; RESP 16; TEMP 36.3; O2SAT 94; BMI 30.3
--- NOTE | 2024-01-30 11:35 | CT_ITS ---
STUDY: CT CERVICAL SPINE WITHOUT CONTRAST REASON FOR EXAM: Female, 78 years old. Trauma, fall RADIATION DOSAGE (If Supplied By Facility): CTDIvol = ( 15.8 ) mGy, DLP = ( 306.11 ) mGycm TECHNIQUE: High resolution transaxial imaging was performed without contrast material. Sagittal and coronal images were reconstructed. Individualized dose optimization techniques were used for this CT. COMPARISON: None FINDINGS: Normal craniovertebral junction. There are degenerative changes of the anterior atlantoaxial articulation. Normal odontoid process. There is an exaggerated cervical lordosis. Normal vertebral bodies and posterior osseous elements. C2-3: Normal endplates. Normal disc height and morphology. Normal central canal and intervertebral neuroforamina. C3-4: Facet joint osteoarthritis and hypertrophy. No significant stenosis seen. C4-5: No disc space narrowing. Facet joint osteoarthritis and hypertrophy worse on the left side with mild degree of bilateral neural foraminal stenosis. C5-6: Moderate degree of disc space narrowing. Posterior spondylosis. Mild degree of central canal stenosis. C6-7: Normal endplates. Normal disc height and morphology. Normal central canal and intervertebral neuroforamina. C7-T1: Normal endplates. Normal disc height and morphology. Normal central canal and intervertebral neuroforamina. Atherosclerotic plaque formation of the carotid bifurcations bilaterally. CT/Spine Cervical without Contras IMPRESSION: Multilevel degenerative changes, as described above. Electronically Signed: Yosef Woodruff MD at 12:50 EDT ,
--- NOTE | 2024-01-30 11:35 | CT_ITS ---
STUDY: CT BRAIN WITHOUT CONTRAST REASON FOR EXAM: Female, 78 years old. Head injury due to a fall. RADIATION DOSAGE (If Supplied By Facility): CTDIvol = ( 44.99 ) mGy, DLP = ( 779.24 ) mGycm TECHNIQUE: Transaxial CT imaging of the brain was performed without administration of intravenous contrast material. Individualized dose optimization techniques were used for this CT. COMPARISON: Comparison is made with prior study dated March 01, 2017. FINDINGS: Normal soft tissue structures. There is hyperostosis frontalis internus. There is mild cerebral atrophy with widening of the extra-axial spaces and ventricular dilatation. There are areas of decreased attenuation within the white matter tracts of the supratentorial brain, consistent with microvascular disease changes. Stable old lacunar infarcts of the basal ganglia. Normal brainstem. Normal cerebellum. There is no intracranial hemorrhage. There are no findings of an acute ischemic infarction. Atherosclerotic calcification of the cavernous portions of the internal carotid arteries bilaterally. Mucosal thickening of the ethmoid sinuses bilaterally. CT/Brain/Head without Contrast IMPRESSION: Chronic involutional changes of the brain. Electronically Signed: Yosef Woodruff MD at 12:47 EDT ,
--- NOTE | 2024-01-30 11:36 | EKG12_ITS ---
Test Reason : Blood Pressure : / mmHG Vent. Rate : 067 BPM Atrial Rate : 000 BPM P-R Int : 000 ms QRS Dur : 092 ms QT Int : 414 ms P-R-T Axes : 000 -42 048 degrees QTc Int : 437 ms Atrial fibrillation Left axis deviation Abnormal ECG Confirmed by DAVEY BARKER, CLAUDIA ([id number]), editor trade journal CHLOE BIRCH ([id number]) on 02/01/2024 11:45:37 AM Referred By: Confirmed By:CLAUDIA MARISCAL MD
--- NOTE | 2024-01-30 11:39 | EX.ED.GENINJ ---
HPI History of Present Illness Chief Complaint: Fall Informant: patient Narrative Narrative: Patient is a 78-year-old female with history of left breast cancer, atrial fibrillation (on Coumadin),, heart failure with reduced ejection fraction, hypertension, hyperlipidemia, hypothyroidism and recent admission for hypoxia secondary to heart failure exacerbation and COVID-19 infection (12/19 through 12/21). She is presenting today after mechanical fall. Patient was out front trying to take off some rope wipes when she did not realize there was step and fell landing on her left hip. She laid on the ground for at least an hour until neighbor came by and saw her and called 911. She is not sure if she hit her head. She is having significant pain of her left hip which she describes as a deep ache. Worse with any attempted movement. Notes that she has been feeling generally weak for the past few days but attributes that to her illness a month ago. Did have an outpatient chest x-ray a week ago for cough which was normal. Denies any swelling of her legs. No other complaints or concerns at this time. [facility] Medical History Atrial fibrillation COVID-19 Acute conjunctivitis, left eye Acute maxillary sinusitis, unspecified Broken rib Left breast mass Thyroid disorder Compression fracture of thoracic spine, non-traumatic Lung nodules Pathologic fracture Hiatal hernia Vertebral fracture Disc herniation Degenerative disc disease Back pain Longstanding persistent atrial fibrillation Hypokalemia due to excessive gastrointestinal loss of potassium Sleep disturbance Diarrhea Fatigue Chemotherapy management, encounter for Encounter for education Breast cancer in female Abnormal mammogram of left breast Chronic back pain Gastric ulcer GERD (gastroesophageal reflux disease) Abnormal mammogram of left breast (01/2019) Hyperlipidemia Palpitations Dilated cardiomyopathy [facility] (current) use of anticoagulants Home Medications ?Medication ?Instructions ?Recorded ?Last Taken ?Type multivitamin 1 tab PO DAILY supplement 03/01/17 02/19/18 History 1 TAB sertraline 50 mg tablet 50 mg PO DAILY depression 03/01/17 02/19/18 History 50 MG esomeprazole magnesium 20 mg 20 mg PO DAILY 03/10/20 Unknown History capsule,delayed release alendronate 70 mg tablet 70 mg PO TH 06/27/21 Unknown History levothyroxine 50 mcg tablet 50 mcg PO DAILY 07/19/21 Unknown History carvedilol 25 mg tablet 25 mg PO BID for blood pressure 12/10/23 Unknown Rx #180 TABLETS calcium carbonate (Calcium 600) 1,200 mg PO DAILY 12/20/23 Unknown History dexamethasone 4 mg tablet 6 mg (1.5 x 4 mg) PO DAILY 8 days 12/22/23 Unknown Rx #12 tabs warfarin 4 mg tablet 4 mg PO .COMPLEX #180 tabs 01/14/24 Unknown Rx Allergy/AdvReac Type Severity Reaction Status Date / Time crab Allergy Severe Rash Verified 01/11/24 09:11 rofecoxib (From Vioxx) Allergy Severe Nausea/Vom/ Verified 01/11/24 09:11 Diarrhea amoxicillin (From Augmentin) Allergy Intermediate lip Verified 01/11/24 09:11 swelling clavulanic acid (From Allergy Intermediate lip Verified 01/11/24 09:11 Augmentin) swelling clarithromycin (From Biaxin) AdvReac Severe Nausea/Vom/ Verified 01/11/24 09:11 Diarrhea levofloxacin (From Levaquin) AdvReac Severe Nausea/Vom/ Verified 01/11/24 09:11 Diarrhea risedronate sodium (From AdvReac Severe Nausea/Vom/ Verified 01/11/24 09:11 Actonel) Diarrhea Dxmafpn-[id number]-MkE Reductase AdvReac Severe myalgia Verified 01/11/24 09:11 Inhibitor (Qyuyrtg-Mhd-Cqx Reductase Inhibitor) Family History Brother CAD (coronary artery disease) Brother CAD (coronary artery disease) Hypertension Mother Cancer Father Heart disease Sister CAD (coronary artery disease) Son Hyperlipidemia Surgical History History of kyphoplasty (02/13/20) port placement Status post left breast lumpectomy History of left breast biopsy (01/2019) History of colonoscopy (01/2018) History of exploratory laparotomy Social History Smoking Status: Never smoker alcohol intake: current alcohol intake frequency: holidays/special occasions only substance use type: does not use caffeine: Yes Type: coffee Number of servings: 1 what type of physical activity do you participate in: none ROS ROS ED Constitutional Constitutional ED: Reports other Details: Generalized weakness ; Denies chills or fever(s) ENT ENT ED: Denies sore throat Cardiovascular Cardiovascular: Denies chest pain Respiratory/Chest Respiratory/Chest: Reports cough; Denies dyspnea Gastrointestinal Gastrointestinal: Denies nausea or vomiting Musculoskeletal Musculoskeletal: Reports other Details: Left hip pain Integumentary Denies rash Neurologic Neurologic: Denies headache(s) or paresthesias Hematologic/Lymphatic Hematologic/Lymphatic: Reports easy bleeding, easy bruising and other Details: On Coumadin EXAM Physical Exam Const Vital Signs: 01/30/24 11:25 01/30/24 11:26 01/30/24 13:07 Temperature 97.4 F L Temperature Source Temporal Pulse Rate 74 Respiratory Rate 16 Respiratory Effort Normal Non-Labored Respiratory Depth Normal Respiratory Pattern Normal Blood Pressure 89/52 L 81/49 L Blood Pressure Mean 64 59 Pulse Ox 94 94 Oxygen Delivery Method Room Air Room Air 01/30/24 13:25 Temperature Temperature Source Pulse Rate 76 Respiratory Rate 20 H Respiratory Effort Respiratory Depth Respiratory Pattern Blood Pressure 109/85 H Blood Pressure Mean 93 Pulse Ox Oxygen Delivery Method Positive well nourished and well developed Constitutional Narrative: Mild distress secondary to pain General Appearance ED: well developed HEENT Reports TM's clear HEENT Narrative: No signs of basilar skull fracture, no cephalhematoma appreciated atraumatic Nose: septum abnormal Tympanic Membrane ED: Yes TM's clear Eyes PERRL and EOMs intact bilaterally Neck full ROM General: Negative for tenderness Chest Wall inspection of chest normal and palpation of chest normal Resp normal respiratory effort and clear to auscultation bilaterally Cardio regular rhythm Cardio Narrative: 2+ radial DP pulses present Rate: regular rate GI normal to inspection, nondistended, normoactive bowel sounds and non-tender Extremity Extremity Narrative: Patient is laying on EMS caring device, holding her left lower extremity flexed at the hip and knee. Pain with attempted range of motion of the hip. Mild pain of the thigh on palpation. No other bony tenderness or deformity appreciated. Neuro oriented x3, no focal motor deficits and no sensory deficits noted Sensorium / Orientation: alert Psych mental status grossly normal and thought process normal Skin no rashes or lesions noted and no wounds MDM MDM MDM Narrative Medical decision making narrative: Patient is evaluated for injuries after what sounds like mechanical fall. She does have a lot of comorbidities however has been feeling weak lately and since her hospitalization about a month ago. Concern for hip fracture or femur fracture based on initial physical exam and injury. Will give fentanyl and Zofran as well as a small bolus of 250 cc of fluid as patient's blood pressure is soft (initial blood pressure 89/52) patient is mentating well and I do not think has symptomatic hypotension at this time. Reports that her blood pressure usually is low. Will be gentle fluids given her history of heart failure. Patient's blood pressure is fluid responsive. Will start at 150 an hour and keep n.p.o. She does have a mild anemia with a hemoglobin 11.6. Her INR is subtherapeutic at 1.6. BMP is normal. Her CK is normal suspicion for rhabdomyolysis. Urinalysis is more consistent with dehydration. X-ray reviewed by myself as well as close radiology which does show left nondisplaced intertrochanteric fracture. Patient is neuro vastly intact distally. Unfortunately we do not have orthopedics assistant front end manager and patient has not previously established with Ortho. I did discuss with both [place] and with orthopedics but as they are not on-call and she has not established patients they not able to see the patient. Therefore I will need to transfer the patient. I initially spoke with Dr. Cerda at [place] who feels patient would be better suited at [facility]. Patient is excepted at [facility]. Case was discussed by the transfer line with Dr. Park and I spoke with ER excepting physician, Dr. Potts. Patient is given further fluids for pressure support and as she is kept NPO. Workup is otherwise negative. She is agreeable with plan of care. Is given further fentanyl as needed for pain control. Nursing staff know did notify me that they did have to bolus her for low blood pressure again her blood pressure again responded to this.. Will continue to keep a close eye on her blood pressure Lab Data Attestation: I reviewed the patient's lab results. Labs: Laboratory Results - last 24 hr 01/30/24 01/30/24 11:55 13:03 WBC 8.1 RBC 4.19 L Hgb 11.6 L Hct 36.8 L MCV 87.8 MCH 27.7 MCHC 31.5 L RDW Std Deviation 49.9 H RDW Coeff of Florin 15.7 H Plt Count 198 MPV 10.0 Immature Gran % (Auto) 2.300 H Neut % (Auto) 63.5 Lymph % (Auto) 20.0 [place] % (Auto) 12.4 H Eos % (Auto) 1.1 Baso % (Auto) 0.7 Absolute Neuts (auto) 5.2 Absolute Lymphs (auto) 1.63 Nucleated RBC % 0 PT 18.8 H INR 1.6 Sodium 138 Potassium 4.7 Chloride 106 Carbon Dioxide 28.0 Anion Gap 4 L BUN 23 H Creatinine 0.93 Estim Creat Clear Calc 45.49 Est GFR (MDRD) Af Amer 75 Est GFR (MDRD) Non-Af 62 BUN/Creatinine Ratio 24.8 H Glucose 141 H Calcium 9.4 Total Creatine Kinase 57 Urine Color Yellow Urine Clarity Sl. Cloudy Urine pH 6.0 Ur Specific [place] 1.020 Urine Protein Negative Urine Glucose (UA) Normal Urine Ketones Negative Urine Occult Blood Negative Urine Nitrite Negative Urine Bilirubin Negative Urine Urobilinogen Normal Ur Leukocyte Esterase Negative Urine RBC 0 SEEN Urine WBC 0-5 SEEN Ur Squamous Epith Cells 0-5 SEEN Amorphous Sediment 1+ Urine Bacteria 2+ Hyaline Casts 10-25 SEEN Urine Mucus 0 SEEN Radiography Chest X-Ray - ED: 1 View, Read by ED Physician, Read by Radiologist and No Acute Disease Diagnostic Testing: Clinical Impression(s) from Imaging Studies Brain CT 01/30/24 11:35 IMPRESSION: Chronic involutional changes of the brain. Electronically Signed: Yosef Woodruff MD at 12:47 EDT , Cervical Spine CT 01/30/24 11:35 IMPRESSION: Multilevel degenerative changes, as described above. Electronically Signed: Yosef Woodruff MD at 12:50 EDT , Chest X-Ray 01/30/24 12:20 IMPRESSION: Limited inspiratory effort with evidence of increased bilateral perihilar markings suggestive of atelectasis. Hiatal hernia. Electronically Signed: Yosef Woodruff MD at 13:23 EDT , Femur X-Ray 01/30/24 12:20 IMPRESSION: Nondisplaced intertrochanteric fracture of the proximal left femur with overlying soft tissue swelling. Electronically Signed: Yosef Woodruff MD at 13:20 EDT , Pelvis X-Ray 01/30/24 12:20 IMPRESSION: Nondisplaced condylar fracture of the intertrochanteric region of the proximal left femur. Electronically Signed: Yosef Woodruff MD at 13:25 EDT , Rhythm Strip Rhythm Strip: A-fib Rate: 67 Ectopy: None EKG Initial EKG: Attestation: I personally reviewed and interpreted this EKG as follows: Interpretation: Atrial Fibrillation Comments: Atrial fibrillation at a rate of 67 bpm Normal axis Normal intervals Normal ST segments Management Discussion w/another healthcare provider: Document Manager Discharge Plan Triage Chief Complaint: Fall ED Provider: Rama Tong Dx/Rx/DC Orders Clinical Impression: Closed fracture of right hip, Longstanding persistent atrial fibrillation, Subtherapeutic anticoagulation, Dehydration Prescriptions: No Action alendronate 70 mg tablet 70 mg PO TH levothyroxine 50 mcg tablet 50 mcg PO DAILY multivitamin 1 EACH tablet 1 tab PO DAILY sertraline 50 MG tablet 50 mg PO DAILY Patient Comments: esomeprazole magnesium 20 MG capsule 20 mg PO DAILY calcium carbonate [Calcium 600] 600 mg calcium (1,500 mg) tablet 1,200 mg PO DAILY dexamethasone 4 mg Tablet 6 mg PO DAILY 8 Days Qty: 12 0RF carvedilol 25 mg tablet 25 mg PO BID Qty: 180 3RF warfarin 4 mg tablet 4 mg PO .COMPLEX Qty: 180 3RF Protocol: Dose Management Condition: Sunday Dose/Route: 8 mg Instruction: 2 x 4 mg tablets Condition: Sunday Dose/Route: 8 mg Instruction: 2 x 4 mg tablets Condition: Sunday Dose/Route: 8 mg Instruction: 2 x 4 mg tablets Condition: Sunday Dose/Route: 8 mg Instruction: 2 x 4 mg tablets Condition: Dose/Route: 4 mg Instruction: 1 x 4 mg tablet Condition: Sunday Dose/Route: 4 mg Instruction: 1 x 4 mg tablet Condition: Sunday Dose/Route: 4 mg Instruction: 1 x 4 mg tablet Protocol Text: Adjustment Start Date: Sunday01/14/24 INR Value: 1.4 INR Date: 01/14/24 Recheck Date: 01/28/24 Rx Instructions: 4 mg orally 2 tablets (8mg) by mouth every day except on : OR as directed- please give 180 tablets as dose changes often; Primary Care Provider: Cristofer Yadav Referrals: Cristofer Yadav MD [Primary Care Provider] - Print Language: Kinyarwanda Disposition Disposition: Acute Care Hospital Discharge Location: [facility]
[2024-01-30] MEDS: Ondansetron 4 MG/2 ML Vial IV (11:45)
[2024-01-30] MEDS: fentaNYL 100 MCG/2 ML Ampul 50 MCG IV ×3 (11:45→14:59)
[2024-01-30] MEDS: 0.9% Normal Saline (250mL Bag) 250 ML 999 ML IV (11:46)
[2024-01-30 12:14] LABS: Absolute Lymphocyte Count 1.63 X10^3/uL (0.83-4.51); Absolute Neutrophil Count 5.2 X10^3/uL (2.0-7.7); Basophil# 0.06 X10^3/uL; Basophil% 0.7 % (0-1); Eosinophil# 0.09 X10^3/uL; Eosinophils% 1.1 % (0-5); Hematocrit 36.8 % (37-47); Hemoglobin 11.6 g/dL (12.0-15.0); International Normalized Ratio 1.6; Lymphocyte # 1.63 X10^3/ul (0.83-4.51); Mean Corp Hgb Conc 31.5 g/dL (32-36); Mean Corpuscular Hgb 27.7 pg (27.0-32.0); Mean Corpuscular Volume 87.8 fL (81-99); Monocyte# 1.01 X10^3/uL; Monocyte% 12.4 % (0-10); NRBC Flagged by Analyzer 0 % (0-5); Neutrophil # 5.15 X10^3/uL (2.7-7.7); Neutrophil % 63.5 % (47-70); Platelet Count 198 K/mm3 (150-450); Prothrombin Time (Protime)PT. 18.8 SECONDS (11.7-14.9); RBC Distribution Width CV 15.7 % (11.6-14.6); RBC Distribution Width SD 49.9 fl (35.1-43.9); Red Blood Count 4.19 M/mm3 (4.2-5.4); White Blood Count 8.1 K/mm3 (4.4-11.0)
[2024-01-30 12:20] LABS: Anion Gap 4 (5-15); BUN 23 mg/dL (7-18); BUN/Creat Ratio 24.8 RATIO (10-20); Calcium,Total 9.4 mg/dL (8.5-10.1); Chloride 106 mmol/L (98-107); Creatinine, Serum 0.93 mg/dL (0.55-1.02); EST Glomerular Filtration Rate 62 mL/min (>60); Est Glom Filt Rate - Afr Amer 75 mL/min (>60); Estimated Creatinine Clearance 45.49 ml/min; Glucose 141 mg/dL (74-106); Potassium 4.7 mmol/L (3.5-5.1); Sodium Level 138 mmol/L (136-145)
--- NOTE | 2024-01-30 12:20 | RAD_ITS ---
STUDY: X-RAY - PELVIS REASON FOR EXAM: Female, 78 years old. Pain, fall TECHNIQUE: One view of the pelvis was obtained. COMPARISON: None. FINDINGS: There is a non-specific bowel gas pattern. Normal visualized soft tissue structures. Normal bilateral iliac wings, sacroiliac joints and visualized sacrum. Normal visualized bilateral superior and inferior pubic rami. There are degenerative changes of the pubic symphysis with articular narrowing and sclerosis. Normal ischial tuberosities. Normal visualized right femoral head. Normal right acetabulum. There is moderate articular joint space narrowing of the right hip. Nondisplaced comminuted fracture of the intertrochanteric region of the proximal left femur. RAD/Pelvis 1 or 2 Views IMPRESSION: Nondisplaced condylar fracture of the intertrochanteric region of the proximal left femur. Electronically Signed: Yosef Woodruff MD at 13:25 EDT ,
--- NOTE | 2024-01-30 12:20 | RAD_ITS ---
STUDY: X-RAY - LEFT FEMUR REASON FOR STUDY: Female, 78 years old. Pain, fall TECHNIQUE: 5 view(s) of the femur. COMPARISON: None. FINDINGS: Nondisplaced intertrochanteric fracture of the proximal left femur. Soft tissue swelling. RAD/Femur Min 2 Views IMPRESSION: Nondisplaced intertrochanteric fracture of the proximal left femur with overlying soft tissue swelling. Electronically Signed: Yosef Woodruff MD at 13:20 EDT ,
--- NOTE | 2024-01-30 12:20 | RAD_ITS ---
STUDY: X-RAY CHEST REASON FOR EXAM: Female, 78 years old. Fall, cough TECHNIQUE: Single AP portable view of the chest. COMPARISON: Comparison is made with prior study dated January 22, 2024. FINDINGS: A right-sided portacatheter is seen with the tip at the junction of the superior vena cava and right atrium. Surgical clips are seen in the left axilla. Poor inspiratory effort. Increased markings in both perihilar regions suggestive of bilateral atelectasis. There is no demonstrated pleural abnormality. There is mild cardiac enlargement. Normal mediastinum and martha. Normal visualized pulmonary arteries. There is atherosclerotic calcification of the aortic arch with tortuosity. Prior vertebroplasty of a lower dorsal vertebrae. Multilevel degenerative changes. Normal visualized ribs, clavicles, and shoulders. Hiatal hernia. RAD/Chest 1 View (Portable) IMPRESSION: Limited inspiratory effort with evidence of increased bilateral perihilar markings suggestive of atelectasis. Hiatal hernia. Electronically Signed: Yosef Woodruff MD at 13:23 EDT ,
[2024-01-30 12:30] LABS: CPK Total, Creatine Kinase 57 U/L (26-192)
[2024-01-30 13:07] VITALS: O2SAT 94
[2024-01-30 13:15] LABS: Mucous, Urine 0 SEEN /hpf (<or=2+); Red Blood Cells-Urine 0 SEEN /hpf (0-5)
[2024-01-30 13:18] LABS: Color, Urine Yellow (Yellow); Glucose, Dipstick Normal (Normal); Ketone-Dipstick Negative (Negative); Leukocyte Esterase-Dipstick Negative /ul (Negative); Nitrite-Dipstick Negative (Negative); Occult Blood-Urine Negative /ul (Negative); Protein-Dipstick Negative (Negative); Urine Bilirubin Dipstick Negative (Negative); Urine Clarity Sl. Cloudy (Clear); Urine Urobilinogen Normal (Normal)
--- NOTE | 2024-01-30 13:21 | NURSING ---
CALLED [facility] TRANSFER LINE FAXED FACESHEET
[2024-01-30 13:25] VITALS: BP 109/85; PULSE 76; RESP 20
[2024-01-30 13:30] LABS: Hyaline Cast 10-25 SEEN /lpf (0-5); Squamous Epithelial Cells - UA 0-5 SEEN /hpf (5-10)
[2024-01-30 13:31] LABS: Amorphous Sediment 1+; Bacteria 2+ /hpf (None Seen); White Blood Cells 0-5 SEEN /hpf (0-5)
--- NOTE | 2024-01-30 14:24 | NURSING ---
CALLED [facility], ETA IS 45 MIN
[2024-01-30 15:00] VITALS: BP 94/64; PULSE 76; RESP 23
[2024-01-30] MEDS: 0.9% Normal Saline (1000mL) 1,000 ML 150 ML IV (15:00)
[2024-01-30 15:09] VITALS: BP 94/64; PULSE 78; RESP 19; TEMP 36.6; O2SAT 94
== END 2024-01-30 15:31 | disposition short-term general hospital (02) ==
PROVIDERS: Emergency Provider Emergency Medicine; PCP Family Medicine; Visit Provider Emergency Medicine
DX: S72.145A Nondisplaced intertrochanteric fracture of left femur, initial encounter for closed fracture (principal); I11.0 Hypertensive heart disease with heart failure; I50.22 Chronic systolic (congestive) heart failure; I48.11 Longstanding persistent atrial fibrillation; I42.0 Dilated cardiomyopathy; Z86.16 Personal history of COVID-19; W19.XXXA Unspecified fall, initial encounter
CPT/HCPCS: 70450; 71045; 72125; 72170; 73552; 80048; 81001; 82550; 85025; 85610; 93005; 96361; 96374; 96375; 96376; 99284; J7030; J7050; A4216; J2405

== ENCOUNTER 2024-02-06 16:53 | Inpatient (IN) | payer MEDICARE, SELFPAY ==
[2023-12-20 14:01] VITALS: BMI 24.4
[2024-02-06 17:01] VITALS: BP 140/67; PULSE 87; RESP 16; TEMP 37.2; O2SAT 94; BMI 26.6
[2024-02-06 18:12] LABS: International Normalized Ratio 2.5; Prothrombin Time (Protime)PT. 27.1 SECONDS (11.7-14.9)
--- NOTE | 2024-02-06 21:05 | PCM.HP.STD ---
HPI - General General Date of Admission: 02/06/24 Date of Service: 02/07/24 Chief Complaint: Here for rehabilitation. HPI Narrative 01/30/2024 ASHELY CANTU, is a 78 Female who presents to [facility] ED with fall, left hip pain. Fluids given for low blood pressure. X-ray shows left hip fracture. Transfer to [facility]. 01/30/2024 Admit to [facility]. Prepare for surgery. 01/31/2024 Dr. Ramos performed left intramedullary nail fixation hip fracture. Ancef 2gm q8 x 2 doses. WBAT LLE. Lovenox 40mg sc daily to warfarin for DVT prophylaxis. 02/04/2024 Hemoglobin 7.9, monitor. PT/OT SNF. Atrial fibrillation with RVR, coreg changed to Metoprolol 50mg tid, Digoxin 0.125mg daily added. Left upper lobe pulmonary embolism 2/2 subtherapeutic INR, treated with coumadin. Doppler ultrasound left lower extremity positive dvt, treated with coumadin. Pneumonia treated with IV antibiotics, discharge on Cefdinir 300mg bid, Doxycycline 100mg daily x 4 days. 02/06/2024 Admit to TCU with debility, here for rehabilitation, strengthening, prior to discharge home alone. [facility] Medical History (Updated 02/07/24 @ 00:02 by Jerry Grove) COVID-19 Atrial fibrillation Acute conjunctivitis, left eye Acute maxillary sinusitis, unspecified Broken rib Left breast mass Thyroid disorder Compression fracture of thoracic spine, non-traumatic Lung nodules Pathologic fracture Hiatal hernia Vertebral fracture Disc herniation Degenerative disc disease Back pain Longstanding persistent atrial fibrillation Hypokalemia due to excessive gastrointestinal loss of potassium Sleep disturbance Diarrhea Fatigue Chemotherapy management, encounter for Encounter for education Breast cancer in female Abnormal mammogram of left breast Chronic back pain Gastric ulcer GERD (gastroesophageal reflux disease) Abnormal mammogram of left breast (01/2019) Hyperlipidemia Palpitations Dilated cardiomyopathy 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 Home Medications ?Medication ?Instructions ?Recorded ?Last Taken ?Type multivitamin 1 tab PO DAILY supplement 03/01/17 02/19/18 History 1 TAB sertraline 50 mg tablet 50 mg PO DAILY depression 03/01/17 02/19/18 History 50 MG esomeprazole magnesium 20 mg 20 mg PO DAILY ACID/PREVENT ULCERS 03/10/20 Unknown History capsule,delayed release alendronate 70 mg tablet 70 mg PO TH 06/27/21 Unknown History levothyroxine 50 mcg tablet 50 mcg PO DAILY THYROID 07/19/21 Unknown History carvedilol 25 mg tablet 25 mg PO BID for blood pressure 12/10/23 Unknown Rx #180 TABLETS calcium carbonate (Calcium 600) 1,200 mg PO DAILY BONES 12/20/23 Unknown History dexamethasone 4 mg tablet 6 mg (1.5 x 4 mg) PO DAILY 8 days 12/22/23 Unknown Rx #12 tabs warfarin 4 mg tablet 4 mg PO .COMPLEX AFIB #180 tabs 02/05/24 Unknown Rx acetaminophen 325 mg tablet 650 mg PO Q6H PRN fever or pain 02/06/24 Unknown History 1-10 benzonatate 200 mg capsule 100 mg PO Q8H PRN PRN cough 02/06/24 Unknown History cefdinir 300 mg capsule 300 mg PO BID INFECTION 02/06/24 Unknown History digoxin 125 mcg (0.125 mg) tablet 125 mcg PO DAILY HEART 02/06/24 Unknown History (Digitek) doxycycline hyclate 100 mg capsule 100 mg PO BID INFECTION 02/06/24 Unknown History metoprolol tartrate 50 mg tablet 50 mg PO Q8H BLOOD PRESSURE/HEART 02/06/24 Unknown History (Lopressor) polyethylene glycol 3350 17 17 g PO DAILY BOWELS 02/06/24 Unknown History gram/dose oral powder (Miralax) sennosides 8.6 mg-docusate sodium 1 tab-cap PO BID BOWELS 02/06/24 Unknown History 50 mg tablet (Senna with Docusate Sodium) Allergy/AdvReac Type Severity Reaction Status Date / Time crab Allergy Severe Rash Verified 01/11/24 09:11 rofecoxib (From Vioxx) Allergy Severe Nausea/Vom/ Verified 01/11/24 09:11 Diarrhea amoxicillin (From Augmentin) Allergy Intermediate lip Verified 01/11/24 09:11 swelling clavulanic acid (From Allergy Intermediate lip Verified 01/11/24 09:11 Augmentin) swelling clarithromycin (From Biaxin) AdvReac Severe Nausea/Vom/ Verified 01/11/24 09:11 Diarrhea levofloxacin (From Levaquin) AdvReac Severe Nausea/Vom/ Verified 01/11/24 09:11 Diarrhea risedronate sodium (From AdvReac Severe Nausea/Vom/ Verified 01/11/24 09:11 Actonel) Diarrhea Uushosl-QRR-LuS Reductase AdvReac Severe myalgia Verified 01/11/24 09:11 Inhibitor (Ymgrdxg-Mfz-Twf Reductase Inhibitor) Family History Brother CAD (coronary artery disease) Brother CAD (coronary artery disease) Hypertension Mother Cancer Father Heart disease Sister CAD (coronary artery disease) Son Hyperlipidemia Surgical History History of kyphoplasty (02/13/20) port placement Status post left breast lumpectomy History of left breast biopsy (01/2019) History of colonoscopy (01/2018) History of exploratory laparotomy Social History Smoking Status: Never smoker alcohol intake: current alcohol intake frequency: holidays/special occasions only substance use type: does not use caffeine: Yes Type: coffee Number of servings: 1 what type of physical activity do you participate in: none ROS Constitutional Constitutional: Denies chills, fever(s) or weight gain ENT HEENT: Denies headache(s), nasal congestion or nasal discharge Cardiovascular Cardiovascular: Denies chest pain or palpitations Respiratory/Chest Respiratory/Chest: Denies cough, excessive phlegm production or shortness of breath with exertion Gastrointestinal Gastrointestinal: Denies abdominal pain, nausea or vomiting Genitourinary Genitourinary: Denies dysuria Musculoskeletal Musculoskeletal: Denies joint pain or joint swelling Integumentary Integumentary: Denies rash or wounds Neurologic Neurologic: Denies focal weakness, numbness or tingling Psychiatric Psychiatric: Denies anxiety, auditory hallucinations, depression, homicidal ideation or suicidal ideation Vital Signs Vital Signs Vital Signs: 02/06/24 17:01 Temperature 98.9 F Temperature Source Oral Pulse Rate 87 Respiratory Rate 16 Blood Pressure 140/67 H Blood Pressure Mean 91 Blood Pressure Source Monitor Blood Pressure Position Semi-Fowlers Blood Pressure Location Right Arm Pulse Ox 94 Oxygen Delivery Method Room Air Weight Weight: 64.002 kg Body Mass Index (BMI) 26.6 Physical Exam Const alert General Appearance: cooperative HEENT normocephalic Eyes PERRL and EOMs intact bilaterally Neck supple, no JVD and no carotid bruits Resp normal respiratory effort, normal air movement and clear to auscultation bilaterally Cardio regular rate and regular rhythm GI normal to inspection, nondistended, normoactive bowel sounds, non-tender and non-distended Extremity normal capillary refill General Extremity: Negative for edema Skin no rashes or lesions noted General Skin Exam: no breakdown Psych affect normal Appearance: appropriate Results Lab / Micro Data 02/07/24 05:16 02/07/24 05:16 Labs: Laboratory Results - last 24 hr 02/06/24 17:50: PT 27.1 H, INR 2.5 Assessment & Plan Assessment/Plan (1) Debility: (2) Closed left hip fracture: (3) Atrial fibrillation with RVR: (4) Pulmonary embolism: (5) Left leg DVT: (6) Pneumonia: (7) History of breast cancer: (8) Atrial fibrillation: (9) HFrEF (heart failure with reduced ejection fraction): (10) Essential (primary) hypertension: (11) Hyperlipidemia: QUALIFIERS: Hyperlipidemia type: pure hypercholesterolemia Qualified Code(s): E78.00 - Pure hypercholesterolemia, unspecified; E78.0 - Pure hypercholesterolemia (12) Hypothyroidism: (13) COVID-19: (14) Depression: (15) GERD (gastroesophageal reflux disease): (16) Osteoporosis: PLAN: Plan 78 year old female with below past medical history hospitalized for left hip fracture, underwent left IM nail fixation hip fracture 01/31/[address] Moseley, complicated by atrial fibrillation with RVR, pulmonary embolism, left lower extremity dvt, pneumonia, admitted to TCU with debility, here for rehabilitation, strengthening, prior to discharge home alone. Debility - PT/OT. Pain - Tylenol 1000mg q8, Tramadol 50mg q6 prn pain (1-5), Oxycodone 5mg q4 prn pain (6-10). Bowel - Miralax 17gm daily, senna/colace 1 tablet bid. Adult immunization - Administer pneumonia vaccine, covid vaccine, flu vaccine as appropriate. DVT prophylaxis - on warfarin. Cough - Tessalon 100mg q8 prn. Calcium deficiency - TUMS 1000mg daily. Pneumonia - Cefdinir 300mg bid thru 02/11/2024, Doxycycline 100mg bid thru 02/11/2024 Atrial fibrillation - Metoprolol 50mg q8, Digoxin 125mcg daily, Warfarin 4mg/8mg alternating, monitor INR. Hypothyroidism - Levothyroxine 50mcg daily. Nutrition - MVI 1 tablet daily GERD - Pantoprazole 20mg daily. 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
[2024-02-06 22:14] VITALS: BP 114/64; PULSE 93; O2SAT 96
[2024-02-06] MEDS: Acetaminophen 500 MG Tablet 1000 MG PO (22:28)
[2024-02-06 22:29] VITALS: BP 114/64; PULSE 93
[2024-02-06] MEDS: Doxycycline 100 MG CAPSULE PO (22:29)
[2024-02-06] MEDS: Cefdinir 300 MG Capsule PO (22:29)
[2024-02-06] MEDS: Metoprolol Tartrate 50 MG Tablet PO (22:29)
[2024-02-06 23:01] VITALS: RESP 16; O2SAT 96
[2024-02-07] VITALS (8 sets, daily range): BP systolic 102–119; BP diastolic 49–59; PULSE 85–97; RESP 16; TEMP 36.6; O2SAT 92
[2024-02-07] MEDS: Metoprolol Tartrate 50 MG Tablet PO ×3 (05:08→22:24)
[2024-02-07] MEDS: Acetaminophen 500 MG Tablet 1000 MG PO ×3 (05:09→22:28)
[2024-02-07] MEDS: Levothyroxine 50 MCG Tablet PO (05:09)
[2024-02-07 06:01] LABS: Absolute Lymphocyte Count 1.84 X10^3/uL (0.83-4.51); Absolute Neutrophil Count 4.2 X10^3/uL (2.0-7.7); Basophil# 0.07 X10^3/uL; Basophil% 0.9 % (0-1); Eosinophil# 0.34 X10^3/uL; Eosinophils% 4.5 % (0-5); Hematocrit 28.1 % (37-47); Hemoglobin 8.5 g/dL (12.0-15.0); Lymphocyte # 1.84 X10^3/ul (0.83-4.51); Lymphocyte % 24.5 % (19-41); Mean Corp Hgb Conc 30.2 g/dL (32-36); Mean Corpuscular Hgb 28.1 pg (27.0-32.0); Mean Platelet Vol. 10.2 fl (6.2-12.0); Monocyte# 0.86 X10^3/uL; Monocyte% 11.5 % (0-10); NRBC Flagged by Analyzer 0 % (0-5); Neutrophil # 4.22 X10^3/uL (2.7-7.7); Neutrophil % 56.3 % (47-70); Platelet Count 247 K/mm3 (150-450); RBC Distribution Width CV 19.4 % (11.6-14.6); RBC Distribution Width SD 58.2 fl (35.1-43.9); Red Blood Count 3.02 M/mm3 (4.2-5.4); White Blood Count 7.5 K/mm3 (4.4-11.0)
[2024-02-07 06:25] LABS: International Normalized Ratio 2.4; Prothrombin Time (Protime)PT. 26.3 SECONDS (11.7-14.9)
[2024-02-07 06:29] LABS: Anion Gap 5 (5-15); BUN 10 mg/dL (7-18); BUN/Creat Ratio 16.3 RATIO (10-20); Calcium,Total 8.6 mg/dL (8.5-10.1); Chloride 104 mmol/L (98-107); Creatinine, Serum 0.62 mg/dL (0.55-1.02); EST Glomerular Filtration Rate 100 mL/min (>60); Est Glom Filt Rate - Afr Amer 121 mL/min (>60); Estimated Creatinine Clearance 49.66 ml/min; Glucose 84 mg/dL (74-106); Potassium 3.5 mmol/L (3.5-5.1); Sodium Level 138 mmol/L (136-145)
[2024-02-07] MEDS: Calcium Carbonate 500 MG Tablet 1000 MG PO (08:38)
[2024-02-07] MEDS: Sertraline 50 MG Tablet PO ×2 (08:38→08:39)
[2024-02-07] MEDS: Multivitamins,Therapeutic Tablet 1 TABLET PO (08:38)
[2024-02-07] MEDS: Pantoprazole Sodium 20 MG Tablet PO (08:38)
[2024-02-07] MEDS: Doxycycline 100 MG CAPSULE PO ×2 (08:39→22:24)
[2024-02-07] MEDS: Cefdinir 300 MG Capsule PO ×2 (08:39→22:24)
[2024-02-07] MEDS: Digoxin 125 MCG Tablet PO (08:40)
[2024-02-07] MEDS: Menthol/Lanolin/Calamine/Znox 113 GM Tube 1 APPLIC TOPICAL ×2 (08:40→22:23)
[2024-02-07] MEDS: Tuberculin,Purif.prot.deriv. 50 TU/ML Vial 0.1 ML ID (08:45)
[2024-02-07] MEDS: FLU VACCINE **HIGH DOSE** TV 24-25 180 MCG/0.5 ML SYRINGE IM (08:46)
--- NOTE | 2024-02-07 13:48 | CASEMGMT ---
Social Work SW met with patient to complete initial assessment. Introduced self and role. DIL present and pt granted permission for her to remain for assessment. DIL is primary contact and denies having son or listed. SW verified/updated contacts. Pt confirmed code status as full code. SW inquired about completing advanced directives. Educated to AD. Pt agreed to complete. SW will complete prior to DC. SW educated to [facility] insurance with [employer] 02/07 and continued stay is not guaranteed with each review. Pt's goal is to return home with . However, cannot assist. Pt was caring for prior. 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 SW will continue to follow for DC planning. Griselda Mccall, CHIEF PHYSICAL THERAPIST CERTIFIED NUTRITIONIST
[2024-02-07] MEDS: Ensure Plus High Protein 120 ML LIQUID PO ×2 (14:05→16:27)
--- NOTE | 2024-02-07 15:11 | PCM.PN.DRR ---
Documented by User: Babar Childs 02/07/24 15:33 TCU RX Drug Regimen Review Subjective/Objective Subjective/Objective: Subjective: TCU admission note. 78 year old female with below past medical history hospitalized for left hip fracture, underwent left IM nail fixation hip fracture 01/31/[address] Moseley, complicated by atrial fibrillation with RVR, pulmonary embolism, left lower extremity dvt, pneumonia, admitted to TCU with debility, here for rehabilitation, strengthening, prior to discharge home alone. Objective: Allergies crab Allergy (Severe, Verified 01/11/24 09:11) Rash rofecoxib (From Vioxx) Allergy (Severe, Verified 01/11/24 09:11) Nausea/Vom/Diarrhea amoxicillin (From Augmentin) Allergy (Intermediate, Verified 01/11/24 09:11) lip swelling clavulanic acid (From Augmentin) Allergy (Intermediate, Verified 01/11/24 09:11) lip swelling clarithromycin (From Biaxin) Adverse Reaction (Severe, Verified 01/11/24 09:11) Nausea/Vom/Diarrhea levofloxacin (From Levaquin) Adverse Reaction (Severe, Verified 01/11/24 09:11) Nausea/Vom/Diarrhea risedronate sodium (From Actonel) Adverse Reaction (Severe, Verified 01/11/24 09:11) Nausea/Vom/Diarrhea Vcerwpn-XBV-IlJ Reductase Inhibitor (Mosehhn-Dyg-Uwi Reductase Inhibitor) Adverse Reaction (Severe, Verified 01/11/24 09:11) myalgia Current Medications Generic Name Dose Route Start Last Admin Trade Name Freq PRN Reason Stop Dose Admin Acetaminophen 1,000 mg 02/06/24 22:00 02/07/24 14:04 Acetaminophen 500 Mg Tablet PO 1,000 mg Q8 ELVIS Administration Benzonatate 100 mg 02/06/24 17:20 Benzonatate 100 Mg Capsule PO Q8H PRN PRN cough Calamine/Phenol 1 applic 02/07/24 10:00 02/07/24 08:40 Menthol/Lanolin/Calamine/Znox 113 Gm Tube TOPICAL 1 applic BID ELVIS Administration Protocol Calcium Carbonate 1,000 mg 02/07/24 08:00 02/07/24 08:38 Calcium Carbonate 500 Mg Tablet PO 1,000 mg DAILYCM ELVIS Administration Cefdinir 300 mg 02/06/24 22:00 02/07/24 08:39 Cefdinir 300 Mg Capsule PO 02/11/24 22:01 300 mg BID ELVIS Administration Digoxin 125 mcg 02/07/24 10:00 02/07/24 08:40 Digoxin 125 Mcg Tablet PO 125 mcg DAILY ELVIS Administration Doxycycline Monohydrate 100 mg 02/06/24 22:00 02/07/24 08:39 Doxycycline 100 Mg Capsule PO 02/11/24 22:01 100 mg BID ELVIS Administration Levothyroxine Sodium 50 mcg 02/07/24 06:00 02/07/24 05:09 Levothyroxine 50 Mcg Tablet PO 50 mcg 0600 ELVIS Administration Metoprolol Tartrate 50 mg 02/06/24 22:00 02/07/24 14:03 Metoprolol Tartrate 50 Mg Tablet PO 50 mg Q8 [facility] Administration Protocol Multivitamins 1 tablet 02/07/24 08:00 02/07/24 08:38 Multivitamins,Therapeutic Tablet PO 1 tablet DAILYCM [facility] Administration Nutritional Formula (Lactose Free) 120 ml 02/07/24 12:45 02/07/24 14:05 Ensure Plus High Protein 120 Ml Liquid PO 120 ml TIDCM [facility] Administration Oxycodone HCl 5 mg 02/06/24 21:21 Oxycodone 5 Mg Tablet PO Q4H PRN PRN Pain Score 6-10 or Pre PT/OT Pantoprazole Sodium 20 mg 02/07/24 10:00 02/07/24 08:38 Pantoprazole Sodium 20 Mg Tablet PO 20 mg DAILY [facility] Administration Pneumococcal 20-Valent Conj Vacc 0.5 ml 02/08/24 10:00 Pneumococcal Vaccine 20 Valent 0.5 Ml Syringe IM 02/08/24 10:01 .ONCE ONE Polyethylene Glycol 17 gm 02/07/24 10:00 02/07/24 08:40 Polyethylene Glycol 3350 17 Gm Packet PO Not Given DAILY ELVIS Senna/Docusate Sodium 1 tablet 02/06/24 22:00 02/07/24 08:41 Senna/Docusate Sodium 1 Tablet PO Not Given BID [facility] Sertraline HCl 50 mg 02/07/24 10:00 02/07/24 08:39 Sertraline 50 Mg Tablet PO 50 mg DAILY ELVIS Administration Tramadol HCl 50 mg 02/06/24 21:21 Tramadol 50 Mg Tablet PO Q6H PRN PRN Pain Score 1-5 or Pre PT/OT Tuberculin PPD 0.1 ml 02/14/24 10:00 Tuberculin,Purif.Prot.Deriv. 50 Tu/Ml Vial ID 02/14/24 10:01 X1 ONE Warfarin Sodium 4 mg 02/07/24 17:00 Warfarin 4 Mg Tablet PO ThFrSa@1700 [facility] Warfarin Sodium 8 mg 02/10/24 17:00 Warfarin 4 Mg Tablet PO SuMoTuWe@1700 [facility] Problem List Osteoporosis (Acute) GERD (gastroesophageal reflux disease) (Acute) Depression (Acute) COVID-19 (Acute) Hypothyroidism (Acute) Essential (primary) hypertension (Acute) HFrEF (heart failure with reduced ejection fraction) (Acute) Atrial fibrillation (Acute) History of breast cancer (Acute) Pneumonia (Acute) Left leg DVT (Acute) Pulmonary embolism (Acute) Atrial fibrillation with RVR (Acute) Closed left hip fracture (Acute) Debility (Acute) Hyperlipidemia (Chronic) Vital Signs Temp Pulse Resp BP Pulse Ox O2 Del Method 97.8 F 97 16 109/59 L 92 Room Air 02/07/24 11:21 02/07/24 14:03 02/07/24 11:21 02/07/24 14:03 02/07/24 11:21 02/07/24 11:21 Oxygen Delivery Method Room Air Weight: 64.002 kg Body Mass Index (BMI) 26.6 Sodium 138 mmol/L (136-145) 02/07/24 05:16 Potassium 3.5 mmol/L (3.5-5.1) 02/07/24 05:16 Chloride 104 mmol/L (98-107) 02/07/24 05:16 Carbon Dioxide 28.0 mmol/L (21.0-32.0) 02/07/24 05:16 Anion Gap 5 (5-15) 02/07/24 05:16 BUN 10 mg/dL (7-18) 02/07/24 05:16 Creatinine 0.62 mg/dL (0.55-1.02) 02/07/24 05:16 Est GFR (MDRD) Af Amer 121 mL/min (>60) 02/07/24 05:16 Est GFR (MDRD) Non-Af 100 mL/min (>60) 02/07/24 05:16 BUN/Creatinine Ratio 16.3 RATIO (10-20) 02/07/24 05:16 Glucose 84 mg/dL (74-106) 02/07/24 05:16 Assessment/Plan: 1. Pain: acetaminophen 1000 mg PO Q8H, tramadol 60 mg PO Q6H PRN pain (1-5), oxycodone 5 mg PO Q6H PRN pain (6-10). The patient has not required any PRN doses of oxycodone or tramadol so far this admission. Please continue to monitor pain levels, PRN medication usage, LFTs (AST/ALT = 31/21 U/L on 12/22/23), renal function (serum creatinine = 0.62 mg/dL with creatinine clearance ~ 50 mL/min on 02/07/24), for s/s of seizures, for dizziness/drowsiness, for syncope/ataxia/falls and for constipation. 2. Bowel: polyethylene glycol 17 grams PO daily, senna/docusate 1 tablet PO BID. Please continue to monitor for bowel movements (last BM documented as 02/06/24), for constipation and diarrhea. 3. Pneumonia: cefdinir 300 mg PO BID through 02/11/24, doxycycline 100 mg PO BID through 02/11/24. Please continue to monitor for s/s of infection, for shortness of breath, for fever (recent temp = 97.8 F on 02/07/24), for chills, WBC count (WBC = 7.5 K/mm3 on 02/07/24), renal function (serum creatinine = 0.62 mg/dL with creatinine clearance ~ 50 mL/min on 02/07/24), for sun sensitivity and for GI distress with doxycycline administration. 4. Atrial fibrillation: digoxin 125 mcg PO daily, metoprolol tartrate 50 mg PO Q8, warfarin 4 mg PO /Sunday/Sunday, Warfarin 8 mg PO Sunday, Sunday, Sunday, Sunday. Please continue to monitor for s/s of stroke, for heart rates (recent range = 85-97 beats/min), blood pressures (recent range = 102-140/49-67 mmHg), renal function (serum creatinine = 0.62 mg/dL with creatinine clearance ~ 50 mL/min on 02/07/24), INRs (INR = 2.4 on 02/07/24), for s/s of bleeding/excessive bruising, hemoglobin levels (Hgb = 8.5 g/dL on 02/07/24), platelet count (plt = 247 K/mm3 on 02/07/24), and fatigue. 5. Hypothyroidism: levothyroxine 50 mcg PO daily. Please continue to monitor for s/s of hypo/hyperthyroidism, and thyroid hormone levels (TSH = 0.301 uIU/mL with T4 = 1.41 ng/dL on 12/21/23). 6. GERD: pantoprazole 20 mg PO daily. Please continue to monitor for s/s of GERD, for diarrhea that could indicate clostridium difficile infection and for s/s of bone resorption issues such as fractures. 7. Cough: benzonatate 100 mg PO Q8H PRN cough. The patient has not required any PRN doses of benzonatate so far this admission. Please continue to monitor for cough, PRN medication usage and mouth numbness with PRN medication administrations. 8. Calcium deficiency: calcium carbonate 1000 mg PO daily with meals. Please continue to monitor calcium levels (Ca = 8.6 mg/dL on 02/07/24). 9. Nutrition: multivitamin 1 tablet PO daily, ensure plus high protein 120 mL PO TID with meals. Please continue to monitor nutritional status. 10. Skin irritation: calmoseptine 1 application topically BID. Please continue to monitor skin integrity and for skin irritation. Assessment/Plan for indications treated with psychotropic medications: 1. Depression: sertraline 50 mg PO daily. Please see provider note regarding stable chronic long-term use GDR not recommended. Please continue to monitor for s/s of depression, for SI, for s/s of serotonin syndrome, for nausea/diarrhea and sodium levels (Na = 138 mmol/L on 02/07/24). Medical chart and medication regimen reviewed. The following medication irregularities or issues were identified: NA Date Date of Note:: 02/07/24 Documented by User: Dr. Ziggy Almeida MD 02/07/24 15:38 TCU RX Drug Regimen Review Provider Comments Provider responsibility Provider Comments to Recommendations by Pharmacy: Agree
[2024-02-07] MEDS: Benzonatate 100 MG Capsule PO (22:21)
[2024-02-08] VITALS (7 sets, daily range): BP systolic 95–114; BP diastolic 35–56; PULSE 80–103; RESP 16–17; TEMP 36.2; O2SAT 93
[2024-02-08] MEDS: Metoprolol Tartrate 50 MG Tablet PO ×2 (05:17→21:55)
[2024-02-08] MEDS: Acetaminophen 500 MG Tablet 1000 MG PO ×3 (05:18→21:54)
[2024-02-08] MEDS: Levothyroxine 50 MCG Tablet PO (05:18)
[2024-02-08] MEDS: Benzonatate 100 MG Capsule PO (06:23)
[2024-02-08] MEDS: Calcium Carbonate 500 MG Tablet 1000 MG PO (09:43)
[2024-02-08] MEDS: Doxycycline 100 MG CAPSULE PO ×2 (09:43→21:54)
[2024-02-08] MEDS: Multivitamins,Therapeutic Tablet 1 TABLET PO (09:43)
[2024-02-08] MEDS: Pantoprazole Sodium 20 MG Tablet PO (09:44)
[2024-02-08] MEDS: Digoxin 125 MCG Tablet PO (09:44)
[2024-02-08] MEDS: Cefdinir 300 MG Capsule PO ×2 (09:44→21:54)
--- NOTE | 2024-02-08 10:22 | CASEMGMT ---
Social Work SW met with pt and assisted pt in completing a living will and Health care Power of Placement Interviewer in which pt named her daughter in law Trang Vasquez. Copy placed in pt chart and original given to pt. CARINA Fink
--- NOTE | 2024-02-08 11:15 | NURSING ---
Break Off Worker Note; Activity Asset: Garett Patel is independent in her choice of daily activities. Her family and friends will visit, welcomes visits w/the valuer and therapy dog when available. She has a tablet and smartphone she uses for games and talking w/family and friends. Amanda will read and watch tv as well. Staff will encourage group activities, remind her of weekly activities and respect her right to say no.
--- NOTE | 2024-02-08 13:09 | CHAPLAIN ---
Type of Pastoral Visit _x__ Initial Visit ___ Follow-up Visit ___ On-call Visit ___ General Patient Visit ___ Spiritual Assessment ___ Family Conference ___ Bereavement ___ Rapid Response ___ Code Blue ___ Other (describe below) Pastoral Care Referral From _x__ Patient ___ Family ___ Nurse ___ Physician ___ Plumbing Assembler ___ Retail Pharmacist ___ Other (describe below) Sacrament/Intervention _x__ Active listening ___ Anointing ___ Mormonism ___ Bereavement ___ Communion ___ Whit exploration ___ ___ Life review ___ Prayer ___ Reconciliation ___ Sacrament of Sick _x__ Supportive presence ___ Wedding ___ Other (describe below) Pastoral Comments patient remembers this stretcher and drier from a previous meeting; pt speaks of her injury and subsequent surgery and recovery; pt is glad to be back in [place] and close to home; pt had just received her lunch tray; the visit should be short so she could eat; pt acknowledges her bahai affiliation but stated that she has not been to tenriism for a few years; prayer welcomed
[2024-02-08] MEDS: Menthol/Lanolin/Calamine/Znox 113 GM Tube 1 APPLIC TOPICAL ×2 (15:04→21:55)
--- NOTE | 2024-02-08 15:05 | NURSING ---
Updated Dr. Almeida of patient's lower BP. Due for Lopressor 50mg PO q8h. HOLD [address] Almeida.
[2024-02-08] MEDS: Pneumococcal Vaccine 20 Valent 0.5 ML Syringe IM (15:57)
[2024-02-09] VITALS (7 sets, daily range): BP systolic 94–121; BP diastolic 56–59; PULSE 80–88; RESP 16; TEMP 36.1–36.7; O2SAT 95
[2024-02-09] MEDS: Metoprolol Tartrate 50 MG Tablet PO ×3 (05:38→21:15)
[2024-02-09] MEDS: Acetaminophen 500 MG Tablet 1000 MG PO ×3 (05:38→21:14)
[2024-02-09] MEDS: Levothyroxine 50 MCG Tablet PO (05:39)
[2024-02-09] MEDS: Cefdinir 300 MG Capsule PO ×2 (10:04→21:14)
[2024-02-09] MEDS: Calcium Carbonate 500 MG Tablet 1000 MG PO (10:04)
[2024-02-09] MEDS: Doxycycline 100 MG CAPSULE PO ×2 (10:04→21:14)
[2024-02-09] MEDS: Multivitamins,Therapeutic Tablet 1 TABLET PO (10:04)
[2024-02-09] MEDS: Pantoprazole Sodium 20 MG Tablet PO (10:04)
[2024-02-09] MEDS: Digoxin 125 MCG Tablet PO (10:04)
[2024-02-09] MEDS: Sertraline 50 MG Tablet PO (10:04)
[2024-02-09] MEDS: Menthol/Lanolin/Calamine/Znox 113 GM Tube 1 APPLIC TOPICAL ×2 (10:06→21:18)
[2024-02-10] VITALS (7 sets, daily range): BP systolic 96–137; BP diastolic 49–65; PULSE 65–90; RESP 16; TEMP 36.4; O2SAT 95–96
[2024-02-10] MEDS: Acetaminophen 500 MG Tablet 1000 MG PO ×3 (06:20→21:45)
[2024-02-10] MEDS: Levothyroxine 50 MCG Tablet PO (06:21)
[2024-02-10] MEDS: Metoprolol Tartrate 50 MG Tablet PO ×3 (06:21→21:46)
[2024-02-10] MEDS: Pantoprazole Sodium 20 MG Tablet PO (08:51)
[2024-02-10] MEDS: Cefdinir 300 MG Capsule PO ×2 (08:51→21:46)
[2024-02-10] MEDS: Doxycycline 100 MG CAPSULE PO ×2 (08:52→21:46)
[2024-02-10] MEDS: Sertraline 50 MG Tablet PO (08:52)
[2024-02-10] MEDS: Calcium Carbonate 500 MG Tablet 1000 MG PO (08:52)
[2024-02-10] MEDS: Multivitamins,Therapeutic Tablet 1 TABLET PO (08:53)
[2024-02-10] MEDS: Menthol/Lanolin/Calamine/Znox 113 GM Tube 1 APPLIC TOPICAL ×2 (08:56→21:48)
[2024-02-10] MEDS: Digoxin 125 MCG Tablet PO (09:01)
[2024-02-11 05:45] VITALS: BP 104/55; PULSE 66
[2024-02-11] MEDS: Levothyroxine 50 MCG Tablet PO (05:45)
[2024-02-11] MEDS: Metoprolol Tartrate 50 MG Tablet PO ×3 (05:45→22:23)
[2024-02-11] MEDS: Acetaminophen 500 MG Tablet 1000 MG PO ×3 (05:46→22:28)
[2024-02-11] MEDS: Calcium Carbonate 500 MG Tablet 1000 MG PO (08:19)
[2024-02-11] MEDS: Multivitamins,Therapeutic Tablet 1 TABLET PO ×2 (08:20→11:26)
[2024-02-11 10:00] VITALS: PULSE 86; PULSE 87; RESP 16
[2024-02-11] MEDS: Doxycycline 100 MG CAPSULE PO ×2 (10:00→22:23)
[2024-02-11] MEDS: Cefdinir 300 MG Capsule PO ×2 (10:00→22:24)
[2024-02-11] MEDS: Digoxin 125 MCG Tablet PO (10:00)
[2024-02-11] MEDS: Pantoprazole Sodium 20 MG Tablet PO (10:01)
[2024-02-11] MEDS: Sertraline 50 MG Tablet PO (10:01)
[2024-02-11] MEDS: Menthol/Lanolin/Calamine/Znox 113 GM Tube 1 APPLIC TOPICAL ×2 (10:30→22:23)
[2024-02-11 15:10] VITALS: BP 103/60; PULSE 73; RESP 16; TEMP 36.8; O2SAT 96
[2024-02-11 15:41] VITALS: PULSE 83
[2024-02-11] MEDS: COVID VAC 24-25 (12UP)(MODERNA)/PF 50 MCG/0.5 ML SYRINGE IM (18:21)
[2024-02-11 22:21] VITALS: BP 104/63; PULSE 87
[2024-02-11 22:23] VITALS: BP 104/63; PULSE 87
[2024-02-12] VITALS (9 sets, daily range): BP systolic 93–130; BP diastolic 52–67; PULSE 72–88; RESP 16–18; TEMP 36.5; O2SAT 95–98; BMI 25.9
[2024-02-12] MEDS: Metoprolol Tartrate 50 MG Tablet PO ×3 (05:33→22:00)
[2024-02-12] MEDS: Levothyroxine 50 MCG Tablet PO (05:33)
[2024-02-12] MEDS: Acetaminophen 500 MG Tablet 1000 MG PO ×3 (05:35→22:00)
[2024-02-12] MEDS: Calcium Carbonate 500 MG Tablet 1000 MG PO (09:24)
[2024-02-12] MEDS: Sertraline 50 MG Tablet PO (09:24)
[2024-02-12] MEDS: Pantoprazole Sodium 20 MG Tablet PO (09:24)
[2024-02-12] MEDS: Digoxin 125 MCG Tablet PO (09:27)
[2024-02-12] MEDS: Menthol/Lanolin/Calamine/Znox 113 GM Tube 1 APPLIC TOPICAL ×2 (09:27→22:01)
--- NOTE | 2024-02-12 11:02 | CASEMGMT ---
Social Work BIMS () and PHQ-2 () completed for MDS assessment. Griselda Mccall MSW EXPERIENTIAL THERAPIST
--- NOTE | 2024-02-12 14:49 | CHAPLAIN ---
Type of Pastoral Visit ___ Initial Visit _x__ Follow-up Visit ___ On-call Visit ___ General Patient Visit ___ Spiritual Assessment ___ Family Conference ___ Bereavement ___ Rapid Response ___ Code Blue ___ Other (describe below) Pastoral Care Referral From _x__ Patient ___ Family ___ Nurse ___ Physician ___ Hydrogeologist ___ Pilot Plant Operator ___ Other (describe below) Sacrament/Intervention _x__ Active listening ___ Anointing ___ Buddhist ___ Bereavement ___ Communion ___ Whit exploration ___ ___ Life review _x__ Prayer ___ Reconciliation ___ Sacrament of Sick _x__ Supportive presence ___ Wedding ___ Other (describe below) Pastoral Comments this was a follow up visit after a brief visit last week; pt is resting in bed but awake; son of the pt is in the chair in the room; pt introduces son to this director of development and marketing; pt states that I'm doing when asked about her coping with the situation; after a second attempt to ask this question the pt responds similarly with I'm doing; son and mother both enter the conversation about the affairs of the world and politics; pt welcomes a prayer and states that I don't kneed a thing;
[2024-02-13] VITALS (8 sets, daily range): BP systolic 97–116; BP diastolic 44–63; PULSE 67–87; RESP 16–18; TEMP 37; O2SAT 93–97
[2024-02-13] MEDS: Levothyroxine 50 MCG Tablet PO (05:47)
[2024-02-13] MEDS: Metoprolol Tartrate 50 MG Tablet PO ×3 (05:47→21:27)
[2024-02-13] MEDS: Acetaminophen 500 MG Tablet 1000 MG PO ×3 (05:48→21:26)
--- NOTE | 2024-02-13 08:40 | NURSING ---
Tobacco Wrapping Machine Tender Note; MDS for 02/13/2024 Complete
[2024-02-13] MEDS: Menthol/Lanolin/Calamine/Znox 113 GM Tube 1 APPLIC TOPICAL ×2 (09:08→21:29)
[2024-02-13] MEDS: Pantoprazole Sodium 20 MG Tablet PO (09:08)
[2024-02-13] MEDS: Digoxin 125 MCG Tablet PO (09:08)
[2024-02-13] MEDS: Multivitamins,Therapeutic Tablet 1 TABLET PO (09:08)
[2024-02-13] MEDS: Sertraline 50 MG Tablet PO (09:08)
[2024-02-13] MEDS: Calcium Carbonate 500 MG Tablet 1000 MG PO (09:08)
--- NOTE | 2024-02-13 10:30 | CASEMGMT ---
Addendum entered by Griselda Mccall 02/14/24 16:26: Received call from ANTHONY providing this worker with pt's HHC preferences: [facility]. SW to place referral once DC date is known. Original Note: Social Work IDT met with patient and DIL for care plan meeting. Discussed patient's progress in PT/OT/SN. Educated to [employer] insurance with [employer] 02/14, [facility] 02/19, and continued stay is not guaranteed with each review. Pt is progressing well and cautioned insurance may issue DC at [employer]. Inquired about readiness to DC. Pt is ready to DC and DIL stated pt will have assistance for LE care at home, which pt does still need some help with. SW offered to set DC date or to wait for insurance to issue. However, DIL stated she is going on vacation from 02/15-02/19, and requested DC 02/20. SW offered to ask insurance for that continued stay, but cannot guarantee. Discussed HHC vs OP and DME needs. Pt would like to start with HHC then transition to OP. Pt needs a FWW as well. SW to coordinate at time of DC. Provided printed list of skilled HHC agencies with quality and resource data via [employer] Guide for pt to review and make selection. SW will continue to follow. Griselda Mccall, MANDY DEPUTY HARBORMASTER
[2024-02-13] MEDS: Mirtazapine 15 MG Tablet 7.5 MG PO (21:27)
[2024-02-14] VITALS (7 sets, daily range): BP systolic 90–129; BP diastolic 44–52; PULSE 70–85; RESP 18; TEMP 36.9; O2SAT 93–95
[2024-02-14] MEDS: Acetaminophen 500 MG Tablet 1000 MG PO ×3 (05:41→22:13)
[2024-02-14] MEDS: Levothyroxine 50 MCG Tablet PO (05:41)
[2024-02-14] MEDS: Metoprolol Tartrate 50 MG Tablet PO ×3 (05:41→22:09)
[2024-02-14 05:49] LABS: Absolute Lymphocyte Count 1.39 X10^3/uL (0.83-4.51); Absolute Neutrophil Count 1.6 X10^3/uL (2.0-7.7); Basophil# 0.02 X10^3/uL; Basophil% 0.5 % (0-1); Eosinophil# 0.35 X10^3/uL; Eosinophils% 8.6 % (0-5); Hematocrit 31.1 % (37-47); Hemoglobin 9.4 g/dL (12.0-15.0); Lymphocyte # 1.39 X10^3/ul (0.83-4.51); Lymphocyte % 34.1 % (19-41); Mean Corp Hgb Conc 30.2 g/dL (32-36); Mean Corpuscular Hgb 28.8 pg (27.0-32.0); Mean Corpuscular Volume 95.4 fL (81-99); Mean Platelet Vol. 9.5 fl (6.2-12.0); Monocyte# 0.65 X10^3/uL; Monocyte% 15.9 % (0-10); NRBC Flagged by Analyzer 0 % (0-5); Neutrophil # 1.63 X10^3/uL (2.7-7.7); Neutrophil % 39.9 % (47-70); POSITIVE MORPHOLOGY YES; Platelet Count 317 K/mm3 (150-450); RBC Distribution Width CV 20.6 % (11.6-14.6); RBC Distribution Width SD 71.5 fl (35.1-43.9); Red Blood Count 3.26 M/mm3 (4.2-5.4); White Blood Count 4.1 K/mm3 (4.4-11.0)
[2024-02-14 06:00] LABS: International Normalized Ratio 3.7; Prothrombin Time (Protime)PT. 36.2 SECONDS (11.7-14.9)
[2024-02-14 06:18] LABS: Differential Indicated SCAN CRITERIA MET
[2024-02-14 06:42] LABS: Anion Gap 4 (5-15); BUN 12 mg/dL (7-18); BUN/Creat Ratio 17.9 RATIO (10-20); Calcium,Total 8.6 mg/dL (8.5-10.1); Chloride 110 mmol/L (98-107); Creatinine, Serum 0.67 mg/dL (0.55-1.02); EST Glomerular Filtration Rate 91 mL/min (>60); Est Glom Filt Rate - Afr Amer 110 mL/min (>60); Estimated Creatinine Clearance 49.05 ml/min; Glucose 87 mg/dL (74-106); Potassium 3.6 mmol/L (3.5-5.1); Sodium Level 142 mmol/L (136-145)
[2024-02-14 08:03] LABS: Anisocytosis 2+
--- NOTE | 2024-02-14 08:54 | NURSING ---
INR 3.7. Dr. Almeida aware and Coumadin on hold. Daily INR checks.
[2024-02-14] MEDS: Tuberculin,Purif.prot.deriv. 50 TU/ML Vial 0.1 ML ID (09:14)
[2024-02-14] MEDS: Multivitamins,Therapeutic Tablet 1 TABLET PO (09:15)
[2024-02-14] MEDS: Calcium Carbonate 500 MG Tablet 1000 MG PO (09:15)
[2024-02-14] MEDS: Digoxin 125 MCG Tablet PO (09:15)
[2024-02-14] MEDS: Pantoprazole Sodium 20 MG Tablet PO (09:16)
[2024-02-14] MEDS: Sertraline 50 MG Tablet PO (09:16)
[2024-02-14] MEDS: Menthol/Lanolin/Calamine/Znox 113 GM Tube 1 APPLIC TOPICAL ×2 (09:20→22:09)
[2024-02-14] MEDS: Mirtazapine 15 MG Tablet 7.5 MG PO (22:10)
[2024-02-15] VITALS (7 sets, daily range): BP systolic 93–109; BP diastolic 52–58; PULSE 66–90; RESP 16; TEMP 36.6; O2SAT 93–95
[2024-02-15] MEDS: Metoprolol Tartrate 50 MG Tablet PO ×2 (05:15→21:06)
[2024-02-15] MEDS: Levothyroxine 50 MCG Tablet PO (05:15)
[2024-02-15] MEDS: Acetaminophen 500 MG Tablet 1000 MG PO ×3 (05:16→21:09)
[2024-02-15 06:05] LABS: International Normalized Ratio 2.8; Prothrombin Time (Protime)PT. 29.5 SECONDS (11.7-14.9)
[2024-02-15] MEDS: Calcium Carbonate 500 MG Tablet 1000 MG PO (08:34)
[2024-02-15] MEDS: Multivitamins,Therapeutic Tablet 1 TABLET PO (08:35)
[2024-02-15] MEDS: Sertraline 50 MG Tablet PO (08:35)
[2024-02-15] MEDS: Pantoprazole Sodium 20 MG Tablet PO (08:35)
[2024-02-15] MEDS: Digoxin 125 MCG Tablet PO (08:37)
[2024-02-15] MEDS: Menthol/Lanolin/Calamine/Znox 113 GM Tube 1 APPLIC TOPICAL ×2 (08:38→21:05)
--- NOTE | 2024-02-15 14:03 | CASEMGMT ---
Social Work Insurance issued LCD 02/16, DC 02/17. SW phoned DIL to update on DC date. Confirmed [facility] and FWW requests. DIL confirmed and she will make arrangements for transport and pt to have assistance at home. SW presented to pts room and son was present. Son stated he will be home to care for pt and transport at DC. All in agreement to DC date. SW phoned referral to [facility]. Sent referral to [facility] for FWW. Plan: DC home with 02/17, [facility] PT/OT, FWW Griselda Mccall, OCC THERAPY ASST PEER SUPPORT SPECIALIST
--- NOTE | 2024-02-15 14:16 | DS.PCM_ITS ---
Providers Date of Admission: 02/06/24 Primary Care Physician: Dr. Cristofer Yadav MD Reason For Visit: LEFT HIP SURGERY Diagnosis Discharge Diagnosis (1) Debility: Status: Acute Code(s): R53.81 - Other malaise (2) Closed left hip fracture: Status: Acute Code(s): S72.002A - Fracture of unspecified part of neck of left femur, initial encounter for closed fracture (3) Atrial fibrillation with RVR: Status: Acute Code(s): I48.91 - Unspecified atrial fibrillation (4) Pulmonary embolism: Status: Acute Code(s): I26.99 - Other pulmonary embolism without acute cor pulmonale (5) Left leg DVT: Status: Acute Code(s): I82.402 - Acute embolism and thrombosis of unspecified deep veins of left lower extremity (6) Pneumonia: Status: Acute Code(s): J18.9 - Pneumonia, unspecified organism (7) History of breast cancer: Status: Acute Code(s): Z85.3 - Personal history of malignant neoplasm of breast (8) Atrial fibrillation: Status: Acute Code(s): I48.91 - Unspecified atrial fibrillation (9) HFrEF (heart failure with reduced ejection fraction): Status: Acute Code(s): I50.20 - Unspecified systolic (congestive) heart failure (10) Essential (primary) hypertension: Status: Acute Code(s): I10 - Essential (primary) hypertension (11) Hyperlipidemia: Status: Chronic Code(s): E78.5 - Hyperlipidemia, unspecified Qualifiers: Hyperlipidemia type: pure hypercholesterolemia Qualified Code(s): E 78.00 - Pure hypercholesterolemia, unspecified; E78.0 - Pure hypercholesterolemia (12) Hypothyroidism: Status: Acute Code(s): E03.9 - Hypothyroidism, unspecified (13) COVID-19: Status: Acute Code(s): U07.1 - COVID-19 (14) Depression: Status: Acute Code(s): F32.A - Depression, unspecified (15) GERD (gastroesophageal reflux disease): Status: Acute Code(s): K21.9 - Gastro-esophageal reflux disease without esophagitis (16) Osteoporosis: Status: Acute Code(s): M81.0 - Age-related osteoporosis without current pathological fracture Plan 78 year old female with below past medical history hospitalized for left hip fracture, underwent left IM nail fixation hip fracture 01/31/[address] Moseley, complicated by atrial fibrillation with RVR, pulmonary embolism, left lower extremity dvt, pneumonia, admitted to TCU with debility, here for rehabilitation, strengthening, prior to discharge home alone. * Debility - PT/OT. * Pain - Tylenol 1000mg q8, Tramadol 50mg q6 prn pain (1-5), Oxycodone 5mg q4 prn pain (6-10). * Bowel - Miralax 17gm daily, senna/colace 1 tablet bid. * Adult immunization - Administer pneumonia vaccine, covid vaccine, flu vaccine as appropriate. * DVT prophylaxis - on warfarin. * Cough - Tessalon 100mg q8 prn. * Calcium deficiency - TUMS 1000mg daily. * Pneumonia - Cefdinir 300mg bid thru 02/11/2024, Doxycycline 100mg bid thru 02/11/2024 * Atrial fibrillation - Metoprolol 50mg q8, Digoxin 125mcg daily, Warfarin 4mg/8mg alternating, monitor INR. * Hypothyroidism - Levothyroxine 50mcg daily. * Nutrition - MVI 1 tablet daily * GERD - Pantoprazole 20mg daily. 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 Medications at Discharge Home Medications multivitamin 1 tab PO DAILY supplement 03/01/17 sertraline 50 mg tablet 50 mg PO DAILY depression 03/01/17 esomeprazole magnesium 20 mg capsule,delayed release 20 mg PO DAILY ACID/PREVENT ULCERS 03/10/20 alendronate 70 mg tablet 70 mg PO TH 06/27/21 levothyroxine 50 mcg tablet 50 mcg PO DAILY THYROID 07/19/21 warfarin 4 mg tablet 4 mg PO .COMPLEX AFIB #180 tabs 02/05/24 acetaminophen 500 mg tablet 1,000 mg (2 x 500 mg) PO Q8 #0 tabs 02/15/24 calcium carbonate 1,000 mg (5 x 200 mg calcium (500 mg)) PO DAILYCM #0 tabs 02/15/24 digoxin 125 mcg (0.125 mg) tablet 125 mcg PO DAILY 30 days #30 tabs 02/15/24 metoprolol tartrate 50 mg tablet 50 mg PO Q8 30 days #90 tabs 02/15/24 mirtazapine 15 mg tablet 7.5 mg (1/2 x 15 mg) PO QHS 30 days #15 tabs 02/15/24 Hospital Course Operations - (See below.) Procedures None Summary of Care Provided Minutes Spent on Discharge: 35 Hospital Course: 78 year old female with below past medical history hospitalized for left hip fracture, underwent left IM nail fixation hip fracture 01/31/[address] Moseley, complicated by atrial fibrillation with RVR, pulmonary embolism, left lower extremity dvt, pneumonia, admitted to TCU with debility, here for rehabilitation, strengthening, prior to discharge home alone. Discharge home with 02/18/2024, [facility] PT/OT, FWW. Front wheeled walker: Patient is unsafe to use a cane and requires a walker for ambulation in the home and the community. Physical Exam Const alert General Appearance: cooperative HEENT normocephalic Eyes PERRL and EOMs intact bilaterally Neck supple, no JVD and no carotid bruits Resp normal respiratory effort, normal air movement and clear to auscultation bilaterally Cardio regular rate and regular rhythm GI normal to inspection, nondistended, normoactive bowel sounds, non-tender and non-distended Extremity normal capillary refill General Extremity: Negative for edema Skin no rashes or lesions noted General Skin Exam: no breakdown Psych affect normal Appearance: appropriate Medical Records Data Medical Nutrition Assessment Dietitian: Malnutrition Criteria Met Start: 02/13/24 13:34 Freq: Status: Active Protocol: Document 02/13/24 13:34 SLA (Rec: 02/13/24 13:34 SLA [id number]) Nutrition Malnutrition Evidence of Malnutrition Exists Yes Malnutrition (severe): Acute Illness/Injury Evidenced By Suboptimal Energy Intake ( Severe),Weight Loss (Severe) Intake Problem Inadequate Oral Intake Status Inactive Problem Clinical Problem Acute Disease or Injury Related Malnutrition Etiology related to recent hip surgery and inadequate energy intake Signs/Symptoms as evidenced by 2.7% unintended wt loss and po intake meeting <=50% of most meals x < 1 wk Status Active Problem Recommendation Dietitian Recommendations/Changes Continue regular diet. Will order 4 oz vanilla CIB w/ meals tid Will continue vanilla fortified pudding BID with lunch and dinner. Rec appetite stimulant to help encourage increased po intake . Weight / BMI Weight Weight: 62.324 kg Body Mass Index (BMI) 25.9 ABG / Lab / Microbiology Data 02/14/24 05:36 02/14/24 05:36 Laboratory: Laboratory Results - last 24 hr 02/15/24 05:35: PT 29.5 H, INR 2.8 Microbiology: Microbiology 02/12/24 05:40 Nasal Secretion SARS-CoV-2 Antigen (Rapid) - Final D/C Instructions Discharge Diet: No restrictions Discharge Activity: Return to Normal Activity, May Shower and Use Walker Weight Bearing Status: Weight bearing as tolerated Call your doctor if you observe: Fever of 101 or Higher, Inability to urinate, Inability to have a bowel movement, Shortness of breath, Dizziness, Fainting spells, Swelling in the ankles, Chest pain and Uncontrolled pain Additional Instructions: Discharge home with 02/18/2024, [facility] PT/OT, FWW. Front wheeled walker: Patient is unsafe to use a cane and requires a walker for ambulation in the home and the community. Please Follow Up With: Daniel Ramos MD When: As scheduled. Meaningful Use Info Meaningful Use Meaningful Use Diagnoses (Choose all that apply): None applicable Ischemic Stroke Statin Dosing Therapy Reference: STATIN DOSE THERAPY REFERENCE: * Patients > 75 years receive moderate or high dose statin therapy. * Patients 75 years or YOUNGER should receive HIGH intensity statin dose unless contraindicated. You will be required to document reason for non-treatment if statin daily dose does not meet guidelines. HIGH DOSE STATIN THERAPY DAILY Atorvastatin > than or = to 40 mg Rosuvastatin > than or = to 20 mg Amlodipine + Atorvastatin > than or = to 2.5/40 mg Ezetimibe + Simvastatin 10/80 mg Simvastatin 80mg Discharge Plan Admission Admit Date/Time: 02/06/24 16:53 Primary Reason for Your Visit: Debility. Attending Provider: Ziggy Almeida Chi Primary Care Provider: Cristofer Yadav Instructions Additional Instructions / Restrictions: Discharge home with 02/18/2024, [facility] PT/OT, FWW. Front wheeled walker: Patient is unsafe to use a cane and requires a walker for ambulation in the home and the community. Discharge Orders/Prescriptions Prescriptions: New acetaminophen 500 mg Tablet 1,000 mg PO Q8 Qty: 0 0RF calcium carbonate 200 mg calcium (500 mg) Tablet,Chewable 1,000 mg PO DAILYCM Qty: 0 0RF metoprolol tartrate 50 mg Tablet 50 mg PO Q8 30 Days Qty: 90 0RF digoxin 125 mcg (0.125 mg) Tablet 125 mcg PO DAILY 30 Days Qty: 30 0RF mirtazapine 15 mg Tablet 7.5 mg PO QHS 30 Days Qty: 15 0RF Continued alendronate 70 mg tablet 70 mg PO TH levothyroxine 50 mcg tablet 50 mcg PO DAILY multivitamin 1 EACH tablet 1 tab PO DAILY sertraline 50 MG tablet 50 mg PO DAILY Patient Comments: esomeprazole magnesium 20 MG capsule 20 mg PO DAILY warfarin 4 mg tablet 4 mg PO .COMPLEX Qty: 180 3RF Protocol: Dose Management Condition: Sunday Dose/Route: 8 mg Instruction: 2 x 4 mg tablets Condition: Sunday Dose/Route: 8 mg Instruction: 2 x 4 mg tablets Condition: Sunday Dose/Route: 8 mg Instruction: 2 x 4 mg tablets Condition: Sunday Dose/Route: 8 mg Instruction: 2 x 4 mg tablets Condition: Dose/Route: 4 mg Instruction: 1 x 4 mg tablet Condition: Sunday Dose/Route: 4 mg Instruction: 1 x 4 mg tablet Condition: Sunday Dose/Route: 4 mg Instruction: 1 x 4 mg tablet Protocol Text: Adjustment Start Date: Sunday01/14/24 INR Value: 1.4 INR Date: 01/14/24 Recheck Date: 01/28/24 Rx Instructions: 4 mg orally 2 tablets (8mg) by mouth every day except on : OR as directed- please give 180 tablets as dose changes often; Discontinued calcium carbonate [Calcium 600] 600 mg calcium (1,500 mg) tablet 1,200 mg PO DAILY dexamethasone 4 mg Tablet 6 mg PO DAILY 8 Days Qty: 12 0RF polyethylene glycol 3350 [Miralax] 17 gram/dose powder 17 g PO DAILY sennosides-docusate sodium [Senna with Docusate Sodium] 8.6-50 mg tablet 1 tab-cap PO BID benzonatate 200 mg capsule 100 mg PO Q8H PRN PRN (Reason: cough) acetaminophen 325 mg tablet 650 mg PO Q6H PRN (Reason: fever or pain 1-10) cefdinir 300 mg capsule 300 mg PO BID digoxin [Digitek] 125 mcg (0.125 mg) tablet 125 mcg PO DAILY doxycycline hyclate 100 mg capsule 100 mg PO BID metoprolol tartrate [Lopressor] 50 mg tablet 50 mg PO Q8H carvedilol 25 mg tablet 25 mg PO BID Qty: 180 3RF Referrals / Follow Up: Cristofer Yadav MD [Primary Care Provider] - Disposition Disposition (needs filled in before D/C Order can be placed): Home Health Service
--- NOTE | 2024-02-15 14:41 | MDS.RN ---
Information for the MDS was obtained from review of the clinical record, interview of resident, staff, and direct observation of resident?s care.
[2024-02-15] MEDS: Mirtazapine 15 MG Tablet 7.5 MG PO (21:07)
[2024-02-16] VITALS (7 sets, daily range): BP systolic 100–120; BP diastolic 52–64; PULSE 65–84; RESP 16; TEMP 36.2; O2SAT 94
[2024-02-16] MEDS: Metoprolol Tartrate 50 MG Tablet PO ×3 (05:42→22:00)
[2024-02-16] MEDS: Acetaminophen 500 MG Tablet 1000 MG PO ×3 (05:43→21:59)
[2024-02-16] MEDS: Levothyroxine 50 MCG Tablet PO (05:43)
[2024-02-16 08:03] LABS: International Normalized Ratio 2.1; Prothrombin Time (Protime)PT. 23.2 SECONDS (11.7-14.9)
[2024-02-16] MEDS: Digoxin 125 MCG Tablet PO (09:07)
[2024-02-16] MEDS: Calcium Carbonate 500 MG Tablet 1000 MG PO (09:07)
[2024-02-16] MEDS: Multivitamins,Therapeutic Tablet 1 TABLET PO (09:07)
[2024-02-16] MEDS: Pantoprazole Sodium 20 MG Tablet PO (09:07)
[2024-02-16] MEDS: Sertraline 50 MG Tablet PO (09:07)
[2024-02-16] MEDS: Menthol/Lanolin/Calamine/Znox 113 GM Tube 1 APPLIC TOPICAL ×2 (09:09→22:01)
[2024-02-16] MEDS: Mirtazapine 15 MG Tablet 7.5 MG PO (21:59)
[2024-02-17] VITALS (8 sets, daily range): BP systolic 94–136; BP diastolic 51–59; PULSE 64–76; RESP 18; TEMP 36.5; O2SAT 94
[2024-02-17] MEDS: Metoprolol Tartrate 50 MG Tablet PO ×3 (05:23→20:46)
[2024-02-17] MEDS: Acetaminophen 500 MG Tablet 1000 MG PO ×3 (05:26→20:50)
[2024-02-17] MEDS: Levothyroxine 50 MCG Tablet PO (05:26)
[2024-02-17] MEDS: Pantoprazole Sodium 20 MG Tablet PO (08:43)
[2024-02-17] MEDS: Sertraline 50 MG Tablet PO (08:43)
[2024-02-17] MEDS: Multivitamins,Therapeutic Tablet 1 TABLET PO (08:43)
[2024-02-17] MEDS: Calcium Carbonate 500 MG Tablet 1000 MG PO (08:43)
[2024-02-17] MEDS: Digoxin 125 MCG Tablet PO (08:44)
[2024-02-17] MEDS: Menthol/Lanolin/Calamine/Znox 113 GM Tube 1 APPLIC TOPICAL ×2 (08:44→20:50)
[2024-02-17 09:22] LABS: International Normalized Ratio 2.1; Prothrombin Time (Protime)PT. 23.8 SECONDS (11.7-14.9)
[2024-02-17] MEDS: Mirtazapine 15 MG Tablet 7.5 MG PO (20:46)
[2024-02-18 05:38] VITALS: BP 115/53; PULSE 61
[2024-02-18 05:39] VITALS: PULSE 61
[2024-02-18] MEDS: Levothyroxine 50 MCG Tablet PO (05:39)
[2024-02-18] MEDS: Acetaminophen 500 MG Tablet 1000 MG PO (05:39)
[2024-02-18] MEDS: Metoprolol Tartrate 50 MG Tablet PO (05:39)
[2024-02-18 08:09] VITALS: PULSE 71
[2024-02-18] MEDS: Multivitamins,Therapeutic Tablet 1 TABLET PO (08:09)
[2024-02-18] MEDS: Digoxin 125 MCG Tablet PO (08:09)
[2024-02-18] MEDS: Sertraline 50 MG Tablet PO (08:09)
[2024-02-18] MEDS: Pantoprazole Sodium 20 MG Tablet PO (08:09)
[2024-02-18] MEDS: Calcium Carbonate 500 MG Tablet 1000 MG PO (08:12)
[2024-02-18] MEDS: Menthol/Lanolin/Calamine/Znox 113 GM Tube 1 APPLIC TOPICAL (08:14)
--- NOTE | 2024-02-18 09:40 | CASEMGMT ---
Social Work BIMS () and PHQ-2 () completed for MDS assessment. Griselda Mccall MSW BULL DRIVER
--- NOTE | 2024-02-18 11:00 | NURSING ---
discharged home with family. discharge instructions, medications, and appointments reviewed with pt. denies questions or concerns
[2024-02-18 11:07] VITALS: BP 118/62; PULSE 62; RESP 17; TEMP 36.6; O2SAT 96
== END 2024-02-18 11:09 | disposition home health service (06) | DRG 559 ==
PROVIDERS: Admitting Provider Family Medicine Geriatric Medicine; PCP Family Medicine; Visit Provider Family Medicine Geriatric Medicine
DX: M80.052D Age-related osteoporosis with current pathological fracture, left femur, subsequent encounter for fracture with routine healing (principal); U07.1 COVID-19; I26.99 Other pulmonary embolism without acute cor pulmonale; I50.21 Acute systolic (congestive) heart failure; J18.9 Pneumonia, unspecified organism; E44.1 Mild protein-calorie malnutrition; I82.402 Acute embolism and thrombosis of unspecified deep veins of left lower extremity; I42.0 Dilated cardiomyopathy; I48.11 Longstanding persistent atrial fibrillation; I11.0 Hypertensive heart disease with heart failure; E03.9 Hypothyroidism, unspecified; F32.A Depression, unspecified; K21.9 Gastro-esophageal reflux disease without esophagitis; E78.00 Pure hypercholesterolemia, unspecified; G89.29 Other chronic pain; Z79.01 Long term (current) use of anticoagulants; Z79.83 Long term (current) use of bisphosphonates; Z79.899 Other long term (current) drug therapy; Z79.890 Hormone replacement therapy; Z23 Encounter for immunization; Z68.25 Body mass index [BMI] 25.0-25.9, adult
CPT/HCPCS: 36415; 80048; 85025; 85610; 87811; 90480; 90662; 90677; 91322; 97110; 97116; 97162; 97166; 97530; 97535; 97802

== ENCOUNTER 2024-03-12 15:07 | Outpatient (CLI) | payer MEDICARE, SELFPAY ==
[2023-12-20 14:01] VITALS: BMI 24.4
[2024-03-12 15:00] LABS: International Normalized Ratio 1.7; Prothrombin Time (Protime)PT. 20.2 SECONDS (11.7-14.9)
== END 2024-03-12 23:59 | disposition home or self-care (01) ==
PROVIDERS: Physician Assistant Medical; PCP Family Medicine; Referring Provider Internal Medicine Cardiovascular Disease; Visit Provider Internal Medicine Cardiovascular Disease
DX: Z79.01 Long term (current) use of anticoagulants (principal)
CPT/HCPCS: 36591; 85610; A4216

== ENCOUNTER → 2024-04-10 | Outpatient (CLI) | payer MEDICARE, SELFPAY ==
[2023-12-20 14:01] VITALS: BMI 24.4
--- NOTE | 2024-04-10 13:50 | BI_ITS ---
MAMMOGRAPHY - BILATERAL SCREENING REASON FOR EXAM: Female, 78 years old. Routine annual screening examination. PERTINENT HISTORY: Personal history of breast cancer. Prior left lumpectomy with chemotherapy and radiation therapy. TECHNIQUE: Digital bilateral breast griselda (3D mammographic acquisition) in the CC and MLO projections. 2-D mediolateral oblique (MLO) and craniocaudad (CC) views of both breasts were obtained. CAD: Full Field Digital Mammography with Computer Added Detection was performed. COMPARISON: Comparison is made with prior study done March 23, 2023 and March 20, 2022. FINDINGS: Breast Composition: There are scattered areas of fibroglandular density. There are no dominant masses or suspicious calcifications. Once again, the patient is status post lumpectomy in the retroareolar region of the left breast with resultant postoperative scarring and nipple inversion. Stable bilateral secretory calcifications. No other significant abnormalities are identified. There has been no significant change since the prior study. BI/SCRN MAMM (CAD)W/GRISELDA BILAT IMPRESSION: Stable bilateral screening mammogram. Yearly follow-up mammogram recommended. (A) ASSESSMENT CATEGORY: BIRADS Category 2: Benign. A letter regarding these results will be sent to the patient by the facility within 30 days. Approximately 10% of breast cancers are not detected by mammography. A normal mammogram should not delay biopsy of a clinically suspicious abnormality. [id number] Electronically Signed: Yosef Woodruff MD at 14:46 EST ,
--- NOTE | 2024-04-10 13:50 | BD_ITS ---
STUDY: DUAL ENERGY X-RAY ABSORPTIOMETRY / DXA REASON FOR EXAM: Female, 78 years old. [id number] TECHNIQUE: Bone Mineral Density (BMD) measurements of lumbar spine and right hip were obtained. COMPARISON: Comparison is made with prior study dated April 14, 2021. FINDINGS: Lumbar Spine (L1-L4): g/cm2 (0.817) / T-score (-2.2) / Z-score (0.4) Findings are suggestive of osteopenia with a high fracture risk. Right Femur Total: g/cm2 (0.672) / T-score (-2.2) / Z-score (-0.2) Right Femoral Neck: g/cm2 (0.582) / T-score (-2.4) / Z-score (by 0.2) The T-Scores on the most recent prior examination were: Lumbar Spine (L1-L4): There has been improvement of bone density since the previous examination. Right Femur Total: which represents an improvement of 4.6%. BD/Dexa Bone Density Study IMPRESSION: The patient is considered osteopenic as outlined below according to World [employer] Organization (WHO) criteria with a high fracture risk. There has been worsening of bone density since the previous examination. Reference Information: The T-score is the number of standard deviations above or below the standard which is normal for young adults at their peak bone mineral density. The World Health Organization (WHO) interprets the T-scores as follows: Above -1 Normal bone density Between -1 and -2.5 Osteopenia Equal to / or below -2.5 Osteoporosis As a practical clinical guideline, osteopenia may be graded as follows: Mild -1 through -1.5 Moderate -1.6 through -2.0 Severe -2.1 through -2.4 The Z-score is the number of standard deviations above or below age-matched controls. A Z-score of less than -1.5 would be considered abnormal. References: 1. NIH Osteoporosis and Related Bone Diseases www osteo.org 2. International Society for Clinical Densitometry www iscd.org 3. National Osteoporosis Foundation www nof.org Electronically Signed: Yosef Woodruff MD at 11:28 EST ,
== END | disposition home or self-care (01) ==
LOC: OPBI 13:48
PROVIDERS: PCP Family Medicine; Referring Provider Student in an Organized Health Care Education/Training Program; Visit Provider Student in an Organized Health Care Education/Training Program
DX: Z12.31 Encounter for screening mammogram for malignant neoplasm of breast (principal); C50.412 Malignant neoplasm of upper-outer quadrant of left female breast; M81.0 Age-related osteoporosis without current pathological fracture; Z17.1 Estrogen receptor negative status [ER-]; Z78.0 Asymptomatic menopausal state
CPT/HCPCS: 77063; 77067; 77080

== ENCOUNTER 2024-04-17 15:05 | Outpatient (CLI) | payer MEDICARE, SELFPAY ==
[2023-12-20 14:01] VITALS: BMI 24.4
[2024-04-17 15:28] VITALS: BP 122/55; PULSE 80; RESP 16; TEMP 36.6; BMI 24.5
[2024-04-17] MEDS: DENOSUMAB 60 MG/ML SC (15:31)
== END 2024-04-17 23:59 | disposition home or self-care (01) ==
LOC: MEDOUTP 15:05
PROVIDERS: PCP Family Medicine; Referring Provider Family Medicine; Visit Provider Family Medicine
DX: M81.0 Age-related osteoporosis without current pathological fracture (principal)
CPT/HCPCS: 96372; J0897

== ENCOUNTER 2024-05-29 08:29 | Outpatient (RCR) | payer MEDICARE, SELFPAY ==
[2023-12-20 14:01] VITALS: BMI 24.4
[2024-05-22 13:28] LABS: International Normalized Ratio 1.8; Prothrombin Time (Protime)PT. 20.8 SECONDS (11.7-14.9)
[2024-05-29 12:34] LABS: International Normalized Ratio 2.2; Prothrombin Time (Protime)PT. 24.7 SECONDS (11.7-14.9)
== END 2024-05-30 23:59 ==
LOC: BIMLAB 08:29
PROVIDERS: PCP Family Medicine; Referring Provider Physician Assistant Medical; Visit Provider Physician Assistant Medical
DX: Z79.01 Long term (current) use of anticoagulants (principal)
CPT/HCPCS: 36415; 85610

== ENCOUNTER 2024-06-04 14:38 | Outpatient (RCR) | payer MEDICARE, SELFPAY ==
[2023-12-20 14:01] VITALS: BMI 24.4
[2024-06-04 16:22] LABS: International Normalized Ratio 2.1
== END 2024-06-27 23:59 ==
LOC: BIMLAB 14:38
PROVIDERS: PCP Family Medicine; Referring Provider Physician Assistant Medical; Visit Provider Physician Assistant Medical
DX: Z79.01 Long term (current) use of anticoagulants (principal)
CPT/HCPCS: 36415; 85610

== ENCOUNTER 2024-09-05 08:20 | Outpatient (CLI) | payer MEDICARE, SELFPAY ==
[2023-12-20 14:01] VITALS: BMI 24.4
[2024-09-05 08:53] LABS: Absolute Lymphocyte Count 1.73 X10^3/uL (0.83-4.51); Absolute Neutrophil Count 3.9 X10^3/uL (2.0-7.7); Basophil# 0.04 X10^3/uL; Basophil% 0.6 % (0-1); Eosinophil# 0.24 X10^3/uL; Eosinophils% 3.6 % (0-5); Hematocrit 42.1 % (37-47); Hemoglobin 13.7 g/dL (12.0-15.0); Lymphocyte # 1.73 X10^3/ul (0.83-4.51); Lymphocyte % 25.9 % (19-41); Mean Corp Hgb Conc 32.5 g/dL (32-36); Mean Corpuscular Hgb 28.8 pg (27.0-32.0); Mean Corpuscular Volume 88.4 fL (81-99); Mean Platelet Vol. 10.6 fl (6.2-12.0); Monocyte# 0.78 X10^3/uL; Monocyte% 11.7 % (0-10); NRBC Flagged by Analyzer 0 % (0-5); Neutrophil # 3.87 X10^3/uL (2.7-7.7); Neutrophil % 57.8 % (47-70); Platelet Count 198 K/mm3 (150-450); RBC Distribution Width CV 15.2 % (11.6-14.6); RBC Distribution Width SD 49.6 fl (35.1-43.9); Red Blood Count 4.76 M/mm3 (4.2-5.4); White Blood Count 6.7 K/mm3 (4.4-11.0)
[2024-09-05 09:00] LABS: International Normalized Ratio 2.9; Prothrombin Time (Protime)PT. 30.9 SECONDS (11.7-14.9)
[2024-09-05 10:14] LABS: Anion Gap 11 (5-15); BUN 21 mg/dL (4-19); BUN/Creat Ratio 26.9 RATIO (10-20); Carbon Dioxide 24.6 mmol/L (21.0-32.0); Chloride 105 mmol/L (98-108); Creatinine, Serum 0.78 mg/dL (0.70-1.20); EST Glomerular Filtration Rate 78 (>60); Free T3 2.6 pg/mL (2.18-3.98); Glucose 108 mg/dL (70-99); Potassium 4.3 mmol/L (3.3-5.1); Sodium Level 140 mmol/L (133-145); Vitamin D,25 Hydroxy 48.9 ng/mL (30-100)
== END 2024-09-05 23:59 | disposition home or self-care (01) ==
LOC: MEDOUTP 08:21
PROVIDERS: Nurse Practitioner Gerontology; PCP Family Medicine; Referring Provider Internal Medicine Cardiovascular Disease; Visit Provider Internal Medicine Cardiovascular Disease
DX: E55.9 Vitamin D deficiency, unspecified (principal); R53.83 Other fatigue; Z79.01 Long term (current) use of anticoagulants
CPT/HCPCS: 36591; 80048; 82306; 84439; 84443; 84481; 85025; 85610; A4216

== ENCOUNTER 2024-10-16 14:53 | Outpatient (CLI) | payer MEDICARE, SELFPAY ==
[2023-12-20 14:01] VITALS: BMI 24.4
[2024-10-16 14:59] VITALS: BP 128/70; PULSE 75; RESP 16; TEMP 36.4; O2SAT 100
[2024-10-16] MEDS: DENOSUMAB 60 MG/ML SC (15:02)
[2024-10-16 15:36] LABS: International Normalized Ratio 1.8; Prothrombin Time (Protime)PT. 21.5 SECONDS (11.7-14.9)
== END 2024-10-16 23:59 | disposition home or self-care (01) ==
PROVIDERS: PCP Family Medicine; Referring Provider Family Medicine; Visit Provider Family Medicine
DX: M81.0 Age-related osteoporosis without current pathological fracture (principal); I48.91 Unspecified atrial fibrillation; I82.402 Acute embolism and thrombosis of unspecified deep veins of left lower extremity; I26.99 Other pulmonary embolism without acute cor pulmonale; Z79.01 Long term (current) use of anticoagulants
CPT/HCPCS: 36591; 85610; 96372; A4216; J0897

== ENCOUNTER 2025-04-28 14:57 | Outpatient (CLI) | payer MEDICARE, SELFPAY ==
[2023-12-20 14:01] VITALS: BMI 24.4
[2025-04-28 15:21] VITALS: BP 110/67; PULSE 82; RESP 16; TEMP 36.8; O2SAT 98; BMI 25.4
[2025-04-28] MEDS: DENOSUMAB 60 MG/ML SC (15:24)
[2025-04-28 15:38] LABS: Prothrombin Time (Protime)PT. 23.5 SECONDS (11.7-14.9)
== END 2025-04-28 23:59 | disposition home or self-care (01) ==
LOC: MEDOUTP 14:57
PROVIDERS: Nurse Practitioner Gerontology; PCP Family Medicine; Referring Provider Family Medicine; Visit Provider Family Medicine
DX: M81.0 Age-related osteoporosis without current pathological fracture (principal); I48.91 Unspecified atrial fibrillation; I82.402 Acute embolism and thrombosis of unspecified deep veins of left lower extremity; I26.99 Other pulmonary embolism without acute cor pulmonale; Z79.01 Long term (current) use of anticoagulants
CPT/HCPCS: 36591; 85610; 96372; A4216; J0897

== ENCOUNTER → 2025-04-29 | Outpatient (CLI) | payer MEDICARE, SELFPAY ==
[2023-12-20 14:01] VITALS: BMI 24.4
--- NOTE | 2025-04-29 11:00 | BI_ITS ---
EXAM: SCRN MAMM (CAD)W/GRISELDA BILAT DATE: 04/29/2025 CLINICAL HISTORY: F, Age 79 y/o , ANNUAL SCREENING MAMMOGRAM TECHNIQUE: Procedure Code: [id number] Modality: MG Procedure: SCRN MAMM (CAD)W/GRISELDA BILAT COMPARISON: Prior exam(s) dated 04/10/2024. FINDINGS: TISSUE DENSITY: There are scattered areas of fibroglandular density. Bilateral Breast Mammographic Findings: No significant masses, calcifications or other abnormalities are identified. BI/SCRN MAMM (CAD)W/GRISELDA BILAT IMPRESSION: OVERALL FINAL ASSESSMENT BI-RADS 2: BENIGN RECOMMENDATION: Routine annual follow-up in 1 Year Additional Recommendation none A letter with findings and recommendations will be mailed to the patient. Reading Location: [id number]
== END | disposition home or self-care (01) ==
LOC: OPBI 10:56
PROVIDERS: PCP Family Medicine; Referring Provider Student in an Organized Health Care Education/Training Program; Visit Provider Student in an Organized Health Care Education/Training Program
DX: Z12.31 Encounter for screening mammogram for malignant neoplasm of breast (principal); Z85.3 Personal history of malignant neoplasm of breast
CPT/HCPCS: 77063; 77067